=== PATIENT | female | born 1950 | race Caucasian/White ===

== ENCOUNTER → 2016-07-17 | Outpatient (CLI) | payer OTHER ==
[~2016-07-17] MED LIST: ACET-1256 PO; CALC0.5C17 PO; CHOL100010 PO; CHOL20007 PO; CHOLCAP5 PO; HYD50 PO; MULT-663 PO; POTA1CAP2 PO; WARF-246 PO; WARF5TAB7 PO; [UNRECOGNIZED DRUG - OTHER] PO
--- NOTE | 2016-07-17 15:00 | MAMMOGRAPHY REPORT ---
BILATERAL DIGITAL SCREENING MAMMOGRAM WITH CAD: 07/17/2016 CLINICAL HISTORY: Routine screening. Patient has no complaints. TECHNIQUE: Bilateral CC and MLO views were obtained with repeat MLO views for more anterior compress ion. Current study was also evaluated with a Computer Aided Detection (CAD) system. COMPARISON: Comparison is made to exams dated: 07/13/2015 mammogram, 08/06/2012 mammogram, 07/01/2014 m ammogram, 08/11/2013 mammogram, 07/06/2011 mammogram, and 04/27/2010 mammogram - [facility]. BREAST COMPOSITION: There are scattered areas of fibroglandular density in both breasts. FINDINGS: There are scattered bilateral benign coarse and rim calcifications. No suspicious mass, a rchitectural distortion or cluster of microcalcifications is seen. IMPRESSION: ACR BI-RADS CATEGORY 2: BENIGN There is no mammographic evidence of malignancy. A 1 year screening mammogram is recommended. The p atient will receive written notification of the results. Approximately 10% of breast cancers are not detected with mammography. A negative mammographic repor t should not delay biopsy if a clinically suggestive mass is present. Ivone Pantoja M.D. ay/:07/17/2016 13:50:37 Speech Instructor: Karoline CALVIN(R)(M), [facility] letter sent: Normal 1/2 BI-RADS Code: ACR BI-RADS Category 2: Benign
== END | disposition home or self-care (01) ==
LOC: C.MAMM 10:48
PROVIDERS: ATTEND Nurse Practitioner
DX: Z12.31 Encounter for screening mammogram for malignant neoplasm of breast (principal)

== ENCOUNTER 2016-07-25 19:03 | Emergency (ER) | payer OTHER ==
[~2016-07-25] VITALS: Ht 165.1 cm; Wt 109.3 kg
[~2016-07-25 19:03] MED LIST changes: -CHOL20007 PO; -HYD50 PO; -POTA1CAP2 PO; -[UNRECOGNIZED DRUG - OTHER] PO
[2016-07-25 19:09] VITALS: TEMP 36.5; Ht 165.1 cm; Wt 109.3 kg
[2016-07-25] MEDS ORDERED: ALUMINUM/MAGNESIUM SUSP 30 ML UDC PO STA (19:18)
[2016-07-25 19:26] VITALS: O2SAT 94
[2016-07-25] MEDS ORDERED: CHOL20007 PO (19:35)
[2016-07-25 19:39] LABS: BASO % 0.7 %; BASO ABS # 0.06 K/uL (0-0.2); COMPLETE YES; HEMATOCRIT 41.3 % (37-47); IG% 0.3 %; LYMPH % 33.7 %; LYMPH ABS # 2.96 K/uL (1.2-3.4); MEAN CELL VOLUME 85.9 fL (80-100); MEAN CORPUSCULAR HEMOGLOBIN 29.5 pg (25-34); MEAN CORPUSCULAR HGB CONC 34.4 g/dl (32-36); MEAN PLATELET VOLUME 9.7 fL (7.4-10.4); MONO % 5.6 %; NEUT % 58.7 %; PLATELET COUNT 275 K/uL (130-400); RED BLOOD COUNT 4.81 M/uL (4.2-5.4); WHITE BLOOD COUNT 8.79 K/uL (4.8-10.8)
[2016-07-25 20:12] LABS: ALB/GLOB RATIO 0.9 (0.9-2); ALKALINE PHOSPHATASE 80 U/L (45-117); ALT/SGPT 24 U/L (12-78); AST/SGOT 22 U/L (15-37); BLOOD UREA NITROGEN 33 mg/dl (7-18); BUN/CREATININE RATIO 21.9 (10-20); CALCIUM 10.2 mg/dl (8.5-10.1); CARBON DIOXIDE 27 mmol/L (21-32); CHLORIDE 105 mmol/L (98-107); CKMB/CK RATIO 1.4 (0-3.0); GLUCOSE 91 mg/dl (70-99); POTASSIUM 3.8 mmol/L (3.5-5.1); SODIUM 142 mmol/L (136-145)
--- NOTE | 2016-07-25 20:17 | DIAGNOSTIC IMAGING REPORT ---
SINGLE VIEW CHEST CLINICAL HISTORY: Dyspnea. FINDINGS: An AP, portable, upright chest radiograph is compared to study dated 09/27/2015. Correlation is made with chest CT dated 09/05/2014. The examination is degraded by portable technique and patient rotation. The heart is mildly enlarged. The pulmonary vasculature is noncongested. Chronic elevation of left hemidiaphragm and interstitial thickening is similar to previous. There is mild bibasilar atelectasis. No airspace consolidation, large pleural effusion, or pneumothorax is seen. The skeletal structures are osteopenic. The bony thorax is grossly intact. IMPRESSION: Mild cardiac enlargement with no active disease in the chest. Electronically signed by: Jay Lewis M.D. 07/25/2016 8:16 PM Dictated Date/Time: 07/25/2016 8:15 PM
[2016-07-25] MEDS ORDERED: SODIUM CHLORIDE 0.9% 500ML 500 ML IV STA (20:24)
--- NOTE | 2016-07-25 20:26 | DIAGNOSTIC IMAGING REPORT ---
KUB CLINICAL HISTORY: Upper abdominal pain. Constipation. FINDINGS: 3 AP supine abdominal radiographs are compared to study dated 03/20/2016 and correlated with abdominal CT dated 08/28/2014. There is a nonobstructed abdominal bowel gas pattern noting moderate to severe colonic fecal retention. No evidence of intraperitoneal free air is seen on these supine views. There are no abnormal abdominal calcifications. Numerous pelvic phleboliths are similar to previous. The skeletal structures are osteopenic. There is lumbosacral spondylosis and scoliosis. The bony pelvis is grossly intact. IMPRESSION: Nonobstructed abdominal bowel gas pattern noting moderate to severe constipation. Electronically signed by: Jay Lewis M.D. 07/25/2016 8:24 PM Dictated Date/Time: 07/25/2016 8:23 PM
[2016-07-25] MEDS ORDERED: POTA1CAP2 PO (20:49)
[2016-07-25] MEDS ORDERED: HYD50 PO (20:49)
[2016-07-25 20:54] LABS: URINE APPEARANCE CLEAR (CLEAR); URINE BILIRUBIN NEG (NEG); URINE COLOR YELLOW; URINE NITRITE NEG (NEG); URINE SPECIFIC GRAVITY 1.018 (1.000-1.030); UROBILINOGEN NEG (NEG)
[2016-07-25 20:56] LABS: MANUAL MICROSCOPIC REQUIRED? NO; REVIEW REQ? NO
[2016-07-25 21:27] LABS: INR 2.6 (0.9-1.1); PARTIAL THROMBOPLASTIN RATIO 1.7; PROTHROMBIN TIME (PATIENT) 29.1 SECONDS (9.0-12.0)
[2016-07-25 22:16] VITALS: BP 128/82; PULSE 66; O2SAT 98
--- NOTE | 2016-07-26 00:53 | EMERGENCY ROOM VISIT NOTE ---
History Report prepared by Shilpa: Ingrid Escobar Under the Supervision of: Lennie PathakO. First contact with patient: 19:12 Chief Complaint: SHORTNESS OF BREATH Stated Complaint: SOB AT TIMES History of Present Illness The patient is a 66 year old female who presents to the Emergency Room with complaints of worsening shortness of breath with onset 4 days ago. Today, the patient noticed that her shortness of breath worsened this morning along with some upper abdominal pain. The patient has had persistent indigestion all day. The patient took a suppository this morning, which seemed to help some of the abdominal cramping. She notes that she had been burping more frequently. She has some back discomfort and occasionally has chest and jaw pain and some left arm pain. The patient has an occasional nonproductive cough. The patient is on Coumadin for a history of pulmonary embolus in 2014. She denies fevers. Source of History: patient Onset: 4 days ago Position: chest Quality: other (shortness of breath) Timing: worsening Associated Symptoms: + abdominal pain, + chest pain, + cough Note: She had persistent indigestion all day. She had some left arm pain and jaw pain. Review of Systems See HPI for pertinent positives & negatives. A total of 10 systems reviewed and were otherwise negative. Past Medical & Surgical Medical Problems: (1) Atrial flutter (2) Bilateral pulmonary embolism (3) Coumadin therapy (4) DVT Family History Gallbladder disease Heart disease Seizures Social History Smoking Status: Never Smoker Drug Use: none Marital Status: Housing Status: lives with significant other Occupation Status: employed Current/Historical Medications Scheduled Calcitriol (Calcitriol), 1 MCG PO HS Cholecalciferol (Vitamin D3), 5,000 INTER.UNIT PO DAILY Cholecalciferol (Vitamin D3), 1 TAB PO DAILY Hydrochlorothiazide (Hydrochlorothiazide), 50 MG PO DAILY Multiple Minerals W/ Vitamins (Citracal Plus), 1 TAB PO 2XWK Potassium Chloride (Potassium Chloride Er), 10 MEQ PO BID Warfarin Sod (Jantoven), 5 MG PO WK Warfarin Sodium (Warfarin Sodium), 7.5 MG PO 6XWK Scheduled PRN Acetaminophen (Tylenol), 500 MG PO BID PRN for Pain Allergies Coded Allergies: No Known Allergies (Unverified , 09/27/15) Physical Exam Vital Signs Date Time Temp Pulse Resp B/P Pulse Ox O2 Delivery O2 Flow Rate FiO2 07/25/16 22:16 66 18 128/82 98 07/25/16 21:16 80 18 119/72 93 Room Air 07/25/16 20:24 60 18 116/77 96 Room Air 07/25/16 19:34 82 07/25/16 19:26 94 Room Air 07/25/16 19:26 94 Room Air 07/25/16 19:26 94 Room Air 07/25/16 19:09 36.5 86 22 132/94 91 Room Air Physical Exam GENERAL: Patient is awake, alert, and in no acute distress. Patient is resting comfortably and showing no signs of anxiety EYES: The conjunctivae are clear. The pupils are round and reactive. EARS, NOSE, MOUTH AND THROAT: The nose is without any evidence of any deformity. Mucous membranes are moist tongue is midline NECK: The neck is nontender and supple. RESPIRATORY: Normal respiratory effort is noted there is no evidence of wheezing rhonchi or rales CARDIOVASCULAR: Regular rate and rhythm noted there no murmurs rubs or gallops normal S1 normal S2 GASTROINTESTINAL: The abdomen is soft. Bowel sounds are present in all quadrants. Abdomen is nontender MUSCULOSKELETAL/EXTREMITIES: There is no evidence of gross deformity full range of motion is noted in the hips and shoulders SKIN: There is no obvious evidence of any rash. There are no petechiae, pallor or cyanosis noted. NEUROLOGIC: Patient is awake alert and oriented x3 strength is symmetric patellar reflexes are 2+ bilaterally Medical Decision & Procedures ER Provider Diagnostic Interpretation: X-ray results as stated below per interpretation by me and the radiologist. SINGLE VIEW CHEST CLINICAL HISTORY: Dyspnea. FINDINGS: An AP, portable, upright chest radiograph is compared to study dated 09/27/2015. Correlation is made with chest CT dated 09/05/2014. The examination is degraded by portable technique and patient rotation. The heart is mildly enlarged. The pulmonary vasculature is noncongested. Chronic elevation of left hemidiaphragm and interstitial thickening is similar to previous. There is mild bibasilar atelectasis. No airspace consolidation, large pleural effusion, or pneumothorax is seen. The skeletal structures are osteopenic. The bony thorax is grossly intact. IMPRESSION: Mild cardiac enlargement with no active disease in the chest. Electronically signed by: Jay Lewis M.D. 07/25/2016 8:16 PM Dictated Date/Time: 07/25/2016 8:15 PM KUB CLINICAL HISTORY: Upper abdominal pain. Constipation. FINDINGS: 3 AP supine abdominal radiographs are compared to study dated 03/20/2016 and correlated with abdominal CT dated 08/28/2014. There is a nonobstructed abdominal bowel gas pattern noting moderate to severe colonic fecal retention. No evidence of intraperitoneal free air is seen on these supine views. There are no abnormal abdominal calcifications. Numerous pelvic phleboliths are similar to previous. The skeletal structures are osteopenic. There is lumbosacral spondylosis and scoliosis. The bony pelvis is grossly intact. IMPRESSION: Nonobstructed abdominal bowel gas pattern noting moderate to severe constipation. Electronically signed by: Jay Lewis M.D. 07/25/2016 8:24 PM Dictated Date/Time: 07/25/2016 8:23 PM Laboratory Results 07/25/16 19:25 Red Blood Count 4.81, Mean Corpuscular Volume 85.9, Mean Corpuscular Hemoglobin 29.5, Mean Corpuscular Hemoglobin Concent 34.4, Mean Platelet Volume 9.7, Neutrophils (%) (Auto) 58.7, Lymphocytes (%) (Auto) 33.7, Monocytes (%) (Auto) 5.6, Eosinophils (%) (Auto) 1.0, Basophils (%) (Auto) 0.7, Neutrophils # (Auto) 5.16, Lymphocytes # (Auto) 2.96, Monocytes # (Auto) 0.49, Eosinophils # (Auto) 0.09, Basophils # (Auto) 0.06 07/25/16 19:25 Test 07/25/16 00:00 07/25/16 19:25 Urine Color YELLOW Urine Appearance CLEAR (CLEAR) Urine pH 6.0 (4.5-7.5) Urine Specific [place] 1.018 (1.000-1.030) Urine Protein NEG (NEG) Urine Glucose (UA) NEG (NEG) Urine Ketones NEG (NEG) Urine Occult Blood 1+ (NEG) Urine Nitrite NEG (NEG) Urine Bilirubin NEG (NEG) Urine Urobilinogen NEG (NEG) Urine Leukocyte Esterase SMALL (NEG) Urine WBC (Auto) 5-10 /hpf (0-5) Urine RBC (Auto) 0-4 /hpf (0-4) Urine Hyaline Casts (Auto) 1-5 /lpf (0-5) Urine Epithelial Cells (Auto) 10-20 /lpf (0-5) Urine Bacteria (Auto) NEG (NEG) White Blood Count 8.79 K/uL (4.8-10.8) Red Blood Count 4.81 M/uL (4.2-5.4) Hemoglobin 14.2 g/dL (12.0-16.0) Hematocrit 41.3 % (37-47) Mean Corpuscular Volume 85.9 fL (80-100) Mean Corpuscular Hemoglobin 29.5 pg (25-34) Mean Corpuscular Hemoglobin Concent 34.4 g/dl (32-36) Platelet Count 275 K/uL (130-400) Mean Platelet Volume 9.7 fL (7.4-10.4) Neutrophils (%) (Auto) 58.7 % Lymphocytes (%) (Auto) 33.7 % Monocytes (%) (Auto) 5.6 % Eosinophils (%) (Auto) 1.0 % Basophils (%) (Auto) 0.7 % Neutrophils # (Auto) 5.16 K/uL (1.4-6.5) Lymphocytes # (Auto) 2.96 K/uL (1.2-3.4) Monocytes # (Auto) 0.49 K/uL (0.11-0.59) Eosinophils # (Auto) 0.09 K/uL (0-0.5) Basophils # (Auto) 0.06 K/uL (0-0.2) RDW Standard Deviation 47.8 fL (36.4-46.3) RDW Coefficient of Variation 15.1 % (11.5-14.5) Immature Granulocyte % (Auto) 0.3 % Immature Granulocyte # (Auto) 0.03 K/uL (0.00-0.02) Prothrombin Time 29.1 SECONDS (9.0-12.0) Prothromb Time International Ratio 2.6 (0.9-1.1) Activated Partial Thromboplast Time 44.6 SECONDS (21.0-31.0) Partial Thromboplastin Ratio 1.7 D-Dimer < 190 ug/L FEU (0-500) Anion Gap 10.0 mmol/L (3-11) Est Creatinine Clear Calc Drug Dose 45.4 ml/min Estimated GFR () 41.6 Estimated GFR (Non- 35.9 BUN/Creatinine Ratio 21.9 (10-20) Calcium Level 10.2 mg/dl (8.5-10.1) Total Bilirubin 0.8 mg/dl (0.2-1) Aspartate Amino Transf (AST/SGOT) 22 U/L (15-37) Alanine Aminotransferase (ALT/SGPT) 24 U/L (12-78) Alkaline Phosphatase 80 U/L (45-117) Total Creatine Kinase 145 U/L (26-192) Creatine Kinase MB 2.0 ng/ml (0.5-3.6) Creatine Kinase MB Ratio 1.4 (0-3.0) Troponin I < 0.015 ng/ml (0-0.045) Pro-B-Type Natriuretic Peptide 87 pg/ml (0-900) Total Protein 7.5 gm/dl (6.4-8.2) Albumin 3.6 gm/dl (3.4-5.0) Globulin 3.9 gm/dl (2.5-4.0) Albumin/Globulin Ratio 0.9 (0.9-2) Chemistry Specimen Hemolysis Laboratory results per my review. Medications Administered Medications (Trade) Dose Ordered Sig/Edmund Route Start Time Stop Time Status Last Admin Dose Admin Al Hydroxide/Mg Hydroxide 30 ml 30 ml NOW STAT PO 07/25/16 19:18 07/25/16 19:20 DC 07/25/16 19:36 30 ML Sodium Chloride (Nss 500ml) 500 ml @ 999 mls/hr Q31M STAT IV 07/25/16 20:24 07/25/16 20:54 DC 07/25/16 20:30 999 MLS/HR ECG Indication: SOB/dyspnea Rate (beats per minute): 81 Rhythm: normal sinus Findings: no ectopy, other (no acute ST segment abnormality) Comparison ECG Date: September 05, 2014 Change: no significant change ED Course 1913: The patient was evaluated in room C8. A complete history and physical examination were performed. 1917: Maalox Susp 30 ml PO 2023: NSS 500 ml @ 999 mls/hr IV 2209: Upon reevaluation, the patient is doing well. I discussed the results and treatment plan with the patient. She verbalized agreement of the treatment plan. The patient was discharged home. Medical Decision Differential diagnosis: Etiologies such as infections, reactive airway disease, pneumonia, pneumothorax , COPD, CHF, cardiac ischemia, pulmonary embolism, musculoskeletal, gastrointestinal, as well as others were entertained. Nursing notes reviewed. The patient is a 66-year-old female who presented to the emergency department for an evaluation of epigastric discomfort and shortness of breath. Patient is a history of pulmonary embolism. She is currently taking anticoagulation. The patient was concerned because she thought she might be having a cardiac issue. I discussed the patient's laboratory and radiographic studies with her. Her EKG did not show any acute changes from previous and her cardiac biomarkers were not elevated. The patient was treated with Maalox in the emergency department. She was encouraged to rest and avoid any strenuous activity. She is also encouraged to call her family doctor in the morning to schedule follow-up appointment. She's also encouraged return to the emergency apartment immediately if symptoms change worsen or the need arises. I discussed the limitations of the emergency department workup for chest pain with her. The patient was also treated with a small fluid bolus because her creatinine was mildly elevated compared to previous. She was encouraged to discuss the possibility that she may require further testing such as stress testing as well as repeat laboratory studies to ensure her creatinine was improved. Impression Primary Impression: Epigastric abdominal pain Additional Impression: Shortness of breath Scribe Attestation The scribe's documentation has been prepared under my direction and personally reviewed by me in its entirety. I confirm that the note above accurately reflects all work, treatment, procedures, and medical decision making performed by me. Departure Information Dispostion Home / Self-Care Referrals Agapito Nava M.D. (PCP) Forms HOME CARE DOCUMENTATION FORM, IMPORTANT VISIT INFORMATION Patient Instructions ED Chest Pain Atypical Unkn Cause, My [facility] Additional Instructions Call your primary care physician in the morning to schedule a follow-up appointment. Rest and avoid any strenuous activity. Continue all medications as prescribed. I would recommend further testing at the discretion of your primary care physician such as echocardiogram or stress testing. I would also recommend he have laboratory studies rechecked including your kidney function as well as her calcium because of her abnormal today in the emergency department. Return to the emergency Department immediately if symptoms change worsen in the need arises. Problem Qualifiers
[2016-09-19] MEDS ORDERED: [UNRECOGNIZED DRUG - OTHER] PO (13:55)
== END 2016-07-25 22:17 | disposition home or self-care (01) ==
LOC: C.EDB 19:05 → C.EDC 22:17
DX: R10.13 Epigastric pain (principal); K59.00 Constipation, unspecified; M41.9 Scoliosis, unspecified; M47.817 Spondylosis without myelopathy or radiculopathy, lumbosacral region; Z79.01 Long term (current) use of anticoagulants; Z82.0 Family history of epilepsy and other diseases of the nervous system; R06.02 Shortness of breath; Z86.711 Personal history of pulmonary embolism

== ENCOUNTER 2016-08-10 04:08 | Emergency (ER) | payer OTHER ==
[~2016-08-10] VITALS: Ht 165.1 cm; Wt 110.4 kg
[~2016-08-10 04:08] MED LIST changes: -CHOL100010 PO; +CHOL20007 PO; +HYD50 PO; +POTA1CAP2 PO
[2016-08-10 04:10] VITALS: TEMP 36.7; Ht 165.1 cm; Wt 110.4 kg
[2016-08-10] MEDS ORDERED: SODIUM CHLORIDE 0.9% 1000ML 1,000 ML IV STA (04:24)
[2016-08-10 04:46] LABS: BASO % 0.6 %; BASO ABS # 0.04 K/uL (0-0.2); COMPLETE YES; EOS % 2.1 %; HEMATOCRIT 41.2 % (37-47); IG% 0.2 %; LYMPH ABS # 2.79 K/uL (1.2-3.4); MEAN CORPUSCULAR HEMOGLOBIN 29.6 pg (25-34); MEAN CORPUSCULAR HGB CONC 34.5 g/dl (32-36); MEAN PLATELET VOLUME 9.7 fL (7.4-10.4); MONO % 5.7 %; NEUT % 49.4 %; PLATELET COUNT 275 K/uL (130-400); RED BLOOD COUNT 4.79 M/uL (4.2-5.4); WHITE BLOOD COUNT 6.64 K/uL (4.8-10.8)
[2016-08-10 04:53] LABS: URINE APPEARANCE CLEAR (CLEAR); URINE BILIRUBIN NEG (NEG); URINE COLOR YELLOW; URINE EPITHELIAL CELL AUTO 0-5 /lpf (0-5); URINE NITRITE NEG (NEG); URINE SPECIFIC GRAVITY 1.001 (1.000-1.030); UROBILINOGEN NEG (NEG); ZZUR CULT IF INDIC CLEAN CATCH NO
[2016-08-10 04:54] LABS: MANUAL MICROSCOPIC REQUIRED? NO; REVIEW REQ? NO
[2016-08-10 05:04] LABS: BUN/CREATININE RATIO 16.9 (10-20); CALCIUM 9.7 mg/dl (8.5-10.1); CREATININE 1.1 mg/dl (0.60-1.20); POTASSIUM 3.7 mmol/L (3.5-5.1)
--- NOTE | 2016-08-10 05:12 | EMERGENCY ROOM VISIT NOTE ---
History Report prepared by Shilpa: Salena Oliveros Under the Supervision of: Dr. Mina Riddle D.O. First contact with patient: 04:16 Chief Complaint: LEG PAIN,LEG INJURY Stated Complaint: PAIN IN LEGS,FREQ URINEATION History of Present Illness The patient is a 66 year old female who presents to the Emergency Room with complaints of persistent frequent urination over the past 4 days. She has not been sleeping well because she has been having to get up so often to urinate. She also complains of bilateral leg pain that began last night. She describes the pain as tight and achy. The patient has a history of abnormal calcium levels due to an underlying metabolic disorder. She notes that her calcium was elevated at 10.3 about a week and a half ago. Currently, she feels that her symptoms may be related to an abnormal calcium level. She does not think that she has a urinary tract infection. Source of History: patient Onset: 4 days ago Position: other () Quality: other (frequent urination) Timing: other (persistent) Note: Other symptoms: tight/achy legs Review of Systems See HPI for pertinent positives & negatives. A total of 10 systems reviewed and were otherwise negative. Past Medical & Surgical Medical Problems: (1) Atrial flutter (2) Bilateral pulmonary embolism (3) Coumadin therapy (4) DVT Family History Gallbladder disease Heart disease Seizures Social History Smoking Status: Former Smoker Drug Use: none Marital Status: Housing Status: lives with significant other Occupation Status: employed Current/Historical Medications Scheduled Calcitriol (Calcitriol), 1 MCG PO HS Cholecalciferol (Vitamin D3), 5,000 INTER.UNIT PO DAILY Cholecalciferol (Vitamin D3), 1 TAB PO DAILY Hydrochlorothiazide (Hydrochlorothiazide), 50 MG PO DAILY Multiple Minerals W/ Vitamins (Citracal Plus), 1 TAB PO 2XWK Potassium Chloride (Potassium Chloride Er), 10 MEQ PO BID Warfarin Sod (Jantoven), 5 MG PO WK Warfarin Sodium (Warfarin Sodium), 7.5 MG PO 6XWK Scheduled PRN Acetaminophen (Tylenol), 500 MG PO BID PRN for Pain Allergies Coded Allergies: No Known Allergies (Unverified , 08/10/16) Physical Exam Vital Signs Date Time Temp Pulse Resp B/P Pulse Ox O2 Delivery O2 Flow Rate FiO2 08/10/16 04:10 36.7 69 20 166/91 94 Room Air Physical Exam CONSTITUTIONAL/VITAL SIGNS: Reviewed / noted above. GENERAL: Non-toxic in appearance. INTEGUMENTARY: Warm, dry, and [place]. HEAD: Normocephalic. EYES: without scleral icterus or trauma. ENT/OROPHARYNX: clear and moist. LYMPHADENOPATHY/NECK: Is supple without lymphadenopathy or meningismus. RESPIRATORY: Lungs clear and equal. CARDIOVASCULAR: Regular rate and rhythm. GI/ABDOMEN: Soft and nontender. No organomegaly or pulsatile mass. No rebound or guarding. Normal bowel sounds. EXTREMITIES: Warm and well perfused. BACK: No CVA tenderness. NEUROLOGICAL: Intact without focal deficits. PSYCHIATRIC: normal affect. MUSCULOSKELETAL: Normally developed with good muscle tone. Medical Decision & Procedures Laboratory Results 08/10/16 04:30 Red Blood Count 4.79, Mean Corpuscular Volume 86.0, Mean Corpuscular Hemoglobin 29.6, Mean Corpuscular Hemoglobin Concent 34.5, Mean Platelet Volume 9.7, Neutrophils (%) (Auto) 49.4, Lymphocytes (%) (Auto) 42.0, Monocytes (%) (Auto) 5.7, Eosinophils (%) (Auto) 2.1, Basophils (%) (Auto) 0.6, Neutrophils # (Auto) 3.28, Lymphocytes # (Auto) 2.79, Monocytes # (Auto) 0.38, Eosinophils # (Auto) 0.14, Basophils # (Auto) 0.04 08/10/16 04:30 Test 08/10/16 04:25 08/10/16 04:30 Urine Color YELLOW Urine Appearance CLEAR (CLEAR) Urine pH 8.0 (4.5-7.5) Urine Specific [place] 1.001 (1.000-1.030) Urine Protein NEG (NEG) Urine Glucose (UA) NEG (NEG) Urine Ketones NEG (NEG) Urine Occult Blood NEG (NEG) Urine Nitrite NEG (NEG) Urine Bilirubin NEG (NEG) Urine Urobilinogen NEG (NEG) Urine Leukocyte Esterase NEG (NEG) Urine WBC (Auto) 1-5 /hpf (0-5) Urine RBC (Auto) 0-4 /hpf (0-4) Urine Hyaline Casts (Auto) 0 /lpf (0-5) Urine Epithelial Cells (Auto) 0-5 /lpf (0-5) Urine Bacteria (Auto) NEG (NEG) White Blood Count 6.64 K/uL (4.8-10.8) Red Blood Count 4.79 M/uL (4.2-5.4) Hemoglobin 14.2 g/dL (12.0-16.0) Hematocrit 41.2 % (37-47) Mean Corpuscular Volume 86.0 fL (80-100) Mean Corpuscular Hemoglobin 29.6 pg (25-34) Mean Corpuscular Hemoglobin Concent 34.5 g/dl (32-36) Platelet Count 275 K/uL (130-400) Mean Platelet Volume 9.7 fL (7.4-10.4) Neutrophils (%) (Auto) 49.4 % Lymphocytes (%) (Auto) 42.0 % Monocytes (%) (Auto) 5.7 % Eosinophils (%) (Auto) 2.1 % Basophils (%) (Auto) 0.6 % Neutrophils # (Auto) 3.28 K/uL (1.4-6.5) Lymphocytes # (Auto) 2.79 K/uL (1.2-3.4) Monocytes # (Auto) 0.38 K/uL (0.11-0.59) Eosinophils # (Auto) 0.14 K/uL (0-0.5) Basophils # (Auto) 0.04 K/uL (0-0.2) RDW Standard Deviation 48.1 fL (36.4-46.3) RDW Coefficient of Variation 15.2 % (11.5-14.5) Immature Granulocyte % (Auto) 0.2 % Immature Granulocyte # (Auto) 0.01 K/uL (0.00-0.02) Anion Gap 8.0 mmol/L (3-11) Est Creatinine Clear Calc Drug Dose 62.2 ml/min Estimated GFR () 60.6 Estimated GFR (Non- 52.3 BUN/Creatinine Ratio 16.9 (10-20) Calcium Level 9.7 mg/dl (8.5-10.1) Total Bilirubin 0.8 mg/dl (0.2-1) Direct Bilirubin 0.2 mg/dl (0-0.2) Aspartate Amino Transf (AST/SGOT) 15 U/L (15-37) Alanine Aminotransferase (ALT/SGPT) 25 U/L (12-78) Alkaline Phosphatase 84 U/L (45-117) Total Creatine Kinase 124 U/L (26-192) Creatine Kinase MB 2.3 ng/ml (0.5-3.6) Creatine Kinase MB Ratio 1.9 (0-3.0) Total Protein 7.4 gm/dl (6.4-8.2) Albumin 3.8 gm/dl (3.4-5.0) Thyroid Stimulating Hormone (TSH) 3.100 uIu/ml (0.300-4.500) Laboratory results as stated above per my review. Medications Administered Medications (Trade) Dose Ordered Sig/Edmund Route Start Time Stop Time Status Last Admin Dose Admin Sodium Chloride (Nss 1000ml) 1,000 ml @ 999 mls/hr Q1H1M STAT IV 08/10/16 04:24 08/10/16 05:24 08/10/16 04:39 999 MLS/HR ED Course 0421: Previous medical records were reviewed. The patient was evaluated in room A10. A complete history and physical examination was performed. 0424: Ordered NSS 1000 ml @ 999 mls/hr IV. 0510: On reevaluation, the patient is resting comfortably. I discussed the results and findings with the patient. She verbalized agreement of the treatment plan. The patient was discharged home. Medical Decision Differential includes acute coronary syndrome, myocardial infarction, CVA, TIA, anemia, infection, pneumonia, UTI, pyelonephritis, poor nutrition, dehydration, electrolyte disturbance,hypoglycemia. This a 66-year-old female who presents to the ED with a chief complaint of frequency in urination as well as concerns about calcium level and dehydration. She complains of some mild discomfort in her legs. The patient states that she has a history of hypercalcemia and was worried about her calcium level being high. She denies any other specific complaints. No chest pains or shortness of breath. No abdominal pains. Physical exam was normal. Vital signs are stable. CBC is normal. Chemistry panel was normal. Calcium level is normal. Urine did not show infection. The patient was told results. She was hydrated with IV fluids. She is felt to be stable for discharge. Impression Primary Impression: Urinary frequency Additional Impression: Leg pain, bilateral Scribe Attestation The scribe's documentation has been prepared under my direction and personally reviewed by me in its entirety. I confirm that the note above accurately reflects all work, treatment, procedures, and medical decision making performed by me. Departure Information Dispostion Home / Self-Care Referrals Agapito Nava M.D. (PCP) Patient Instructions My [facility] Additional Instructions Your calcium level today is normal. Urine did not show infection. Follow-up with your doctors. Problem Qualifiers
[2016-08-10 05:15] LABS: CKMB/CK RATIO 1.9 (0-3.0); THYROID STIMULATING HORMONE 3.1 uIu/ml (0.300-4.500)
[2016-08-10 05:36] VITALS: BP 140/98; PULSE 62; O2SAT 98
[2016-09-19] MEDS ORDERED: [UNRECOGNIZED DRUG - OTHER] PO (13:55)
== END 2016-08-10 05:36 | disposition home or self-care (01) ==
LOC: C.EDB 04:09 → C.EDA 05:36
DX: R35.0 Frequency of micturition (principal); M79.605 Pain in left leg; M79.604 Pain in right leg; Z86.711 Personal history of pulmonary embolism; Z86.718 Personal history of other venous thrombosis and embolism; I48.92 Unspecified atrial flutter; Z87.891 Personal history of nicotine dependence; Z79.01 Long term (current) use of anticoagulants; Z79.899 Other long term (current) drug therapy; R51 Headache; I10 Essential (primary) hypertension

== ENCOUNTER 2016-08-10 18:14 | Emergency (ER) | payer OTHER ==
[~2016-08-10] VITALS: Ht 165.1 cm; Wt 110.9 kg
[2016-08-10 18:24] VITALS: Ht 165.1 cm; Wt 110.9 kg
[2016-08-10] MEDS ORDERED: ACETAMINOPHEN 500 MG TAB PO STA (19:05)
[2016-08-10] MEDS ORDERED: OXYCODONE HCL IR 5 MG TAB (IMMEDIATE RELEASE) PO STA (19:05)
[2016-08-10] MEDS ORDERED: ONDANSETRON 4MG OD TAB PO ONE (19:15)
--- NOTE | 2016-08-10 19:17 | EMERGENCY ROOM VISIT NOTE ---
History Report prepared by Shilpa: Shaheed Saucedo Under the Supervision of: Lennie PathakO. First contact with patient: 18:57 Chief Complaint: HYPERTENSION Stated Complaint: HEADACHE AND VERY HIGH BLOOD PRESSURE History of Present Illness The patient is a 66 year old female who presents to the Emergency Room with complaints of a persistent headache about 1.5 hours ago. She notes she was here overnight last night and was given fluids which lowered her calcium and BUN. She was constipated after returning home, and administered a fleet enema. This morning she reports her blood pressure was elevated, and she began to have a headache about 1.5 hour ago. She rates the headache an 8/10 in severity. The patient states she is on Coumadin and last had her level check 1.5 weeks ago which was 2.6 at the time. She denies any nausea or vomiting though notes having some dizziness. She reports sometimes getting caffeine headaches. The patient notes taking 25 mg of hydrochlorothiazide. Source of History: patient Onset: about 1.5 hours ago Position: head Symptom Intensity: 8/10 in severity Quality: other (headache) Timing: other (persistent) Associated Symptoms: No nausea, No vomiting Note: The patient notes having some dizziness. Review of Systems See HPI for pertinent positives & negatives. A total of 10 systems reviewed and were otherwise negative. Past Medical & Surgical Medical Problems: (1) Atrial flutter (2) Bilateral pulmonary embolism (3) Coumadin therapy (4) DVT Family History Gallbladder disease Heart disease Seizures Social History Smoking Status: Former Smoker Drug Use: none Marital Status: Housing Status: lives with significant other Occupation Status: employed Current/Historical Medications Scheduled Calcitriol (Calcitriol), 1 MCG PO HS Cholecalciferol (Vitamin D3), 5,000 INTER.UNIT PO DAILY Hydrochlorothiazide (Hydrochlorothiazide), 25 MG PO DAILY Potassium Chloride (Potassium Chloride Er), 10 MEQ PO BID Warfarin Sod (Jantoven), 5 MG PO WK Warfarin Sodium (Warfarin Sodium), 7.5 MG PO [id number] Scheduled PRN Acetaminophen (Tylenol), 500 MG PO BID PRN for Pain Allergies Coded Allergies: No Known Allergies (Unverified , 08/10/16) Physical Exam Vital Signs Date Time Temp Pulse Resp B/P Pulse Ox O2 Delivery O2 Flow Rate FiO2 08/10/16 20:13 36.3 62 18 124/71 100 08/10/16 19:25 74 18 152/99 97 Room Air 08/10/16 18:24 36.3 62 20 161/92 97 Room Air Physical Exam GENERAL: Patient is awake alert, somewhat anxious and uncomfortable. EYES: The conjunctivae are clear. The pupils are round and reactive. EARS, NOSE, MOUTH AND THROAT: The nose is without any evidence of any deformity. Mucous membranes are moist tongue is midline NECK: The neck is nontender and supple. RESPIRATORY: Normal respiratory effort is noted there is no evidence of wheezing rhonchi or rales CARDIOVASCULAR: Regular rate and rhythm noted there no murmurs rubs or gallops normal S1 normal S2 GASTROINTESTINAL: The abdomen is soft. Bowel sounds are present in all quadrants. Abdomen is nontender MUSCULOSKELETAL/EXTREMITIES: There is no evidence of gross deformity full range of motion is noted in the hips and shoulders SKIN: There is no obvious evidence of any rash. There are no petechiae, pallor or cyanosis noted. NEUROLOGIC: Patient is awake alert and oriented x3 strength is symmetric patellar reflexes are 2+ bilaterally Medical Decision & Procedures ER Provider Diagnostic Interpretation: Radiology results as stated below per my review and radiologist interpretation: HEAD CT NONCONTRAST Findings: The paranasal sinuses and mastoid air cells are clear. The calvarium and skull base are intact. The ventricles and sulci are within normal limits. There is no mass, hematoma, midline shift, or acute infarct. Impression: No acute intracranial abnormality. Electronically signed by: Cesar Boo M.D. 08/10/2016 7:35 PM Dictated Date/Time: 08/10/2016 7:34 PM Medications Administered Medications (Trade) Dose Ordered Sig/Edmund Route Start Time Stop Time Status Last Admin Dose Admin Ondansetron HCl (Zofran Odt) 4 mg ONE ONCE PO 08/10/16 19:15 08/10/16 19:16 DC 08/10/16 19:21 4 MG Acetaminophen (Tylenol Tab) 1,000 mg NOW STAT PO 08/10/16 19:05 08/10/16 19:06 DC 08/10/16 19:21 1,000 MG Ondansetron HCl (ZOFRAN ODT 4MG Home Pack) 1 homepack UD ONCE PO 08/10/16 20:00 08/10/16 20:01 DC 08/10/16 20:11 1 HOMEPACK Oxycodone HCl (Roxicodone Immediate Rel 5MG Home Pack) 1 homepack UD ONCE PO 08/10/16 20:00 08/10/16 20:01 DC 08/10/16 20:11 1 HOMEPACK ED Course 1901: The patient was evaluated in room C3. A complete history and physical examination were performed. 1904: Ordered Acetaminophen 1,000 mg PO, and Oxycodone HCl 5 mg PO. 1914: Ordered Ondansetron HCl 4 mg PO. 1999: Ordered Oxycodone HCl 1 homepack PO, and Oxycodone HCl 1 homepack PO. 2000: I reassessed the patient and she is doing well. 2004: Upon reevaluation, the patient is doing well. I discussed the results and treatment plan with the patient. She verbalized agreement of the treatment plan. The patient was discharged home. Medical Decision Differential diagnosis: Etiologies such as migraine headache, meningitis, sinusitis, CO exposure, ICH, SAH, infection, tumor, headache, sinus thrombosis, arterial dissection, as well as others were entertained. Nursing notes reviewed. The patient is a 66-year-old female who presented to the emergency department for an evaluation of headache. The patient states that she had an acute onset of headache lessened 5 hours prior to arrival. She had no meningismus or fever. She has no focal neurologic deficits. The patient was treated with pain medication in the emergency department. On subsequent reevaluation her headache was resolved. I discussed the patient's radiographic studies with her. She was also very concerned because her blood pressure was high. The blood pressure was reevaluated and was felt to be improved. The patient was encouraged to rest and avoid any strenuous activity. She was also encouraged to follow-up with her primary care physician for reevaluation and for blood pressure check. She was also encouraged to return to the emergency department immediately if symptoms change worsen or if the need arises. Impression Primary Impression: Acute headache Additional Impression: Hypertension Scribe Attestation The scribe's documentation has been prepared under my direction and personally reviewed by me in its entirety. I confirm that the note above accurately reflects all work, treatment, procedures, and medical decision making performed by me. Departure Information Dispostion Home / Self-Care Referrals Agapito Nava M.D. (PCP) Patient Instructions Headache Pain, My [facility] Additional Instructions Continue all Medications as prescribed. Call your family doctor in the morning to schedule a follow-up appointment. Rest and avoid any strenuous activity. I would recommend a blood pressure check her family doctor's office tomorrow. Problem Qualifiers
--- NOTE | 2016-08-10 19:36 | DIAGNOSTIC IMAGING REPORT ---
HEAD CT NONCONTRAST CT DOSE: 623.48 mGy.cm HISTORY: Headache mental status change TECHNIQUE: Multiaxial CT images of the head were performed without the use of intravenous contrast. Comparison: None. Findings: The paranasal sinuses and mastoid air cells are clear. The calvarium and skull base are intact. The ventricles and sulci are within normal limits. There is no mass, hematoma, midline shift, or acute infarct. Impression: No acute intracranial abnormality. Electronically signed by: Cesar Boo M.D. 08/10/2016 7:35 PM Dictated Date/Time: 08/10/2016 7:34 PM
[2016-08-10] MEDS ORDERED: OXYCODONE IR HOME PACK PO ONE (20:00)
[2016-08-10] MEDS ORDERED: ONDANSETRON HOME PACK 4MG OD TAB PO ONE (20:00)
[2016-08-10 20:13] VITALS: BP 124/71; PULSE 62; TEMP 36.3; O2SAT 100
[2016-09-19] MEDS ORDERED: [UNRECOGNIZED DRUG - OTHER] PO (13:55)
== END 2016-08-10 20:14 | disposition home or self-care (01) ==
LOC: C.EDB 18:15 → C.EDC 20:14
DX: R51 Headache (principal); I10 Essential (primary) hypertension; I48.92 Unspecified atrial flutter; Z86.711 Personal history of pulmonary embolism; Z87.891 Personal history of nicotine dependence; Z79.01 Long term (current) use of anticoagulants; Z79.899 Other long term (current) drug therapy

== ENCOUNTER → 2016-11-24 | Outpatient (CLI) | payer OTHER ==
[~2016-11-24] MED LIST changes: +ANT25 PO; +CALC-20 PO; +CALC0.5C PO; -CALC0.5C17 PO; +CHOL2000 PO; -CHOL20007 PO; +MISCCAP80 PO; -MULT-663 PO; +TRAM-10 PO; +[UNRECOGNIZED DRUG - OTHER] PO
[2016-11-24 13:17] LABS: BLOOD UREA NITROGEN 21 mg/dl (7-18); CARBON DIOXIDE 28 mmol/L (21-32); CHLORIDE 107 mmol/L (98-107); GLUCOSE 93 mg/dl (70-99); POTASSIUM 3.7 mmol/L (3.5-5.1); SODIUM 144 mmol/L (136-145)
[2016-11-24 13:32] LABS: CALCIUM 9.7 mg/dl (8.5-10.1)
== END | disposition home or self-care (01) ==
LOC: C.LABPVFM 07:57
PROVIDERS: ATTEND Family Medicine
DX: E83.50 Unspecified disorder of calcium metabolism (principal); Z11.59 Encounter for screening for other viral diseases

== ENCOUNTER → 2017-01-04 | Outpatient (CLI) | payer OTHER ==
[~2017-01-04] MED LIST changes: -ANT25 PO; -CALC-20 PO; -CALC0.5C PO; +CALC0.5C17 PO; -CHOL2000 PO; -MISCCAP80 PO; -TRAM-10 PO
[2017-01-04 12:36] LABS: ESTIMATED AVERAGE GLUCOSE 126 mg/dl; HA1C FLAG Normal (Normal)
[2017-01-04 12:50] LABS: ALT/SGPT 27 U/L (12-78); BLOOD UREA NITROGEN 20 mg/dl (7-18); BUN/CREATININE RATIO 17.7 (10-20); CALCIUM 10.4 mg/dl (8.5-10.1); CARBON DIOXIDE 29 mmol/L (21-32); CHLORIDE 105 mmol/L (98-107); CHOLESTEROL 215 mg/dl (0-200); GLUCOSE 98 mg/dl (70-99); POTASSIUM 4.1 mmol/L (3.5-5.1); SODIUM 141 mmol/L (136-145); TRIGLYCERIDES 151 mg/dl (0-150); VERY LOW DENSITY LIPOPROT CALC 30 mg/dl
[2017-01-04 13:00] LABS: ALB/GLOB RATIO 0.9 (0.9-2); ALKALINE PHOSPHATASE 72 U/L (45-117); AST/SGOT 19 U/L (15-37); HDL CHOLESTEROL 71 mg/dl; LDL CHOLESTEROL CALCULATED 114 mg/dl
== END | disposition home or self-care (01) ==
LOC: C.LAB 10:17
PROVIDERS: ATTEND Internal Medicine Endocrinology, Diabetes & Metabolism
DX: E55.9 Vitamin D deficiency, unspecified (principal); E66.01 Morbid (severe) obesity due to excess calories; Z86.39 Personal history of other endocrine, nutritional and metabolic disease; R73.01 Impaired fasting glucose; M85.80 Other specified disorders of bone density and structure, unspecified site

== ENCOUNTER → 2017-01-04 | Outpatient (CLI) | payer OTHER | END | disposition home or self-care (01) | LOC: C.MAMM 09:35 | PROVIDERS: ATTEND Internal Medicine Endocrinology, Diabetes & Metabolism | DX: M81.0 Age-related osteoporosis without current pathological fracture (principal); M85.852 Other specified disorders of bone density and structure, left thigh ==

== ENCOUNTER → 2017-04-23 | Outpatient (CLI) | payer OTHER ==
[~2017-04-23] MED LIST changes: +ANT25 PO; +CALC-20 PO; +CALC0.5C PO; -CALC0.5C17 PO; +CHOL2000 PO; +MISCCAP80 PO; +TRAM-10 PO; -[UNRECOGNIZED DRUG - OTHER] PO
[2017-04-23 17:54] LABS: BLOOD UREA NITROGEN 46 mg/dl (7-18); BUN/CREATININE RATIO 17.3 (10-20); CALCIUM 16.4 mg/dl (8.5-10.1); CARBON DIOXIDE 33 mmol/L (21-32); CHLORIDE 97 mmol/L (98-107); CREATININE 2.65 mg/dl (0.60-1.20); GLUCOSE 117 mg/dl (70-99); POTASSIUM 3.6 mmol/L (3.5-5.1); SODIUM 137 mmol/L (136-145)
[2017-04-23 18:10] LABS: ESTIMATED AVERAGE GLUCOSE 123 mg/dl; HA1C FLAG Normal (Normal)
== END | disposition home or self-care (01) ==
LOC: C.LABPVFM 12:08
PROVIDERS: ATTEND Family Medicine
DX: E21.3 Hyperparathyroidism, unspecified (principal); E83.52 Hypercalcemia

== ENCOUNTER → 2017-05-18 | Outpatient (CLI) | payer OTHER ==
[~2017-05-18] MED LIST changes: -CALC-20 PO; -CALC0.5C PO; -CHOL2000 PO; -CHOLCAP5 PO; -HYD50 PO
[2017-05-18 15:58] LABS: BLOOD UREA NITROGEN 20 mg/dl (7-18); CALCIUM 9.3 mg/dl (8.5-10.1); CARBON DIOXIDE 30 mmol/L (21-32); CHLORIDE 106 mmol/L (98-107); CREATININE 1.15 mg/dl (0.60-1.20); GLUCOSE 95 mg/dl (70-99); POTASSIUM 3.5 mmol/L (3.5-5.1); SODIUM 140 mmol/L (136-145)
[2017-05-18 15:59] LABS: PHOSPHORUS 3.1 mg/dl (2.5-4.9)
== END | disposition home or self-care (01) ==
LOC: C.LAB 15:05
PROVIDERS: ATTEND Internal Medicine Nephrology
DX: E83.50 Unspecified disorder of calcium metabolism (principal)

== ENCOUNTER → 2017-06-05 | Outpatient (CLI) | payer OTHER ==
[~2017-06-05] MED LIST changes: -ANT25 PO; -POTA1CAP2 PO
[2017-06-05 18:38] LABS: BLOOD UREA NITROGEN 20 mg/dl (7-18); CARBON DIOXIDE 26 mmol/L (21-32); CHLORIDE 108 mmol/L (98-107); CREATININE 1.05 mg/dl (0.60-1.20); GLUCOSE 88 mg/dl (70-99); POTASSIUM 3.9 mmol/L (3.5-5.1); SODIUM 141 mmol/L (136-145)
[2017-06-05 18:40] LABS: PHOSPHORUS 2.9 mg/dl (2.5-4.9)
== END | disposition home or self-care (01) ==
LOC: C.LABPVFM 09:40
PROVIDERS: ATTEND Internal Medicine Nephrology
DX: E83.50 Unspecified disorder of calcium metabolism (principal); N28.9 Disorder of kidney and ureter, unspecified

== ENCOUNTER → 2017-06-27 | Outpatient (CLI) | payer OTHER | END | disposition home or self-care (01) | LOC: C.PATHSPEC 10:41 | PROVIDERS: ATTEND Urology | DX: R31.29 Other microscopic hematuria (principal); R82.99 Other abnormal findings in urine; Z79.01 Long term (current) use of anticoagulants ==

== ENCOUNTER → 2017-07-03 | Outpatient (CLI) | payer OTHER | END | disposition home or self-care (01) | LOC: C.LABPVFM 09:50 | PROVIDERS: ATTEND Internal Medicine Endocrinology, Diabetes & Metabolism | DX: E83.50 Unspecified disorder of calcium metabolism (principal); M81.0 Age-related osteoporosis without current pathological fracture ==

== ENCOUNTER → 2017-07-23 | Outpatient (CLI) | payer OTHER ==
[~2017-07-23] MED LIST changes: +CALC0.2510 PO; +CRS/10 PO
--- NOTE | 2017-07-23 15:52 | MAMMOGRAPHY REPORT ---
BILATERAL DIGITAL SCREENING MAMMOGRAM TOMOSYNTHESIS WITH CAD: 07/23/2017 CLINICAL HISTORY: Routine screening. Patient has no complaints. TECHNIQUE: Breast tomosynthesis in addition to standard 2D mammography was performed. Current study was also evaluated with a Computer Aided Detection (CAD) system. COMPARISON: Comparison is made to exams dated: 07/13/2015 mammogram, 07/17/2016 mammogram, 07/01/2014 ma mmogram, 08/11/2013 mammogram, 08/06/2012 mammogram, and 07/06/2011 mammogram - [facility] nter. BREAST COMPOSITION: There are scattered areas of fibroglandular density in both breasts. FINDINGS: No suspicious masses, calcifications, or areas of architectural distortion are noted in ei ther breast. There has been no significant interval change compared to prior exams. Scattered bilate ral benign-appearing calcifications are again noted. IMPRESSION: ACR BI-RADS CATEGORY 2: BENIGN There is no mammographic evidence of malignancy. A 1 year screening mammogram is recommended. The pa tient will receive written notification of the results. Approximately 10% of breast cancers are not detected with mammography. A negative mammographic report should not delay biopsy if a clinically suggestive mass is present. Rhona Hogan M.D. /:07/23/2017 14:28:31 Writing Tutor: Joyce HUGHES)(Letha), [facility] letter sent: Normal 1/2 BI-RADS Code: ACR BI-RADS Category 2: Benign
== END | disposition home or self-care (01) ==
LOC: C.MAMM 10:39
PROVIDERS: ATTEND Family Medicine
DX: Z12.31 Encounter for screening mammogram for malignant neoplasm of breast (principal)

== ENCOUNTER → 2017-07-23 | Outpatient (CLI) | payer OTHER ==
[2017-07-23 12:57] LABS: BLOOD UREA NITROGEN 25 mg/dl (7-18); CALCIUM 8.8 mg/dl (8.5-10.1); CARBON DIOXIDE 27 mmol/L (21-32); GLUCOSE 90 mg/dl (70-99); POTASSIUM 3.5 mmol/L (3.5-5.1); SODIUM 141 mmol/L (136-145)
== END | disposition home or self-care (01) ==
LOC: C.LABPVFM 09:51
PROVIDERS: ATTEND Internal Medicine Endocrinology, Diabetes & Metabolism
DX: Z86.39 Personal history of other endocrine, nutritional and metabolic disease (principal)

== ENCOUNTER → 2017-10-02 | Outpatient (CLI) | payer OTHER ==
[~2017-10-02] MED LIST changes: +CALC500C3 PO; +FIBER CAPSULE PO; +HYDR-5688 PO; +MISC1TAB85 PO
== END | disposition home or self-care (01) ==
LOC: C.LABPVFM 09:44
PROVIDERS: ATTEND Internal Medicine Endocrinology, Diabetes & Metabolism
DX: E83.50 Unspecified disorder of calcium metabolism (principal)

== ENCOUNTER 2018-07-26 08:24 | Inpatient (IN) ==
--- NOTE | 2018-07-10 11:15 | Anesthesiology Consultation ---
Date of Service July 10, 2018 Assessment & Plan (1) Encounter for pre-operative examination: Plan: CHECK PT/INR/PTT STAT AM DOS Chart Review Chart Review: Acceptable Risk for Surgery and Patient seen in Pre Admission Testing Teaching & Discussion Instructed NPO after midnight before surgery, except medications with 15 cc of water. Medication instructions provided according to the PAT guidelines. History Surgery Operation Date: 07/26/18 12:30 Proposed Procedures p Right Anterior Total Hip Arthroplasty - Shaheed Ghosh DO Height/Weight Height: 5 ft 4 in Weight: 110.5 kg Allergies Allergy/AdvReac Type Severity Reaction Status Date / Time No Known Allergies Allergy Verified 07/05/18 13:16 Medications Home Medications Medication Instructions Recorded Confirmed Last Taken calcitriol 0.25 mcg capsule 0.25 mcg PO QAM cap 02/22/18 07/05/18 Unknown calcium carbonate-vitamin D3 1 tab PO QAM 02/25/18 07/05/18 Unknown [Calcium 500 With D] lactobacillus combination no.4 1 cap PO QAM 02/25/18 07/05/18 Unknown [Probiotic] calcium polycarbophil 625 mg tablet See Label Instructions PO DAILY 03/01/1805/13 Unknown warfarin 5 mg tablet See Label Instructions .ROUTE UD 03/01/18 07/05/18 Unknown tab naproxen sodium 220 mg tablet 220 mg PO BID PRN tab 05/01/18 07/05/18 Unknown Arthrozene 1 tab PO QAM 07/05/18 07/05/18 Unknown Forkolin 1 tab PO QAM 07/05/18 07/05/18 Unknown Past Medical History Medical History Right lumbar radiculitis L2-3 with mild central and mild right neuroforaminal stenosis 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 Per pt, was evaluated at [facility] last summer with negative workup Pulmonary embolism 07/2014 Hypercalciuria (Resolved) Skin cancer (Resolved) S/P MOHS PROCEDURE Bilateral pulmonary embolism (Inactive) 2014. DVT (deep venous thrombosis) (Inactive) 2014. POSSIBLY S/T TO MULTIPLE FALLS. Deep vein thrombosis (Inactive) Pulmonary embolism (Inactive) Pre-diabetes FOLLOWS WITH DR. TRAMMELL. NO MEDICATIONS CURRENTLY Past Surgical History Surgical History Status post Mohs surgery (Resolved) H/O nasal septoplasty (Resolved) S/P removal of parathyroid gland (Resolved) Past Anesthesia History No Hx of Anesthesia Complications and No Family Hx of Anesthesia Complications History of PONV No Motion Sickness Screening History of Motion Sickness: No Social History Smoking Status: Former smoker tobacco type: cigarettes Smoking cigarettes per day: HX OF RARE SOCIAL USE 30 YEARS AGO Do You Dip or Chew Tobacco: No Hx Alcohol Use: Yes Alcohol type: wine alcohol intake frequency: holidays/special occasions only Hx Substance Use: No substance use type: does not use Exercise / Class Metabolic Activity III < 4 Walking/Shop/Light housework (no CP or SOB with ambulation/grocery shopping/housework) Review of Systems Pt denies any recent chest pain, shortness of breath, palpitations, cough, fever or URI. Physical Exam Vital Signs BP: 131/84 P: 59bpm SPO2: 96% RA T: 97.6 F R: 12 ENMT Mouth: + dental restorations (two crowns); no chipped teeth and no loose teeth Thyromental Distance: > or= 3.5 Finger Breadths (3.5) Mallampati Class: II Neck normal visual inspection and + thick neck; neck extension not limited Respiratory normal respiratory effort Auscultation: lungs clear to auscultation bilaterally Cardiovascular Rate/Rhythm: regular rate and regular rhythm Heart Sounds: no murmur Vessels: no carotid bruit Extremities: no edema Testing Electrocardiogram Date: 07/10/18 Findings: + SB @ (50) Chest X-Ray Date: 07/10/18 Findings: + NAD Laboratory Results 07/10/18 11:31 Blood Type O Positive 07/10/18 11:31 Antibody Screen NEGATIVE 07/10/18 11:31 PT 25.0 Seconds (9.0-12.0) H 07/10/18 11:31 INR 2.6 (0.9-1.1) H 07/10/18 11:31 APTT 42.3 Seconds (21.0-31.0) H 07/10/18 11:31 Laboratory Tests 06/27/18 11:30 Sodium 141 Potassium 4.0 Chloride 106 Carbon Dioxide 28 BUN 15 Creatinine 0.92 Glucose 93
--- NOTE | 2018-07-10 11:24 | PAT Medication Instructions ---
Medication Instructions Date of Service July 10, 2018 Home Medications calcitriol 0.25 mcg capsule 0.25 mcg PO QAM calcium carbonate-vitamin D3 1 tab PO QAM [Probiotic] 1 cap PO QAM calcium polycarbophil 625 mg tablet warfarin 5 mg tablet PO UD naproxen sodium 220 mg tablet BID prn Arthrozene 1 tab PO QAM Forskolin 1 tab PO QAM ASK your surgeon for instructions naproxen sodium 220 mg tablet BID prn ASK your prescriber and surgeon warfarin 5 mg tablet PO UD (bridging to be arranged by [facility]) STOP taking 2 weeks before surgery Arthrozene 1 tab PO QAM Forskolin 1 tab PO QAM DO NOT take the morning of surgery calcium carbonate-vitamin D3 1 tab PO QAM [Probiotic] 1 cap PO QAM calcium polycarbophil 625 mg tablet Take evening before surgery calcitriol 0.25 mcg capsule 0.25 mcg PO QPM Other Notes If you have any questions please call us at [phone] or [phone] or [phone] or [phone]
--- NOTE | 2018-07-10 11:53 | XRay Report ---
XR chest Pre-admission PA/Lat CLINICAL HISTORY: pat preoperative evaluation COMPARISON STUDY: 04/23/2017 FINDINGS: The bones soft tissues and hemidiaphragms are normal. The cardiomediastinal silhouette is n ormal. The lungs are clear. The pulmonary vasculature is normal. Chronic elevation left hemidiaphragm . Mild chronic hilar fullness bilaterally. IMPRESSION: No acute process. The above report was generated using voice recognition software. It may contain grammatical, syntax or spelling errors. Electronically signed by: Cesar Boo M.D. 07/10/2018 11:51 AM
[2018-07-10 12:28] LABS: Basophils # (auto) 0.05 K/uL (0-0.2); Basophils % (auto) 0.9 %; Eosinophils # (auto) 0.12 K/uL (0-0.5); Hematocrit (blood only) 40.7 % (37-47); Hemoglobin 13.3 g/dL (12.0-16.0); Immature Granulocytes # (auto) 0.01 K/uL (0.00-0.02); Immature Granulocytes % (auto) 0.2 %; Lymphocytes # (auto) 1.29 K/uL (1.2-3.4); Mean Corpuscular Hgb Conc 32.7 g/dL (32-36); Mean Corpuscular Volume 86.4 fL (80-100); Mean Platelet Volume 10.5 fL (7.4-10.4); Monocytes # (auto) 0.47 K/uL (0.11-0.59); Neutrophils # (auto) 3.92 K/uL (1.4-6.5); Neutrophils % (auto) 66.9 %; Platelet Count 249 K/uL (130-400); RDW Coefficient of Variation 15.5 % (11.5-14.5); RDW Standard Deviation 49.5 fL (36.4-46.3); Red Blood Count 4.71 M/uL (4.2-5.4); White Blood Count 5.86 K/uL (4.8-10.8)
[2018-07-10 12:43] LABS: INR 2.6 (0.9-1.1); Partial Thromboplastin Ratio 1.6; Partial Thromboplastin Time 42.3 Seconds (21.0-31.0)
--- NOTE | 2018-07-25 06:39 | History & Physical Report ---
Date of Service July 25, 2018 Assessment & Plan (1) Osteoarthritis of right hip: We will proceed with a right anterior total hip arthroplasty. Postoperatively she will be bridged with Lovenox and started back up on her Coumadin. She has a history of multiple blood clots. She will be kept overnight in the hospital for postop medical management. She plans to use energy physical therapy upon discharge. Present on Admission?: Yes History of Present Illness Chief Complaint: Primary osteoarthritis of the right hip Primary Care Provider: Tiara Barton MD Sherrie is a pleasant 68-year-old female who is been dealing with chronic increasing right hip and groin pain. X-rays and clinical examination have been diagnostic for primary osteoarthritis of both hips with the right being worse than the left. After failing extensive conservative treatment, she is elected proceed with a right anterior total hip arthroplasty. Allergies Allergy/AdvReac Type Severity Reaction Status Date / Time No Known Allergies Allergy Verified 07/05/18 13:16 Home Medications Home Medications Medication Instructions Recorded Confirmed Type calcitriol 0.25 mcg capsule 0.25 mcg PO QAM cap 02/22/18 07/05/18 History calcium carbonate-vitamin D3 1 tab PO QAM 02/25/18 07/05/18 History [Calcium 500 With D] lactobacillus combination no.4 1 cap PO QAM 02/25/18 07/05/18 History [Probiotic] calcium polycarbophil 625 mg tablet See Label Instructions PO DAILY 03/01/1805/13 History warfarin 5 mg tablet See Label Instructions .ROUTE UD 03/01/18 07/05/18 History tab naproxen sodium 220 mg tablet 220 mg PO BID PRN tab 05/01/18 07/05/18 History Arthrozene 1 tab PO QAM 07/18/18 07/18/18 History Forkolin 1 tab PO QAM 07/18/18 07/18/18 History amoxicillin 875 mg-potassium 1 tab PO BID 07/18/18 07/18/18 History clavulanate 125 mg tablet hydrochlorothiazide 25 mg tablet 25 mg PO QAM 07/18/18 07/18/18 History potassium chloride ER 10 mEq 20 meq PO QAM tab 07/18/18 07/18/18 History tablet,extended release triamcinolone acetonide 0.1 % 1 appln DT BID PRN 07/18/18 07/18/18 History dental paste Past Med/Surg History Medical History Right lumbar radiculitis L2-3 with mild central and mild right neuroforaminal stenosis 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 Per pt, was evaluated at [facility] last summer with negative workup Pulmonary embolism 07/2014 Hypercalciuria (Resolved) Skin cancer (Resolved) S/P MOHS PROCEDURE Bilateral pulmonary embolism (Inactive) 2014. DVT (deep venous thrombosis) (Inactive) 2014. POSSIBLY S/T TO MULTIPLE FALLS. Deep vein thrombosis (Inactive) Pulmonary embolism (Inactive) Pre-diabetes FOLLOWS WITH DR. TRAMMELL. NO MEDICATIONS CURRENTLY Surgical History Status post Mohs surgery (Resolved) H/O nasal septoplasty (Resolved) S/P removal of parathyroid gland (Resolved) Social History Current Living Situation: Spouse Feels Safe at Home: Yes Smoking Status: Former smoker Tobacco Type: cigarettes Cigarettes per Day: HX OF RARE SOCIAL USE 30 YEARS AGO Hx Alcohol Use: Yes Alcohol type: wine Alcohol Intake Frequency: holidays/ special occasions only Hx Substance Use: No Beliefs That Will Affect Care: None Preferred Language: Nauruan Communication Ability: Effective Review of Systems All systems reviewed & are unremarkable except as noted in HPI & below Physical Exam 2 Constitutional: WD/WN, vitals as above Eyes: PERRL, conjunctivae normal, anicteric sclerae ENMT: external ear and nose normal, oropharynx normal Neck: trachea midline, no thyromegaly Respiratory: normal respiratory effort Cardiovascular: RRR, no murmur, no edema Gastrointestinal (Abdomen): normal bowel sounds, soft, nontender, no hepatosplenomegaly Musculoskeletal: Physical examination of the right hip reveals decreased range of motion with flexion, internal and external rotation. There is significant groin pain with forced internal rotation of the hip his leg lengths are essentially equal. Psychiatric: A+Ox3, euthymic affect Results & Data Diagnostic Findings Radiographs of the right hip and pelvis demonstrate advanced osteoarthritis with joint space narrowing osteophyte formation and [id number] articulation.
[~2018-07-26 08:24] MED LIST changes: -ACET-1256 PO; +ACETAMINOPHEN 500 MG TAB PO SCH; +BUPIVACAINE 0.5 % 5 MG/1 ML PF 10ML VIAL ONE; -CALC0.2510 PO; -CALC500C3 PO; +CEFAZOLIN 2000MG 2,000 MG/15 ML SYR IV SCH; -CRS/10 PO; +FAMOTIDINE 20 MG TAB PO SCH; -FIBER CAPSULE PO; +GABAPENTIN 300 MG PO SCH; -HYDR-5688 PO; +LR 500ML BOLUS, THEN 15ML/HR IV SCH; +LR 60ML/HR IV SCH; -MISC1TAB85 PO; -MISCCAP80 PO; +ROPIVACAINE 0.5% HCL/PF 150 MG, BUPIVACAINE 0.5% MPF 30 ML, EPINEPHrine 30MG/30ML (OR U... INFIL SCH; -TRAM-10 PO; +TRANEXAMIC ACID 1,000 MG **IV Intra-op IV SCH; +TRANEXAMIC ACID 1,000 MG **IV Pre-op IV SCH; -WARF-246 PO; -WARF5TAB7 PO
--- NOTE | 2018-07-26 09:09 | History & Physical Bridge Note ---
Date of Service July 26, 2018 History & Physical Bridge Note I have examined the patient, reviewed the History & Physical and in the interval since the performance of the History & Physical I have noted the following changes of clinical significance: no changes noted
[2018-07-26 09:12] LABS: INR 0.9 (0.9-1.1); Partial Thromboplastin Time 27.1 Seconds (21.0-31.0); Prothrombin Time 9.6 Seconds (9.0-12.0)
[2018-07-26] MEDS ORDERED: SODIUM CHLORIDE 0.9% 1000ML 1,000 ML IV SCH ×2 (09:27→18:00)
[2018-07-26] MEDS: LR 500ML BOLUS, THEN 15ML/HR IV SCH ×4 (09:46→17:35)
[2018-07-26] MEDS ORDERED: fentaNYL citrate 100 MCG/2 ML VIAL ONE (12:18)
[2018-07-26] MEDS ORDERED: MIDAZOLAM HCL 1 MG/ML 2ML VIAL ONE (12:18)
[2018-07-26] MEDS ORDERED: ePHEDrine sulfate 50 MG/ML AMP IV PRN (12:40)
[2018-07-26] MEDS ORDERED: ATROPINE SULFATE 0.1 MG/ML 10ML SYR IV PRN (12:40)
[2018-07-26] MEDS ORDERED: POVIDONE-IODINE OP SOLN 30 ML BTL ONE (13:07)
[2018-07-26] MEDS ORDERED: ORTHO JOINT ANESTHETIC ONE (13:07)
[2018-07-26] MEDS ORDERED: PHENYLEPHRINE 100MCG/ML 5ML SYR ONE (15:13)
--- NOTE | 2018-07-26 15:33 | Operative Report ---
Post Operative Report Pre & Post Diagnosis Operation Date: 07/26/18 10:40 Pre-Op Diagnosis: Right Hip Degenerative Joint Disease Post-Op Diagnosis: Right Hip Degenerative Joint Disease Procedure Operation Date: 07/26/18 10:40 Actual Procedures p Right Anterior Total Hip Arthroplasty(Right) - Shaheed Ghosh DO Surgeon Shaheed Ghosh DO Government Relations Manager Shaheed Marie PAC Estimated Blood Loss 300 Findings Consistent with Post-Op Diagnosis Specimens None Complications none Disposition Disposition: Recovery Room Nestor Balderas is a pleasant 68-year-old female who is been dealing with chronic increasing right hip and groin pain. X-rays and clinical examination were diagnostic for primary osteoarthritis of the right hip. Had failed extensive conservative treatment, she elected to proceed with a right total hip arthroplasty. Description of Procedure Implants used Biomet Taperloc total hip arthroplasty system with a size 11 Taperloc stem, a 50 mm G7 cup with a 25mm screw, an E1 polyethylene liner, a 36 mm ceramic head with a 0 neck. Patient arrived at the hospital for the above procedure. They were seen in the preoperative holding area and the operative extremity was identified and signed. They were given a spinal anesthetic. They were given a preoperative antibiotic and TXA. They were taken back To the operating room and laid on the table in the supine position. The leg was brought out through a Puristst leg positioner. The hip was then prepped and draped in sterile fashion. A timeout was done and the patient in upper extremities properly identified. An anterior approach was used. Dissection was taken down through the fascia and the tensor muscle belly was retracted laterally and the rectus was retracted medially. The circumflex vessels were identified and ligated. The capsule was then incised and tagged for later repair. The femoral neck was then cut and the femoral head was removed. The acetabulum was exposed. Time was spent doing a complete circumferential labral release. Sequential reaming of the acetabulum up to a size 49 reamer was done. Final reamings were done under fluoroscopy to ensure appropriate version. A Biomet 50 mm G7 cup was then impacted into place. A single 25 mm screw was placed. The E1 polyethylene liner was then snapped into place. Surrounding soft tissues were then injected with 100 cc of an orthopedic pain control cocktail. The proximal femur was then exposed. Sequential broaching up to a size 11 broach was done. Off that broach a size 36 head with a 0 neck was trialed. The hip was reduced and fluoroscopic images showed anatomic alignment of the implants in acceptable length. The broach was removed. The final size 11 standard offset Taperloc stem was then impacted into place. A ceramic 36 mm head with a 0 neck was then impacted into place in the hip was reduced. Final fluoroscopic images showed anatomic reduction of the hip. The capsule was then closed with #1 Vicryl suture. A dilute betadyne lavage was then done for 3 minutes. The joint was then irrigated with normal saline solution. The fascia was closed with #1 PDS suture. Skin was closed with 2-0 Vicryl, bong, and a [place] VAC dressing. The patient was then transferred to a hospital bed and taken to the post anesthesia care unit in stable condition. They tolerated the procedure well. I attest to the content of the Intraoperative Record and any orders documented therein. Any exceptions are noted below.
--- NOTE | 2018-07-26 15:36 | Fluoroscopy Report ---
FL hip RT 1V CLINICAL HISTORY: RT ANTERIOR HIP COMPARISON STUDY: Conventional radiographic study dated 04/18/2018 FLUOROSCOPY TIME: 33 seconds. NUMBER OF FLUOROSCOPIC IMAGES: 5 FINDINGS: 5 fluoroscopic images were obtained during a total right hip arthroplasty. The final fluoro scopic spot images demonstrates a total right hip arthroplasty. There is a single acetabular screw. T here is no dislocation. IMPRESSION: Intraprocedural fluoroscopic spot images obtained during a total right hip arthroplasty Electronically signed by: Gilbert Elmore M.D. 07/26/2018 3:34 PM
--- NOTE | 2018-07-26 16:36 | Anesthesiology Progress Note ---
Date of Service July 26, 2018 Anesthesia Post Procedure Vital Signs Vital Signs: Temp Pulse Resp BP Pulse Ox 07/26/18 16:30 36.3 C L 55 L 14 98/69 L 98 07/26/18 16:20 56 L 15 107/65 99 07/26/18 16:10 50 L 14 108/67 100 07/26/18 16:00 56 L 15 100/67 100 07/26/18 15:50 36.7 C 63 16 109/57 L 100 07/26/18 09:13 36.5 C 20 142/96 H 97 Pain Intensity Right Hip: Pain Intensity: 0 Notes Mental Status: alert / awake / arousable Patient Amnestic to Procedure: Yes Nausea / Vomiting: adequately controlled Pain: adequately controlled Airway Patency, RR, SpO2: stable & adequate BP & HR: stable & adequate Hydration State: stable & adequate Neuraxial Anesthesia: was administered and sensory block is resolving Anesthetic Complications: no major complications apparent
--- NOTE | 2018-07-26 16:37 | XRay Report ---
XR hip 1V RT w pelvis CLINICAL HISTORY: IN PACU - A/P PELVIS and LATERAL HIP COMPARISON: None. DISCUSSION: Anatomic alignment post total right hip arthroplasty. Good contact between prosthetic and underlying bone. There is no evidence for soft tissue swelling. IMPRESSION: Anatomic alignment post total right hip arthroplasty. The above report was generated using voice recognition software. It may contain grammatical, syntax or spelling errors. Electronically signed by: Cesar Boo M.D. 07/26/2018 4:36 PM
[2018-07-26] MEDS ORDERED: MAGNESIUM HYDROXIDE SUSP 30 ML UDC PO PRN (17:03)
[2018-07-26] MEDS ORDERED: ONDANSETRON INJ 2 MG/ML 2 ML VIAL IV PRN (17:03)
[2018-07-26] MEDS ORDERED: NALOXONE HCL 0.4 MG/1 ML VIAL/CARP IV PRN (17:03)
[2018-07-26] MEDS ORDERED: HYDROmorphone INJ 0.5 MG/0.5 ML SYR IV PRN (17:03)
[2018-07-26] MEDS ORDERED: METOCLOPRAMIDE HCL INJ 5 MG/ML 2 ML VIAL IV PRN (17:03)
[2018-07-26] MEDS ORDERED: BISACODYL 10 MG SUPP PR PRN (17:03)
[2018-07-26] MEDS: KETOROLAC TROMETHAMINE 15 MG/ML VIAL IV SCH (18:02)
[2018-07-26] MEDS: WARFARIN SOD 7.5 MG TAB PO SCH (20:00)
[2018-07-26] MEDS: SENNA 8.6 MG TAB PO SCH (20:40)
[2018-07-26] MEDS: DOCUSATE SODIUM 100 MG CAP PO SCH (20:44)
[2018-07-26] MEDS: ACETAMINOPHEN 500 MG TAB PO SCH (21:41)
[2018-07-26] MEDS: CEFAZOLIN 2000MG 2,000 MG/15 ML SYR IV SCH (21:41)
[2018-07-26] MEDS: OXYCODONE HCL IR 5 MG TAB (IMMEDIATE RELEASE) PO PRN (21:43)
[2018-07-27] MEDS: KETOROLAC TROMETHAMINE 15 MG/ML VIAL IV SCH ×5 (00:42→23:58)
[2018-07-27] MEDS: OXYCODONE HCL IR 5 MG TAB (IMMEDIATE RELEASE) PO PRN ×4 (03:25→17:45)
[2018-07-27 05:55] LABS: Basophils # (auto) 0.02 K/uL (0-0.2); Basophils % (auto) 0.2 %; Hematocrit (blood only) 35.7 % (37-47); Hemoglobin 11.9 g/dL (12.0-16.0); Immature Granulocytes # (auto) 0.02 K/uL (0.00-0.02); Immature Granulocytes % (auto) 0.2 %; Lymphocytes # (auto) 0.67 K/uL (1.2-3.4); Mean Corpuscular Hgb Conc 33.3 g/dL (32-36); Mean Corpuscular Volume 87.7 fL (80-100); Mean Platelet Volume 9.7 fL (7.4-10.4); Monocytes % (auto) 7.2 %; Neutrophils # (auto) 7.07 K/uL (1.4-6.5); Neutrophils % (auto) 84.4 %; Platelet Count 180 K/uL (130-400); RDW Coefficient of Variation 15.6 % (11.5-14.5); RDW Standard Deviation 49.9 fL (36.4-46.3); Red Blood Count 4.07 M/uL (4.2-5.4); White Blood Count 8.38 K/uL (4.8-10.8)
[2018-07-27 06:11] LABS: Prothrombin Time 10.1 Seconds (9.0-12.0)
[2018-07-27] MEDS: CEFAZOLIN 2000MG 2,000 MG/15 ML SYR IV SCH (06:15)
[2018-07-27] MEDS: ACETAMINOPHEN 500 MG TAB PO SCH ×3 (06:15→21:31)
[2018-07-27 06:22] LABS: BUN Creatinine Ratio 17.3 (10-20); Calcium 8.4 mg/dl (8.5-10.1); Creatinine Clr Calc Pharmacy 64.3 ml/min; Est GFR (African American) 66.2; Est GFR (Non-African American) 57.2
--- NOTE | 2018-07-27 07:14 | Orthopedic Progress Note ---
Date of Service July 27, 2018 Ashia Balderas was seen and examined at bedside this morning. Overall she is doing fairly well. The Nielsen has been discontinued and she is already been up and ambulating to the bathroom. She got her first dose of Coumadin last night and she will get a dose of Lovenox today. She will be seen by physical therapy today for ambulation. We plan to discharge her to home tomorrow with home physical therapy. She will get another dose of 15 mg of Coumadin tonight and she can start back on her 7.5 mg of Coumadin tomorrow night. She has 3 doses of Lovenox waiting for her at home. She is been very compliant with the Coumadin nomogram. She is on oxycodone for pain control. Physical Exam 2 Vital Signs (Past 24 Hours): Last Vital Signs Temp 36.5 C 07/27/18 03:04 Pulse 56 L 07/27/18 03:04 Resp 16 07/27/18 03:04 BP 105/66 07/27/18 03:04 Pulse Ox 94 07/27/18 03:04
[2018-07-27] MEDS ORDERED: AMOXICILLIN/CLAVULANATE 875 MG TAB PO SCH (08:00)
--- NOTE | 2018-07-27 08:22 | Anesthesiology Progress Note ---
Date of Service July 27, 2018 Anesthesia Post Procedure Vital Signs Vital Signs: Temp Pulse Pulse Resp BP Pulse Ox 07/27/18 07:48 36.6 C 69 18 113/68 96 07/27/18 03:04 36.5 C 56 L 16 105/66 94 07/26/18 22:58 36.2 C L 64 16 119/70 94 07/26/18 19:45 36.7 C 63 16 120/83 97 07/26/18 18:58 36.8 C 56 L 18 111/69 100 07/26/18 17:55 36.5 C 57 L 18 108/67 98 07/26/18 17:19 36.3 C L 53 L 18 109/72 96 07/26/18 16:30 36.3 C L 55 L 14 98/69 L 98 07/26/18 16:20 56 L 15 107/65 99 07/26/18 16:10 50 L 14 108/67 100 07/26/18 16:00 56 L 15 100/67 100 07/26/18 15:50 36.7 C 63 16 109/57 L 100 07/26/18 09:13 36.5 C 20 142/96 H 97 Pain Intensity Right Hip: Pain Intensity: 0 Notes Mental Status: alert / awake / arousable and participated in evaluation Patient Amnestic to Procedure: Yes Nausea / Vomiting: adequately controlled Pain: adequately controlled Airway Patency, RR, SpO2: stable & adequate BP & HR: stable & adequate Hydration State: stable & adequate Neuraxial Anesthesia: was administered and sensory block resolved Anesthetic Complications: no major complications apparent and Pt Satisfied with anesthetic care
[2018-07-27] MEDS ORDERED: LACTOBACILLUS COMBINATION NO 4 PO SCH (09:00)
[2018-07-27] MEDS ORDERED: CALCITRIOL 0.25 MCG CAPSULE PO SCH ×2 (09:00→20:00)
[2018-07-27] MEDS ORDERED: Nursing to Pharmacy Communication ONE (09:52)
[2018-07-27] MEDS: DOCUSATE SODIUM 100 MG CAP PO SCH ×2 (09:54→21:30)
[2018-07-27] MEDS: MULTIVITAMIN TAB PO SCH (09:55)
[2018-07-27] MEDS: CALCIUM POLYCARBOPHIL 1 TAB PO SCH (09:55)
[2018-07-27] MEDS ORDERED: ENOXAPARIN INJ 40 MG/0.4 ML SYR SQ SCH (15:45)
[2018-07-27] MEDS: WARFARIN SOD 7.5 MG TAB PO SCH (15:48)
[2018-07-27] MEDS: AMOXICILLIN/CLAVULANATE 875 MG TAB PO SCH (17:22)
[2018-07-27] MEDS: SENNA 8.6 MG TAB PO SCH (21:31)
[2018-07-28] MEDS: OXYCODONE HCL IR 5 MG TAB (IMMEDIATE RELEASE) PO PRN ×3 (00:03→11:31)
[2018-07-28] MEDS: ACETAMINOPHEN 500 MG TAB PO SCH (05:46)
[2018-07-28] MEDS: KETOROLAC TROMETHAMINE 15 MG/ML VIAL IV SCH ×2 (05:48→11:31)
[2018-07-28 06:21] LABS: INR 1.3 (0.9-1.1); Prothrombin Time 12.6 Seconds (9.0-12.0)
[2018-07-28] MEDS: AMOXICILLIN/CLAVULANATE 875 MG TAB PO SCH (08:00)
[2018-07-28] MEDS: CALCIUM POLYCARBOPHIL 1 TAB PO SCH (08:01)
[2018-07-28] MEDS: DOCUSATE SODIUM 100 MG CAP PO SCH (08:02)
[2018-07-28] MEDS: MULTIVITAMIN TAB PO SCH (08:02)
--- NOTE | 2018-07-28 09:20 | Orthopedic Progress Note ---
Date of Service July 28, 2018 Assessment & Plan (1) Osteoarthritis of right hip: Overall she is doing fairly well. Hopefully suppository will help with her constipation. Her hips feel well and she is ambulate well with physical therapy. She is on Lovenox and Coumadin for DVT prophylaxis. She is on oxycodone for pain control. We plan to discharge her to home later today with [facility]. She will follow-up with orthopedics in 2 weeks. Present on Admission?: Yes Ashia Lawler was seen at bedside this morning. She was in the bathroom given herself a suppository. She is been doing very well with her hip. According to the nurses she is been up and ambulating well with physical therapy. She has been having some constipation issues. She has been passing gas and has no signs of an ileus. Physical Exam 2 Vital Signs (Past 24 Hours): Last Vital Signs Temp 36.9 C 07/28/18 06:29 Pulse 59 L 07/28/18 06:29 Resp 16 07/28/18 06:29 BP 111/75 07/28/18 06:29 Pulse Ox 93 07/28/18 06:29 Musculoskeletal: On examination of the hip the [place] VAC dressing is to suction. Her leg lengths are equal. She is active dorsi flexion plantarflexion of her ankle. Results & Data Laboratory Results H & H 07/10/18 07/27/18 Range/Units 11:31 05:35 Hgb 13.3 11.9 L (12.0-16.0) g/dL Hct 40.7 35.7 L (37-47) % Coagulation 07/10/18 07/26/18 07/27/18 Range/Units 11:31 08:51 05:35 INR 2.6 H 0.9 1.0 (0.9-1.1) 07/28/18 Range/Units 05:33 INR 1.3 H (0.9-1.1)
--- NOTE | 2018-07-28 09:22 | Discharge Summary ---
Date of Service July 28, 2018 Admission HPI Per Admitting Provider Sherrie is a pleasant 68-year-old female who is been dealing with chronic increasing right hip and groin pain. X-rays and clinical examination have been diagnostic for primary osteoarthritis of both hips with the right being worse than the left. After failing extensive conservative treatment, she is elected proceed with a right anterior total hip arthroplasty. Specialty Data Orthopedic H & H 07/10/18 07/27/18 Range/Units 11:31 05:35 Hgb 13.3 11.9 L (12.0-16.0) g/dL Hct 40.7 35.7 L (37-47) % Coagulation 07/10/18 07/26/18 07/27/18 Range/Units 11:31 08:51 05:35 INR 2.6 H 0.9 1.0 (0.9-1.1) 07/28/18 Range/Units 05:33 INR 1.3 H (0.9-1.1) Discharge Data Consultations 07/27/18 08:00 Consult Case Management - Discharge Planning Routine Procedures Performed Operation Date: 07/26/18 10:40 Actual Procedures p Right Anterior Total Hip Arthroplasty(Right) - Shaheed Ghosh, Hospital Course (1) Osteoarthritis of right hip: On July 26, 2018 Sherrie arrived at [facility] and underwent a right total hip arthroplasty without complication. She had a spinal anesthetic. Postoperatively she was started back on Coumadin for DVT prophylaxis and bridged with Lovenox. Her hospital course was uneventful. On postop day #1 her H&H was stable and her pain was well controlled. She was able to ambulate well with physical therapy. Postop day #2 she had a little bit of issues with constipation had to give herself a suppository. That seemed to help. She was subsequently discharged to home with [facility]. She will follow-up with orthopedics in 2 weeks. Discharge Instructions Home Medications Medication Instructions Recorded Confirmed calcitriol 0.25 mcg capsule 0.25 mcg PO QAM cap 02/22/18 07/26/18 calcium carbonate-vitamin D3 1 tab PO QAM 02/25/18 07/26/18 [Calcium 500 With D] lactobacillus combination no.4 1 cap PO QAM 02/25/18 07/26/18 [Probiotic] calcium polycarbophil 625 mg tablet See Label Instructions PO DAILY 03/01/1807/13 warfarin 5 mg tablet See Label Instructions .ROUTE UD 03/01/18 07/26/18 tab naproxen sodium 220 mg tablet 220 mg PO BID PRN tab 05/01/18 07/26/18 Arthrozene 1 tab PO QAM 07/18/18 07/18/18 Forkolin 1 tab PO QAM 07/18/18 07/18/18 amoxicillin 875 mg-potassium 1 tab PO BID 07/18/18 07/18/18 clavulanate 125 mg tablet hydrochlorothiazide 25 mg tablet 25 mg PO QAM 07/18/18 07/18/18 potassium chloride ER 10 mEq 20 meq PO QAM tab 07/18/18 07/18/18 tablet,extended release triamcinolone acetonide 0.1 % 1 appln DT BID PRN 07/18/18 07/18/18 dental paste magnesium 250 mg tablet 250 mg PO DAILY 07/25/18 07/25/18 enoxaparin [Lovenox] 40 mg SUBCUT DAILY 07/26/18 07/26/18 Previous Rx's Medication Instructions Recorded oxycodone 5 - 10 mg PO Q4H PRN #40 tab 07/27/18
== END 2018-07-28 12:01 | disposition home or self-care (01) | DRG 470 ==
LOC: ASU 08:24 → 3E 15:40

== ENCOUNTER 2018-11-26 10:09 | Inpatient (IN) ==
--- NOTE | 2018-11-20 11:56 | Anesthesiology Consultation ---
Date of Service November 20, 2018 Assessment & Plan (1) Encounter for pre-operative examination: PCP Clearance 11/08/18 = "RIGHT TKR November [address] Clements. Will obtain CMP, CBC next week (coags done by coag clinic). Pt's vitals and exam unremarkable. Pt is on coumadin but already given instructions about when to stop and bridge with lovenox. Pt is aware of the risks involved in the surgery. Based on her history, she is a moderate risk but benefits out weigh the risks in this case. As of today, pt is medically optimized ("cleared") for R TKR. (If BW results are abnormal, will append this note)." CBC and BMP were unremarkable. CHECK PT/INR/PTT AM DOS Chart Review Chart Review: Acceptable Risk for Surgery and Patient NOT seen in Pre Admission Testing History Surgery Operation Date: 11/26/18 10:40 Proposed Procedures p Right Total Knee Replacement - Ramos Clements MD Height/Weight Height: 5 ft 4 in Weight: 111.584 kg Allergies Allergy/AdvReac Type Severity Reaction Status Date / Time No Known Allergies Allergy Verified 11/05/18 08:37 Medications Home Medications Medication Instructions Recorded Confirmed Last Taken calcitriol 0.25 mcg capsule 0.25 mcg PO HS cap 02/22/18 11/05/18 07/25/18 21:00 Probiotic 1 cap PO QPM 02/25/18 11/05/18 07/25/18 15:00 calcium carbonate-vitamin D3 1 tab PO QAM 02/25/18 11/05/18 07/25/18 15:00 [Calcium 500 With D] hydrochlorothiazide 25 mg tablet 25 mg PO QAM 07/18/18 11/05/18 07/25/18 07:00 potassium chloride ER 10 mEq 20 meq PO QAM tab 07/18/18 11/05/18 07/25/18 08:00 tablet,extended release magnesium 250 mg tablet 250 mg PO DAILY 07/25/18 11/05/18 07/25/18 15:00 warfarin [Coumadin] 7.5 mg PO UD 11/05/18 11/05/18 Unknown warfarin [Coumadin] 10 mg PO WK 11/05/18 11/05/18 Unknown Past Medical History Medical History Pulmonary embolism 07/2014, NOW ON COUMADIN DVT (deep venous thrombosis) 2014. POSSIBLY S/T TO MULTIPLE FALLS. Right lumbar radiculitis L2-3 with mild central and mild right neuroforaminal stenosis Neural foraminal stenosis of lumbar spine (Chronic) Hyperparathyroidism (Chronic) Osteoarthritis (Chronic) Thoracic back pain (Chronic) Skin cancer (Resolved) S/P MOHS PROCEDURE Heart palpitations occasional, 2x in past 9 months. Per pt, was evaluated at [place] [facility] last summer with negative workup Morbid obesity Pre-diabetes FOLLOWS WITH DR. TRAMMELL. NO MEDICATIONS CURRENTLY Past Family History Family History Brother Family history of diabetes mellitus Past Surgical History Surgical History Status post Mohs surgery (Resolved) H/O nasal septoplasty (Resolved) S/P removal of parathyroid gland (Resolved) History of colonoscopy History of esophagogastroduodenoscopy (EGD) History of total hip arthroplasty RT Past Anesthesia History R anterior MANDO @ [facility] 07/26/18 = SAB x 1 attempt Social History Smoking Status: Former smoker tobacco type: cigarettes Smoking cigarettes per day: HX OF RARE SOCIAL USE 30 YEARS AGO Do You Dip or Chew Tobacco: No Hx Alcohol Use: Yes Alcohol type: wine alcohol intake frequency: holidays/special occasions only Hx Substance Use: No substance use type: does not use Testing Laboratory Results 11/15/18 WBC: 5.17 H/H: 13.4/41.3 PLATELETS: 262 SODIUM: 142 POTASSIUM: 4.1 CHLORIDE: 109 CO2: 29 BUN: 22 CREATININE: 0.94 GLUCOSE: 105 Electrocardiogram Date: 07/10/18 Findings: + SB @ (50) Otherwise normal EKG. Chest X-Ray Date: 07/10/18 Findings: + NAD
--- NOTE | 2018-11-21 22:45 | History and Physical Report ---
DATE OF ADMISSION: 11/26/2018 CHIEF COMPLAINT: Bilateral knee pain and discomfort, right side greater than left. 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 She has got a long history of bilateral knee pain and discomfort. She has been through extensive conservative treatment over the past She did recently have her right hip replaced by Dr. Ghosh back in July and has done pretty well from this. She continued to be bothered by knee pain. The right side is a bit worse than the left. She uses a cane to get around. She has a history of deep venous thrombosis and pulmonary embolism back in 2014 without any clotting disorder, but on Coumadin. She has been through extensive conservative treatment with her knee. She really cannot take nonsteroidal antiinflammatory drugs due to Coumadin issue. Tylenol does not help much. A cane takes the edge off. There is global pain. The more she walks, the more it hurts. She would like to proceed with surgical treatment. PAST MEDICAL HISTORY: 1. Occasional heart palpitations. 2. History of deep venous thrombosis and pulmonary embolism in 2014 without any known clotting disorder, but on Coumadin. 3. Borderline diabetes. 4. Hyperparathyroidism. 5. Osteoarthritis. 6. Sciatica. 7. Gastroesophageal reflux disease. 8. Obesity with BMI 42. 9. Basal cell skin cancer. PAST SURGICAL HISTORY: 1. Right hip replacement done by Dr. Ghosh on 07/29/2018. 2. Septoplasty. 3. Parathyroid excision x2. 4. Tubal ligation. 5. Basal cell skin removal from her head. ALLERGIES: None. CURRENT MEDICINES: Include, 1. Hydrochlorothiazide 25 mg. 2. Potassium chloride 20 mEq a day. 3. Calcium with Vitamin D once a day. 4. Magnesium supplement [id number]. 5. Probiotic once a day. 6. Calcitriol 0.25 mcg a day. 7. Coumadin 7.5 mg a day. 8. Tylenol 1000 mg 3 times a day. 9. Tramadol 1-2 tablets p.r.n. for pain. SOCIAL HISTORY: This patient is a 68-year-old female. 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 She does not smoke. FAMILY HISTORY: Noncontributory. REVIEW OF SYSTEMS: As above. Denies any chest pain or shortness of breath. Does have history of one deep venous thrombosis in the past and pulmonary embolism. No subsequent clots. No known clotting disorder. PHYSICAL EXAMINATION: GENERAL: Reveals a pleasant elderly female, looks to be in pretty good health. HEENT: Benign. NECK: Supple. No lymphadenopathy. LUNGS: Clear to auscultation. HEART: Regular rate and rhythm. ABDOMEN: Soft, nontender and nondistended. EXTREMITIES: Grossly neurovascularly intact except as follows. Examination of both knees reveals the patient walks with the use of a cane. She cannot walk independently. She walks with a little bit of a waddling gait. Examination of the right knee reveals moderate soft tissue envelope. She is tender over the medial joint line. Range of motion 5-120. No pain with hip motion. Small knee effusion. Examination of left knee reveals fairly neutral alignment. Moderate soft tissue envelope. Range of motion 5-120. No instability. X-RAYS: X-ray of the right knee reveal advanced right knee tricompartment DJD. She has got to complete loss of the medial and lateral joint spaces with a little bit of tibial femoral subluxation and diffuse osteopenia. She has got advanced left knee DJD as well. 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 She would like to proceed with right knee replacement. PLAN: We will take her to the operating room and do a right total knee replacement. The risks and benefits of this procedure were explained to the patient including but not limited to deep venous thrombosis, pulmonary embolism, , infection, neurological injury, vascular injury, bleeding problem, pain, limited range of motion, stiffness, failure to relieve symptoms, incomplete relief of symptoms, need for further surgery in the future, fracture, leg length inequality, nerve palsy, blood clot, etc. The patient understands and desires to proceed. Informed consent was obtained. She knows to stop Coumadin 5 days preoperatively. She will be bridged with Lovenox. I did tell her that she is at increased risk of forming a blood clot and she is aware of that. As far as discharge plans, she is hoping to go to [facility] for rehab stay. I believe similar to her hip surgery. We will need a stat PT/INR on the morning of surgery.
[~2018-11-26 10:09] MED LIST changes: +BUPIVACAINE LIPOSOME/PF 266 MG, BUPIVACAINE/EPINEPHRINE 50 ML, SODIUM CHLORIDE 0.9% 30 ... INFIL SCH; +METOCLOPRAMIDE HCL 10 MG TABLET PO SCH; +ROPIVACAINE 0.5% 5 MG/ML 30 ML VIAL ONE; -ROPIVACAINE 0.5% HCL/PF 150 MG, BUPIVACAINE 0.5% MPF 30 ML, EPINEPHrine 30MG/30ML (OR U... INFIL SCH; +SCOPOLAMINE 1.5 MG TDSY TD SCH; -TRANEXAMIC ACID 1,000 MG **IV Pre-op IV SCH
--- NOTE | 2018-11-26 10:22 | History & Physical Bridge Note ---
Date of Service November 26, 2018 History & Physical Bridge Note I have examined the patient, reviewed the History & Physical and in the interval since the performance of the History & Physical I have noted the following changes of clinical significance: no changes noted
[2018-11-26] MEDS ORDERED: MIDAZOLAM HCL 1 MG/ML 2ML VIAL ONE ×2 (10:36→13:23)
[2018-11-26] MEDS ORDERED: fentaNYL citrate 100 MCG/2 ML VIAL ONE (10:36)
[2018-11-26 10:55] LABS: Partial Thromboplastin Time 27.8 Seconds (21.0-31.0); Prothrombin Time 10.4 Seconds (9.0-12.0)
[2018-11-26] MEDS ORDERED: fentaNYL citrate 100 MCG/2 ML VIAL IV PRN (12:02)
[2018-11-26] MEDS ORDERED: ATROPINE SULFATE 0.1 MG/ML 10ML SYR IV PRN (12:02)
[2018-11-26] MEDS ORDERED: ePHEDrine sulfate 50 MG/ML AMP IV PRN (12:02)
[2018-11-26] MEDS ORDERED: ONDANSETRON INJ 2 MG/ML 2 ML VIAL IV PRN ×2 (12:02→16:13)
[2018-11-26] MEDS ORDERED: SODIUM CHLORIDE 0.9% PF 50 ML VIAL ONE (12:28)
[2018-11-26] MEDS ORDERED: BACITRACIN INJ 50,000 UNIT VIAL ONE (12:28)
[2018-11-26] MEDS ORDERED: BUPIVACAINE LIPOSOME 1.3% 266 MG/20 ML VIAL ONE (12:28)
[2018-11-26] MEDS ORDERED: BUPIVACAINE 0.25% 30 ML VIAL ONE (12:29)
[2018-11-26] MEDS ORDERED: EPINEPHrine INJ 1 MG/ML AMP ONE (12:29)
--- NOTE | 2018-11-26 14:32 | Post Operative Brief Note ---
Immediate Post Op Note v1 Date of Surgery November 26, 2018 Pre & Post Diagnosis Operation Date: 11/26/18 12:30 Pre-Op Diagnosis: Right knee degenerative joint disease Post-Op Diagnosis: Right knee degenerative joint disease Procedure Operation Date: 11/26/18 12:30 Actual Procedures p Right Total Knee Arthroplasty(Right) - Ramos Clements MD Surgeon Ramos Clements MD Dictating Machine Mechanic Ameila, PAC Estimated Blood Loss 50 Findings Consistent with Post-Op Diagnosis Fluids 1000 cc Specimens Right Knee Drains Nielsen Catheter Anesthesia Type Spinal MAC Complications none Disposition Accompanied Patient To Recovery: No Disposition: Recovery Room
--- NOTE | 2018-11-26 14:59 | Anesthesiology Progress Note ---
Date of Service November 26, 2018 Anesthesia Post Procedure Vital Signs Vital Signs: Temp Pulse Pulse Resp BP BP Pulse Ox 11/26/18 14:37 98.4 F 59 L 11 L 97/67 L 95 11/26/18 10:52 97.7 F 66 20 134/86 95 Pain Intensity Right Knee: Pain Intensity: 0 Transfer of Care Handoff Completed per policy Notes Mental Status: alert / awake / arousable and participated in evaluation Patient Amnestic to Procedure: Yes Nausea / Vomiting: adequately controlled Pain: adequately controlled Airway Patency, RR, SpO2: stable & adequate BP & HR: stable & adequate Hydration State: stable & adequate Neuraxial Anesthesia: was administered and sensory block is resolving Anesthetic Complications: no major complications apparent and Pt Satisfied with anesthetic care
--- NOTE | 2018-11-26 15:25 | XRay Report ---
RIGHT KNEE 2 VIEWS History: Right total knee arthroplasty. Degenerative arthritis. Postop. FINDINGS: The patient is status post a right total knee arthroplasty. The hardware is intact. No frac ture or dislocation. Skin bong are in place. IMPRESSION: Right total knee arthroplasty. No evidence for hardware complication. Electronically signed by: Main Reid M.D. 11/26/2018 3:23 PM
[2018-11-26] MEDS ORDERED: NALOXONE HCL 0.4 MG/1 ML VIAL/CARP IV PRN (16:13)
[2018-11-26] MEDS ORDERED: MAGNESIUM HYDROXIDE SUSP 30 ML UDC PO PRN (16:13)
[2018-11-26] MEDS ORDERED: METOCLOPRAMIDE HCL INJ 5 MG/ML 2 ML VIAL IV PRN (16:13)
[2018-11-26] MEDS ORDERED: ALUMINUM/MAGNESIUM SUSP 30 ML UDC PO PRN (16:13)
[2018-11-26] MEDS ORDERED: BISACODYL 10 MG SUPP PR PRN (16:13)
[2018-11-26] MEDS ORDERED: HYDROmorphone INJ 0.5 MG/0.5 ML SYR IV PRN (16:13)
[2018-11-26] MEDS ORDERED: SODIUM CHLORIDE 0.9% 1000ML 1,000 ML IV SCH (16:13)
[2018-11-26] MEDS: CHECK SCOPOLAMINE PATCH PLACEMENT SCH (16:16)
[2018-11-26] MEDS: LACTOBACILLUS ACIDOPHILUS (FLORANEX) TAB PO SCH (17:23)
[2018-11-26] MEDS: ASCORBIC ACID 500 MG TAB PO SCH (17:23)
[2018-11-26] MEDS: KETOROLAC TROMETHAMINE 15 MG/ML VIAL IV SCH (17:23)
[2018-11-26] MEDS: FERROUS GLUCONATE 324 MG TAB PO SCH (17:23)
[2018-11-26] MEDS: TRAMADOL HCL 50 MG TABLET PO PRN (17:57)
[2018-11-26] MEDS: WARFARIN SOD 10 MG TAB PO SCH (18:19)
[2018-11-26] MEDS: CEFAZOLIN 2000MG 2,000 MG/15 ML SYR IV SCH (19:44)
[2018-11-26] MEDS: DOCUSATE SODIUM 100 MG CAP PO SCH (20:03)
[2018-11-26] MEDS: SENNA 8.6 MG TAB PO SCH (20:03)
[2018-11-26] MEDS: CALCITRIOL 0.25 MCG CAPSULE PO SCH (20:03)
[2018-11-26] MEDS: ACETAMINOPHEN 500 MG TAB PO SCH (21:18)
[2018-11-27] MEDS: KETOROLAC TROMETHAMINE 15 MG/ML VIAL IV SCH ×3 (01:13→11:50)
[2018-11-27] MEDS: CHECK SCOPOLAMINE PATCH PLACEMENT SCH (01:14)
--- NOTE | 2018-11-27 02:12 | Operative Report ---
DATE OF OPERATION: 11/26/2018 SURGEON: Ramos Clements MD [employer]ANT MAINTENANCE TECHNICIAN: BRIANNA Ramirez PREOPERATIVE DIAGNOSIS: Right knee degenerative joint disease. POSTOPERATIVE DIAGNOSIS: Right knee degenerative joint disease. PROCEDURE PERFORMED: Right cemented posterior stabilized total knee arthroplasty. COMPLICATIONS: None. ESTIMATED BLOOD LOSS: 50 mL. FLUID REPLACEMENT: 1000 mL crystalloid fluid replacement. TOURNIQUET TIME: 58 minutes at 300 mmHg. ANESTHESIA: Spinal with adductor canal block. DRAINS: None. SPECIMENS: None. OPERATIVE INDICATIONS: The patient is a 68-year-old female who has had a long history of bilateral knee pain and discomfort, right side just a bit worse than the left. He has been through extensive conservative treatment over the years. It has become less successful. She became markedly limited by her knee pain. She did recently have a hip replacement and recovered from that and would like to proceed with right knee replacement. OPERATIVE FINDINGS: Operative findings are advanced right knee DJD. She had extensive grade 4 changes in the medial and patellofemoral compartments with some focal grade 4 changes laterally. Moderate size joint effusion. She has diffuse osteopenia. OPERATIVE IMPLANTS: Operative implants consisted of, 1. Biomet Vanguard size 65 right posterior stabilized femoral component. 2. Biomet size 71 tibial tray. 3. A 10 mm posterior stabilized polyethylene insert. 4. A 28 x 8 all poly patella. OPERATIVE PROCEDURE: The patient was taken to the operating room, identified and placed on the Operating Room table in supine position. All contact areas were appropriately padded. I.V. antibiotics were provided by the anesthesia team. A spinal anesthetic and adductor canal block had been provided in the holding area. Nielsen catheter was placed in sterile fashion. A right thigh tourniquet was then placed and the right lower extremity was then prepped and draped in usual sterile fashion. The right leg was elevated and exsanguinated with Esmarch and tourniquet was placed at 300 mmHg. An anterior approach to the right knee was then performed through a longitudinal incision centered over the patella. Sharp dissection was carried through the subcutaneous tissues down to level of the extensor mechanism. A medial parapatellar arthrotomy incision was made. Some subperiosteal dissection was carried out medially. The fat pad was resected from beneath the patellar tendon. The lateral patellofemoral ligament was released. The patella was everted and the knee was flexed. The osteophytes were taken off the distal femur. The ACL and PCL were then released from the distal femur and tibia subluxated anteriorly. External tibial alignment jig was then placed in the anterior face of the tibia and adjusted 16 mm medially. Proximal tibial cut was made to remove about a millimeter of bone from most deficient aspect of the medial tibial plateau. Some osteophytes were taken off medial and posteromedially. Tibia was sized to size 71. Attention was then drawn to the femur. The distal femur was entered with a sharp drill bit. Intramedullary canal was suctioned. A right 5-degree valgus cutting guide was placed. Distal femoral cutting block was pinned in place. Distal femoral cut was made to take an additional 3 mm of bone off the distal femur. The femur was then sized to a size 65. We did downsize this about half size. The AP cutting block was pinned parallel to the epicondylar axis, which was 3 degrees of external rotation. The anterior cut, anterior chamfer, posterior cut and posterior chamfer cuts were made. Box cutting guide was placed and adjusted slightly laterally and the box cut was made. The knee was flexed. The remnants of the medial and lateral menisci were excised. The osteophytes were taken off the posterior aspect of the femur. A trial femoral component was placed. The tibial tray was pinned in maximum external rotation and drill and stem punch were used to create defect in proximal tibia for the tibial tray. The knee was then trialed and 10 mm insert fit most appropriately. Attention was then drawn to patella. The patella was cleaned of all soft tissues. Patella thickness measured 22 mm and cut down to 13. It was sized to a size 28 patella. Lug holes were drilled for 28 patella. Lateral osteophyte was removed. Patella button was placed. Knee was taken through range of motion. Patella tracked nicely with no thumbs test. Attention was then drawn toward placement of permanent components. All trial components were removed. Bone plug was placed in the distal femur to limit blood loss. A double batch of Palacos G cement was mixed. A Biomet Vanguard size 65 right posterior stabilized femoral component, size 71 tibial tray, 10 mm posterior stabilized polyethylene insert, and 28 x 8 all poly patella then cemented in place. The knee was brought out into full extension until cement hardened. A final cement check was then performed. Pericapsular tissues were injected with a total of 100 mL of combination of 20 mL Exparel, 30 mL of normal saline and 50 mL of 0.25% Marcaine with epinephrine. The tourniquet was then let down for final tourniquet time of 58 minutes. Hemostasis was assured with use of electrocautery. The wound was once again irrigated. The extensor mechanism was then closed with combination of #1 PDS suture and #1 Vicryl suture in [id number] fashion. Extensor mechanism was checked and found to be intact. Subcutaneous tissues were then closed with #2 Dexon suture in a buried interrupted fashion. Skin was closed with skin bong. Leg was then cleaned, dried and a sterile dressing of Xeroform, 4, x 4, sterile cast padding and Mumtaz bandage were applied. The patient was then transferred to the recovery room in a stable condition. The patient tolerated the procedure well with no complications. All needle and sponge counts were correct at the end of the operation. I attest to the content of the Intraoperative Record and any orders documented therein. Any exception s are noted below.
[2018-11-27] MEDS: CEFAZOLIN 2000MG 2,000 MG/15 ML SYR IV SCH (03:59)
[2018-11-27] MEDS: TRAMADOL HCL 50 MG TABLET PO PRN ×3 (04:05→20:09)
[2018-11-27] MEDS: ACETAMINOPHEN 500 MG TAB PO SCH ×3 (06:15→21:37)
[2018-11-27 06:30] LABS: Hematocrit (blood only) 35.4 % (37-47); Hemoglobin 11.5 g/dL (12.0-16.0); Mean Corpuscular Hgb Conc 32.5 g/dL (32-36); Mean Corpuscular Volume 83.1 fL (80-100); Mean Platelet Volume 9.3 fL (7.4-10.4); Platelet Count 197 K/uL (130-400); RDW Standard Deviation 51.2 fL (36.4-46.3); Red Blood Count 4.26 M/uL (4.2-5.4)
[2018-11-27 06:42] LABS: Prothrombin Time 10.7 Seconds (9.0-12.0)
[2018-11-27 07:03] LABS: BUN Creatinine Ratio 15.7 (10-20); Calcium 8.7 mg/dl (8.5-10.1); Creatinine Clr Calc Pharmacy 57.6 ml/min; Est GFR (African American) 57.8; Est GFR (Non-African American) 49.9
[2018-11-27] MEDS: POTASSIUM CHLORIDE 20 MEQ TABCR PO SCH (07:45)
[2018-11-27] MEDS: hydroCHLOROthiazide 25 MG TAB PO SCH (07:45)
[2018-11-27] MEDS: MAGNESIUM OXIDE 400 MG TAB PO SCH (07:45)
[2018-11-27] MEDS: MULTIVITAMIN TAB PO SCH (07:46)
[2018-11-27] MEDS: ASCORBIC ACID 500 MG TAB PO SCH ×2 (07:46→17:55)
[2018-11-27] MEDS: DOCUSATE SODIUM 100 MG CAP PO SCH ×2 (07:46→20:10)
[2018-11-27] MEDS: FERROUS GLUCONATE 324 MG TAB PO SCH ×2 (07:46→17:55)
[2018-11-27] MEDS: LACTOBACILLUS ACIDOPHILUS (FLORANEX) TAB PO SCH ×3 (07:46→17:55)
[2018-11-27] MEDS: CALCIUM 600MG + VIT D 400 IU TAB PO SCH (07:46)
--- NOTE | 2018-11-27 10:06 | Progress Note ---
DATE: 11/27/2018 SUBJECTIVE: A 68-year-old female postop day 1 from right knee replacement. She is doing pretty well. Having some pain but better than what she expected. No chest pain or shortness of breath. Not feeling dizzy or lightheaded. OBJECTIVE: VITAL SIGNS: Temperature 36.6. Vital signs stable. PHYSICAL EXAMINATION: GENERAL: She is a pleasant elderly female. She is lying in bed, looks pretty comfortable. She just got back from her walk. EXTREMITIES: Examination of the right leg reveals the leg to be well aligned. Dressing is clean, dry, and intact. No significant drainage. Her calf is soft and supple. She can dorsiflex and plantarflex her foot appropriately. LABORATORY DATA: Hemoglobin is 11.5. Hematocrit 35.4. Electrolytes are stable. ASSESSMENT: A 68-year-old female postop day 1 from a right knee replacement, doing pretty well. Pain is controlled. 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 PLAN: 1. DVT prophylaxis including thigh-high TEDs, SCDs, and back on her Coumadin. We will start her Lovenox 24 hours postoperative prophylactic dose until she is more therapeutic. 2. PT/OT. She can weightbear as tolerated. Right total knee protocol. 3. Pain control, doing okay with current pain regimen. 4. Disposition: She is hoping to be discharged to home now. She is thinking about going home with some home health as opposed to rehab. We will see how therapy goes today.
[2018-11-27] MEDS ORDERED: ENOXAPARIN INJ 40 MG/0.4 ML SYR SQ SCH (15:00)
[2018-11-27] MEDS: WARFARIN SOD 10 MG TAB PO SCH (15:56)
[2018-11-27] MEDS: CALCITRIOL 0.25 MCG CAPSULE PO SCH (20:10)
[2018-11-27] MEDS: SENNA 8.6 MG TAB PO SCH (20:10)
[2018-11-28] MEDS: TRAMADOL HCL 50 MG TABLET PO PRN ×2 (01:00→07:31)
[2018-11-28] MEDS: ACETAMINOPHEN 500 MG TAB PO SCH (05:57)
[2018-11-28 07:09] LABS: INR 1.2 (0.9-1.1); Prothrombin Time 12.1 Seconds (9.0-12.0)
[2018-11-28] MEDS: MAGNESIUM OXIDE 400 MG TAB PO SCH (07:31)
[2018-11-28] MEDS: POTASSIUM CHLORIDE 20 MEQ TABCR PO SCH (07:31)
[2018-11-28] MEDS: ASCORBIC ACID 500 MG TAB PO SCH (07:32)
[2018-11-28] MEDS: CALCIUM 600MG + VIT D 400 IU TAB PO SCH (07:32)
[2018-11-28] MEDS: LACTOBACILLUS ACIDOPHILUS (FLORANEX) TAB PO SCH (07:32)
[2018-11-28] MEDS: hydroCHLOROthiazide 25 MG TAB PO SCH (07:32)
[2018-11-28] MEDS: DOCUSATE SODIUM 100 MG CAP PO SCH (07:32)
[2018-11-28] MEDS: MULTIVITAMIN TAB PO SCH (07:32)
[2018-11-28] MEDS: FERROUS GLUCONATE 324 MG TAB PO SCH (07:32)
--- NOTE | 2018-11-28 07:59 | Progress Note ---
DATE: 11/28/2018 SUBJECTIVE: A 68-year-old white female postop day 2 from right knee replacement. She is doing pretty well. Pain has been reasonably well controlled on the medicines. No chest pain or shortness of breath. Not feeling dizzy or lightheaded. OBJECTIVE: VITAL SIGNS: Temperature 36.5. Vital signs stable. GENERAL: Physical examination shows a pleasant, middle-aged female. She is sitting up in her bedside chair eating breakfast. Looks pretty comfortable. EXTREMITIES: Examination of the right leg reveals the dressing to be clean, dry and intact. Leg is well aligned. She can dorsiflex and plantarflex her foot appropriately. She is neurologically intact. LABORATORY DATA: INR is 1.2. ASSESSMENT: A 68-year-old white female with a history of a DVT, PE in the past without any known clotting disorder, postop day 2 from right knee replacement, doing reasonably well. Pain is reasonably well controlled. INR is not quite therapeutic. PLAN: 1. DVT prophylaxis including thigh-high TEDs, SCDs, and Coumadin. We will put her back on her 7.5 mg dose and continue Lovenox until at 2.0 or above. 2. PT/OT. Weight bear as tolerated. Right total knee protocol. 3. Pain control, doing okay with current pain regimen. 4. Disposition: Plan to discharge to home with some home health later today.
[2018-11-28] MEDS ORDERED: WARFARIN SOD 7.5 MG TAB PO SCH (16:00)
--- NOTE | 2018-12-04 07:14 | Discharge Summary ---
ADMITTING PHYSICIAN AND SURGEON: Ramos Clements MD ADMITTING DIAGNOSIS: Right knee degenerative joint disease. SURGERY PERFORMED: Right total knee arthroplasty. SECONDARY DIAGNOSES: Heart palpitations, history of DVT and PE, borderline diabetes, hyperparathyroidism, osteoarthritis, sciatica, gastroesophageal reflux disease, obesity, basal cell skin cancer. CONSULTS: None obtained. HISTORY AND PHYSICAL EXAMINATION: Well documented in the patient's chart. HOSPITAL COURSE: The patient was admitted on 11/26/2018 and underwent total knee arthroplasty, tolerated the procedure well and there were no complications. She was transferred to the PACU postoperatively and later to the orthopedic floor for further care. She was given Ancef for antibiotic prophylaxis, VANE stockings, SCDs, Coumadin and Lovenox for DVT prophylaxis. Her INR was monitored daily and Coumadin dosed accordingly. Hemoglobin, hematocrit and vital signs were monitored during her hospital stay and remained stable. She did not require any blood transfusions. There were no complications. By postoperative day 2, she was tolerating a regular diet, pain was controlled with oral pain medicine. She was participating in physical therapy. On postop day 2, she was discharged home, set up with home health services. She was given printed discharge instructions and also new prescriptions for extra-strength Tylenol, Zofran and tramadol. Continue her home medicines including Coumadin. Continue physical therapy, weightbearing as tolerated, VANE stockings. Follow up approximately 2 weeks postop or sooner if there are any problems or concerns.
== END 2018-11-28 10:26 | disposition home health service (06) | DRG 470 ==
LOC: ASU 10:09 → 3E 14:39

== ENCOUNTER 2021-02-24 16:07 | Inpatient (IN) ==
[2021-02-24] MEDS ORDERED: XYLOCAINE 1%/SOD BICARB 20 ML VIAL INFIL ONE ×2 (16:20→16:22)
[2021-02-24] MEDS ORDERED: ONDANSETRON INJ 2 MG/ML 2 ML VIAL IV STA (16:53)
[2021-02-24] MEDS ORDERED: ceFAZolin 2000MG 2,000 MG/15 ML SYR IV STA (17:00)
--- NOTE | 2021-02-24 17:00 | Emergency Department Note ---
Impression & Plan Laceration of scalp, Hematoma of frontal scalp, Head injury, Closed C7 fracture, Closed T3 fracture ED Provider Note NAME: GUSTAVO JORDAN AGE: 70 SEX: F : 1950 ARRIVES VIA: Ambulance INFORMANT: Patient, ED PROVIDER(S): Aldo Castellanos DO CHIEF COMPLAINT: Head injury HPI: The patient is a 70-year-old female who presented to the emergency department for an evaluation after head injury. The patient had surgery on her left knee recently. Because of this she has been walking with a cane. The patient states that she was walking her bathroom when she caught her leg on a brick and then fell forward striking the right side of her head. The patient does take Coumadin for pulmonary embolism. She states that she did not have loss of consciousness. She denies having any neck pain. She does complain of lower back pain. She was able stand with help. She denies having any vomiting but has had nausea at this time. She denies having any recent fevers. She states that her tetanus shot is up-to-date. She recently was noted to have a subtherapeutic INR and did take an extra dose last evening. She denies having any double vision. She denies having any difficulty opening or closing her mouth. She has had pressure on the area since the medics arrived and the patient arrived via BLS. ROS: See above HPI for pertinent positives & negatives. A total of 10 systems reviewed and were otherwise negative. PAST MEDICAL HISTORY: See Below PAST SURGICAL HISTORY: See Below FAMILY HISTORY: See Below SOCIAL HISTORY: See Below HOME MEDICATIONS: See Below ALLERGIES: See Below VITALS: See Below PHYSICAL EXAMINATION: GENERAL: The patient is awake and alert. She is very anxious appearing and appears to be uncomfortable. EYES: The conjunctivae are clear. The pupils are round and reactive. EARS, NOSE, MOUTH AND THROAT: The nose is without any evidence of any deformity. There is a large laceration over the right frontal scalp that extends from the forehead into the scalp. Pressure was applied no pulsatile bleeding was noted but oozing was noted. There was a large scalp hematoma noted which extended from the forehead all the way back to the mid parietal region. NECK: The neck is nontender and supple. RESPIRATORY: Normal respiratory effort is noted there is no evidence of wheezing rhonchi or rales CARDIOVASCULAR: Regular rate and rhythm noted there no murmurs rubs or gallops normal S1 normal S2. GASTROINTESTINAL: The abdomen is soft. Abdomen is nontender. BACK: Midline tenderness was noted in the upper lumbar and lower thoracic spine. There was no step-off. Range of motion appears intact but painful. MUSCULOSKELETAL/EXTREMITIES: There is no evidence of gross deformity full range of motion is noted in the hips and shoulders. The patient does have a VANE hose to the left lower extremity where the recent surgery was. She does have some decreased range of motion in flexion of the right knee. She states this is normal for her postoperative state. SKIN: Pedal edema was noted bilaterally left greater than right. NEUROLOGIC: Patient is awake alert and oriented x3. Strength was symmetric. MEDICAL DECISION MAKING: The patient is a 70-year-old female who presented to the emergency department after a fall. The patient caught her foot while walking and fell forward striking her right forehead and her scalp. She had a very large hematoma. The patient is on Coumadin. The laceration was repaired in usual fashion. I c ontinue to try to get out as much hematoma was possible however on CAT scan the patient was found of a very large scalp hematoma. She does take Coumadin. I discussed the patient's laboratory and radiographic studies with her. Her INR is therapeutic. Given the amount of hematoma in the patient's trauma I did feel the patient may require further inpatient management to evaluate her symptoms and continue to monitor her neurologic status. She was treated with IV pain medication in the emergency department. She was also given IV antiemetics. I discussed her case with the on-call [facility]ist. They have agreed to evaluate the patient in the emergency department for further management and disposition. The patient was agreeable with this plan. Triage Nursing notes reviewed. Prior medical records reviewed Vital Signs: reviewed and remarkable for elevated blood pressure Differential diagnosis: Fracture, dislocation, contusion, intra-abdominal, pneumothorax, intrathoracic, intracranial, neurologic, compartment syndrome, rhabdomyolysis, as well as other pathologies. ER treatment provided: See below Diagnostics interpreted by me: ECG: none Cardiac Monitoring: An order was placed for continuous cardiac monitoring. The monitor shows a rate of 86 bpm with sinus rhythm. Laboratory studies: As stated above and show below. Imaging studies: See below Consultation(s): I discussed this case with Dr. Lincoln who is on-call for the [facility] group. ED COURSE: Procedures: Location: Right scalp and frontal forehead Total length: 5 cm Complexity: Medium Verbal consent was obtained after the risks and benefits were explained, including but not limited to bleeding, scarring, infection, pain, and bone/joint/nerve damage. At this time, the risks of the procedure are less than the risks of NOT performing the procedure. A time out was taken and the correct patient and site identified. The skin was prepped with betadine. The target area was anesthetized with 15 ml of 1% lidocaine without epinephrine. Copious irrigation was performed using normal saline solution. The skin was re-prepped with betadine and a sterile field set. The wound was explored for foreign bodies and none found. Examination revealed no injury to deep structures such as tendons, bone, or significant blood vessels. Debridement was not performed. The wound edges were approximated using 17, 5 -0 simple interrupted nylon sutures. Hemostasis and excellent approximation was achieved. Antibacterial ointment and a sterile dressing applied. Detailed wound care instructions and signs and symptoms of infection reviewed with the patient. No complications and the patient tolerated the procedure well. Past Med/Surg History Medical History Acute sinusitis Cellulitis DVT (deep venous thrombosis) 2014. POSSIBLY S/T TO MULTIPLE FALLS. Gout Heart palpitations occasional, 2x in past 9 months. Per pt, was evaluated at [facility] last summer with negative workup Hemarthrosis, right knee Hematuria, microscopic Hyperparathyroidism Left knee DJD Low bone mass Morbid obesity Neural foraminal stenosis of lumbar spine Osteoarthritis Pre-diabetes Pulmonary embolism 07/2014, NOW ON COUMADIN Right lumbar radiculitis L2-3 with mild central and mild right neuroforaminal stenosis Routine health maintenance Skin cancer S/P MOHS PROCEDURE Thoracic back pain Surgical History H/O nasal septoplasty History of colonoscopy History of esophagogastroduodenoscopy (EGD) History of total hip arthroplasty RT History of tubal ligation S/P removal of parathyroid gland Status post Mohs surgery Status post right knee replacement Family History Brother Family history of diabetes mellitus Heart disease Mother Cancer Thrombophlebitis Father Heart disease Other No family history of bleeding disorder Denies family history of Ovarian cancer Prostate cancer Myocardial infarction Breast cancer Colorectal cancer Social History Smoking Status: Former smoker Cigarettes Per Day: HX OF RARE SOCIAL USE 30 YEARS AGO; Second Hand Exposure: No; Hx Alcohol Use: Yes Alcohol type: wine Hx Substance Use: No Preferred Language: Bulgarian Communication Ability: Effective Visual Impairment: No Limitations Disk Recordist Required: No Beliefs That Will Affect Care: None Current Living Situation: Spouse Feels Safe at Home: Yes Dental Care, Regularly: Yes Seatbelt Use: sometimes Assistive Devices: Walker Allergies Allergies Allergy/AdvReac Type Severity Reaction Status Date / Time No Known Allergies Allergy Verified 02/24/21 18:18 Home Meds Home Medications Medication Instructions Recorded Confirmed magnesium 250 mg tablet 250 mg PO QAM 07/25/18 02/24/21 hydrochlorothiazide 25 mg tablet 25 mg PO Q OTHER DAY tab 08/20/20 02/24/21 probenecid 500 mg tablet 500 mg PO BID 08/20/20 02/24/21 warfarin 5 mg tablet See Rx Instructions PO UD tab 01/18/21 02/24/21 acetaminophen 500 mg tablet 1,000 mg PO Q6H PRN 02/24/21 02/24/21 (Tylenol Extra Strength) amoxicillin 500 mg tablet 2,000 mg PO ONCE PRN 02/24/21 02/24/21 calcium carbonate-vitamin D3 600 1 tab PO DAILY 02/24/21 02/24/21 mg-125 unit tablet cholecalciferol (vitamin D3) 125 125 mcg PO DAILY 02/24/21 02/24/21 mcg (5,000 unit) tablet (Vitamin D3) simethicone 80 mg chewable tablet 80 mg PO HS 02/24/21 02/24/21 tramadol 50 mg tablet 50 mg PO UD PRN 02/24/21 02/24/21 Previous Rx's Medication Instructions Recorded potassium chloride 10 mEq 20 meq PO DAILY #180 cap 05/11/20 capsule,extended release calcitriol 0.25 mcg capsule 0.25 mcg PO DAILY #90 cap 01/05/21 Results & Data (ED) Vital Signs Vital Signs - 24 hr 02/24/21 15:59 02/24/21 16:54 02/24/21 17:00 Temperature 36.5 C Temperature Source Oral Pulse Rate 84 86 Pulse Rate from SpO2 Sensor 85 Pulse Strength Normal Respiratory Rate 18 16 Respiratory Effort / Characteristics Non-Labored Spontaneous Respiratory Depth Normal Blood Pressure 154/90 H 161/92 H Blood Pressure Mean 111 115 Blood Pressure Position Lying Pulse Oximetry 97 97 94 Oxygen Delivery Method Room Air Room Air Sepsis Recent Fever Within 48 Hours No Sepsis New/Unexplained Change in Mental Status No Sepsis Action Taken by Nursing No Action Required 02/24/21 18:00 02/24/21 18:31 Temperature Temperature Source Pulse Rate 85 86 Pulse Rate from SpO2 Sensor 86 86 Pulse Strength Respiratory Rate 16 20 Respiratory Effort / Characteristics Respiratory Depth Blood Pressure 185/114 H 172/105 H Blood Pressure Mean 137 127 Blood Pressure Position Pulse Oximetry 94 97 Oxygen Delivery Method Sepsis Recent Fever Within 48 Hours Sepsis New/Unexplained Change in Mental Status Sepsis Action Taken by [facility] Medications Current Medication List: was personally reviewed by me Laboratory Data Attestation: I reviewed the patient's lab results. Result diagrams: 02/24/21 16:58 02/24/21 16:58 Lab Results 02/24/21 02/24/21 02/24/21 Range/Units 16:58 16:58 16:58 WBC 7.43 (4.8-10.8) K/uL RBC 4.19 L (4.2-5.4) M/uL Hgb 12.0 (12.0-16.0) g/dL Hct 36.6 L (37-47) % MCV 87.4 (80-100) fL MCH 28.6 (25-34) pg MCHC 32.8 (32-36) g/dL RDW Std Deviation 52.4 H (36.4-46.3) fL RDW Coeff of Mary 16.4 H (11.5-14.5) % Plt Count 294 (130-400) K/uL MPV 9.0 (7.4-10.4) fL Immature Gran % (Auto) 0.4 % Neut % (Auto) 74.5 % Lymph % (Auto) 16.4 % Erie % (Auto) 7.0 % Eos % (Auto) 1.3 % Baso % (Auto) 0.4 % Neut # (Auto) 5.53 (1.4-6.5) K/uL Lymph # (Auto) 1.22 (1.2-3.4) K/uL Erie # (Auto) 0.52 (0.11-0.59) K/uL Eos # (Auto) 0.10 (0-0.5) K/uL Baso # (Auto) 0.03 (0-0.2) K/uL Immature Gran # (Auto) 0.03 H (0.00-0.02) K/uL PT 29.8 H (9.0-12.0) Seconds INR 3.2 H (0.9-1.1) APTT 56.2 H* (21.0-31.0) Seconds PTT Ratio 2.1 Sodium 141 (136-145) mmol/L Potassium 3.5 (3.5-5.1) mmol/L Chloride 109 H (98-107) mmol/L Carbon Dioxide 26 (21-32) mmol/L Anion Gap 6.0 (3-11) BUN 20 H (7-18) mg/dl Creatinine 0.99 (0.6-1.2) mg/dl Est Cr Clr Drug Dosing Not Reportable Est GFR ( Amer) 66.9 ml/min Est GFR (Non-Af Amer) 57.7 ml/min BUN/Creatinine Ratio 19.8 (10-20) Glucose 100 H (70-99) mg/dl Calcium 9.5 (8.5-10.1) mg/dl Magnesium 1.9 (1.8-2.4) mg/dl Total Bilirubin 0.7 (0.2-1) mg/dl AST 24 (15-37) U/L ALT 30 (12-78) U/L Alkaline Phosphatase 103 (45-117) U/L Total Protein 6.9 (6.4-8.2) gm/dl Albumin 3.2 L (3.4-5.0) gm/dl Globulin 3.6 (2.5-4.0) gm/dl Albumin/Globulin Ratio 0.9 (0.9-2) COVID-19 Eval Order 02/24/21 Range/Units 18:25 WBC (4.8-10.8) K/uL RBC (4.2-5.4) M/uL Hgb (12.0-16.0) g/dL Hct (37-47) % MCV (80-100) fL MCH (25-34) pg MCHC (32-36) g/dL RDW Std Deviation (36.4-46.3) fL RDW Coeff of Mary (11.5-14.5) % Plt Count (130-400) K/uL MPV (7.4-10.4) fL Immature Gran % (Auto) % Neut % (Auto) % Lymph % (Auto) % Erie % (Auto) % Eos % (Auto) % Baso % (Auto) % Neut # (Auto) (1.4-6.5) K/uL Lymph # (Auto) (1.2-3.4) K/uL Erie # (Auto) (0.11-0.59) K/uL Eos # (Auto) (0-0.5) K/uL Baso # (Auto) (0-0.2) K/uL Immature Gran # (Auto) (0.00-0.02) K/uL PT (9.0-12.0) Seconds INR (0.9-1.1) APTT (21.0-31.0) Seconds PTT Ratio Sodium (136-145) mmol/L Potassium (3.5-5.1) mmol/L Chloride (98-107) mmol/L Carbon Dioxide (21-32) mmol/L Anion Gap (3-11) BUN (7-18) mg/dl Creatinine (0.6-1.2) mg/dl Est Cr Clr Drug Dosing Est GFR ( Amer) ml/min Est GFR (Non-Af Amer) ml/min BUN/Creatinine Ratio (10-20) Glucose (70-99) mg/dl Calcium (8.5-10.1) mg/dl Magnesium (1.8-2.4) mg/dl Total Bilirubin (0.2-1) mg/dl AST (15-37) U/L ALT (12-78) U/L Alkaline Phosphatase (45-117) U/L Total Protein (6.4-8.2) gm/dl Albumin (3.4-5.0) gm/dl Globulin (2.5-4.0) gm/dl Albumin/Globulin Ratio (0.9-2) COVID-19 Eval Order Covid19 at [facility] Administered Medications Discontinued Medications Cefazolin Sodium (Ancef 2000mg) 2,000 mg in 15 mls @ 3.75 mls/min IV NOW STA Stop: 02/24/21 17:03 Last Admin: 02/24/21 17:34 Dose: 3.75 mls/min Documented by: [id number] Lidocaine HCl (Xylocaine 1%/Sod Bicarb 20 Ml Vial) 20 ml INFIL NOW ONE Stop: 02/24/21 16:21 Last Admin: 02/24/21 16:26 Dose: Not Given Documented by: [id number] Lidocaine HCl (Xylocaine 1%/Sod Bicarb 20 Ml Vial) Confirm Administered Dose 20 ml INFIL .STK-MED ONE Stop: 02/24/21 16:23 Last Admin: 02/24/21 16:26 Dose: 20 ml Documented by: [id number] Morphine Sulfate (Morphine Sulfate 4 Mg/Ml 1 Ml Carp\Vial) 4 mg IV NOW STA Stop: 02/24/21 17:43 Last Admin: 02/24/21 18:09 Dose: 4 mg Documented by: [id number] Ondansetron HCl (Ondansetron Inj 2 Mg/Ml 2 Ml Vial) 4 mg IV NOW STA Stop: 02/24/21 16:54 Last Admin: 02/24/21 17:34 Dose: 4 mg Documented by: [id number] Imaging Data Radiologist's Impression: Cervical Spine CT 02/24/21 16:20 CT OF THE CERVICAL SPINE CLINICAL HISTORY: fall COMPARISON STUDY: No previous studies for comparison. CT DOSE: 3575.17 mGy.cm TECHNIQUE: CT scan of the cervical spine was performed from the skull base to the thoracic inlet. Images are reviewed in the axial, sagittal, and coronal planes. IV contrast was not administered for this examination. A dose lowering technique was utilized adhering to the principles of ALARA. FINDINGS: The visualized portions of the lung apices reveal no evidence of pneumothorax. 1.0 cm hypoattenuating nodule within the right thyroid lobe is seen. The prevertebral soft tissues are normal. Nondisplaced fracture of the distal aspect of C7. No other fracture or dislocation is seen.. Mucous polyp is seen within inferior aspect of the left maxillary sinus. Cervical lordosis is preserved. Diffuse severe osteopenia limits evaluation. Multilevel intervertebral disc space narrowing with osteophytes are seen. Minimal neural foraminal narrowing are seen bilaterally within lower cervical spine. No significant stenosis of the central central canal is visualized. IMPRESSION: Small nondisplaced fracture at the distal aspect of the C7 spinous process. No other fracture or traumatic malalignment is seen. Report will be sent to emergency Department. Multilevel degenerative changes and diffuse severe osteopenia. The rest of findings as above. ACT 112: Negative or not required by law. The above report was generated using voice recognition software. It may contain grammatical, syntax or spelling errors. Electronically signed by: hSaronda Masterson DO 02/24/2021 5:[address] 02/24/21 16:20 CT head/brain wo con CLINICAL HISTORY: fall COMPARISON STUDY: August 10, 2016 TECHNIQUE: Axial CT of the brain is performed from the vertex to the skull bas e. IV contrast was not administered for this examination. A dose lowering technique was utilized adhering to the principles of ALARA. CT DOSE: FINDINGS: No intra or extra-axial mass lesions are visualized. There is no CT evidence of acute cortical infarction. There is no evidence of midline shift. There is no acute hemorrhage. No acute depressed calvarial fractures are visualized. There is extensive edema of the frontoparietal scalp with few areas of fluid fluid level which could represent hematoma. Also there is subcutaneous collection of the gas at parietal region without visualized laceration. There are patchy white matter hypodensities likely on a small vessel basis. There is no evidence of pathologic ventricular dilatation. There is no evidence of acute sinusitis IMPRESSION: Extensive hematoma of the frontoparietal skull with few areas of fluid fluid level and gas collection and no definite depressed skull fractures. No acute intracranial hemorrhage, no midline shift or space occupying lesions. The rest of findings as above. ACT 112: Negative or not required by law. The above report was generated using voice recognition software. It may contain grammatical, syntax or spelling errors. Electronically signed by: Sharonda Masterson DO 02/24/2021 5:[address] 02/24/21 16:20 CT lumbar spine wo con CT DOSE: CLINICAL HISTORY: fall TECHNIQUE: Helical images were acquired in transverse plane. Reformatted sagittal and coronal images were reviewed. A dose lowering technique was utilized adhering to the principles of ALARA. CONTRAST: No contrast was administered COMPARISON STUDY: None. FINDINGS: Small linear lucency is seen through left pedicle of the L3, most likely representing nutrition channel, acute fracture is less likely (902/71) No other acute fracture dislocation are seen. Osseous structures are diffusely demineralized which limits evaluation. Normal lumbar lordosis is preserved. Multilevel intervertebral disc space narrowing with vacuum phenomenon and significant hypertrophic changes of facet joints are seen representing degenerative process. Sacralization of the left transverse process of L5 is seen which appear irregular. No significant central canal stenosis is seen. Multiple areas of neural foraminal narrowing at the lower lumbar spine is seen bilaterally. IMPRESSION: No acute dislocated fractures are seen however there is linear lucency through the left pedicle of L3 might represent reactive channel or nondisplaced fracture which is less likely. Multilevel degenerative changes and osteopenia which limits evaluation. The rest of findings as above. ACT 112: Negative or not required by law. The above report was generated using voice recognition software. It may contain grammatical, syntax or spelling errors. Electronically signed by: Sharonda Masterson DO 02/24/2021 6:[address] 02/24/21 16:20 CT thoracic spine wo con CT DOSE: CLINICAL HISTORY: fall TECHNIQUE: A dose lowering technique was utilized adhering to the principles of ALARA. COMPARISON STUDY: None. FINDINGS: Slightly displaced fracture of the right spinous process of T6 is seen (178). Small lucency through the spinous process of T3 is seen and might represent fracture off unknown acuity. No definite surrounding soft tissue edema is seen. No other fractures or dislocation seen. Evaluation is limited due to diffuse osteopenia. Normal thoracic kyphosis is preserved. Multilevel anterior osteophytes and syndesmophytes are seen. No significant central canal or neural foraminal stenosis is seen. IMPRESSION: Slightly displaced fracture of the right spinous process of T6 and nondisplaced and possible chronic fracture of the spinous process of T3. Report will be sent to emergency Department. Osteopenia and degenerative changes. The rest of findings as above. ACT 112: Negative or not required by law. The above report was generated using voice recognition software. It may contain grammatical, syntax or spelling errors. Electronically signed by: Sharonda Masterson DO 02/24/2021 6:05 PM Discharge Plan Visit Data Chief Complaint: Fall Stated Complaint: fall, head lac ED Provider: Aldo Castellanos Discharge Problem: Laceration of scalp, Hematoma of frontal scalp, Head injury, Closed C7 fracture, Closed T3 fracture Patient Disposition: Being Evaluated by Hospitalist Condition: Good Forms Stand Alone Forms: [facility] Prescriptions Prescriptions: No Action magnesium 250 mg tablet 250 mg PO QAM RF: 0 warfarin 5 mg tablet See Rx Instructions PO UD RF: 0 potassium chloride 10 mEq capsule, extended release 20 meq PO DAILY Qty: 180 RF: 3 calcitriol 0.25 mcg capsule 0.25 mcg PO DAILY Qty: 90 RF: 1 hydrochlorothiazide 25 mg tablet 25 mg PO Q OTHER DAY RF: 0 probenecid 500 mg tablet 500 mg PO BID RF: 0 tramadol 50 mg tablet 50 mg PO UD PRN (Reason: Pain) RF: 0 amoxicillin 500 mg tablet 2,000 mg PO ONCE PRN (Reason: Prophylaxis) RF: 0 acetaminophen [Tylenol Extra Strength] 500 mg Tablet 1,000 mg PO Q6H PRN (Reason: Pain) RF: 0 Calcium 600 + D(3) 600-125 mg-unit Tablet 1 tab PO DAILY RF: 0 cholecalciferol (vitamin D3) [Vitamin D3] 125 mcg (5,000 unit) Tablet 125 mcg PO DAILY RF: 0 simethicone [Anti-Gas] 80 mg Tablet,Chewable 80 mg PO HS RF: 0 Referrals Referrals: Tiara Barton MD [Primary Care Provider] -
[2021-02-24 17:04] LABS: Basophils # (auto) 0.03 K/uL (0-0.2); Basophils % (auto) 0.4 %; Eosinophils % (auto) 1.3 %; Hematocrit (blood only) 36.6 % (37-47); Immature Granulocytes # (auto) 0.03 K/uL (0.00-0.02); Immature Granulocytes % (auto) 0.4 %; Lymphocytes # (auto) 1.22 K/uL (1.2-3.4); Lymphocytes % (auto) 16.4 %; Mean Corpuscular Hemoglobin 28.6 pg (25-34); Mean Corpuscular Hgb Conc 32.8 g/dL (32-36); Mean Corpuscular Volume 87.4 fL (80-100); Monocytes # (auto) 0.52 K/uL (0.11-0.59); Neutrophils # (auto) 5.53 K/uL (1.4-6.5); Neutrophils % (auto) 74.5 %; Platelet Count 294 K/uL (130-400); RDW Coefficient of Variation 16.4 % (11.5-14.5); RDW Standard Deviation 52.4 fL (36.4-46.3); Red Blood Count 4.19 M/uL (4.2-5.4); White Blood Count 7.43 K/uL (4.8-10.8)
[2021-02-24 17:23] LABS: Albumin Level 3.2 gm/dl (3.4-5.0); BUN Creatinine Ratio 19.8 (10-20); Blood Urea Nitrogen 20 mg/dl (7-18); Calcium 9.5 mg/dl (8.5-10.1); Carbon Dioxide 26 mmol/L (21-32); Chloride 109 mmol/L (98-107); Est GFR (African American) 66.9 ml/min; Est GFR (Non-African American) 57.7 ml/min; Glucose 100 mg/dl (70-99); Magnesium 1.9 mg/dl (1.8-2.4); Potassium 3.5 mmol/L (3.5-5.1); Sodium 141 mmol/L (136-145)
[2021-02-24 17:24] LABS: INR 3.2 (0.9-1.1); Partial Thromboplastin Ratio 2.1; Prothrombin Time 29.8 Seconds (9.0-12.0)
[2021-02-24 17:25] LABS: Alanine Aminotransferase 30 U/L (12-78); Albumin Globulin Ratio 0.9 (0.9-2); Alkaline Phosphatase 103 U/L (45-117); Aspartate Aminotransferase 24 U/L (15-37); Bilirubin,Total 0.7 mg/dl (0.2-1); Globulin 3.6 gm/dl (2.5-4.0); Total Protein 6.9 gm/dl (6.4-8.2)
[2021-02-24 17:33] LABS: Partial Thromboplastin Time 56.2 Seconds (21.0-31.0)
--- NOTE | 2021-02-24 17:38 | CT Scan Report ---
CT head/brain wo con CLINICAL HISTORY: fall COMPARISON STUDY: August 10, 2016 TECHNIQUE: Axial CT of the brain is performed from the vertex to the skull base. IV contrast was not administered for this examination. A dose lowering technique was utilized adhering to the principles of ALARA. CT DOSE: FINDINGS: No intra or extra-axial mass lesions are visualized. There is no CT evidence of acute cortical infarc tion. There is no evidence of midline shift. There is no acute hemorrhage. No acute depressed calvar ial fractures are visualized. There is extensive edema of the frontoparietal scalp with few areas of fluid fluid level which could represent hematoma. Also there is subcutaneous collection of the gas at parietal region without visu alized laceration. There are patchy white matter hypodensities likely on a small vessel basis. There is no evidence of pathologic ventricular dilatation. There is no evidence of acute sinusitis IMPRESSION: Extensive hematoma of the frontoparietal skull with few areas of fluid fluid level and gas collection and no definite depressed skull fractures. No acute intracranial hemorrhage, no midline shift or space occupying lesions. The rest of findings as above. ACT 112: Negative or not required by law. The above report was generated using voice recognition software. It may contain grammatical, syntax o r spelling errors. Electronically signed by: Sharonda Masterson DO 02/24/2021 5:37 PM
[2021-02-24] MEDS ORDERED: MoRPHine SULFATE 4 MG/ML 1 ML CARP\\VIAL IV STA (17:42)
--- NOTE | 2021-02-24 17:54 | CT Scan Report ---
CT OF THE CERVICAL SPINE CLINICAL HISTORY: fall COMPARISON STUDY: No previous studies for comparison. CT DOSE: 3575.17 mGy.cm TECHNIQUE: CT scan of the cervical spine was performed from the skull base to the thoracic inlet. Danette ges are reviewed in the axial, sagittal, and coronal planes. IV contrast was not administered for thi s examination. A dose lowering technique was utilized adhering to the principles of ALARA. FINDINGS: The visualized portions of the lung apices reveal no evidence of pneumothorax. 1.0 cm hypoattenuating nodule within the right thyroid lobe is seen. The prevertebral soft tissues are normal. Nondisplaced fracture of the distal aspect of C7. No other fracture or dislocation is seen.. Mucous polyp is seen within inferior aspect of the left maxillary sinus. Cervical lordosis is preserved. Diffuse severe osteopenia limits evaluation. Multilevel intervertebral disc space narrowing with osteophytes are seen. Minimal neural foraminal narrowing are seen bilaterally within lower cervical spine. No significant stenosis of the central central canal is visualized. IMPRESSION: Small nondisplaced fracture at the distal aspect of the C7 spinous process. No other fracture or trau matic malalignment is seen. Report will be sent to emergency Department. Multilevel degenerative changes and diffuse severe osteopenia. The rest of findings as above. ACT 112: Negative or not required by law. The above report was generated using voice recognition software. It may contain grammatical, syntax o r spelling errors. Electronically signed by: Sharonda Masterson DO 02/24/2021 5:52 PM
--- NOTE | 2021-02-24 18:06 | CT Scan Report ---
CT thoracic spine wo con CT DOSE: CLINICAL HISTORY: fall TECHNIQUE: A dose lowering technique was utilized adhering to the principles of ALARA. COMPARISON STUDY: None. FINDINGS: Slightly displaced fracture of the right spinous process of T6 is seen (). Small lucency through the spinous process of T3 is seen and might represent fracture off unknown acui ty. No definite surrounding soft tissue edema is seen. No other fractures or dislocation seen. Evaluation is limited due to diffuse osteopenia. Normal thoracic kyphosis is preserved. Multilevel anterior osteophytes and syndesmophytes are seen. No significant central canal or neural foraminal stenosis is seen. IMPRESSION: Slightly displaced fracture of the right spinous process of T6 and nondisplaced and possible chronic fracture of the spinous process of T3. Report will be sent to emergency Department. Osteopenia and degenerative changes. The rest of findings as above. ACT 112: Negative or not required by law. The above report was generated using voice recognition software. It may contain grammatical, syntax o r spelling errors. Electronically signed by: Sharonda Masterson DO 02/24/2021 6:05 PM
--- NOTE | 2021-02-24 18:16 | CT Scan Report ---
CT lumbar spine wo con CT DOSE: CLINICAL HISTORY: fall TECHNIQUE: Helical images were acquired in transverse plane. Reformatted sagittal and coronal images were reviewed. A dose lowering technique was utilized adhering to the principles of ALARA. CONTRAST: No contrast was administered COMPARISON STUDY: None. FINDINGS: Small linear lucency is seen through left pedicle of the L3, most likely representing nutrition chann el, acute fracture is less likely (902/71) No other acute fracture dislocation are seen. Osseous structures are diffusely demineralized which li mits evaluation. Normal lumbar lordosis is preserved. Multilevel intervertebral disc space narrowing with vacuum phenomenon and significant hypertrophic ch anges of facet joints are seen representing degenerative process. Sacralization of the left transvers e process of L5 is seen which appear irregular. No significant central canal stenosis is seen. Multiple areas of neural foraminal narrowing at the lo wer lumbar spine is seen bilaterally. IMPRESSION: No acute dislocated fractures are seen however there is linear lucency through the left pedicle of L3 might represent reactive channel or nondisplaced fracture which is less likely. Multilevel degenerative changes and osteopenia which limits evaluation. The rest of findings as above. ACT 112: Negative or not required by law. The above report was generated using voice recognition software. It may contain grammatical, syntax o r spelling errors. Electronically signed by: Sharonda Masterson DO 02/24/2021 6:14 PM
--- NOTE | 2021-02-24 18:42 | History & Physical Report ---
Date of Service February 24, 2021 Assessment & Plan (1) Fall: Plan: Mechanical fall No hip fracture suspected on exam but if having pain on ambulation tomorrow low threshold for imaging PT/OT, possible needed for rehab (2) Laceration of scalp: Plan: Sutures to be removed in 7-10 days (3) Hematoma of frontal scalp: Plan: CBC with AM labs Will hold off reversal of warfarin at this stage. (4) Closed C7 fracture: Plan: Small, non-displaced. No pain over this spinous process therefore will defer cervical collar. (5) Closed T6 spinal fracture: Plan: Slightly displaced fracture of the right spinous process of T6. Having pain over this area. Calcium, vitamin D levels managed by endocrinology/nephrology and will continue her routine medication. 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 Hold warfarin currently as supratherapeutic and current scalp hematoma. Plan: VTE prophylaxis - supratherapeutic INR, holding warfarin, SCDs Diet - regular Disposition - observation status on med/surg Admission and Anticipated Discharge Date Admission Date: February 24, 2021 History of Present Illness Chief Complaint: Fall Primary Care Provider: Tiara Barton MD Sherrie Tsai is a 70 year old female who presents to the ER by ambulance due to a fall. She recently had surgery on her left knee approximately 6-7 weeks ago and has been walking with a cane since then. She tripped over a brick today. No lightheadedness, chest pain or shortness of breath prior to falling. She fell on the right side of her head causing large laceration and hematoma here. She is on warfarin due to a history of pulmonary emboli (last diagnosed in 2015. She is also complaining of mid thoracic pain since the fall in the center of her back. In the ER her head laceration was sutured. Hemoglobin stable at 12g/dL. CT head was negative for intracranial pathology. Cervical and thoracic CT imaging revealed acute spinous process fractures at C7 and T6. She was referred to medicine due to the size of the hematoma on warfarin and possible need for rehabilitation. Allergies Allergy/AdvReac Type Severity Reaction Status Date / Time No Known Allergies Allergy Verified 02/24/21 18:18 Home Medications Medication Instructions Recorded Confirmed Type magnesium 250 mg tablet 250 mg PO QAM 07/25/18 02/24/21 History potassium chloride 10 mEq 20 meq PO DAILY #180 cap 05/11/20 02/24/21 Rx capsule,extended release hydrochlorothiazide 25 mg tablet 25 mg PO Q OTHER DAY tab 08/20/20 02/24/21 History probenecid 500 mg tablet 500 mg PO BID 08/20/20 02/24/21 History calcitriol 0.25 mcg capsule 0.25 mcg PO DAILY #90 cap 01/05/21 02/24/21 Rx warfarin 5 mg tablet See Rx Instructions PO UD tab 01/18/21 02/24/21 History acetaminophen 500 mg tablet 1,000 mg PO Q6H PRN 02/24/21 02/24/21 History (Tylenol Extra Strength) amoxicillin 500 mg tablet 2,000 mg PO ONCE PRN 02/24/21 02/24/21 History calcium carbonate-vitamin D3 600 1 tab PO DAILY 02/24/21 02/24/21 History mg-125 unit tablet cholecalciferol (vitamin D3) 125 125 mcg PO DAILY 02/24/21 02/24/21 History mcg (5,000 unit) tablet (Vitamin D3) simethicone 80 mg chewable tablet 80 mg PO HS 02/24/21 02/24/21 History tramadol 50 mg tablet 50 mg PO UD PRN 02/24/21 02/24/21 History Past Med/Surg History Medical History Acute sinusitis Cellulitis DVT (deep venous thrombosis) 2014. POSSIBLY S/T TO MULTIPLE FALLS. Gout Heart palpitations occasional, 2x in past 9 months. Per pt, was evaluated at [place] [facility] last summer with negative workup Hemarthrosis, right knee Hematuria, microscopic Hyperparathyroidism Left knee DJD Low bone mass Morbid obesity Neural foraminal stenosis of lumbar spine Osteoarthritis Pre-diabetes Pulmonary embolism 07/2014, NOW ON COUMADIN Right lumbar radiculitis L2-3 with mild central and mild right neuroforaminal stenosis Routine health maintenance Skin cancer S/P MOHS PROCEDURE Thoracic back pain Surgical History H/O nasal septoplasty History of colonoscopy History of esophagogastroduodenoscopy (EGD) History of total hip arthroplasty RT History of tubal ligation S/P removal of parathyroid gland Status post Mohs surgery Status post right knee replacement Family History Brother Family history of diabetes mellitus Heart disease Mother Cancer Thrombophlebitis Father Heart disease Other No family history of bleeding disorder Denies family history of Ovarian cancer Prostate cancer Myocardial infarction Breast cancer Colorectal cancer Social History Smoking Status: Former smoker Cigarettes Per Day: HX OF RARE SOCIAL USE 30 YEARS AGO; Second Hand Exposure: No; Do You Dip or Chew Tobacco: No; Tobacco Cessation Education Requested by Patient: No Hx Alcohol Use: Yes Alcohol type: wine Hx Substance Use: No Preferred Language: Hebrew Communication Ability: Impaired Visual Impairment: No 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 Other Information That Helps Us Care for You: No Feels Safe at Home: Yes Safety Concerns: Feels Safe At This Time Dental Care, Regularly: Yes Seatbelt Use: sometimes Assistive Devices: Cane Review of Systems Review of Systems: All systems reviewed & are unremarkable except as noted in HPI & below Physical Exam Constitutional: WD/WN, vitals as above Eyes: PERRL and EOM intact bilaterally (given current bandaging unable to completely assess right side) ENMT: external ear and nose normal, oropharynx normal Neck: trachea midline, no thyromegaly Respiratory: normal respiratory effort, lungs clear to auscultation Cardiovascular: RRR, no murmur, no edema Gastrointestinal (Abdomen): normal bowel sounds, soft, nontender, no hepatosplenomegaly Musculoskeletal: Spine: + limited thoraco-lumbar ROM (due to pain) and + thoracic spinal tenderness (mid thoracic); no pain with cervical ROM No groin pain with hip rotation. No new knee pain on palpation since fall (she has some residual pain after her recent operation). Skin: Head bandages not removed to avoid making bleeding worse and reduce risk of infection as only recently placed by ER physician after sutures placed. Neurologic: moves all extremities and awake; not confused Psychiatric: A+Ox3, euthymic affect Results & Data Results & Data ([facility]) Diagnostic Findings CT head/brain wo con No intra or extra-axial mass lesions are visualized. There is no CT evidence of acute cortical infarction. There is no evidence of midline shift. There is no acute hemorrhage. No acute depressed calvarial fractures are visualized. There is extensive edema of the frontoparietal scalp with few areas of fluid fluid level which could represent hematoma. Also there is subcutaneous collection of the gas at parietal region without visualized laceration. There are patchy white matter hypodensities likely on a small vessel basis. There is no evidence of pathologic ventricular dilatation. There is no evidence of acute sinusitis IMPRESSION: Extensive hematoma of the frontoparietal skull with few areas of fluid fluid level and gas collection and no definite depressed skull fractures. No acute intracranial hemorrhage, no midline shift or space occupying lesions. The rest of findings as above. CT OF THE CERVICAL SPINE The visualized portions of the lung apices reveal no evidence of pneumothorax. 1.0 cm hypoattenuating nodule within the right thyroid lobe is seen. The prevertebral soft tissues are normal. Nondisplaced fracture of the distal aspect of C7. No other fracture or dislocation is seen.. Mucous polyp is seen within inferior aspect of the left maxillary sinus. Cervical lordosis is preserved. Diffuse severe osteopenia limits evaluation. Multilevel intervertebral disc space narrowing with osteophytes are seen. Minimal neural foraminal narrowing are seen bilaterally within lower cervical spine. No significant stenosis of the central central canal is visualized. IMPRESSION: Small nondisplaced fracture at the distal aspect of the C7 spinous process. No other fracture or traumatic malalignment is seen. Report will be sent to emergency Department. Multilevel degenerative changes and diffuse severe osteopenia. The rest of findings as above. CT thoracic spine wo con Slightly displaced fracture of the right spinous process of T6 is seen (178). Small lucency through the spinous process of T3 is seen and might represent fracture off unknown acuity. No definite surrounding soft tissue edema is seen. No other fractures or dislocation seen. Evaluation is limited due to diffuse osteopenia. Normal thoracic kyphosis is preserved. Multilevel anterior osteophytes and syndesmophytes are seen. No significant central canal or neural foraminal stenosis is seen. IMPRESSION: Slightly displaced fracture of the right spinous process of T6 and nondisplaced and possible chronic fracture of the spinous process of T3. Report will be sent to emergency Department. Osteopenia and degenerative changes. The rest of findings as above. CT lumbar spine wo con Small linear lucency is seen through left pedicle of the L3, most likely representing nutrition channel, acute fracture is less likely (902/71) No other acute fracture dislocation are seen. Osseous structures are diffusely demineralized which limits evaluation. Normal lumbar lordosis is preserved. Multilevel intervertebral disc space narrowing with vacuum phenomenon and significant hypertrophic changes of facet joints are seen representing degenerative process. Sacralization of the left transverse process of L5 is seen which appear irregular. No significant central canal stenosis is seen. Multiple areas of neural foraminal narrowing at the lower lumbar spine is seen bilaterally. IMPRESSION: No acute dislocated fractures are seen however there is linear lucency through the left pedicle of L3 might represent reactive channel or nondisplaced fracture which is less likely. Multilevel degenerative changes and osteopenia which limits evaluation. The rest of findings as above. Medications Administered ER Medications Given: Morphine 4mg IV Ondansetron 4mg IV Cefazolin 2g IV Code Status & VTE Plan Code Status Full - discussed with the patient VTE Prophylaxis Plan VTE Prophylaxis will be ordered: Yes Reason for no VTE drug order: Contraindicated PG Care Time/CCT Total # of Minutes Spent Total Time Spent with Patient: Total time spent is greater than 50% in coordination of care (as documented) at patient's floor/unit and/or counseling patient: Coding Level of Care Code INT OBSERVATION CARE 70M LVL 3 Diagnoses Fall W19.XXXA Hematoma of frontal scalp S00.03XA Encounter type: initial encounter Closed C7 fracture S12.600A Encounter type: initial encounter Fracture alignment: displaced Fracture morphology: unspecified fracture morphology Laceration of scalp S01.01XA Encounter type: initial encounter Hypertension 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
[2021-02-24] MEDS ORDERED: HYDROmorphone INJ 0.5 MG/0.5 ML SYR IV STA ×2 (18:54→20:42)
[2021-02-24] MEDS ORDERED: SODIUM CHLORIDE 0.65% NA SOLN 45 ML (OCEAN) ONE (22:34)
[2021-02-24] MEDS ORDERED: ONDANSETRON INJ 2 MG/ML 2 ML VIAL IV PRN (22:37)
[2021-02-24] MEDS ORDERED: ACETAMINOPHEN 500 MG TAB PO PRN (22:48)
[2021-02-24] MEDS: HYDROmorphone INJ 0.5 MG/0.5 ML SYR IV PRN (23:14)
[2021-02-24] MEDS: SIMETHICONE 80 MG CHEW PO SCH (23:15)
[2021-02-24] MEDS: CALCITRIOL 0.25 MCG CAPSULE PO SCH (23:15)
[2021-02-24] MEDS: PROBENECID 500 MG TAB PO SCH (23:15)
[2021-02-25] MEDS: traMADol HCL 50 MG TABLET PO PRN ×3 (02:47→15:19)
[2021-02-25] MEDS: HYDROmorphone INJ 0.5 MG/0.5 ML SYR IV PRN ×2 (05:01→21:55)
[2021-02-25 07:29] LABS: Basophils # (auto) 0.02 K/uL (0-0.2); Basophils % (auto) 0.3 %; Eosinophils # (auto) 0.09 K/uL (0-0.5); Eosinophils % (auto) 1.5 %; Hematocrit (blood only) 33.8 % (37-47); Hemoglobin 10.7 g/dL (12.0-16.0); Immature Granulocytes # (auto) 0.01 K/uL (0.00-0.02); Immature Granulocytes % (auto) 0.2 %; Lymphocytes # (auto) 1.31 K/uL (1.2-3.4); Lymphocytes % (auto) 21.8 %; Mean Corpuscular Hemoglobin 27.8 pg (25-34); Mean Corpuscular Hgb Conc 31.7 g/dL (32-36); Mean Corpuscular Volume 87.8 fL (80-100); Mean Platelet Volume 8.9 fL (7.4-10.4); Monocytes # (auto) 0.51 K/uL (0.11-0.59); Monocytes % (auto) 8.5 %; Neutrophils # (auto) 4.06 K/uL (1.4-6.5); Neutrophils % (auto) 67.7 %; Platelet Count 276 K/uL (130-400); RDW Coefficient of Variation 16.5 % (11.5-14.5); Red Blood Count 3.85 M/uL (4.2-5.4)
[2021-02-25 07:36] LABS: Prothrombin Time 27.6 Seconds (9.0-12.0)
[2021-02-25 07:57] LABS: BUN Creatinine Ratio 18.3 (10-20); Calcium 8.8 mg/dl (8.5-10.1); Creatinine Clr Calc Pharmacy 70.7 ml/min; Est GFR (African American) 73.1 ml/min; Est GFR (Non-African American) 63.1 ml/min; Potassium 3.8 mmol/L (3.5-5.1)
[2021-02-25] MEDS: POTASSIUM CHLORIDE CRTAB 20 MEQ TABCR PO SCH (08:22)
[2021-02-25] MEDS: CHOLECALCIFEROL 1,000 UNITS 25 MCG TAB PO SCH (08:23)
[2021-02-25] MEDS: PROBENECID 500 MG TAB PO SCH ×2 (08:23→20:51)
[2021-02-25] MEDS: CALCIUM 600MG + VIT D 400 IU TAB PO SCH (08:25)
[2021-02-25] MEDS: hydroCHLOROthiazide 25 MG TAB PO SCH (08:25)
[2021-02-25] MEDS ORDERED: NON-FORMULARY MEDICATION (Magnesium 250 mg tablet) PO SCH (09:00)
--- NOTE | 2021-02-25 10:08 | Orthopedic Consultation ---
Date of Consultation February 25, 2021 Assessment & Plan (1) Closed T6 spinal fracture: This time the patient does have small spinous process fracture of T7. It is not limiting her at this time. I would not recommend any specific treatment or bracing at this point. History of Present Illness Reason for Consultation: Status post fall Attending Physician: Seven Pruett MD History of Present Illness This is a very pleasant 70-year-old female presents status post fall. She struggled with significant facial injuries after the fall. Upon her work-up it was determined that she had a fracture at C7 and upper thoracic regions. At this time she denies any cervical pain. Denies any numbness or tingling upper or lower extremities. Has some thoracic discomfort with range of motion of her upper extremities. It is not limiting in nature. Allergies Allergy/AdvReac Type Severity Reaction Status Date / Time No Known Allergies Allergy Verified 02/24/21 18:18 Home Medications Medication Instructions Recorded Confirmed Type magnesium 250 mg tablet 250 mg PO QAM 07/25/18 02/24/21 History potassium chloride 10 mEq 20 meq PO DAILY #180 cap 05/11/20 02/24/21 Rx capsule,extended release hydrochlorothiazide 25 mg tablet 25 mg PO Q OTHER DAY tab 08/20/20 02/24/21 History probenecid 500 mg tablet 500 mg PO BID 08/20/20 02/24/21 History calcitriol 0.25 mcg capsule 0.25 mcg PO DAILY #90 cap 01/05/21 02/24/21 Rx warfarin 5 mg tablet See Rx Instructions PO UD tab 01/18/21 02/24/21 History acetaminophen 500 mg tablet 1,000 mg PO Q6H PRN 02/24/21 02/24/21 History (Tylenol Extra Strength) amoxicillin 500 mg tablet 2,000 mg PO ONCE PRN 02/24/21 02/24/21 History calcium carbonate-vitamin D3 600 1 tab PO DAILY 02/24/21 02/24/21 History mg-125 unit tablet cholecalciferol (vitamin D3) 125 125 mcg PO DAILY 02/24/21 02/24/21 History mcg (5,000 unit) tablet (Vitamin D3) simethicone 80 mg chewable tablet 80 mg PO HS 02/24/21 02/24/21 History tramadol 50 mg tablet 50 mg PO UD PRN 02/24/21 02/24/21 History Patient History Medical History Acute sinusitis Cellulitis DVT (deep venous thrombosis) 2014. POSSIBLY S/T TO MULTIPLE FALLS. Gout Heart palpitations occasional, 2x in past 9 months. Per pt, was evaluated at [place] [facility] last summer with negative workup Hemarthrosis, right knee Hematuria, microscopic Hyperparathyroidism Left knee DJD Low bone mass Morbid obesity Neural foraminal stenosis of lumbar spine Osteoarthritis Pre-diabetes Pulmonary embolism 07/2014, NOW ON COUMADIN Right lumbar radiculitis L2-3 with mild central and mild right neuroforaminal stenosis Routine health maintenance Skin cancer S/P MOHS PROCEDURE Thoracic back pain Surgical History H/O nasal septoplasty History of colonoscopy History of esophagogastroduodenoscopy (EGD) History of total hip arthroplasty RT History of tubal ligation S/P removal of parathyroid gland Status post Mohs surgery Status post right knee replacement Family History Brother Family history of diabetes mellitus Heart disease Mother Cancer Thrombophlebitis Father Heart disease Other No family history of bleeding disorder Denies family history of Ovarian cancer Prostate cancer Myocardial infarction Breast cancer Colorectal cancer Social History Smoking Status: Former smoker Cigarettes Per Day: HX OF RARE SOCIAL USE 30 YEARS AGO; Second Hand Exposure: No; Do You Dip or Chew Tobacco: No; Tobacco Cessation Education Requested by Patient: No Hx Alcohol Use: Yes Alcohol type: wine Hx Substance Use: No Preferred Language: Arabic Communication Ability: Impaired Visual Impairment: No Limitations Straightedge Man Required: No Beliefs That Will Affect Care: None Current Living Situation: Spouse Current Living Situation Comment: Lives with . Other Information That Helps Us Care for You: No Feels Safe at Home: Yes Safety Concerns: Feels Safe At This Time Dental Care, Regularly: Yes Seatbelt Use: sometimes Assistive Devices: Cane Physical Exam Physical Exam: On exam she is ambulating without difficulty. She has no significant pain to palpation percussion of the thoracolumbar region. She is good strength testing the upper extremities. Results & Data ([facility]) Vital Signs (Past 12 Hours) Vital Signs Temp Pulse Pulse Resp BP Pulse Ox 02/25/21 08:00 36.9 C 68 74 20 118/78 94 02/24/21 23:49 37 C 68 16 137/87 96
[2021-02-25] MEDS ORDERED: ALUMINUM/MAGNESIUM SUSP 30 ML UDC ONE (13:16)
[2021-02-25 14:40] LABS: Creatine Kinase MB 18.6 ng/ml (0.5-3.6)
[2021-02-25] MEDS ORDERED: NITROGLYCERIN SL 0.4 MG/TAB TAB SL PRN (15:11)
[2021-02-25] MEDS ORDERED: MoRPHine SULFATE 2 MG/ML CARP IV PRN (15:11)
--- NOTE | 2021-02-25 15:27 | Hospitalist Progress Note ---
Date of Service February 25, 2021 Assessment & Plan (1) NSTEMI (non-ST elevated myocardial infarction): Plan: - Shockingly, patients troponin has since come back elevated - Her pain wasn't overly impressive for cardiac as it occurred after lunch and resolved with maalox. - [id number], her troponin is elevated - perhap the ongoing nausea (that she didn't mention when seen earlier) is related to this - no heparin gtt as patient on chronic coumadin therapy and INR is 3.0 (will still hold dose tonight with likely resumption tomorrow as opposed to initial plan of Sunday) - add antiplatelet therapy (will watch hematoma closely-- seems to be resolving). - add BB (coreg 3.125mg po bid) watching HR and BP closely - Add lipitor with lipid panel in the am for risk stratification - tropical nitropaste for vasodilation with PRN SL NTG) - prn Morphine - O2 prn - Echo to assess LVF and for RWMA - consult cardiology-- appreciate recommendations - transfer to PCU and change to full admission - continue to cycle troponin until it peaks - Serial EKGs (2) Fall: Plan: -Mechanical fall resulting in nondisplaced fracture of C7, T3, and possibly L3 along with slightly displaced fracture of T6 -Seen by Dr. Linares who provides no changes in treatment plan at this time. Appreciate recommendations. -No complaints of hip or knee pain today -From a fall/fracture standpoint, patient actually doing well. Her pain is controlled. She is meeting her goals with PT/OT. As stated above, initial plan was to discharge to home. (3) Laceration of scalp: Plan: -Sutures to be removed in 7-10 days -ABX prophylaxis provided (4) Hematoma of frontal scalp: Plan: -Coumadin held last evening. INR 3.0. Hold tonight with likely resumption tomorrow. -PT/INR in a.m. to trend (5) Closed C7 fracture: Plan: -Nondisplaced -see above (6) Closed T6 spinal fracture: Plan: -Slightly displaced fracture of the right spinous process of T6. 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 INR 3.0 at present Plan: -Changed to full admission -Transfer to PCU as outlined above -Plan of care discussed briefly with Dr. Pruett and Dr. Jimenez Admission and Anticipated Discharge Date Admission Date: February 24, 2021 Subjective Patient seen on daily rounds today. 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 She was hospitalized last evening with minor trauma following a ground-level fall. She had tripped over uneven pavement sustaining a ground-level fall mostly to her head/right side. Had a large laceration to the right frontal region requiring repair and mild hematoma to this area. In addition, was found to have a nondisplaced fracture of C7, T3, and possibly L3 with a mildly displaced fracture of T6. Her INR was slightly supratherapeutic at 3.2 but the rest of her lab data unremarkable She was subsequently hospitalized for further evaluation and care When initially seen on rounds this morning, she vocalizes no significant complaints or concerns. She claimed that her pain was controlled with Ultram (which she had previously been taking for left TKA). She had been seen by PT/OT and deemed completely independent Orthopedic allergy and immunology specialist was consulted and evaluated patient earlier this morning noting no added recommendations other than pain control (no need for surgical intervention or bracing) Was actually planning to discharge patient home when I was notified that she had developed some mild chest pain that occurred after lunch. Maalox was given An EKG was obtained and nonacute. Cardiac enzymes obtained and her troponin has since come back elevated at 5.28. CK elevated at 251. CK-MB elevated 18.6. Patient was evaluated by myself and she described the chest discomfort as a "tightness" that came on all of a sudden after eating lunch. Very mild and rated as a 2-3/10 with radiation into her back. Ongoing for less than 1 hour and alleviated completely with Maalox. Does report that she has been nauseated all morning but was not overly impressed. Thought it was related to her pain medication. She denies shortness of breath, diaphoresis, jaw pain Does not have a rolled seat trimmer and has not had cardiac evaluation in the past. Upon further questioning, does not recall landing on her chest wall when she fell. Was mostly her head/neck but reports she may have injured her chest wall as well. Review of Systems Review of Systems: All systems reviewed and are unremarkable except as noted in HPI and below Denies fevers, chills, headache, nasal congestion, sore throat, cough, shortness of breath, abdominal pain, vomiting, dysuria, hematuria, frequency, skin lesions or rashes. Physical Exam Physical Exam: General: Resting comfortably in her hospital bed. NAD. HEENT: Repaired laceration of the frontal right scalp without obvious/significant hematoma noted. Periocular ecchymosis significant with some layering edema. Throughout the course of the day, did develop more dependent ecchymosis in the zygomatic region and chin (likely from gravity) Neck: No JVD. Negative hepatojugular reflex Cardiac: No bruising on anterior chest wall. Chest wall is not tender to palpa tion and there is no reproducible chest pain. RRR with 1/6 to 2/6 ALEXIA Lungs: CTA without W/R/R Abdomen: Normoactive X4. Soft and nontender in all quadrants. Extremities: + Adiposity without true edema. Well-healed scar to the left knee. No bruising or deformity. No tenderness to the bilateral hips. Neuro: A&O X4 cranial nerves II through XII are grossly intact no focal neuro deficits Skin: See above Results & Data Results & Data ([facility]) Vital Signs (Past 12 Hours) Vital Signs Temp Pulse Pulse Resp BP Pulse Ox 02/25/21 14:07 36.9 C 60 18 136/75 95 02/25/21 13:17 61 16 146/79 H 98 02/25/21 13:00 36.9 C 68 74 20 118/78 94 02/25/21 08:00 36.9 C 68 74 20 118/78 94 PG Care Time/CCT Total # of Minutes Spent Total Time Spent with Patient: Total time spent is greater than 50% in coordination of care (as documented) at patient's floor/unit and/or counseling patient: Coding [place] [address] Subseq Hosp Care Lvl 3 Patient Type Established History Detailed Exam Detailed Medical Decision Making High Complexity Diagnoses Fall W19.XXXA Laceration of scalp S01.01XA Encounter type: initial encounter Hematoma of frontal scalp S00.03XA Encounter type: initial encounter Closed C7 fracture S12.600A Encounter type: initial encounter Fracture alignment: displaced Fracture morphology: unspecified fracture morphology Closed T6 spinal fracture S22.059A Hypertension 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 Z79.01 NSTEMI (non-ST elevated myocardial infarction) I21.4 (1) Laceration of scalp Encounter type: initial encounter Qualified Code(s): S01.01XA - Laceration without foreign body of scalp, initial encounter (2) Hematoma of frontal scalp Encounter type: initial encounter Qualified Code(s): S00.03XA - Contusion of scalp, initial encounter (3) Closed C7 fracture Encounter type: initial encounter Fracture alignment: displaced Fracture morphology: unspecified fracture morphology Qualified Code(s): S12.600A - Unspecified displaced fracture of seventh cervical vertebra, initial encounter for closed fracture
[2021-02-25] MEDS: ASPIRIN 81 MG ECTAB PO SCH (16:26)
[2021-02-25] MEDS ORDERED: DIPHTHERIA/TETANUS/PERTUSSIS 0.5 ML SYR/VIAL IM ONE (17:12)
[2021-02-25] MEDS: NITROGLYCERIN 2% OINTMENT 30GM TUBE EXT SCH ×2 (17:30→20:02)
--- NOTE | 2021-02-25 17:49 | XCELERA ---
[id number]
--- NOTE | 2021-02-25 18:47 | XRay Report ---
XR knee LT 3V CLINICAL HISTORY: fall with left leg pain. ? periprosthetic fracture COMPARISON: Left knee radiographs March 23, 2014. Knee radiographs December 08, 2019. FINDINGS: Soft tissue swelling is noted. There is a probable joint effusion. There is mild lateral p atellar tilt. On lateral projection, there is lucency with cortical irregularity of the inferior arzate lla. On sunrise projection, there is a possible lucency within the distal left femur. A few small oss ific/calcific densities adjacent to the patella are present. IMPRESSION: 1. Status post total left knee arthroplasty. 2. Lucency with cortical irregularity of the inferior patella on lateral projection. A fracture canno t be excluded. This can be assessed with CT. 3. Lucency of the distal left femur shown on sunrise projection. This can also be assessed on CT to e xclude fracture. 4. Left knee soft tissue swelling with suspected joint effusion. ACT 112: Negative or not required by law. Electronically signed by: Keo Reyes M.D. 02/25/2021 6:46 PM
[2021-02-25] MEDS: carvediloL 3.125 MG TAB PO SCH (20:01)
[2021-02-25] MEDS: SIMETHICONE 80 MG CHEW PO SCH (20:51)
[2021-02-25] MEDS ORDERED: ATORVASTATIN 40 MG TAB PO SCH (21:00)
--- NOTE | 2021-02-25 21:56 | Cardiology Consultation ---
Date of Consultation February 25, 2021 Assessment & Plan (1) NSTEMI (non-ST elevated myocardial infarction): (2) Chest pain: ASSESSMENT/PLAN: 1. NSTEMI /elevated troponin: The mechanism of her elevated troponin is not well defined at this time. Her initial troponin was elevated but would not expect the elevation to be quite so high immediately following her chest discomfort which was atypical. This is more concerning for an event that occurred several hours before or even yesterday. Possible cardiac contusion from her fall which appeared to be high impact. Very focal wall motion abnormality noted on echo. We discussed findings and potential treatment strategies. Because she was chest pain-free and symptoms are not convincing for angina, cardiac catheterization was not urgently recommended. There was no emergent / urgent indication. We discussed trending troponin levels and if troponin becomes more significantly elevated, could then consider ischemic evaluation. Otherwise, considering cardiac contusion as well. Agree with aspirin 81 mg daily. Recommended high-intensity statin therapy however she states that she would decline to start statin. Beta-joi has been initiated by primary hospitalist service. Notify nursing staff immediately for recurrent symptoms. 2. Chest pain: Atypical, relieved by Maalox and passing gas. Troponin was elevated immediately following chest pain syndrome, which would be unexpected to occur so soon following chest discomfort, if it was related to ischemic heart disease. Monitor for further symptoms. 3. Disposition: I will be away from the hospital for the next several days. Dr. Grove will be covering. Patient care and overall plan discussed with Dr. Grove (cardiology) and also Saumya Shipley, of the primary hospitalist service. Thank you for allowing me to participate in the care of your patient. Please call for any other questions or concerns. Sincerely, Derian Jimenez M.D. History of Present Illness Reason for Consultation: NSTEMI Requesting Physician: Saumya Shipley Attending Physician: Seven Pruett MD History of Present Illness Mrs. Tsai is a very pleasant 70-year-old female with a history significant for prediabetes and DVT/PE in 2014. She was admitted on 02/24/2021 after experiencing a mechanical fall, where she suffered a large laceration and hematoma on the right side of her head, fractures of C7, T3, T6, and possibly L3, and other ecchymoses. She has been on warfarin chronically due to prior DVT/PE. After eating lunch this afternoon, she developed chest discomfort which was described as a tightness that radiated to the back. There was no associated shortness of breath. She was experiencing nausea. Symptoms resolved within 20 minutes of taking Maalox and passing gas. Because of her chest discomfort, a troponin was ordered by the primary hospitalist service and resulted at 1:35 p.m.. Initial troponin was 5.28, only a short period of time after her chest discomfort. She states that she has not had chest discomfort like this before. She had no chest pain at the time of her fall and denies any shortness of breath. She was concerned about left popliteal pain which reminded her of prior DVT pain, and wished to undergo ultrasound, although her INR was supratherapeutic. The popliteal pain has since resolved and she had no shortness of breath leading up to her presentation. With the fall, she is certain that she did not have a syncopal or near syncopal event but rather a mechanical fall, tripping on the sidewalk and striking the right side of her head and the right side of her body. She has chronic hematuria and chronic left lower extremity swelling ever since her DVT. She denies melena or hematochezia. Review of systems: As above. Review of systems otherwise negative/unremarkable. Family history: No known premature CAD. 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 Rare alcohol. No drugs. Lives at home with her . Two children, a son and daughter. Multiple grandchildren. 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 She was unaccompanied. Allergies Allergy/AdvReac Type Severity Reaction Status Date / Time No Known Allergies Allergy Verified 02/24/21 18:18 Home Medications Medication Instructions Recorded Confirmed Type magnesium 250 mg tablet 250 mg PO QAM 07/25/18 02/24/21 History potassium chloride 10 mEq 20 meq PO DAILY #180 cap 05/11/20 02/24/21 Rx capsule,extended release hydrochlorothiazide 25 mg tablet 25 mg PO Q OTHER DAY tab 08/20/20 02/24/21 History probenecid 500 mg tablet 500 mg PO BID 08/20/20 02/24/21 History calcitriol 0.25 mcg capsule 0.25 mcg PO DAILY #90 cap 01/05/21 02/24/21 Rx warfarin 5 mg tablet See Rx Instructions PO UD tab 01/18/21 02/24/21 History acetaminophen 500 mg tablet 1,000 mg PO Q6H PRN 02/24/21 02/24/21 History (Tylenol Extra Strength) amoxicillin 500 mg tablet 2,000 mg PO ONCE PRN 02/24/21 02/24/21 History calcium carbonate-vitamin D3 600 1 tab PO DAILY 02/24/21 02/24/21 History mg-125 unit tablet cholecalciferol (vitamin D3) 125 125 mcg PO DAILY 02/24/21 02/24/21 History mcg (5,000 unit) tablet (Vitamin D3) simethicone 80 mg chewable tablet 80 mg PO HS 02/24/21 02/24/21 History tramadol 50 mg tablet 50 mg PO UD PRN 02/24/21 02/24/21 History tramadol 50 mg tablet 50 mg PO Q6H PRN #30 tab 02/25/21 Rx Patient History Medical History Acute sinusitis Cellulitis DVT (deep venous thrombosis) 2014. POSSIBLY S/T TO MULTIPLE FALLS. Gout Heart palpitations Hemarthrosis, right knee Hematuria, microscopic Hyperparathyroidism Left knee DJD Low bone mass Morbid obesity Neural foraminal stenosis of lumbar spine Osteoarthritis Pre-diabetes Pulmonary embolism 07/2014, NOW ON COUMADIN Right lumbar radiculitis L2-3 with mild central and mild right neuroforaminal stenosis Routine health maintenance Skin cancer S/P MOHS PROCEDURE Thoracic back pain Surgical History H/O nasal septoplasty History of colonoscopy History of esophagogastroduodenoscopy (EGD) History of total hip arthroplasty RT History of tubal ligation S/P removal of parathyroid gland Status post Mohs surgery Status post right knee replacement Family History Brother Family history of diabetes mellitus Heart disease Mother Cancer Thrombophlebitis Father Heart disease Other No family history of bleeding disorder Denies family history of Ovarian cancer Prostate cancer Myocardial infarction Breast cancer Colorectal cancer Social History Smoking Status: Former smoker Cigarettes Per Day: HX OF RARE SOCIAL USE 30 YEARS AGO; Second Hand Exposure: No; Hx Alcohol Use: Yes Alcohol type: wine Hx Substance Use: No Preferred Language: Malay Communication Ability: Effective Visual Impairment: No Limitations 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 Feels Safe at Home: Yes Dental Care, Regularly: Yes Seatbelt Use: sometimes Assistive Devices: Cane Physical Exam Physical Exam: Gen.: No acute distress. Alert and oriented. HEENT: Anicteric sclera. Bilateral orbital ecchymoses. Neck: No JVD. No bruits. Normal carotid upstrokes bilaterally. Cardiac: PMI was Nonpalpable. No ventricular heave. Regular. Normal S1-S2. No murmurs, rubs, or gallops. Pulmonary: Clear to auscultation bilaterally without wheezes, rales, or rhonchi. Abdomen: Soft, nontender, nondistended, with normoactive bowel sounds. No bruits noted. Extremities: 2+ radial pulses bilaterally. 2+ posterior tibialis pulses bilaterally. Trace left lower extremity edema. No palpable cords. No cyanosis. Psychiatric: Affect appears appropriate. Results & Data ([facility]) Vital Signs (Past 12 Hours) Vital Signs Temp Pulse Pulse Pulse Resp BP Pulse Ox 02/25/21 19:39 37.2 C 77 20 124/75 93 02/25/21 17:46 75 02/25/21 17:05 37.7 C H 71 20 135/86 93 02/25/21 14:07 36.9 C 60 18 136/75 95 02/25/21 13:17 61 16 146/79 H 98 02/25/21 13:00 36.9 C 68 74 20 118/78 94 Laboratory Results Laboratory Results - last 24 hr 02/25/21 02/25/21 02/25/21 07:17 07:17 07:17 WBC 6.00 RBC 3.85 L Hgb 10.7 L Hct 33.8 L MCV 87.8 MCH 27.8 MCHC 31.7 L RDW Std Deviation 53.0 H RDW Coeff of Mary 16.5 H Plt Count 276 MPV 8.9 Immature Gran % (Auto) 0.2 Neut % (Auto) 67.7 Lymph % (Auto) 21.8 Cannon % (Auto) 8.5 Eos % (Auto) 1.5 Baso % (Auto) 0.3 Neut # (Auto) 4.06 Lymph # (Auto) 1.31 Cannon # (Auto) 0.51 Eos # (Auto) 0.09 Baso # (Auto) 0.02 Immature Gran # (Auto) 0.01 PT 27.6 H INR 3.0 H Sodium 141 Potassium 3.8 Chloride 106 Carbon Dioxide 29 Anion Gap 5.0 BUN 17 Creatinine 0.92 Est Cr Clr Drug Dosing 70.7 Est GFR ( Amer) 73.1 Est GFR (Non-Af Amer) 63.1 BUN/Creatinine Ratio 18.3 Glucose 94 Calcium 8.8 CK-MB (CK-2) Troponin I 02/25/21 02/25/21 13:35 20:00 WBC RBC Hgb Hct MCV MCH MCHC RDW Std Deviation RDW Coeff of Mary Plt Count MPV Immature Gran % (Auto) Neut % (Auto) Lymph % (Auto) Cannon % (Auto) Eos % (Auto) Baso % (Auto) Neut # (Auto) Lymph # (Auto) Cannon # (Auto) Eos # (Auto) Baso # (Auto) Immature Gran # (Auto) PT INR Sodium Potassium Chloride Carbon Dioxide Anion Gap BUN Creatinine Est Cr Clr Drug Dosing Est GFR ( Amer) Est GFR (Non-Af Amer) BUN/Creatinine Ratio Glucose Calcium CK-MB (CK-2) 18.6 H Troponin I 5.280 H* 7.340 H* Diagnostic Findings Thoracic/lumbar/cervical spine CT: Slightly displaced fracture of right spinous process of T6, nondisplaced and possible chronic fracture of T3. Possible L3 fracture or reactive channel. C7 nondisplaced fracture. ECG personally reviewed: ECG 02/25/2021 at 1:11 p.m.: Ectopic atrial rhythm 60 bpm. ECG 02/25/2021 at 2:23 p.m.: Sinus bradycardia 58 bpm. Echo 02/25/2021: Normal LV size. EF 60-65%. Very small focal area of hypokinesis involving the mid inferoseptum. Mild LVH. Wall motion abnormality new compared to 01/02/2020 study. Medications Administered Current Inpatient Medications Acetaminophen (Acetaminophen 325 Mg Tab) 650 mg PO Q4H PRN PRN Reason: pain/fever Stop: 03/26/21 22:36 Aspirin (Aspirin 81 Mg Ectab) 81 mg PO QAM IMMANUEL Stop: 03/27/21 15:14 Last Admin: 02/25/21 16:26 Dose: 81 mg Documented by: Atorvastatin Calcium (Atorvastatin 40 Mg Tab) 40 mg PO HS IMMANUEL Stop: 03/27/21 20:59 Last Admin: 02/25/21 20:05 Dose: Not Given Documented by: Calcitriol (Calcitriol 0.25 Mcg Capsule) 0.25 mcg PO DAILY IMMANUEL Stop: 03/27/21 08:59 Last Admin: 02/24/21 23:15 Dose: 0.25 mcg Documented by: Carvedilol (Carvedilol 3.125 Mg Tab) 3.125 mg PO BID IMMANUEL Stop: 03/27/21 20:59 Last Admin: 02/25/21 20:01 Dose: 3.125 mg Documented by: Hydrochlorothiazide (Hydrochlorothiazide 25 Mg Tab) 25 mg PO Q2D@0900 IMMANUEL Stop: 03/27/21 08:59 Last Admin: 02/25/21 08:25 Dose: 25 mg Documented by: Hydromorphone HCl (Hydromorphone Inj 0.5 Mg/0.5 Ml Syr) 0.5 mg IV Q6H PRN PRN Reason: Pain Stop: 03/10/21 22:36 Last Admin: 02/25/21 21:55 Dose: 0.5 mg Documented by: Morphine Sulfate (Morphine Sulfate 2 Mg/Ml Carp) 2 mg IV Q2H PRN PRN Reason: chest pain Stop: 03/11/21 15:10 Multivitamins/Minerals (Calcium 600mg + Vit D 400 Iu Tab) 1 tab PO DAILY IMMANUEL Stop: 03/27/21 08:59 Last Admin: 02/25/21 08:25 Dose: 1 tab Documented by: Nitroglycerin (Nitroglycerin 2% Ointment 30gm Tube) 0.5 inch EXT Q6H IMMANUEL Stop: 03/27/21 15:14 Last Admin: 02/25/21 20:02 Dose: 0.5 inch Documented by: Nitroglycerin (Nitroglycerin Sl 0.4 Mg/Tab Tab) 0.4 mg SL PRN PRN PRN Reason: Chest Pain Stop: 03/27/21 15:10 Ondansetron HCl (Ondansetron Inj 2 Mg/Ml 2 Ml Vial) 4 mg IV Q6H PRN PRN Reason: Nausea Stop: 03/26/21 22:36 Potassium Chloride (Potassium Chloride Crtab 20 Meq Tabcr) 20 meq PO DAILY IMMANUEL Stop: 03/27/21 08:59 Last Admin: 02/25/21 08:22 Dose: 20 meq Documented by: Probenecid (Probenecid 500 Mg Tab) 500 mg PO BID IMMANUEL Stop: 03/26/21 22:59 Last Admin: 02/25/21 20:51 Dose: 500 mg Documented by: Simethicone (Simethicone 80 Mg Chew) 80 mg PO HS IMMANUEL Stop: 03/26/21 22:59 Last Admin: 02/25/21 20:51 Dose: 80 mg Documented by: Tramadol HCl (Tramadol Hcl 50 Mg Tablet) 50 mg PO Q6H PRN PRN Reason: Moderate pain Stop: 03/26/21 22:36 Last Admin: 02/25/21 15:19 Dose: 50 mg Documented by: Vitamin D (Cholecalciferol 1,000 Units 25 Mcg Tab) 5,000 units PO DAILY IMMANUEL Stop: 03/27/21 08:59 Last Admin: 02/25/21 08:23 Dose: 5,000 units Documented by: PG Care Time/CCT Total # of Minutes Spent Total Time Spent with Patient: Total time spent is greater than 50% in coordination of care (as documented) at patient's floor/unit and/or counseling patient: Coding Level of Care Code 21349 Initial Inpt Care Lvl 3 Diagnoses NSTEMI (non-ST elevated myocardial infarction) I21.4 Chest pain R07.9
[2021-02-26] MEDS: traMADol HCL 50 MG TABLET PO PRN ×3 (04:31→17:34)
[2021-02-26] MEDS: NITROGLYCERIN 2% OINTMENT 30GM TUBE EXT SCH ×4 (04:32→20:03)
--- NOTE | 2021-02-26 06:59 | Ultrasound Report ---
US venous doppler LE LT CLINICAL HISTORY: pain. RO DVT COMPARISON STUDY: August 18, 2019 FINDINGS: Real-time and color flow Doppler imaging were performed. Flow was seen within the femoral, popliteal and calf veins with no intraluminal thrombus demonstrated. The saphenous vein is patent. Redemonstration of the complex hypoattenuating collection within popliteal fossa measuring 5.9 x 3.1 x 1.3 cm slightly decreased since prior and contain both cystic and semisolid components and might re present sequela from prior hemorrhage into a popliteal cyst versus other etiology. Please correlate t his findings with clinical presentation. Attention on follow-up imaging. IMPRESSION: No evidence of deep venous thrombosis. Interval decrease in size of hypoattenuating collection within the popliteal fossa since prior study. See discussion above. ACT 112: Negative or not required by law. The above report was generated using voice recognition software. It may contain grammatical, syntax o r spelling errors. Electronically signed by: Sharonda Masterson DO 02/26/2021 6:58 AM
--- NOTE | 2021-02-26 07:10 | Electrocardiogram Report ---
Test Reason : Blood Pressure : / mmHG Vent. Rate : 060 BPM Atrial Rate : 060 BPM P-R Int : 190 ms QRS Dur : 078 ms QT Int : 444 ms P-R-T Axes : 233 011 025 degrees QTc Int : 444 ms Unusual P axis, possible ectopic atrial rhythm Low voltage QRS Abnormal ECG When compared with ECG of 10-JUL-2018 11:28, Ectopic atrial rhythm has replaced Sinus rhythm Confirmed by Eric Jimenez ([id number]) on 02/26/2021 7:10:26 AM Referred By: REFERRED SELF Confirmed By:Eric Jimenez
[2021-02-26 07:15] LABS: Basophils # (auto) 0.03 K/uL (0-0.2); Basophils % (auto) 0.5 %; Eosinophils # (auto) 0.11 K/uL (0-0.5); Eosinophils % (auto) 1.9 %; Hematocrit (blood only) 35.4 % (37-47); Hemoglobin 11.5 g/dL (12.0-16.0); Immature Granulocytes # (auto) 0.01 K/uL (0.00-0.02); Immature Granulocytes % (auto) 0.2 %; Lymphocytes # (auto) 1.31 K/uL (1.2-3.4); Lymphocytes % (auto) 22.7 %; Mean Corpuscular Hemoglobin 28.9 pg (25-34); Mean Corpuscular Hgb Conc 32.5 g/dL (32-36); Mean Corpuscular Volume 88.9 fL (80-100); Mean Platelet Volume 9.4 fL (7.4-10.4); Monocytes # (auto) 0.51 K/uL (0.11-0.59); Monocytes % (auto) 8.8 %; Neutrophils % (auto) 65.9 %; Platelet Count 320 K/uL (130-400); RDW Coefficient of Variation 16.2 % (11.5-14.5); RDW Standard Deviation 53.2 fL (36.4-46.3); Red Blood Count 3.98 M/uL (4.2-5.4); White Blood Count 5.77 K/uL (4.8-10.8)
[2021-02-26 07:29] LABS: INR 1.8 (0.9-1.1); Prothrombin Time 17.5 Seconds (9.0-12.0)
--- NOTE | 2021-02-26 07:30 | Electrocardiogram Report ---
Test Reason : Blood Pressure : / mmHG Vent. Rate : 058 BPM Atrial Rate : 058 BPM P-R Int : 194 ms QRS Dur : 082 ms QT Int : 446 ms P-R-T Axes : 045 005 026 degrees QTc Int : 437 ms Sinus bradycardia Otherwise normal ECG When compared with ECG of 25-FEB-2021 13:11, Sinus rhythm has replaced Ectopic atrial rhythm Confirmed by Eric Jimenez ([id number]) on 02/26/2021 7:30:33 AM Referred By: REFERRED SELF Confirmed By:Eric Jimenez
[2021-02-26 07:33] LABS: BUN Creatinine Ratio 15.7 (10-20); Calcium 8.9 mg/dl (8.5-10.1); Creatinine Clr Calc Pharmacy 63.7 ml/min; Est GFR (African American) 64.5 ml/min; Est GFR (Non-African American) 55.7 ml/min; Magnesium 1.8 mg/dl (1.8-2.4); Potassium 3.8 mmol/L (3.5-5.1)
[2021-02-26] MEDS: ASPIRIN 81 MG ECTAB PO SCH (08:29)
[2021-02-26] MEDS: PROBENECID 500 MG TAB PO SCH ×2 (08:30→20:00)
[2021-02-26] MEDS: carvediloL 3.125 MG TAB PO SCH ×2 (08:30→19:59)
[2021-02-26] MEDS: ACETAMINOPHEN 325 MG TAB PO PRN ×2 (08:38→19:58)
[2021-02-26] MEDS: CHOLECALCIFEROL 1,000 UNITS 25 MCG TAB PO SCH (08:54)
[2021-02-26] MEDS: POTASSIUM CHLORIDE CRTAB 20 MEQ TABCR PO SCH (08:54)
[2021-02-26] MEDS: CALCIUM 600MG + VIT D 400 IU TAB PO SCH (08:54)
[2021-02-26] MEDS: CALCITRIOL 0.25 MCG CAPSULE PO SCH (08:54)
--- NOTE | 2021-02-26 11:57 | Hospitalist Progress Note ---
Date of Service February 26, 2021 Assessment & Plan (1) NSTEMI (non-ST elevated myocardial infarction): Plan: - Patient initially hospitalized following a GLS resulting in minor trauma (scalp laceration requiring repair, mild hematoma, and nonsurgical spinal fractures) - As initially stated, plan was to proceed with discharge yesterday as she was completely independent and doing well with therapy services; however, she then developed some chest discomfort which prompted a cardiac work-up - In the interim, she was also given Maalox for her discomfort as it was atypical and occurred after eating lunch - Surprisingly, her troponin came back elevated at 5.2 (5.2 --> 7.3 --> 4.6 --> 3.13) - Patient's chest pain completely resolved with Maalox and burping - She then reported that she has been having ongoing nausea (which she under plate as she thought it was related to the Ultram being provided for pain control) - At any rate, she was changed to a full admission due to the elevated troponin consistent with NSTEMI - She was placed on aspirin, beta-blockade, topical paste, Lipitor (which she is refusing despite its known benefits), and her Coumadin continued - An echocardiogram was done showing a focal regional wall motion abnormality - Cardiology on board and lengthy discussion with: ? Cardiac contusion resulting in elevated troponin versus NSTEMI from unstable plaque - I would favor cardiac contusion based on her history. - Although when initially seen, she was not complaining of significant chest discomfort and did not report landing on her chest, she did land on her head and with substantial force--> enough to cause a laceration with multiple spinal Fx's - trop cycled and peaked - Trending EKGs obtained with no acute changes - Cardiology on board (appreciate recommendations). As per discussion yesterday with cardiology, patient was not keen on the idea of an urgent cardiac catheterization and at this point, uncertain if it is medically necessary at this point. - plan is to continue to monitor symptomatology. Per discussed with cardiology yesterday, plan was to monitor trop to see what it would do and either cath patient prior to D/C vs nonurgent W/U (stress test vs cath). This is at the discretion of cardiology-- appreciate recommendations (2) Fall: Plan: -Mechanical fall resulting in nondisplaced fracture of C7, T3, and possibly L3 along with slightly displaced fracture of T6 -Seen by Dr. Linares who provides no changes in treatment plan at this time. Appreciate recommendations. -Initially had no complaints of knee pain; however, did develop some left knee pain yesterday after initially seen (see below) -From a fall/fracture standpoint, patient actually doing well. Her pain is controlled. She was meeting her goals with PT/OT prior to the transition of this being a cardiac admission. -plan is for d/c to home when ready. (3) Knee pain: Plan: -Patient was adamant that she wanted an ultrasound to rule out DVT as the pain "felt very similar" -I did explain to her that she is on Coumadin and was actually supratherapeutic. Despite that, venous Doppler done to appease patient and negative for DVT as outlined above -I was more concerned that she could have had a periprosthetic fracture for which an x-ray was done. There are suggestions of fracture noted as outlined above. We will proceed with CT and potentially consult Ortho. Order a brace in the meantime (4) Laceration of scalp: Plan: -Sutures to be removed in 7-10 days (03/03 - 03/05) -ABX prophylaxis provided -TdaP given (5) Hematoma of frontal scalp: Plan: -Coumadin initially held for supratherapeutic INR in the setting of a hematoma -Hematoma resolved -In setting of NSTEMI, resume Coumadin at prior dose -PT/INR in a.m. to trend (6) Closed C7 fracture: Plan: -Nondisplaced -see above (7) Closed T6 spinal fracture: Plan: -Slightly displaced fracture of the right spinous process of T6. 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 Plan: Plan of care discussed with Dr. Pruett Admission and Anticipated Discharge Date Admission Date: February 24, 2021 Subjective Patient seen on daily rounds today. Has not had any subsequent reports of chest pain since initial episode yesterday that was resolved with Maalox. Refusing Lipitor due to history of myalgias with that and Crestor Troponin has since peaked last night at 7.3 and has now down trended down to 3.1 X-ray of the left knee does show concern for patellar and distal femur fracture. She is not complaining of significant pain and is able to bear weight She currently denies fevers, chills, chest pain, shortness of breath, orthopnea, PND, abdominal pain, nausea, vomiting, GI/ symptomatology. Review of Systems Review of Systems: All systems reviewed and are unremarkable except as noted in HPI and below Denies fevers, chills, headache, nasal congestion, sore throat, cough, chest pain, shortness of breath, abdominal pain, nausea, vomiting, dysuria, hematuria, frequency, skin lesions or rashes. Physical Exam Physical Exam: General: Resting comfortably in her hospital bed. NAD. HEENT: Improving periocular ecchymosis with dependent ecchymosis now down into the chin. Hematoma resolved on the right frontal region. Laceration repair without drainage Neck: No JVD. Negative hepatojugular reflex Cardiac: RRR but distant Lungs: CTA without W/R/R Abdomen: Normoactive X4. Soft and nontender in all quadrants. Extremities: + Adiposity without true pitting edema. Very subtle bruise noted on the medial aspect of the left patella but range of motion to the left knee full and intact. No obvious deformity. No effusion. Neuro: A&O X4 cranial nerves II through XII are grossly intact no focal neuro deficits Skin: No obvious skin lesions or rashes Results & Data Results & Data ([facility]) Vital Signs (Past 12 Hours) Vital Signs Temp Pulse Pulse Resp BP Pulse Ox 02/26/21 08:14 75 02/26/21 07:45 36.8 C 62 20 117/79 94 02/26/21 04:19 37.0 C 74 20 135/80 91 02/26/21 00:00 74 Diagnostic Findings Venous Doppler of left lower extremity: FINDINGS: Real-time and color flow Doppler imaging were performed. Flow was seen within the femoral, popliteal and calf veins with no intraluminal thrombus demonstrated. The saphenous vein is patent. Redemonstration of the complex hypoattenuating collection within popliteal fossa measuring 5.9 x 3.1 x 1.3 cm slightly decreased since prior and contain both cystic and semisolid components and might represent sequela from prior hemorrhage into a popliteal cyst versus other etiology. Please correlate this findings with clinical presentation. Attention on follow-up imaging. X-ray of left knee: IMPRESSION: 1. Status post total left knee arthroplasty. 2. Lucency with cortical irregularity of the inferior patella on lateral project ion. A fracture cannot be excluded. This can be assessed with CT. 3. Lucency of the distal left femur shown on sunrise projection. This can also be assessed on CT to exclude fracture. 4. Left knee soft tissue swelling with suspected joint effusion. PG Care Time/CCT Total # of Minutes Spent Total Time Spent with Patient: Total time spent is greater than 50% in coordination of care (as documented) at patient's floor/unit and/or counseling patient: [place] [address] Subseq Hosp Care Lvl 3 Patient Type Established History Detailed Exam Detailed Medical Decision Making Moderate Complexity Diagnoses NSTEMI (non-ST elevated myocardial infarction) I21.4 Fall W19.XXXA Laceration of scalp S01.01XA Encounter type: initial encounter Hematoma of frontal scalp S00.03XA Encounter type: initial encounter Closed C7 fracture S12.600A Encounter type: initial encounter Fracture alignment: displaced Fracture morphology: unspecified fracture morphology Closed T6 spinal fracture S22.059A Hypertension 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 current 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
--- NOTE | 2021-02-26 12:18 | Electrocardiogram Report ---
Test Reason : Blood Pressure : / mmHG Vent. Rate : 064 BPM Atrial Rate : 064 BPM P-R Int : 176 ms QRS Dur : 078 ms QT Int : 430 ms P-R-T Axes : 032 -11 024 degrees QTc Int : 443 ms Normal sinus rhythm Normal ECG When compared with ECG of 25-FEB-2021 14:23, (unconfirmed) No significant change was found Confirmed by Mike Grove ([id number]) on 02/26/2021 12:18:12 PM Referred By: REFERRED SELF Confirmed By:Socrates Grove
--- NOTE | 2021-02-26 12:57 | CT Scan Report ---
CT knee LT wo con CT DOSE: 586.39 mGy.cm CLINICAL HISTORY: fall, f/o periprosthetic fx, patella fx TECHNIQUE: A dose lowering technique was utilized adhering to the principles of ALARA. COMPARISON STUDY: None. Correlation is made with radiograph of the left knee performed on February 25, 2021. FINDINGS: Metallic prosthetic joint is seen within left knee. Mild irregularity a of inferior aspect of patella is seen and could represent nondisplaced fracture. Overall evaluation is limited due to diffuse osteopenia and significant beam hardening artifact from metallic orthopedic hardware. Suprapatellar effusion is seen. Knee joint space is not definitely seen due to beam hardening artifact. IMPRESSION: Possible irregularity a at the inferior aspect of patella which might represent nondisplaced fracture however evaluation is limited due to osteopenia and hardening artifact from orthopedic hardware. ACT 112: Negative or not required by law. The above report was generated using voice recognition software. It may contain grammatical, syntax o r spelling errors. Electronically signed by: Sharonda Masterson DO 02/26/2021 12:55 PM
--- NOTE | 2021-02-26 15:27 | Cardiology Progress Note ---
Date of Service February 26, 2021 Assessment & Plan (1) NSTEMI (non-ST elevated myocardial infarction): (2) Chest pain: Plan: ASSESSMENT/PLAN: 1. NSTEMI /elevated troponin: Her markers appear to have peaked yesterday evening. She has not had any recurrent symptoms. Her EKG has been unremarkable throughout her hospitalization. She denied symptoms of chest discomfort leading up to her admission. It is very possible that this represents some form of mechanical injury such as a cardiac contusion. However, she certainly in a demographic of patients who could have coronary disease. Her biomarkers peaked yesterday evening which would be relatively late if her fall cause the elevation. I think the only way to adjudicate the difference between an acute coronary syndrome verses cardiac contusion would be coronary angiography. An alternative would be perfusion imaging. I discussed both these options with the patient today. I think we should hold her warfarin until we have made a decision regarding additional diagnostic studies. Continue aspirin. She could be placed on Lovenox as a bridge to her procedure. Admission and Anticipated Discharge Date Admission Date: February 24, 2021 Subjective This 70 the patient continues to have some back discomfort. She has been minimally ambulatory but has not reported any additional episodes of chest pressure chest discomfort. Physical Exam Physical Exam: Gen.: No acute distress. Alert and oriented. HEENT: Anicteric sclera. Bilateral orbital ecchymoses. Neck: No JVD. No bruits. Normal carotid upstrokes bilaterally. Pulmonary: Normal respiratory effort Chest: No sternal ecchymosis Extremities: 2+ radial pulses bilaterally. 2+ posterior tibialis pulses bilaterally. No cyanosis. Psychiatric: Affect appears appropriate. Results & Data ([facility]) Vital Signs (Past 12 Hours) Vital Signs Temp Pulse Pulse Pulse Resp BP BP 02/26/21 15:18 36.9 C 70 16 105/71 02/26/21 11:54 36.5 C 62 16 130/78 02/26/21 08:14 75 02/26/21 07:45 36.8 C 62 20 117/79 02/26/21 04:19 37.0 C 74 20 135/80 Pulse Ox 02/26/21 15:18 94 02/26/21 11:54 97 02/26/21 08:14 02/26/21 07:45 94 02/26/21 04:19 91 Laboratory Results Abnormal Lab Results 02/25/21 02/26/21 02/26/21 20:00 06:58 06:58 WBC 5.77 RBC 3.98 L Hgb 11.5 L Hct 35.4 L MCV 88.9 MCH 28.9 MCHC 32.5 RDW Std Deviation 53.2 H RDW Coeff of Mary 16.2 H Plt Count 320 MPV 9.4 Immature Gran % (Auto) 0.2 Neut % (Auto) 65.9 Lymph % (Auto) 22.7 [facility] % (Auto) 8.8 Eos % (Auto) 1.9 Baso % (Auto) 0.5 Neut # (Auto) 3.80 Lymph # (Auto) 1.31 [facility] # (Auto) 0.51 Eos # (Auto) 0.11 Baso # (Auto) 0.03 Immature Gran # (Auto) 0.01 PT 17.5 H INR 1.8 H Sodium Potassium Chloride Carbon Dioxide Anion Gap BUN Creatinine Est Cr Clr Drug Dosing Est GFR ( Amer) Est GFR (Non-Af Amer) BUN/Creatinine Ratio Glucose Calcium Magnesium Troponin I 7.340 H* Triglycerides Cholesterol LDL Cholesterol, Calc VLDL Cholesterol, Calc HDL Cholesterol Cholesterol/HDL Ratio 02/26/21 02/26/21 02/26/21 06:58 06:58 12:39 WBC RBC Hgb Hct MCV MCH MCHC RDW Std Deviation RDW Coeff of Mary Plt Count MPV Immature Gran % (Auto) Neut % (Auto) Lymph % (Auto) [facility] % (Auto) Eos % (Auto) Baso % (Auto) Neut # (Auto) Lymph # (Auto) [facility] # (Auto) Eos # (Auto) Baso # (Auto) Immature Gran # (Auto) PT INR Sodium 137 Potassium 3.8 Chloride 103 Carbon Dioxide 31 Anion Gap 3.0 BUN 16 Creatinine 1.02 Est Cr Clr Drug Dosing 63.7 Est GFR ( Amer) 64.5 Est GFR (Non-Af Amer) 55.7 BUN/Creatinine Ratio 15.7 Glucose 105 H Calcium 8.9 Magnesium 1.8 Troponin I 4.640 H* 3.130 H* Triglycerides 180 H Cholesterol 161 LDL Cholesterol, Calc 63 VLDL Cholesterol, Calc 36 HDL Cholesterol 62 Cholesterol/HDL Ratio 3 PG Care Time/CCT Total # of Minutes Spent Total Time Spent with Patient: Total time spent is greater than 50% in coordination of care (as documented) at patient's floor/unit and/or counseling patient: Coding Level of Care Code 78853 Subseq Hosp Care Lvl 2 Diagnoses NSTEMI (non-ST elevated myocardial infarction) I21.4 Chest pain R07.9
[2021-02-26] MEDS ORDERED: WARFARIN SOD 7.5 MG TAB PO SCH (16:00)
[2021-02-26] MEDS: ENOXAPARIN INJ 120 MG/0.8 ML SYR SQ SCH (16:40)
[2021-02-26] MEDS: DOCUSATE SODIUM 100 MG CAP PO SCH (19:55)
[2021-02-26] MEDS: SIMETHICONE 80 MG CHEW PO SCH (20:00)
[2021-02-26] MEDS: HYDROmorphone INJ 0.5 MG/0.5 ML SYR IV PRN (21:46)
[2021-02-27] MEDS: NITROGLYCERIN 2% OINTMENT 30GM TUBE EXT SCH ×4 (03:26→20:05)
[2021-02-27] MEDS: ENOXAPARIN INJ 120 MG/0.8 ML SYR SQ SCH ×2 (03:26→16:33)
[2021-02-27 05:55] LABS: Basophils # (auto) 0.02 K/uL (0-0.2); Basophils % (auto) 0.3 %; Eosinophils # (auto) 0.18 K/uL (0-0.5); Eosinophils % (auto) 2.8 %; Hematocrit (blood only) 32.1 % (37-47); Hemoglobin 10.1 g/dL (12.0-16.0); Immature Granulocytes # (auto) 0.02 K/uL (0.00-0.02); Immature Granulocytes % (auto) 0.3 %; Lymphocytes # (auto) 1.16 K/uL (1.2-3.4); Lymphocytes % (auto) 17.7 %; Mean Corpuscular Hemoglobin 27.8 pg (25-34); Mean Corpuscular Hgb Conc 31.5 g/dL (32-36); Mean Corpuscular Volume 88.4 fL (80-100); Mean Platelet Volume 9.6 fL (7.4-10.4); Monocytes # (auto) 0.49 K/uL (0.11-0.59); Monocytes % (auto) 7.5 %; Neutrophils # (auto) 4.67 K/uL (1.4-6.5); Neutrophils % (auto) 71.4 %; Platelet Count 297 K/uL (130-400); RDW Coefficient of Variation 16.2 % (11.5-14.5); RDW Standard Deviation 52.9 fL (36.4-46.3); Red Blood Count 3.63 M/uL (4.2-5.4); White Blood Count 6.54 K/uL (4.8-10.8)
[2021-02-27 06:02] LABS: INR 1.3 (0.9-1.1); Prothrombin Time 13.2 Seconds (9.0-12.0)
[2021-02-27 06:30] LABS: Creatinine Clr Calc Pharmacy 73.9 ml/min; Est GFR (African American) 77.2 ml/min; Est GFR (Non-African American) 66.6 ml/min; Potassium 3.7 mmol/L (3.5-5.1)
[2021-02-27] MEDS: traMADol HCL 50 MG TABLET PO PRN ×2 (08:20→14:55)
[2021-02-27] MEDS: CALCITRIOL 0.25 MCG CAPSULE PO SCH (08:35)
[2021-02-27] MEDS: CHOLECALCIFEROL 1,000 UNITS 25 MCG TAB PO SCH (08:35)
[2021-02-27] MEDS: ASPIRIN 81 MG ECTAB PO SCH (08:35)
[2021-02-27] MEDS: PROBENECID 500 MG TAB PO SCH ×2 (08:36→20:04)
[2021-02-27] MEDS: hydroCHLOROthiazide 25 MG TAB PO SCH (08:36)
[2021-02-27] MEDS: CALCIUM 600MG + VIT D 400 IU TAB PO SCH (08:36)
[2021-02-27] MEDS: carvediloL 3.125 MG TAB PO SCH ×2 (08:37→20:05)
[2021-02-27] MEDS: DOCUSATE SODIUM 100 MG CAP PO SCH ×2 (08:37→20:04)
[2021-02-27] MEDS: POTASSIUM CHLORIDE CRTAB 20 MEQ TABCR PO SCH (08:42)
--- NOTE | 2021-02-27 10:31 | Cardiology Progress Note ---
Date of Service February 27, 2021 Assessment & Plan (1) NSTEMI (non-ST elevated myocardial infarction): (2) Chest pain: Plan: ASSESSMENT/PLAN: 1. NSTEMI /elevated troponin: No recurrent symptoms. Still debating the etiology of this elevation. While an acute coronary syndrome seems unlikely, the timing of the event is curious. She does have a wall motion abnormality on her echocardiogram but this is also unusual for contusion. We discussed options and have elected to proceed with coronary angiography at the 1st available opportunity. Currently being bridged with Lovenox. Her last dose should be the evening prior to her procedure which is currently planned for Sunday. Continue aspirin. I think we will defer Plavix currently. Admission and Anticipated Discharge Date Admission Date: February 24, 2021 Subjective This morning the patient reported some improvement in her lipid left knee discomfort. She is ambulatory around the room yesterday. Still some residual back discomfort. Improved with analgesics. No breathing difficulty. No recurrent chest discomfort. Review of Systems Review of Systems: Per HPI Physical Exam Physical Exam: Gen.: No acute distress. Alert and oriented. HEENT: Anicteric sclera. Bilateral orbital ecchymoses. Neck: No JVD. No bruits. Normal carotid upstrokes bilaterally. Pulmonary: Normal respiratory effort Chest: No sternal ecchymosis. Soft holosystolic murmur. No particular rub. Normal rate and rhythm. Extremities: 2+ radial pulses bilaterally. 2+ posterior tibialis pulses bilatera lly. No cyanosis. Psychiatric: Affect appears appropriate. Results & Data ([facility]) Vital Signs (Past 12 Hours) Vital Signs Temp Pulse Pulse Pulse Resp BP Pulse Ox 02/27/21 07:48 36.7 C 66 16 125/76 95 02/27/21 07:20 61 02/27/21 03:38 36.9 C 64 20 103/69 92 02/26/21 22:55 36.9 C 54 L 18 91/56 L 92 Diagnostic Findings Echocardiogram demonstrated normal LV systolic function with ejection fraction of 60-65%. Focal hypokinesis involving the mid inferoseptum. Mild LVH. No valvular abnormalities. PG Care Time/CCT Total # of Minutes Spent Total Time Spent with Patient: Total time spent is greater than 50% in coordination of care (as documented) at patient's floor/unit and/or counseling patient: Coding Level of Care Code 37104 Subseq Hosp Care Lvl 2 Diagnoses NSTEMI (non-ST elevated myocardial infarction) I21.4 Chest pain R07.9
[2021-02-27] MEDS: ACETAMINOPHEN 325 MG TAB PO PRN ×2 (11:42→19:40)
--- NOTE | 2021-02-27 13:26 | Consultation Report ---
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 She has had rig ht lower extremity total joints done by [facility]. She had a blood clot at one point and then went to [facility] to seek a minimally invasive solution to her left knee arthritis. S even weeks ago, she had a robotically assisted left knee replacement. She is on chronic Coumadin. O n 02/24, she tripped and fell hitting her head. She had a scalp laceration along with fair amount of bleeding. She also has 2 cervical spine fractures, which have been addressed by the spine service. Additionally, she bruised her left knee. Actually, the knee has been feeling well and other than th e bruise, she is denying problems in terms of impaired ambulation, stiffness, swelling and pain. Her x-rays are reviewed. The radiographs demonstrate a metal-backed patella with a total knee arthro plasty in place. There is no obvious complication evident. I do not see any fracture. There is apple e irregularity of the bone towards the inferior pole of the patella, which might have been related to the recent surgery. There is no alteration of patellar height. The CT scan is reviewed as well and it is very difficult to interpret because of metal artifact, but I do not see any evidence of a frac ture. PHYSICAL EXAMINATION: She is able to do a straight leg raise without difficulty. She can bend her k nee 0-90 degrees, which she reports is as good or better than it had been. She has intact PCL and th e knee is stable to varus and valgus stress. There is no intra-articular effusion. She has 5/5 ankl e and toe plantarflexion and dorsiflexion strength. There is chronic numbness of the middle 3 toes. Posterior tibial is 1+. Sensation otherwise intact. She has normal knee flexion and extension stre ngth. There is a bruise over the anteromedial knee, which is tender to palpation, but this is just m edial to the patella. Palpation of the patella itself reveals no crepitation or significant discomfo rt. Other than the bruise, there are no other areas of tenderness about the knee. IMPRESSION: Left knee contusion, status post fall, status post knee replacement. PLAN: My findings are discussed with Sherrie. Given the findings, I think it is unlikely she has a pa tella fracture. I would recommend that she continue with her previous level of activity in terms of weightbearing, knee bending exercises, etc. If she were to develop any increased knee symptoms, she would need to wear a knee immobilizer and limit her activity and seek medical attention. She has an appointment with her doctor later this week. She can weight bear as tolerated and bend the knee as t olerated. Treat the bruise symptomatically with elevation, ice and Tylenol. On her x-ray, there is a chronic-appearing ossicle distally. The anterior cortex of the patella appe ars intact without violation. Job ID: [id number]
--- NOTE | 2021-02-27 13:33 | Hospitalist Progress Note ---
Date of Service February 27, 2021 Assessment & Plan (1) NSTEMI (non-ST elevated myocardial infarction): Plan: * Patient initially hospitalized following a GLS resulting in minor trauma (scalp laceration requiring repair, mild hematoma, and nonsurgical spinal fractures) * As initially stated, plan was to proceed with discharge on 02/25 as she was completely independent and doing well with therapy services; however, she then developed some chest discomfort which prompted a cardiac work-up * That episode of CP was treated with Maalox as it was atypical and occurred af ter eating lunch * Surprisingly, her troponin came back elevated at 5.2 (5.2 --> 7.3 --> 4.6 --> 3.13) * Patient's chest pain completely resolved with Maalox and burping * She then reported that she had been having ongoing nausea (which she under- played as she thought it was related to the Ultram being provided for pain control) * At any rate, she was changed to a full admission due to the elevated troponin consistent with ?NSTEMI. Transferred to PCU * She was placed on aspirin, beta-blockade, topical paste, Lipitor (which she is refusing despite its known benefits), and her Coumadin initially continued (on off and bring bridged with lovenox d/t plan for cardiac cath) * echocardiogram was done showing a focal regional wall motion abnormality * Cardiology has been on board and I spoke (in great detail) with Derian Jimenez: ? Cardiac contusion resulting in elevated troponin versus NSTEMI from unstable plaque (as patient certainly has the risk factors for CAD) * I would favor cardiac contusion based on her history; howevever, needs cardiac evaluation for clarification * Although when initially seen, she was not complaining of significant chest discomfort and did not report landing on her chest, she did land on her head and with substantial force--> enough to cause a laceration with multiple spinal Fx's (which is why I am suspicious of a cardiac contusion). At any rate, plan is for cardiac cath on Sunday. * trop cycled and peaked * EKG's trended without acute changes noted (2) Fall: Plan: * Mechanical fall resulting in nondisplaced fracture of C7, T3, and possibly L3 along with slightly displaced fracture of T6 * Seen by Dr. Linares who recommends no changes in treatment plan at this time. Appreciate those recommendations. * From a fall/fracture standpoint, patient actually doing well. Her pain is controlled. She was meeting her goals with PT/OT prior to the transition of this being a cardiac admission. * plan is for d/c to home when ready. (3) Knee pain: Plan: * Patient was adamant that she wanted an ultrasound to rule out DVT as the pain "felt very similar" * I did explain to her that she is on Coumadin and was actually supratherapeutic . Despite that, venous Doppler done to appease patient and negative for DVT * I was more concerned that she could have had a periprosthetic fracture for which an x-ray was done. There was suggestions ? distal femur and patella Fx for which a CT was obtained * CT calling a potentially nondisplaced Patella Fx; however, clinically, her pain is improved. She has some reqidual brusing but is not equisitely tender. Her ROM is intact and her is weight bearing/ambulating without problems. * I have consulted and spoken to Dr. Bauman who saw this patient is consult and does not believe that this is a fx (as clinically doesn't fit). Full consult to follow. Appreciate recommendations (4) Laceration of scalp: Plan: * Sutures to be removed in 7-10 days (03/03 - 03/05) * ABX prophylaxis provided * TdaP given (5) Hematoma of frontal scalp: Plan: * Coumadin initially held for supratherapeutic INR in the setting of a hematoma * Hematoma resolved * In setting of NSTEMI, resumed Coumadin at prior dose * now that plan is for cardiac catherization, coumadin on hold with lovenox on board for bridge therapy * INR 1.3 today (6) Closed C7 fracture: Plan: -Nondisplaced -see above (7) Closed T6 spinal fracture: Plan: -Slightly displaced fracture of the right spinous process of T6. -See above (8) Hypertension: Plan: -Continue HCTZ 25mg every other day, mainly for calcium regulation (9) penitentiary current use of anticoagulant therapy: Plan: -See above. Plan: Plan of care discussed with Dr. Pruett Admission and Anticipated Discharge Date Admission Date: February 25, 2021 Subjective Patient seen on daily rounds today. Has not had any further episodes of chest pain. denies SOB. Notices that she is feeling "generally sore" from her fall but overall, better. Pain in the neck/back controlled. Left knee pain improved and able to bear weight/ambulate without diffuculty. CT did show concern for patella fx. Ortho consulted and does not believe that there is an acute fx there and recommends no additional tx. Being bridged with lovenox for planned cardiac cath (for Sunday) given elevated troponin noted post fall-- which could reflect cardiac contusion; however, unclear and needs further evaluation given risk factors. Cardiology on board. Patient denies F/C, CP, SOB, abd pain, N/V, GI/ symptoms. Nursing voices no c/c. Review of Systems Review of Systems: All systems reviewed and are unremarkable except as noted in HPI and below Denies fevers, chills, headache, nasal congestion, sore throat, cough, chest pain, shortness of breath, abdominal pain, nausea, vomiting, dysuria, hematuria, frequency, skin lesions or rashes. Physical Exam Physical Exam: General: Resting comfortably in her hospital bed. NAD. HEENT: Improving periocular ecchymosis with dependent ecchymosis now down into the chin but resolving. Hematoma resolved on the right frontal region. Laceration repair without drainage Neck: No JVD. Negative hepatojugular reflex Cardiac: RRR but distant Lungs: CTA without W/R/R Abdomen: Normoactive X4. Soft and nontender in all quadrants. Extremities: + Adiposity without true pitting edema. Very subtle bruise noted on the medial aspect of the left patella but range of motion to the left knee full and intact. No obvious deformity. No effusion. Neuro: A&O X4 cranial nerves II through XII are grossly intact no focal neuro deficits Skin: No obvious skin lesions or rashes Results & Data Results & Data ([facility]) Vital Signs (Past 12 Hours) Vital Signs Temp Pulse Pulse Pulse Resp BP BP 02/27/21 12:12 36.7 C 76 16 146/89 H 02/27/21 07:48 36.7 C 66 16 125/76 02/27/21 07:20 61 02/27/21 03:38 36.9 C 64 20 103/69 Pulse Ox 02/27/21 12:12 94 02/27/21 07:48 95 02/27/21 07:20 02/27/21 03:38 92 Laboratory Results 02/27/21 05:08 02/27/21 05:[address] of left knee: IMPRESSION: Possible irregularity a at the inferior aspect of patella which might represent nondisplaced fracture however evaluation is limited due to osteopenia and hardening artifact from orthopedic hardware. PG Care Time/CCT Total # of Minutes Spent Total Time Spent with Patient: Total time spent is greater than 50% in coordination of care (as documented) at patient's floor/unit and/or counseling patient: C[place] [address] Subseq Hosp Care Lvl 2 Patient Type Established History Expanded Problem Focused Exam Expanded Problem Focused Medical Decision Making Moderate Complexity Diagnoses NSTEMI (non-ST elevated myocardial infarction) I21.4 Fall W19.XXXA Knee pain M25.569 Laceration of scalp S01.01XA Encounter type: initial encounter Hematoma of frontal scalp S00.03XA Encounter type: initial encounter Closed C7 fracture S12.600A Encounter type: initial encounter Fracture alignment: displaced Fracture morphology: unspecified fracture morphology Closed T6 spinal fracture S22.059A Hypertension I10 penitentiary current use of anticoagulant therapy Z79.01 (1) Laceration of scalp Encounter type: initial encounter Qualified Code(s): S01.01XA - Laceration without foreign body of scalp, initial encounter (2) Hematoma of frontal scalp Encounter type: initial encounter Qualified Code(s): S00.03XA - Contusion of scalp, initial encounter (3) Closed C7 fracture Encounter type: initial encounter Fracture alignment: displaced Fracture morphology: unspecified fracture morphology Qualified Code(s): S12.600A - Unspecified displaced fracture of seventh cervical vertebra, initial encounter for closed fracture
[2021-02-27] MEDS: POLYETHYLENE (MIRALAX) 17 GM PACK PO PRN (16:39)
[2021-02-27] MEDS ORDERED: Nursing to Pharmacy Communication SCH (18:45)
[2021-02-27] MEDS: SIMETHICONE 80 MG CHEW PO SCH (20:05)
[2021-02-27] MEDS ORDERED: NAPHAZOLIN/PHENIRAMIN OPH SOLN 75 DROPS/5 ML BTL OPB SCH (21:00)
[2021-02-27] MEDS: HYDROmorphone INJ 0.5 MG/0.5 ML SYR IV PRN (22:12)
[2021-02-28] MEDS: traMADol HCL 50 MG TABLET PO PRN ×4 (01:34→21:02)
[2021-02-28] MEDS: NAPHAZOLIN/PHENIRAMIN OPH SOLN 75 DROPS/5 ML BTL OPB PRN ×4 (01:34→22:24)
[2021-02-28] MEDS: ENOXAPARIN INJ 120 MG/0.8 ML SYR SQ SCH (04:32)
[2021-02-28] MEDS: ACETAMINOPHEN 325 MG TAB PO PRN ×4 (04:32→22:57)
[2021-02-28] MEDS: NITROGLYCERIN 2% OINTMENT 30GM TUBE EXT SCH ×4 (04:34→21:04)
[2021-02-28 07:34] LABS: Hematocrit (blood only) 34.6 % (37-47); Hemoglobin 11.1 g/dL (12.0-16.0)
[2021-02-28 07:45] LABS: INR 1.1 (0.9-1.1); Prothrombin Time 10.7 Seconds (9.0-12.0)
[2021-02-28] MEDS: DOCUSATE SODIUM 100 MG CAP PO SCH ×2 (08:10→21:02)
[2021-02-28] MEDS: PROBENECID 500 MG TAB PO SCH ×2 (08:10→21:01)
[2021-02-28] MEDS: POTASSIUM CHLORIDE CRTAB 20 MEQ TABCR PO SCH (08:10)
[2021-02-28] MEDS: CALCITRIOL 0.25 MCG CAPSULE PO SCH (08:10)
[2021-02-28] MEDS: carvediloL 3.125 MG TAB PO SCH ×2 (08:10→21:02)
[2021-02-28] MEDS: CALCIUM 600MG + VIT D 400 IU TAB PO SCH (08:11)
[2021-02-28] MEDS: ASPIRIN 81 MG ECTAB PO SCH (08:11)
[2021-02-28] MEDS: CHOLECALCIFEROL 1,000 UNITS 25 MCG TAB PO SCH (08:11)
--- NOTE | 2021-02-28 08:55 | Hospitalist Progress Note ---
Date of Service February 28, 2021 Assessment & Plan (1) NSTEMI (non-ST elevated myocardial infarction): Plan: * Patient initially hospitalized following a Ground level fall resulting in minor trauma (scalp laceration requiring repair, mild hematoma, and nonsurgical spinal fractures) * As initially stated, plan was to proceed with discharge on 02/25 as she was completely independent and doing well with therapy services; however, she then developed some chest discomfort which prompted a cardiac work-up * That episode of CP was treated with Maalox as it was atypical and occurred after eating lunch * Surprisingly, her troponin came back elevated at 5.2 (5.2 --> 7.3 --> 4.6 --> 3.13) * Patient's chest pain completely resolved with Maalox and burping * She then reported that she had been having ongoing nausea (which she under- played as she thought it was related to the Ultram being provided for pain control) * At any rate, she was changed to a full admission due to the elevated troponin consistent with ?NSTEMI. Transferred to PCU * She was placed on aspirin, beta-blockade, topical paste, Lipitor (which she is refusing despite its known benefits), and her Coumadin initially continued (on off and bring bridged with lovenox d/t plan for cardiac cath) * echocardiogram was done showing a focal regional wall motion abnormality * Cardiology has been on board and ? Cardiac contusion resulting in elevated troponin versus NSTEMI from unstable plaque (as patient certainly has the risk factors for CAD) * Although when initially seen, after her fall, she was not complaining of significant chest discomfort and did not report landing on her chest, she did land on her head and with substantial force--> enough to cause a laceration with multiple spinal Fx's (which is why suspicious of a cardiac contusion). At any rate, plan is for cardiac cath on Wednesday 02/28. * trop cycled and peaked * EKG's trended without acute changes noted (2) Fall: Plan: * Mechanical fall resulting in nondisplaced fracture of C7, T3, and possibly L3 along with slightly displaced fracture of T6 * Seen by Dr. Linares who recommends no changes in treatment plan at this time. Appreciate those recommendations. * From a fall/fracture standpoint, patient actually doing well. Her pain is controlled. She was meeting her goals with PT/OT prior to the transition of this being a cardiac admission. * plan is for d/c to home after cardiac work-up (3) Knee pain: Plan: * Patient was adamant that she wanted an ultrasound to rule out DVT as the pain "felt very similar" * she is on Coumadin and was actually supratherapeutic. Venous Doppler negative for DVT * CT potentially nondisplaced Patella Fx; however, clinically, her pain is improved. Her ROM is intact and her is weight bearing/ambulating without problems. * Dr. Bauman who saw this patient is consult and does not believe that this is a fx (4) Laceration of scalp: Plan: * Sutures to be removed in 7-10 days (03/03 - 03/05) * ABX prophylaxis provided * TdaP given (5) Hematoma of frontal scalp: Plan: * Coumadin initially held for supratherapeutic INR in the setting of a hematoma * Hematoma resolved * In setting of NSTEMI/ t plan is for cardiac catherization, coumadin on hold with lovenox on board for bridge therapy * (6) Closed C7 fracture: Plan: -Nondisplaced -see above (7) Closed T6 spinal fracture: Plan: -Slightly displaced fracture of the right spinous process of T6. -See above (8) Hypertension: Plan: -Continue HCTZ 25mg every other day, mainly for calcium regulation with hyperparathyroidsim (9) correction current use of anticoagulant therapy: Plan: -See above. Plan: Plan of care discussed with Dr. Pruett Admission and Anticipated Discharge Date Admission Date: February 25, 2021 Subjective Patient is marked bruising about her face. She is no further chest pain. Awaiting cardiac catheterization on 03/01/2021 Review of Systems 2 Review of Systems: Mild distress and fatigue no headache, no visual changes no speech or swallowing issues no further chest pain, pressure or palpitations no shortness of breath, cough or wheezes no abdominal pain, nausea or vomiting, diarrhea or constipation no dysuria, hematuria or frequency no focal joint pain or swelling no back pain, CVA tenderness or radicular pain no bruising, bleeding or rashes no focal signs of weakness or numbness or altered sensation no complaints of anxiety or depression.. Physical Exam Physical Exam: The patient appeared well nourished and normally developed. Vital signs as documented. Head exam is normocephalic marked bilateral ecchymosis around her eyes with a large hematoma on her forehead Neck is without JVD, thyromegaly, or carotid bruits. Lungs are clear to auscultation, no focal loss of breath sounds Cardiac exam, Rhythm is regular.. No murmurs, rubs or gallops. Abdominal exam reveals normal bowel sounds, soft non tender, no masses Extremities are mildly edematous bilaterally and both pedal pulses are present Neurologic exam is alert and oriented, no focal loss of strength or sensation Skin is with is better head and chest Psychologically is without concerns for anxiety or depression Results & Data Results & Data ([facility]) Vital Signs (Past 12 Hours) Vital Signs Temp Pulse Pulse Resp BP BP Pulse Ox 02/28/21 07:38 98.1 F 62 18 124/77 95 02/28/21 07:16 116 H 02/28/21 04:05 98.2 F 60 18 127/73 97 02/28/21 00:14 98.4 F 71 18 118/68 95 PG Care Time/CCT Total # of Minutes Spent Total Time Spent with Patient: Total time spent is greater than 50% in coordination of care (as documented) at patient's floor/unit and/or counseling patient: Coding Level of Care Code 45392 Subseq Hosp Care Lvl 2 Diagnoses NSTEMI (non-ST elevated myocardial infarction) I21.4 Fall W19.XXXA Knee pain M25.569 Laceration of scalp S01.01XA Encounter type: initial encounter Hematoma of frontal scalp S00.03XA Encounter type: initial encounter Closed C7 fracture S12.600A Encounter type: initial encounter Fracture alignment: displaced Fracture morphology: unspecified fracture morphology Closed T6 spinal fracture S22.059A Hypertension I10 correction current use of anticoagulant therapy Z79.01 (1) Hematoma of frontal scalp Encounter type: initial encounter Qualified Code(s): S00.03XA - Contusion of scalp, initial encounter (2) Closed C7 fracture Encounter type: initial encounter Fracture alignment: displaced Fracture morphology: unspecified fracture morphology Qualified Code(s): S12.600A - Unspecified displaced fracture of seventh cervical vertebra, initial encounter for closed fracture (3) Laceration of scalp Encounter type: initial encounter Qualified Code(s): S01.01XA - Laceration without foreign body of scalp, initial encounter
[2021-02-28] MEDS: POLYETHYLENE (MIRALAX) 17 GM PACK PO PRN ×2 (11:25→21:01)
[2021-02-28] MEDS ORDERED: MAGNESIUM HYDROXIDE SUSP 30 ML UDC PO PRN (11:42)
[2021-02-28] MEDS: SIMETHICONE 80 MG CHEW PO SCH (21:02)
[2021-02-28] MEDS: SODIUM CHLORIDE 0.9% 1000ML 1,000 ML IV SCH (22:23)
[2021-03-01] MEDS: traMADol HCL 50 MG TABLET PO PRN ×2 (03:24→10:52)
[2021-03-01] MEDS: NITROGLYCERIN 2% OINTMENT 30GM TUBE EXT SCH ×2 (03:25→10:45)
[2021-03-01] MEDS: ACETAMINOPHEN 325 MG TAB PO PRN ×2 (05:38→14:17)
[2021-03-01 07:05] LABS: Prothrombin Time 9.8 Seconds (9.0-12.0)
--- NOTE | 2021-03-01 08:02 | Pre Anesthesia Assessment ---
Date of Service March 01, 2021 Pre Sedation Assessment Vital Signs Temp Pulse Pulse Pulse Resp BP BP 03/01/21 07:41 36.5 C 77 20 164/92 H 03/01/21 05:05 37.0 C 63 16 102/62 02/28/21 23:43 36.9 C 65 18 102/58 L 02/28/21 19:07 36.9 C 64 16 113/69 02/28/21 15:47 36.7 C 69 18 118/80 02/28/21 15:02 71 02/28/21 11:44 36.8 C 87 18 118/75 Pulse Ox 03/01/21 07:41 95 03/01/21 05:05 94 02/28/21 23:43 93 02/28/21 19:07 96 02/28/21 15:47 95 02/28/21 15:02 02/28/21 11:44 94 Cardiovascular + regular rate Respiratory + respiratory effort normal Pre-Sedation Airway Assessment Smoking Status: Former smoker Hx Sleep Apnea: No Hx Difficult Intubation: No Short, Thick Neck: Yes Thyromental Distance: > or= 3.5 Finger Breadths Oral Cavity: + WNL Mallampati Class: III ASA: ASA3 NPO Status Date of Last Intake of Fluids: 02/28/21 Time of Last Intake of Fluids: 20:00 Date of Last Intake of Solid Food: 02/28/21 Time of Last Intake of Solid Foods: 20:00 Procedure Planning Contraindications for Sedation: none Current Medications Reviewed: Yes Notes The planned sedation has been discussed with the patient. Informed Consent was obtained. I have identified the patient, determined the appropriateness of sedation and have assessed the patient immediately prior to the procedure. All medicine(s) and interventions are by my order.
[2021-03-01] MEDS ORDERED: HEPARIN (PORCINE) 1000 UNIT/ML 10 ML (CATH LAB USE ONLY) ONE (08:04)
[2021-03-01] MEDS ORDERED: MIDAZOLAM HCL 1 MG/ML 2ML VIAL ONE ×2 (08:04→09:42)
[2021-03-01] MEDS ORDERED: fentaNYL citrate 100 MCG/2 ML VIAL ONE (08:05)
[2021-03-01] MEDS ORDERED: niCARdipine HCL INJ 2.5 MG/ML 10 ML AMP ONE (08:05)
[2021-03-01] MEDS ORDERED: NITROGLYCERIN/D5W 100MCG/ML 20ML SYR ONE (08:05)
[2021-03-01] MEDS ORDERED: SENNA 8.6 MG TAB PO SCH (09:00)
--- NOTE | 2021-03-01 10:02 | Post Anesthesia Assessment ---
Date of Service March 01, 2021 Post Sedation Assessment Vital Signs Temp Pulse Pulse Pulse Resp BP BP 03/01/21 08:00 56 L 03/01/21 07:41 36.5 C 77 20 164/92 H 03/01/21 05:05 37.0 C 63 16 102/62 02/28/21 23:43 36.9 C 65 18 102/58 L 02/28/21 19:07 36.9 C 64 16 113/69 02/28/21 15:47 36.7 C 69 18 118/80 02/28/21 15:02 71 02/28/21 11:44 36.8 C 87 18 118/75 Pulse Ox 03/01/21 08:00 03/01/21 07:41 95 03/01/21 05:05 94 02/28/21 23:43 93 02/28/21 19:07 96 02/28/21 15:47 95 02/28/21 15:02 02/28/21 11:44 94 Recovery Score Activity: Moves 4 extremities Respiration: Deep Breath/Cough Circulation: +/-20% PreAnes Value Consciousness: Fully Awake Oxygen Saturation: > 92% On Room Air Discharge Sedation Level of Care: Fast Track Phase II Post Sedation Plan On clinical assessment, the patient appears to have tolerated the sedation without complications. Patient is recovering as anticipated. Patient will continue to be monitored by nursing and may be discharged when sedation discharge criteria are met per below protocol. Upon Completions of procedure up to 15 minutes continue every 5 minute vital signs and the P.A.R. score; then discharge to a Phase I or Fast Track to Phase II per the following guidelines: * Discharge Patient to appropriate Phase II area if PAR is 8 or greater or return to pre- procedure baseline. The post - procedure orders will be as directed. * If PAR score is less than 8 or not return to pre-procedure baseline then patient will follow Phase I monitoring till PAR is reached for Phase II. The Phase I may be done in procedure room or may call to secure a Phase I area. * If naloxone or flumazenil are used for reversal, hold in Phase I for continued monitoring from when last reversal dose was given for a minimum of 60 minutes or longer pending the nurse and/or physician discretion of patient condition before discharge to Phase II. Please call the Sedation Physician to re-evaluate and complete post-note for discharge to Phase II area. Do NOT discharge from procedure sedation or Phase 1 until post- sedation evaluation note is complete by procedure /sedation MD Sedation Discharge Instructions to be given to the patient at discharge to home.
--- NOTE | 2021-03-01 10:02 | Cardiac Catheterization ---
[facility] Data: Market Maker Cardiac Status Clinical evaluation leading to the procedure CAD Presenation: Non STEMI Diagnostic Physicians Name: Mike Grove MD Closure Device Recommendations: Medical Therapy and/or Counseling Cardiac Cath Procedure Full Procedure Date March 01, 2021 Pre-Procedure Diagnosis Pre-Procedure Diagnosis: Non STEMI AUC Score AUC Score: 8 Post-Procedure Diagnosis Post-Procedure Diagnosis: Normal Coronary Arteries Procedure(s) Performed Procedure(s) Performed: Coronary Angiography and Left Heart Cath Costume Maker Mike Grove MD Model Maker Firearms(s) none Estimated Blood Loss Estimated Blood Loss: 15cc Medication(s) Medication(s): Fentanyl, Heparin, Lidocaine 1%, Nicardipine, Nitroglycerin and Versed Summary of Findings Procedure performed: Left heart catheterization, selective coronary angiography Staff economics teacher: Mike Grove MD Indication: The patient is a 70-year-old woman admitted to the hospital after sustaining a ground level fall. She did have an episode of chest discomfort during her admission which prompted evaluation of her cardiac biomarkers. These were elevated. In order to elucidate the possibility of a coronary event she was advised to consider coronary angiography. Procedure detail: The patient was informed of the risks benefits and alternatives to the intended procedure. She understood which proceed. She was taken to the cardiac catheterization suite in a fasting state. Conscious sedation was administered per protocol the patient was monitored electrocardiographically throughout today's procedure. The right radial area was prepped and draped in usual sterile fashion. This area was anesthetized using subcutaneous menstruation of a lidocaine solution. Right radial artery was subsequently accessed using Seldinger technique and a sheath was placed over guidewire at this site. The sheath was used facilitate passage of the catheters for selective coronary angiography and left heart catheterization. At the conclusion of the procedure the catheters and sheath removed. Hemostasis was achieved at the access site using manual pressure. The patient tolerated procedure well. There were no immediate complications Findings: Left main: Left main coronary was normal in size and caliber and bifurcated normally into left anterior descending and left circumflex arteries. No disease in this vessel Left anterior descending: Left anterior descending was a medium size vessel produced a small 1st diagonal branch in a small 2nd diagonal branch with another small diagonal prior to reaching the apex. There is no obstructive lesions in this vessel Left circumflex: Left circumflex vessel is a large vessel. It produced a large 1st OM and large 2nd OM system. There were no obstructive lesions in this distribution. Right coronary artery: The right coronary artery could not be selectively engaged due to tortuosity of the aorta and an anomalous takeoff from the posterior left coronary cusp. However non selective imaging revealed a normal caliber vessel without obstructive lesions. 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 Any exceptions are noted below. [facility] Card Cath Procedure Codes Cardiac Catheterization Procedure 1: Cardiovascular Cath Procedures: 04381 Coronaries and LHC (+/-LV) Moderate Sedation Procedure 1: Sedation/Anesthesia: 10274 Mod Sedation by the same physician;Init15 Min Child Age 5 & Up Procedure 2: Sedation/Anesthesia: 62317 Mod Sedation by a different physician ;Init15 Min Child Age 5&Up PG Care Time/CCT Total # of Minutes Spent Total Time Spent with Patient: Total time spent is greater than 50% in coordination of care (as documented) at patient's floor/unit and/or counseling patient:
[2021-03-01] MEDS: CALCIUM 600MG + VIT D 400 IU TAB PO SCH (10:44)
[2021-03-01] MEDS: ASPIRIN 81 MG ECTAB PO SCH (10:44)
[2021-03-01] MEDS: CALCITRIOL 0.25 MCG CAPSULE PO SCH (10:44)
[2021-03-01] MEDS: CHOLECALCIFEROL 1,000 UNITS 25 MCG TAB PO SCH (10:45)
[2021-03-01] MEDS: carvediloL 3.125 MG TAB PO SCH (10:45)
[2021-03-01] MEDS: DOCUSATE SODIUM 100 MG CAP PO SCH (10:46)
[2021-03-01] MEDS: PROBENECID 500 MG TAB PO SCH (10:52)
[2021-03-01] MEDS: POTASSIUM CHLORIDE CRTAB 20 MEQ TABCR PO SCH (10:53)
[2021-03-01] MEDS: hydroCHLOROthiazide 25 MG TAB PO SCH (10:53)
[2021-03-01] MEDS: SODIUM CHLORIDE 0.9% 1000ML 1,000 ML IV SCH (10:59)
[2021-03-01] MEDS ORDERED: WARFARIN SOD 10 MG TAB PO SCH (16:00)
--- NOTE | 2021-03-01 18:03 | Discharge Summary ---
Date of Service March 01, 2021 Admission HPI Per Admitting Provider Sherrie Tsai is a 70 year old female who presents to the ER by ambulance due to a fall. She recently had surgery on her left knee approximately 6-7 weeks ago and has been walking with a cane since then. She tripped over a brick today. No lightheadedness, chest pain or shortness of breath prior to falling. She fell on the right side of her head causing large laceration and hematoma here. She is on warfarin due to a history of pulmonary emboli (last diagnosed in 2014. She is also complaining of mid thoracic pain since the fall in the center of her back. In the ER her head laceration was sutured. Hemoglobin stable at 12g/dL. CT head was negative for intracranial pathology. Cervical and thoracic CT imaging revealed acute spinous process fractures at C7 and T6. She was referred to medicine due to the size of the hematoma on warfarin and possible need for rehabilitation. Principal Diagnosis 1. Ground Level Fall Resulting in - nondisplaced fracture of C7 - nondisplaced fracture of T3 - ? nondisplaced fracture of L3 - mildly displaced fracture of T6 2. Hematoma of scalp 3. Laceration of scalp s/p repair 4. Chronic Coumadin therapy 5. normal left heart cath 6.elevated troponin secondary to cardiac contusion Discharge Exam The patient appeared with facial ecchymosis and swelling sutures above her right eye Vital signs as documented. Lungs are clear to auscultation and appear unlabored Cardiac exam, Rhythm is regular.. No murmurs, rubs or gallops. Abdominal exam reveals normal bowel sounds, soft non tender, no masses Extremities are chemotic with some swelling around her left knee ecchymosis there also Neurologic exam is alert and oriented, no focal loss of strength or sensation Psychologically is without concerns for anxiety or depression. Discharge Data Allergies Allergy/AdvReac Type Severity Reaction Status Date / Time No Known Allergies Allergy Verified 02/24/21 18:18 Consultations 02/24/21 18:34 ED Decision to Admit Stat 02/25/21 07:48 Consult Orthopedic Surgery Routine 02/25/21 16:50 Consult Cardiology Routine 02/27/21 10:52 Consult Orthopedic Surgery Routine Procedures Performed Operation Date: 03/01/21 08:00 Actual Procedures p Cath, Left with Cors and Vent - Fabio Grove MD s Cineradiography w/Routine Exam - Fabio Grove MD s Injection / Imaging Aorta - Fabio Grove MD Ordered Studies 02/24/21 16:20 CT cervical spine wo con Stat CT head/brain wo con Stat CT lumbar spine wo con Stat CT thoracic spine wo con Stat 02/25/21 16:49 US venous doppler LE LT Routine 02/26/21 11:49 CT knee LT wo con Routine 03/01/21 08:02 CL Cath Imgs for PACS use only Routine Hospital Course (1) NSTEMI (non-ST elevated myocardial infarction): * Patient initially hospitalized following a Ground level fall resulting in minor trauma (scalp laceration requiring repair, mild hematoma, and nonsurgical spinal fractures) * As initially stated, plan was to proceed with discharge on 02/25 as she was completely independent and doing well with therapy services; however, she then developed some chest discomfort which prompted a cardiac work-up * That episode of CP was treated with Maalox as it was atypical and occurred after eating lunch * Surprisingly, her troponin came back elevated at 5.2 (5.2 --> 7.3 --> 4.6 --> 3.13) * Patient's chest pain completely resolved with Maalox and burping * She then reported that she had been having ongoing nausea (which she under- played as she thought it was related to the Ultram being provided for pain control) * At any rate, she was changed to a full admission due to the elevated troponin consistent with ?NSTEMI. Transferred to PCU * She was placed on aspirin, beta-blockade, topical paste, Lipitor (which she is refusing despite its known benefits), and her Coumadin initially continued (on off and bring bridged with lovenox d/t plan for cardiac cath) * echocardiogram was done showing a focal regional wall motion abnormality which prompted left heart cath although nonocclusive disease was seen no new medications recommended * Cardiology has been on board and left heart cath negative for occlusive disease therefore, cardiac contusion resulting in elevated troponin * Although when initially seen, after her fall, she was not complaining of significant chest discomfort and did not report landing on her chest, she did land on her head and with substantial force--> enough to cause a laceration with multiple spinal Fx's (which is why suspicious of a cardiac contusion). At any rate, plan is for cardiac cath on Wednesday 02/28. * EKG's trended without acute changes noted (2) Fall: * Mechanical fall resulting in nondisplaced fracture of C7, T3, and possibly L3 along with slightly displaced fracture of T6 * Seen by Dr. Linares who recommends no changes in treatment plan at this time. Appreciate those recommendations. * From a fall/fracture standpoint, patient actually doing well. Her pain is controlled. She was meeting her goals with PT/OT prior to the transition of this being a cardiac admission. * plan is for d/c to home (3) Knee pain: * Patient was adamant that she wanted an ultrasound to rule out DVT as the pain "felt very similar" * she is on Coumadin and was actually supratherapeutic. Venous Doppler negative for DVT * CT potentially nondisplaced Patella Fx; however, clinically, her pain is improved. Her ROM is intact and her is weight bearing/ambulating without problems. * Dr. Bauman who saw this patient is consult and does not believe that this is a fx seen follow-up as an outpatient for additional x-rays (4) Laceration of scalp: * Sutures to be removed in 7-10 days (03/03 - 03/05) * ABX prophylaxis provided * TdaP given (5) Hematoma of frontal scalp: * Coumadin initially held for supratherapeutic INR in the setting of a hematoma * Hematoma present on forehead * Coumadin clinic contacted detailed orders were written discharge summary including 15 mg on the seventh and eighth 10 mg of the night of warfarin. Ridging Lovenox starting on the with further instructions 1 seen in Coumadin clinic on the (6) Closed C7 fracture: -Nondisplaced -see above (7) Closed T6 spinal fracture: -Slightly displaced fracture of the right spinous process of T6. -See above (8) Hypertension: -Continue HCTZ 25mg every other day, mainly for calcium regulation with hyperparathyroidsim (9) custodial current use of anticoagulant therapy: -See above. Plan of care discussed with Dr. Pruett Total Time Total Time Spent Total Time Spent (In Minutes): It required greater than 30 minutes to prepare this patient for discharge, including personal discussion with Coumadin clinic Discharge Plan Discharge Items Patient Disposition: Home - Self-Care Reason For Visit: FALL, SCALP HEMATOMA, SPINOUS PROCESS FRACTURE Discharge Diagnosis: 1. Ground Level Fall Resulting in - nondisplaced fracture of C7 - nondisplaced fracture of T3 - ? nondisplaced fracture of L3 - mildly displaced fracture of T6 2. Hematoma of scalp 3. Laceration of scalp s/p repair 4. Chronic Coumadin therapy 5. normal left heart cath 6.elevated troponin secondary to cardiac contusion Condition on Discharge: Good Activity: Resume your previous activity Weightbearing: Full weightbearing Non-emergency contact: Primary Care Provider Call non-emergency contact if: you have any medication questions, your symptoms worsen and your pain is concerning for you Follow-up/Referrals: Tiara Barton MD [Primary Care Provider] - 03/03/21 11:30 am Diet: Heart Healthy Addtl Attending Provider Instructions: - You sustained a ground level fall resulting in fractures of C-spine, T-spine these will slowly have less pain as the days go by - Fortunately, these are all nonsurgical fracture. You have been seen by inclusion specialist who is recommending nothing more than pain control (no surgery/no bracing) - In addition, you had a fairly large laceration and hematoma of your scalp that has since been repaired. - Can utilize Ultram as needed for pain with regard to your knee, please ice if swelling and follow up with orhtopedics, do not do intentional physical therapy until cleared by ortho you did have a good heart cath, Per Dr Grove all arteries are open - You need to follow up with your Family Physician (suture removal in 7-10 days) - return to the ED as needed Per coagulation clinic: 03/01 take 15 mg warfarin 03/02 take 15 mg warfarin plus lovenox 40 mg sub cut 03/03 take 10 mg warfarin plus lovenox 40 mg sub cut 03/04 no warfarin until instructed by coumadin clinic, take lovenox 40 mg sub cut Pending Studies at Discharge: No Stand-Alone Forms: [employer], Smoking Cessation Medications and DC Order Prescriptions: New tramadol 50 mg Tablet 50 mg PO Q6H PRN (Reason: pain) Qty: 30 RF: 0 Continued magnesium 250 mg tablet 250 mg PO QAM RF: 0 warfarin 5 mg tablet See Rx Instructions PO UD RF: 0 potassium chloride 10 mEq capsule, extended release 20 meq PO DAILY Qty: 180 RF: 3 calcitriol 0.25 mcg capsule 0.25 mcg PO DAILY Qty: 90 RF: 1 hydrochlorothiazide 25 mg tablet 25 mg PO Q OTHER DAY RF: 0 probenecid 500 mg tablet 500 mg PO BID RF: 0 tramadol 50 mg tablet 50 mg PO UD PRN (Reason: Pain) RF: 0 amoxicillin 500 mg tablet 2,000 mg PO ONCE PRN (Reason: Prophylaxis) RF: 0 acetaminophen [Tylenol Extra Strength] 500 mg Tablet 1,000 mg PO Q6H PRN (Reason: Pain) RF: 0 calcium carbonate-vitamin D3 600-125 mg-unit Tablet 1 tab PO DAILY RF: 0 cholecalciferol (vitamin D3) [Vitamin D3] 125 mcg (5,000 unit) Tablet 125 mcg PO DAILY RF: 0 simethicone 80 mg Tablet,Chewable 80 mg PO HS RF: 0 Discharge Orders: Discharge Order (Routine); Ordered 03/01/21 Ordered By: Esvin Martinez Admission Data Admit Date/Time: 02/25/21 15:11 Attending Provider: Esvin Martinez Admit Provider: Jayce Lincoln Primary Care Provider: Tiara Barton Other Providers: Seven Pruett ; [facility] ; Jayce Lincoln ; Tres Linares ; Eric Jimenez ; Agapito Bauman Other Interventions: Discharge Summary Assessment (RN) Last Done: 03/01/21 15:29 Coding Level of Care Code D/C DAY MANAGEMENT >30 MINS Diagnoses NSTEMI (non-ST elevated myocardial infarction) I21.4 Fall W19.XXXA Knee pain M25.569 Laceration of scalp S01.01XA Encounter type: initial encounter Hematoma of frontal scalp S00.03XA Encounter type: initial encounter Closed C7 fracture S12.600A Encounter type: initial encounter Fracture alignment: displaced Fracture morphology: unspecified fracture morphology Closed T6 spinal fracture S22.059A 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
== END 2021-03-01 15:44 | disposition home or self-care (01) | DRG 287 ==
LOC: 3N 16:07 → ED 16:07 → SUATTDRO 18:54 → 3N 22:07 → SUATTDRO 02-25 15:11 → 2S 02-25 15:11
PROC: CLB.IPA (2021-03-01 08:00)

== ENCOUNTER 2024-06-01 13:30 | Inpatient (IN) ==
[2024-06-01] MEDS: HYDROmorphone INJ 0.5 MG/0.5 ML SYR IV STA ×2 (14:00→16:06)
[2024-06-01 14:01] LABS: Basophils # (auto) 0.04 K/uL (0.00-0.20); Basophils % (auto) 0.6 %; Eosinophils # (auto) 0.14 K/uL (0.00-0.50); Eosinophils % (auto) 2.1 %; Hematocrit (blood only) 39.1 % (37.0-47.0); Hemoglobin 12.7 g/dl (12.0-16.0); Immature Granulocytes # (auto) 0.05 K/uL (0.01-0.20); Immature Granulocytes % (auto) 0.8 %; Lymphocytes # (auto) 1.34 K/uL (1.20-3.40); Lymphocytes % (auto) 20.2 %; Mean Corpuscular Hemoglobin 28.9 pg (25.0-34.0); Mean Corpuscular Hgb Conc 32.5 g/dL (32.0-36.0); Mean Corpuscular Volume 88.9 fL (80.0-100.0); Mean Platelet Volume 9.9 fL (9.4-12.4); Monocytes # (auto) 0.46 K/uL (0.11-0.59); Monocytes % (auto) 6.9 %; Neutrophils % (auto) 69.4 %; Platelet Count 238 K/uL (130-400); RDW Coefficient of Variation 14.9 % (11.5-14.5); RDW Standard Deviation 49.1 fL (36.4-46.3); White Blood Count 6.63 K/ul (4.8-10.8)
[2024-06-01 14:22] LABS: BUN Creatinine Ratio 21.1 (10-20); Creatinine Clr Calc Pharmacy 52.7 ml/min; Potassium 3.8 mmol/L (3.5-5.1)
[2024-06-01 14:26] LABS: INR 2.8 (0.9-1.1); Prothrombin Time 28.1 Seconds (9.0-12.0)
--- NOTE | 2024-06-01 14:39 | XRay Report ---
EXAM:Radiographs of the Left Knee 2 Views INDICATION: Traumatic pain. TECHNIQUE: Frontal and lateral views of the left knee. COMPARISON:02/26/2021 FINDINGS: Bones/joints: There is an acute, nondisplaced oblique fracture through the distal femoral shaft which appears to extend to the anterior aspect of the prosthesis. Prosthetic components intact and well-seated. Soft tissues: No abnormality noted. No radiopaque foreign body noted. IMPRESSION: Acute fracture distal left femoral shaft. ACT 112: Negative or not required by law. Electronically signed by Lashanda Monaco 06-01-2024 2:39 PM
--- NOTE | 2024-06-01 14:41 | XRay Report ---
EXAM: Radiographs of the Left Hip 3 Views INDICATION: Posttraumatic pain. TECHNIQUE: Front view pelvis and AP and frog leg lateral views of the left hip. COMPARISON: No relevant prior studies available. FINDINGS: Limitations: None. Bones/joints: Visualized portion of the left femur is intact. Acetabular joint space maintained. No erosion, fracture or dislocation. Visualized portion of RIGHT hip arthroplasty intact and well-seated. Soft tissues: No abnormality noted. No radiopaque foreign body noted. Gastrointestinal tract: Small amounts of formed stool in the rectum. IMPRESSION: No abnormality of the left hip. ACT 112: Negative or not required by law. Electronically signed by Lashanda Monaco 06-01-2024 2:41 PM
--- NOTE | 2024-06-01 14:42 | XRay Report ---
EXAM: Radiographs of the Left Femur 2 Views INDICATION: Posttraumatic pain. TECHNIQUE: Frontal and lateral views of the left femur. COMPARISON: No relevant prior studies available. FINDINGS: Bones/joints: There is an oblique minimally distracted fracture of the distal shaft of the femur which obliquely extends to the superior anterior margin of the knee arthroplasty components which is well-seated. Soft tissues: No abnormality noted. No radiopaque foreign body noted. IMPRESSION: Acute mildly distracted oblique fracture through the distal shaft of the left femur. ACT 112: Negative or not required by law. Electronically signed by Lashanda Monaco 06-01-2024 2:42 PM
--- NOTE | 2024-06-01 15:55 | History & Physical Report ---
Date of Service June 01, 2024 Assessment & Plan (1) Loraine-prosthetic femoral shaft fracture: (2) Fall: (3) care home current use of anticoagulant therapy: (4) Class 3 obesity: (5) History of pulmonary embolism: Plan This is a 73-year-old female who has significant past medical history of HTN, CKD stage III, obesity, gout, hx of svt, hyperparathyroidism, pre diabetes, history of bilateral total knee replacement, chronic anticoagulation 2/2 dvt and PE on warfarin who presents to ED after sustaining a fall. Mechanical Fall Left periprosthetic femoral shaft fracture admit pre operatively to [facility] given pt hx of svt, ecg showing sinus bradycardia --Femur Xray: Acute mildly distracted oblique fracture through the distal shaft of the left femur. consult orthopedics Dr. Ghosh Give 2.5mg IV VIt K x 1 now, repeat INR @ 2200 and in a.m. NPO after midnight stool softeners started given pt propensity to be constipated on narcotics Oxy IR 5 for moderate pain, IV morphine for severe pain Hx of DVT/Saddle PE in past on warfarin, INR 2.8 pt will require bridging post operatively back to warfarin home regimen is 5mg sun/sun and 10mg all other days Vit K 2.5mg IV x 1 now, repeat INR @ 2200 and again in a.m. CKD -3- cr baseline 1-1.1, avoid nephrotoxic agents Gout: on probenecid, will hold in the perioperative phase HTN: hold HCTZ in perioperative phase, resume as able Hx of SVT: noted on recent outpt holter monitor, was placed on metoprolol, will follow on tele Pre Diabetes/Hyperparathyroidism: follows Jun Ulbrect: continue calcitriol, calcium, vit k supplements Obesity: BMI 43 encourage diet/lifestyle modifications when able DVT ppx: hold warfarin for now, will need bridged post operatively with lovenox PCP: Niranjan FULL CODE Dispo: admit to [facility] Pt was seen and examined in collaboration with Dr. Ashford, please see addendum I spent a total of 76 minutes reviewing notes, outpatient records, labs, medication, coordinating, documenting and providing care for this patient excluding time spent in the performance of separately billed services. 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 Primary Care Provider: Karoline Ureña, This is a 73-year-old female who has significant past medical history of HTN, CKD stage III, obesity, gout, hx of svt, hyperparathyroidism, pre diabetes, history of bilateral total knee replacement, chronic anticoagulation 2/2 dvt and PE on warfarin who presents to ED after sustaining a fall. She is complaining of a lot of pain to the L leg. She states she was going down the steps carrying grapes and went down the steps falling on her L knee. She felt immediate pain from L knee up to mid thigh. She is on warfarin since 2014 due to hx of DVT and saddle PE. She reports bridging on her prior surgeries. She did lovenox shots for bridging in the past. Other than pain she offers no other acute concerns. She denies fever, chills, sweats, chest pain, shortness breath, nausea, vomiting or abdominal pain. She reports having her left total knee done at [facility]. Her right total knee was done by Dr. Clements. She had prior hip surgery by Dr. Ghosh. In regards to pt hx of arrhythmia she reports wearing a heart monitor in march and was told she had 180 episodes of SVT and she was placed on metoprolol. In ED patient remained hemodynamically stable. Knee x-ray revealed a left periprosthetic femur fracture. ED provider spoke with orthopedics on-call Dr. Ghosh who was agreeable to keep patient. Allergies Allergy/AdvReac Type Severity Reaction Status Date / Time No Known Drug Allergies Allergy Verified 02/06/24 13:44 Home Medications Medication Instructions Recorded Confirmed Type magnesium 250 mg tablet 250 mg PO QAM 07/25/18 06/01/24 History probenecid 500 mg tablet 250 mg PO BID 08/20/20 06/01/24 History acetaminophen 500 mg tablet 1,000 mg PO Q6H PRN Pain 02/24/21 06/01/24 History (Tylenol Extra Strength) calcium carbonate-vitamin D3 600 1 tab PO DAILY 02/24/21 06/01/24 History mg-125 unit tablet cholecalciferol (vitamin D3) 125 125 mcg PO DAILY 02/24/21 06/01/24 History mcg (5,000 unit) tablet (Vitamin D3) simethicone 80 mg chewable tablet 80 mg PO HS PRN Other 03/31/21 06/01/24 History amoxicillin 500 mg tablet 2,000 mg (4 x 500 mg) PO ONCE PRN 07/11/22 06/01/24 Rx Prophylaxis #4 tabs hydrochlorothiazide 25 mg tablet 25 mg PO Q OTHER DAY #45 tabs 06/12/23 06/01/24 Rx potassium chloride 10 mEq 20 meq (2 x 10 mEq) PO DAILY #180 10/25/23 06/01/24 Rx capsule,extended release caps ascorbic acid (vitamin C) 500 mg 500 mg PO DAILY 02/06/24 06/01/24 History capsule coQ10 (ubiquinol) 100 mg capsule 200 mg PO DAILY 02/06/24 06/01/24 History (Qunol Sergio CoQ10) zinc citrate 16.7 mg chewable 15 mg PO DAILY 02/06/24 06/01/24 History tablet aspirin 81 mg tablet,delayed 81 mg PO DAILY 04/21/24 06/01/24 History release (Adult Low Dose Aspirin) warfarin 5 mg tablet See Rx Instructions PO UD 05/05/24 06/01/24 History calcitriol 0.25 mcg capsule 0.25 mcg PO DAILY #90 caps 05/30/24 06/01/24 Rx metoprolol succinate 25 mg 25 mg PO DAILY 06/01/24 06/01/24 History tablet,extended release 24 hr Past Med/Surg History Problem List (Updated 06/01/24 @ 16:41 by Annabella Herrera PA-C) Fall Loraine-prosthetic femoral shaft fracture Pre-diabetes History of myocardial infarction Class 3 obesity care home current use of anticoagulant therapy (Chronic) Hematuria, microscopic Low bone mass Hyperparathyroidism Left knee DJD Atrial flutter (Chronic) Hypertension (Chronic) Osteoarthritis of right hip Right lumbar radiculitis L2-3 with mild central and mild right neuroforaminal stenosis Neural foraminal stenosis of lumbar spine (Chronic) Medical History History of fracture Multiple cervical and thoracic traumatic vertebral fractures 2020 History of pulmonary embolism History of DVT (deep vein thrombosis) Gout Hemarthrosis, right knee Skin cancer S/P MOHS PROCEDURE Surgical History Status post right knee replacement History of tubal ligation History of esophagogastroduodenoscopy (EGD) History of colonoscopy History of total hip arthroplasty RT Status post Mohs surgery S/P removal of parathyroid gland H/O nasal septoplasty Family History Brother Family history of diabetes mellitus Heart disease Mother Cancer Thrombophlebitis Father Heart disease Other No family history of bleeding disorder Denies family history of Ovarian cancer Prostate cancer Myocardial infarction Breast cancer Colorectal cancer Social History Smoking Status: Former smoker Tobacco Type: Cigarettes Cigarettes Per Day: HX OF RARE SOCIAL USE 30 YEARS AGO; Second Hand Exposure: Yes; Do You Dip or Chew Tobacco: No; Hx Alcohol Use: Yes Alcohol type: beer and wine Alcohol Intake Frequency: Monthly or Less Hx Substance Use: No Preferred Language: Indian Communication Ability: Effective Visual Impairment: No Limitations Hearing Ability: Normal 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 current occupational status: retired How many Children do You have: 2 Feels Safe at Home: Yes Childhood Exposure to Second-Hand Smoke: No Diet: regular caffeine: Yes during the past year weight has: remained stable Dental Care, Regularly: Yes Physical Activity Frequency: Daily Physical Activity Frequency Comment: PT, walking, and daily housework Seatbelt Use: sometimes Sunscreen Use: Yes Do you think of yourself as: straight/heterosexual Gender Identity: Female Assistive Devices: Glasses Review of Systems Review of Systems: All systems reviewed & are unremarkable except as noted in HPI & below Physical Exam Physical Exam: please refer to DR. Ashford addendum for physical exam findings. Results & Data Results & Data Vital Signs (Past 12 Hours) Vital Signs Temp Pulse Resp BP Pulse Ox O2 Del Method 06/01/24 13:36 36.9 C 54 L 19 152/83 H 95 Room Air Laboratory Results I have independently reviewed and interpreted patient's admitting labs including CBC, bMP, PT/INR, Diagnostic Findings Femur X-Ray 06/01/24 13:39 EXAM: Radiographs of the Left Femur 2 Views INDICATION: Posttraumatic pain. TECHNIQUE: Frontal and lateral views of the left femur. COMPARISON: No relevant prior studies available. FINDINGS: Bones/joints: There is an oblique minimally distracted fracture of the distal shaft of the femur which obliquely extends to the superior anterior margin of the knee arthroplasty components which is well-seated. Soft tissues: No abnormality noted. No radiopaque foreign body noted. IMPRESSION: Acute mildly distracted oblique fracture through the distal shaft of the left femur. ACT 112: Negative or not required by law. Electronically signed by Lashanda Monaco 06-01-2024 2:42 PM Hip/Pelvis X-Ray 06/01/24 13:39 EXAM: Radiographs of the Left Hip 3 Views INDICATION: Posttraumatic pain. TECHNIQUE: Front view pelvis and AP and frog leg lateral views of the left hip. COMPARISON: No relevant prior studies available. FINDINGS: Limitations: None. Bones/joints: Visualized portion of the left femur is intact. Acetabular joint space maintained. No erosion, fracture or dislocation. Visualized portion of RIGHT hip arthroplasty intact and well-seated. Soft tissues: No abnormality noted. No radiopaque foreign body noted. Gastrointestinal tract: Small amounts of formed stool in the rectum. IMPRESSION: No abnormality of the left hip. ACT 112: Negative or not required by law. Electronically signed by Lashanda Monaco 06-01-2024 2:41 PM Knee X-Ray 06/01/24 13:39 EXAM:Radiographs of the Left Knee 2 Views INDICATION: Traumatic pain. TECHNIQUE: Frontal and lateral views of the left knee. COMPARISON:02/26/2021 FINDINGS: Bones/joints: There is an acute, nondisplaced oblique fracture through the distal femoral shaft which appears to extend to the anterior aspect of the prosthesis. Prosthetic components intact and well-seated. Soft tissues: No abnormality noted. No radiopaque foreign body noted. IMPRESSION: Acute fracture distal left femoral shaft. ACT 112: Negative or not required by law. Electronically signed by Lashanda Monaco 06-01-2024 2:39 PM Medications Administered Medication List Discontinued Medications Hydromorphone HCl (Hydromorphone Inj 0.5 Mg/0.5 Ml Syr) 0.5 mg IV NOW STA Stop: 06/01/24 13:55 Last Admin: 06/01/24 14:00 Dose: 0.5 mg Documented By: GAY ECG Additional Comments: I have independently reviewed and interpreted patient's admitting EKG which revealed: 52 SB with 1st degree avb, qtc 458ms COVID-19 Results Results COVID-19 Adm Lab Results: RBC 4.40 M/uL (4.20-5.40) 06/01/24 WBC 6.63 K/ul (4.8-10.8) 06/01/24 Hgb 12.7 g/dl (12.0-16.0) 06/01/24 Hct 39.1 % (37.0-47.0) 06/01/24 Plt Count 238 K/uL (130-400) 06/01/24 Neutrophils (%) (Auto) 69.4 % 06/01/24 Lymphocytes (%) (Auto) 20.2 % 06/01/24 Monocytes # (Auto) 0.46 K/uL (0.11-0.59) 06/01/24 Immature Granulocyte % (Auto) 0.8 % 06/01/24 Neutrophils # (Auto) 4.60 K/uL (1.40-6.50) 06/01/24 Lymphocytes # (Auto) 1.34 K/uL (1.20-3.40) 06/01/24 Monocytes # (Auto) 0.46 K/uL (0.11-0.59) 06/01/24 Basophils # (Auto) 0.04 K/uL (0.00-0.20) 06/01/24 Immature Granulocyte # (Auto) 0.05 K/uL (0.01-0.20) 4 Na 142 mmol/L (136-145) 06/01/24 K 3.8 mmol/L (3.5-5.1) 06/01/24 Cl 104 mmol/L (98-107) 06/01/24 CO2 31 mmol/L (21-32) 06/01/24 Anion Gap 7 (3-11) 06/01/24 BUN 24 mg/dl (6-23) H 06/01/24 Creatinine 1.14 mg/dl (0.6-1.2) 06/01/24 BUN/Creatinine Ratio 21.1 (10-20) H 06/01/24 Glucose Level 108 mg/dl (70-99(Fasting)) H 06/01/24 Ca 10.0 mg/dl (8.6-10.3) 06/01/24 INR 2.8 (0.9-1.1) H 06/01/24 Code Status & VTE Plan Code Status FULL Code Supervising Physician Co-Signing Physician Notes I have seen and discussed the case with the collaborating advanced practitioner. I agree with the above H&P. I have reviewed and confirmed the patients medical history, the findings on physical examination, and the patients diagnosis and treatment plan with Javier RENE and agree with the information documented. Ms. Tsai 73-year-old female who has significant past medical history of HTN, CKD stage III, obesity, gout, hx of svt, hyperparathyroidism, pre diabetes, history of bilateral total knee replacement, chronic anticoagulation 2/2 dvt and PE on warfarin who presents to ED after sustaining a fall with subsequent left periprosthetic femoral shaft fracture. EXAM GENERAL APPEARANCE: AxOx4, no distress s/p IV analgesia HEENT: NC, AT. MMM. EOMI, clear conjunctiva, oropharynx clear. NECK: Supple without lymphadenopathy. No stiffness or restricted ROM. HEART: Normal rate and regular rhythm, normal S1/S1, no m/r/g LUNGS: CTAB, moving air well. No crackles or wheezes are heard. ABDOMEN: Soft, nontender, nondistended with good bowel sounds heard. EXTREMITIES: small bruise noted on RLE, LLE externally rotated and abducted, pulse intact NEUROLOGICAL: Grossly nonfocal. Alert and oriented, moving all 4 extremities. CN not formally tested but appear grossly intact. Skin: Warm and dry without any rash. : #Mechanical Fall #Left periprosthetic femoral shaft fracture admit pre operatively to [facility] given pt hx of svt, ecg showing sinus bradycardia --Femur Xray: Acute mildly distracted oblique fracture through the distal shaft of the left femur. consult orthopedics Dr. Ghosh Give 2.5mg IV VIt K x 1 now, repeat INR @ 2200 and in a.m. NPO after midnight stool softeners started given pt propensity to be constipated on narcotics Oxy IR 5 for moderate pain, IV morphine for severe pain 2.5mg IV k po now in addition to IV I spent a total of 20 minutes coordinating, documenting, and providing care for this patient excluding time spent in the performance of separately billed services. All of the aforementioned completed outside of collaborating with the assigned advanced practitioner for a full treatment plan. I have reviewed the advanced practitioner's documentation, and I agree with, and take responsibility for the plan of care
[2024-06-01] MEDS: PHYTONADIONE 2.5 MG in DEXTROSE 5% 50 ML IV ONE (16:52)
[2024-06-01] MEDS ORDERED: PHYTONADIONE 5 MG TAB PO STA (17:05)
[2024-06-01] MEDS ORDERED: FAMOTIDINE 20 MG TAB PO PRN (18:33)
[2024-06-01] MEDS ORDERED: NALOXONE HCL 0.4 MG/1 ML VIAL/CARP IV PRN (18:33)
[2024-06-01] MEDS ORDERED: ONDANSETRON INJ 2 MG/ML 2 ML VIAL IV PRN (18:33)
--- NOTE | 2024-06-01 19:05 | Emergency Department Note ---
Impression & Plan Loraine-prosthetic femoral shaft fracture ED Provider Note NAME: GUSTAVO JORDAN AGE: 73 SEX: F : 1950 ARRIVES VIA: Ambulance INFORMANT: Patient, ED PROVIDER(S): Nemesio Winkler MD CHIEF COMPLAINT: Trip, fall HPI: This is a 73-year-old female presenting for a fall. Patient states that she was going upstairs when she tripped and fell. She notes no head trauma or LOC. She note significant pain in her left knee/femur. She notes she does take warfarin. Otherwise no pain to the rest of the body. No nausea or vomiting this time. ROS: See above HPI for pertinent positives & negatives. A total of 10 systems reviewed and were otherwise negative. PAST MEDICAL HISTORY: See Below PAST SURGICAL HISTORY: See Below FAMILY HISTORY: See Below SOCIAL HISTORY: See Below HOME MEDICATIONS: See Below ALLERGIES: See Below VITALS: See Below PHYSICAL EXAMINATION: General: resting comfortably in no acute distress Head: Normocephalic and atraumatic Eyes: Normal inspection, extraocular muscles intact Ear, nose, throat: Normal external exam Neck: Normal range of motion Respiratory: lungs clear to auscultation bilaterally Cardiovascular: Regular rate/rhythm, no murmur GI: soft, nontender, no guarding or rebound Extremities: Tender mid/distal femur, unable to move hip or knee due to pain Neuro: The patient awake and alert, appropriately conversive, no focal deficits, symmetric faces Skin: Warm, dry, and intact MEDICAL DECISION MAKING: this is a 73-year-old female presenting after a fall. Consider hip fracture, femur fracture or knee fracture/dislocation. -Bloodwork is reviewed showing no significant leukocytosis, anemia, electrolyte or creatinine abnormality. INR 2.8 -X-ray imaging as independently interpreted by me reveals a periprosthetic spiral left mid/distal fracture. No hip fracture or dislocation -Patient request I discussed with her orthopedic surgeon who did her left knee. [facility] I was told by transfer that they do not take periprosthetic fractures. -I discussed with our orthopedic surgeon here, Dr. Ghosh, who will operate on the patient. He recommends admission to medicine. -Discussed care with [facility] service for admission -Patient given 2 rounds of IV Dilaudid for pain control. Patient placed in knee immobilizer Differential diagnosis: Hip fracture, femur fracture, knee dislocation or fracture Diagnostics interpreted by me: ECG: None Cardiac Monitoring: An order was placed for continuous cardiac monitoring. The monitor shows a rate of 58 with sinus rhythm. Past Med/Surg History Problem List (Updated 06/01/24 @ 19:21 by Nemesio Winkler MD) Loraine-prosthetic femoral shaft fracture (Acute) Fall Loraine-prosthetic femoral shaft fracture Pre-diabetes History of myocardial infarction Class 3 obesity shelter current use of anticoagulant therapy (Chronic) Hematuria, microscopic Low bone mass Hyperparathyroidism Left knee DJD Atrial flutter (Chronic) Hypertension (Chronic) Osteoarthritis of right hip Right lumbar radiculitis L2-3 with mild central and mild right neuroforaminal stenosis Neural foraminal stenosis of lumbar spine (Chronic) Medical History History of fracture Multiple cervical and thoracic traumatic vertebral fractures 2020 History of pulmonary embolism History of DVT (deep vein thrombosis) Gout Hemarthrosis, right knee Skin cancer S/P MOHS PROCEDURE Surgical History Status post right knee replacement History of tubal ligation History of esophagogastroduodenoscopy (EGD) History of colonoscopy History of total hip arthroplasty RT Status post Mohs surgery S/P removal of parathyroid gland H/O nasal septoplasty Family History Brother Family history of diabetes mellitus Heart disease Mother Cancer Thrombophlebitis Father Heart disease Other No family history of bleeding disorder Denies family history of Ovarian cancer Prostate cancer Myocardial infarction Breast cancer Colorectal cancer Social History Smoking Status: Former smoker Tobacco Type: Cigarettes Cigarettes Per Day: HX OF RARE SOCIAL USE 30 YEARS AGO; Second Hand Exposure: No; Do You Dip or Chew Tobacco: No; Tobacco Cessation Education Requested by Patient: No Hx Alcohol Use: Yes Alcohol type: hard liquor Alcohol Intake Frequency: Monthly or Less Hx Substance Use: No Preferred Language: Slovenian Communication Ability: Effective Visual Impairment: No Limitations Hearing Ability: Normal Wind Commissioning Technician Required: No Beliefs That Will Affect Care: Advent marital status: Current Living Situation: Spouse Current Living Situation Comment: Lives with . current occupational status: retired How many Children do You have: 2 Other Information That Helps Us Care for You: No Feels Safe at Home: Yes Safety Concerns: Feels Safe At This Time Childhood Exposure to Second-Hand Smoke: No Diet: regular caffeine: Yes during the past year weight has: remained stable Dental Care, Regularly: Yes Physical Activity Frequency: Daily Physical Activity Frequency Comment: PT, walking, and daily housework Seatbelt Use: sometimes Sunscreen Use: Yes Do you think of yourself as: straight/heterosexual Gender Identity: Female Assistive Devices: Glasses Allergies Allergies Allergy/AdvReac Type Severity Reaction Status Date / Time No Known Drug Allergies Allergy Verified 02/06/24 13:44 Home Meds Home Medications Medication Instructions Recorded Confirmed magnesium 250 mg tablet 250 mg PO QAM 07/25/18 06/01/24 probenecid 500 mg tablet 250 mg PO BID 08/20/20 06/01/24 acetaminophen 500 mg tablet 1,000 mg PO Q6H PRN Pain 02/24/21 06/01/24 (Tylenol Extra Strength) calcium carbonate-vitamin D3 600 1 tab PO DAILY 02/24/21 06/01/24 mg-125 unit tablet cholecalciferol (vitamin D3) 125 125 mcg PO DAILY 02/24/21 06/01/24 mcg (5,000 unit) tablet (Vitamin D3) simethicone 80 mg chewable tablet 80 mg PO HS PRN Other 03/31/21 06/01/24 ascorbic acid (vitamin C) 500 mg 500 mg PO DAILY 02/06/24 06/01/24 capsule coQ10 (ubiquinol) 100 mg capsule 200 mg PO DAILY 02/06/24 06/01/24 (Qunol Sergio CoQ10) zinc citrate 16.7 mg chewable 15 mg PO DAILY 02/06/24 06/01/24 tablet aspirin 81 mg tablet,delayed 81 mg PO DAILY 04/21/24 06/01/24 release (Adult Low Dose Aspirin) warfarin 5 mg tablet See Rx Instructions PO UD 05/05/24 06/01/24 metoprolol succinate 25 mg 25 mg PO DAILY 06/01/24 06/01/24 tablet,extended release 24 hr Previous Rx's Medication Instructions Recorded amoxicillin 500 mg tablet 2,000 mg (4 x 500 mg) PO ONCE PRN 07/11/22 Prophylaxis #4 tabs hydrochlorothiazide 25 mg tablet 25 mg PO Q OTHER DAY #45 tabs 06/12/23 potassium chloride 10 mEq 20 meq (2 x 10 mEq) PO DAILY #180 10/25/23 capsule,extended release caps calcitriol 0.25 mcg capsule 0.25 mcg PO DAILY #90 caps 05/30/24 Results & Data (ED) Vital Signs Vital Signs - 24 hr 06/01/24 13:36 06/01/24 15:00 06/01/24 15:45 Temperature 36.9 C 36.9 C Temperature Source Oral Pulse Rate 54 L 65 56 L Pulse Rate [Apical] Pulse Rhythm Regular Pulse Strength Normal Respiratory Rate 19 16 16 Respiratory Effort / Characteristics Non-Labored Respiratory Depth Normal Blood Pressure 152/83 H 146/84 H 147/86 H Blood Pressure [Left Arm] Blood Pressure Mean 106 104 Blood Pressure Mean [Left Arm] Blood Pressure Position Lying Blood Pressure Position [Left Arm] Pulse Oximetry 95 95 Oxygen Delivery Method Room Air Sepsis Recent Fever Within 48 Hours No Sepsis New/Unexplained Change in Mental Status No Sepsis Action Taken by Nursing No Action Required 06/01/24 15:45 06/01/24 15:50 Temperature 36.9 C Temperature Source Oral Pulse Rate 79 Pulse Rate [Apical] 57 L Pulse Rhythm Pulse Strength Respiratory Rate 15 Respiratory Effort / Characteristics Non-Labored Respiratory Depth Normal Blood Pressure Blood Pressure [Left Arm] 147/86 H Blood Pressure Mean Blood Pressure Mean [Left Arm] 106 Blood Pressure Position Blood Pressure Position [Left Arm] Lying Pulse Oximetry 93 Oxygen Delivery Method Sepsis Recent Fever Within 48 Hours Sepsis New/Unexplained Change in Mental Status Sepsis Action Taken by Nursing Laboratory Data 06/01/24 13:47 06/01/24 13:47 Lab Results 06/01/24 Range/Units 13:47 WBC 6.63 (4.8-10.8) K/ul RBC 4.40 (4.20-5.40) M/uL Hgb 12.7 (12.0-16.0) g/dl Hct 39.1 (37.0-47.0) % MCV 88.9 (80.0-100.0) fL MCH 28.9 (25.0-34.0) pg MCHC 32.5 (32.0-36.0) g/dL RDW Std Deviation 49.1 H (36.4-46.3) fL RDW Coeff of Mary 14.9 H (11.5-14.5) % Plt Count 238 (130-400) K/uL MPV 9.9 (9.4-12.4) fL Immature Gran % (Auto) 0.8 % Neut % (Auto) 69.4 % Lymph % (Auto) 20.2 % Sargent % (Auto) 6.9 % Eos % (Auto) 2.1 % Baso % (Auto) 0.6 % Neut # (Auto) 4.60 (1.40-6.50) K/uL Lymph # (Auto) 1.34 (1.20-3.40) K/uL Sargent # (Auto) 0.46 (0.11-0.59) K/uL Eos # (Auto) 0.14 (0.00-0.50) K/uL Baso # (Auto) 0.04 (0.00-0.20) K/uL Immature Gran # (Auto) 0.05 (0.01-0.20) K/uL PT 28.1 H (9.0-12.0) Seconds INR 2.8 H (0.9-1.1) Sodium 142 (136-145) mmol/L Potassium 3.8 (3.5-5.1) mmol/L Chloride 104 (98-107) mmol/L Carbon Dioxide 31 (21-32) mmol/L Anion Gap 7 (3-11) BUN 24 H (6-23) mg/dl Creatinine 1.14 (0.6-1.2) mg/dl Est Cr Clr Drug Dosing 52.7 ml/min eGFR 50.83 BUN/Creatinine Ratio 21.1 H (10-20) Glucose 108 H (70-99(Fasting)) mg/dl Calcium 10.0 (8.6-10.3) mg/dl Administered Medications Discontinued Medications Hydromorphone HCl (Hydromorphone Inj 0.5 Mg/0.5 Ml Syr) 0.5 mg IV NOW STA Stop: 06/01/24 13:55 Last Admin: 06/01/24 14:00 Dose: 0.5 mg Documented By: GAY Hydromorphone HCl (Hydromorphone Inj 0.5 Mg/0.5 Ml Syr) 0.5 mg IV NOW STA Stop: 06/01/24 15:55 Last Admin: 06/01/24 16:06 Dose: 0.5 mg Documented By: GAY Phytonadione 2.5 mg/ Dextrose 50.25 mls @ 100.5 mls/hr IV ONE ONE Stop: 06/01/24 16:59 Last Infusion: 06/01/24 17:30 Dose: Infused Documented By: Admin: 06/01/24 16:52 Dose: 100.5 mls/hr Documented By: GAY Imaging Data Radiologist's Impression: Femur X-Ray 06/01/24 13:39 EXAM: Radiographs of the Left Femur 2 Views INDICATION: Posttraumatic pain. TECHNIQUE: Frontal and lateral views of the left femur. COMPARISON: No relevant prior studies available. FINDINGS: Bones/joints: There is an oblique minimally distracted fracture of the distal shaft of the femur which obliquely extends to the superior anterior margin of the knee arthroplasty components which is well-seated. Soft tissues: No abnormality noted. No radiopaque foreign body noted. IMPRESSION: Acute mildly distracted oblique fracture through the distal shaft of the left femur. ACT 112: Negative or not required by law. Electronically signed by Lashanda Monaco 06-01-2024 2:42 PM Hip/Pelvis X-Ray 06/01/24 13:39 EXAM: Radiographs of the Left Hip 3 Views INDICATION: Posttraumatic pain. TECHNIQUE: Front view pelvis and AP and frog leg lateral views of the left hip. COMPARISON: No relevant prior studies available. FINDINGS: Limitations: None. Bones/joints: Visualized portion of the left femur is intact. Acetabular joint space maintained. No erosion, fracture or dislocation. Visualized portion of RIGHT hip arthroplasty intact and well-seated. Soft tissues: No abnormality noted. No radiopaque foreign body noted. Gastrointestinal tract: Small amounts of formed stool in the rectum. IMPRESSION: No abnormality of the left hip. ACT 112: Negative or not required by law. Electronically signed by Lashanda Monaco 06-01-2024 2:41 PM Knee X-Ray 06/01/24 13:39 EXAM:Radiographs of the Left Knee 2 Views INDICATION: Traumatic pain. TECHNIQUE: Frontal and lateral views of the left knee. COMPARISON:02/26/2021 FINDINGS: Bones/joints: There is an acute, nondisplaced oblique fracture through the distal femoral shaft which appears to extend to the anterior aspect of the prosthesis. Prosthetic components intact and well-seated. Soft tissues: No abnormality noted. No radiopaque foreign body noted. IMPRESSION: Acute fracture distal left femoral shaft. ACT 112: Negative or not required by law. Electronically signed by Lashanda Monaco 06-01-2024 2:39 PM Discharge Plan Visit Data Chief Complaint: Trauma Stated Complaint: FALL, L KNEE DISLOCATION, L LEG PAIN ED Provider: Nemesio Winkler Discharge Problem: Loraine-prosthetic femoral shaft fracture Patient Disposition: Admitted As Inpatient Discharge Instructions Interventions: ED Discharge Assessment Last Done: 06/01/24 17:44
[2024-06-01] MEDS: MoRPHine SULFATE 4 MG/ML 1 ML CARP\\VIAL IV PRN (19:23)
[2024-06-01] MEDS: DOCUSATE SODIUM 100 MG CAP PO SCH (20:33)
[2024-06-01] MEDS: oxyCODONE HCL IR 5 MG TAB (IMMEDIATE RELEASE) PO PRN (21:17)
[2024-06-01 23:29] LABS: Prothrombin Time 20.7 Seconds (9.0-12.0)
[2024-06-02] MEDS ORDERED: HYDROmorphone INJ 0.5 MG/0.5 ML SYR IV PRN ×2 (00:24)
[2024-06-02] MEDS: SODIUM CHLORIDE 0.9% 1,000 ML IV SCH (00:48)
[2024-06-02] MEDS: SODIUM CHLORIDE 0.9% 500 ML IV ONE (02:18)
[2024-06-02] MEDS: PHYTONADIONE 2.5 MG in DEXTROSE 5% 50 ML IV ONE (02:19)
--- NOTE | 2024-06-02 06:22 | Orthopedic Consultation ---
Date of Service June 02, 2024 Assessment & Plan (1) Loraine-prosthetic femoral shaft fracture: We discussed diagnosis and treatment options at bedside. I am recommending open reduction internal fixation of the left distal femur. She understands the risk, benefits, alternatives procedure elected proceed. Questions were answered at bedside. Time was spent scribing the procedure and postop expectations. The hospitalist is working on reversing her INR. She is currently on the schedule for later this afternoon. She should remain NPO. History of Present Illness Reason for Consultation: Left periprosthetic distal femur fracture. Requesting Physician: . Attending Physician: Lindsay Ashford MD Sherrie is a 73-year-old female who underwent a left knee replacement at [facility] 4 years ago. She then fell yesterday. She had immediate left leg pain. She came to the emergency room where radiographs demonstrated a displaced left periprosthetic distal femur fracture. She was admitted to the medical service. Orthopedics was consulted to evaluate and treat. She is currently on Coumadin and her INR was 2.9. The medical service is working on reversing her anticoagulant.. Allergies Allergy/AdvReac Type Severity Reaction Status Date / Time No Known Drug Allergies Allergy Verified 02/06/24 13:44 Home Medications Medication Instructions Recorded Confirmed Type magnesium 250 mg tablet 250 mg PO QAM 07/25/18 06/01/24 History probenecid 500 mg tablet 250 mg PO BID 08/20/20 06/01/24 History acetaminophen 500 mg tablet 1,000 mg PO Q6H PRN Pain 02/24/21 06/01/24 History (Tylenol Extra Strength) calcium carbonate-vitamin D3 600 1 tab PO DAILY 02/24/21 06/01/24 History mg-125 unit tablet cholecalciferol (vitamin D3) 125 125 mcg PO DAILY 02/24/21 06/01/24 History mcg (5,000 unit) tablet (Vitamin D3) simethicone 80 mg chewable tablet 80 mg PO HS PRN Other 03/31/21 06/01/24 History amoxicillin 500 mg tablet 2,000 mg (4 x 500 mg) PO ONCE PRN 07/11/22 06/01/24 Rx Prophylaxis #4 tabs hydrochlorothiazide 25 mg tablet 25 mg PO Q OTHER DAY #45 tabs 06/12/23 06/01/24 Rx potassium chloride 10 mEq 20 meq (2 x 10 mEq) PO DAILY #180 10/25/23 06/01/24 Rx capsule,extended release caps ascorbic acid (vitamin C) 500 mg 500 mg PO DAILY 02/06/24 06/01/24 History capsule coQ10 (ubiquinol) 100 mg capsule 200 mg PO DAILY 02/06/24 06/01/24 History (Qunol Sergio CoQ10) zinc citrate 16.7 mg chewable 15 mg PO DAILY 02/06/24 06/01/24 History tablet aspirin 81 mg tablet,delayed 81 mg PO DAILY 04/21/24 06/01/24 History release (Adult Low Dose Aspirin) warfarin 5 mg tablet See Rx Instructions PO UD 05/05/24 06/01/24 History calcitriol 0.25 mcg capsule 0.25 mcg PO DAILY #90 caps 05/30/24 06/01/24 Rx metoprolol succinate 25 mg 25 mg PO DAILY 06/01/24 06/01/24 History tablet,extended release 24 hr Past Med/Surg History Problem List Loraine-prosthetic femoral shaft fracture (Acute) Fall Loraine-prosthetic femoral shaft fracture Pre-diabetes 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 myocardial 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) Hematuria, microscopic Low bone mass Hyperparathyroidism Left knee DJD Atrial flutter (Chronic) Hypertension (Chronic) Osteoarthritis of right hip Right lumbar radiculitis L2-3 with mild central and mild right neuroforaminal stenosis Neural foraminal stenosis of lumbar spine (Chronic) Medical History History of fracture Multiple cervical and thoracic traumatic vertebral fractures 2020 History of pulmonary embolism History of DVT (deep vein thrombosis) Gout Hemarthrosis, right knee Skin cancer S/P MOHS PROCEDURE Surgical History Status post right knee replacement History of tubal ligation History of esophagogastroduodenoscopy (EGD) History of colonoscopy History of total hip arthroplasty RT Status post Mohs surgery S/P removal of parathyroid gland H/O nasal septoplasty Family History Brother Family history of diabetes mellitus Heart disease Mother Cancer Thrombophlebitis Father Heart disease Other No family history of bleeding disorder Denies family history of Ovarian cancer Prostate cancer Myocardial infarction Breast cancer Colorectal cancer Social History Smoking Status: Former smoker Tobacco Type: Cigarettes Cigarettes Per Day: HX OF RARE SOCIAL USE 30 YEARS AGO; Second Hand Exposure: No; Do You Dip or Chew Tobacco: No; Tobacco Cessation Education Requested by Patient: No Hx Alcohol Use: Yes Alcohol type: hard liquor Alcohol Intake Frequency: Monthly or Less Hx Substance Use: No Preferred Language: Cameroonian Communication Ability: Effective Visual Impairment: No Limitations Hearing Ability: Normal Silk Screen Processor Required: No Beliefs That Will Affect Care: Oriental Orthodox marital status: Current Living Situation: Spouse Current Living Situation Comment: Lives with . current occupational status: retired How many Children do You have: 2 Other Information That Helps Us Care for You: No Feels Safe at Home: Yes Safety Concerns: Feels Safe At This Time Childhood Exposure to Second-Hand Smoke: No Diet: regular caffeine: Yes during the past year weight has: remained stable Dental Care, Regularly: Yes Physical Activity Frequency: Daily Physical Activity Frequency Comment: PT, walking, and daily housework Seatbelt Use: sometimes Sunscreen Use: Yes Do you think of yourself as: straight/heterosexual Gender Identity: Female Assistive Devices: Glasses Review of Systems All systems reviewed & are unremarkable except as noted in HPI & below. Physical Exam On physical exam of the left leg, the leg is shortened and externally rotated. She has pain with any motion. The skin quality looks okay.. Constitutional WD/WN, vitals as above Eyes PERRL, conjunctivae normal, anicteric sclerae ENMT external ear and nose normal, oropharynx normal Neck trachea midline, no thyromegaly Respiratory normal respiratory effort Cardiovascular RRR, no murmur, no edema Gastrointestinal (Abdomen) normal bowel sounds, soft, nontender, no hepatosplenomegaly Psychiatric A+Ox3, euthymic affect Results & Data Results & Data Laboratory Results . Diagnostic Findings X-rays of the left femur do show a long oblique fracture that extends all the way down to the prosthesis.. PG Care Time/CCT Total # of Minutes Spent Total Time Spent with Patient: Total time spent is greater than 50% in coordination of care (as documented) at patient's floor/unit and/or counseling patient: Coding Level of Care Code 42504 IN/OBS CONSULT LVL 4,60M (57 - DECISION FOR SURGERY) Diagnoses Loraine-prosthetic femoral shaft fracture M97.8XXA; Z96.649
[2024-06-02 06:31] LABS: Hematocrit (blood only) 31.9 % (37.0-47.0); Hemoglobin 10.5 g/dl (12.0-16.0); Mean Corpuscular Hgb Conc 32.9 g/dL (32.0-36.0); Mean Corpuscular Volume 88.1 fL (80.0-100.0); Mean Platelet Volume 10.5 fL (9.4-12.4); Platelet Count 203 K/uL (130-400); RDW Coefficient of Variation 14.9 % (11.5-14.5); Red Blood Count 3.62 M/uL (4.20-5.40); White Blood Count 8.63 K/ul (4.8-10.8)
[2024-06-02 06:52] LABS: BUN Creatinine Ratio 23.8 (10-20); Calcium 8.6 mg/dl (8.6-10.3); Creatinine Clr Calc Pharmacy 75.1 ml/min; Potassium 3.5 mmol/L (3.5-5.1)
[2024-06-02 06:58] LABS: INR 1.4 (0.9-1.1); Prothrombin Time 14.6 Seconds (9.0-12.0)
--- NOTE | 2024-06-02 07:30 | Anesthesiology Consultation ---
Date of Service June 02, 2024 Assessment & Plan (1) Encounter for pre-operative examination: Chart Review Chart Review: Acceptable Risk for Surgery (when INR appropriate per surgeon) History Surgery Operation Date: 06/02/24 09:05 Proposed Procedures p ORIF Left Periprosthetic Distal Femur Fracture - Shaheed Ghosh DO Height/Weight Height: 5 ft 3 in Weight: 111.2 kg Allergies Allergy/AdvReac Type Severity Reaction Status Date / Time No Known Drug Allergies Allergy Verified 02/06/24 13:44 Medications Home Medications Medication Instructions Recorded Confirmed Last Taken magnesium 250 mg tablet 250 mg PO QAM 07/25/18 06/01/24 02/24/21 probenecid 500 mg tablet 250 mg PO BID 08/20/20 06/01/24 02/24/21 acetaminophen 500 mg tablet 1,000 mg PO Q6H PRN Pain 02/24/21 06/01/24 Unknown (Tylenol Extra Strength) calcium carbonate-vitamin D3 600 1 tab PO DAILY 02/24/21 06/01/24 02/24/21 mg-125 unit tablet cholecalciferol (vitamin D3) 125 125 mcg PO DAILY 02/24/21 06/01/24 02/24/21 mcg (5,000 unit) tablet (Vitamin D3) simethicone 80 mg chewable tablet 80 mg PO HS PRN Other 03/31/21 06/01/24 Unknown amoxicillin 500 mg tablet 2,000 mg (4 x 500 mg) PO ONCE PRN 07/11/22 06/01/24 Unknown Prophylaxis #4 tabs hydrochlorothiazide 25 mg tablet 25 mg PO Q OTHER DAY #45 tabs 06/12/23 06/01/24 Unknown potassium chloride 10 mEq 20 meq (2 x 10 mEq) PO DAILY #180 10/25/23 06/01/24 Unknown capsule,extended release caps ascorbic acid (vitamin C) 500 mg 500 mg PO DAILY 02/06/24 06/01/24 Unknown capsule coQ10 (ubiquinol) 100 mg capsule 200 mg PO DAILY 02/06/24 06/01/24 Unknown (Qunol Sergio CoQ10) zinc citrate 16.7 mg chewable 15 mg PO DAILY 02/06/24 06/01/24 Unknown tablet aspirin 81 mg tablet,delayed 81 mg PO DAILY 04/21/24 06/01/24 Unknown release (Adult Low Dose Aspirin) warfarin 5 mg tablet See Rx Instructions PO UD 05/05/24 06/01/24 Unknown calcitriol 0.25 mcg capsule 0.25 mcg PO DAILY #90 caps 05/30/24 06/01/24 Unknown metoprolol succinate 25 mg 25 mg PO DAILY 06/01/24 06/01/24 Unknown tablet,extended release 24 hr Active Medications Generic Name Dose Route Start Last Admin Trade Name Freq PRN Reason Stop Dose Admin Docusate Sodium 100 mg 06/01/24 21:00 06/01/24 20:33 Docusate Sodium 100 Mg Cap PO 07/01/24 20:59 100 mg BID IMMANUEL Administration Sodium Chloride 1,000 mls @ 150 mls/hr 06/02/24 00:45 06/02/24 02:51 Nss IV 06/02/24 14:57 100 mls/hr .[id number] IMMANUEL Infusion Morphine Sulfate 4 mg 06/01/24 18:33 06/02/24 04:40 Morphine Sulfate 4 Mg/Ml 1 Ml Carp\Vial IV 06/15/24 18:32 4 mg Q3H PRN Administration Pain (7,8,9,10) Oxycodone HCl 5 mg 06/01/24 18:33 06/01/24 21:17 Oxycodone Hcl Ir 5 Mg Tab (Immediate Release) PO 06/15/24 18:32 5 mg Q4H PRN Administration MODERATE Pain (4,5,6) & Pre PT Past Medical History Medical History (Updated 06/02/24 @ 07:30 by Alex Bundy MD) Hypertension Anemia Class 3 obesity Hyperparathyroidism Pre-diabetes Atrial flutter History of fracture Multiple cervical and thoracic traumatic vertebral fractures 2020 History of pulmonary embolism History of DVT (deep vein thrombosis) Gout Hemarthrosis, right knee Skin cancer S/P MOHS PROCEDURE Past Family History Family History Brother Family history of diabetes mellitus Heart disease Mother Cancer Thrombophlebitis Father Heart disease Other No family history of bleeding disorder Denies family history of Ovarian cancer Prostate cancer Myocardial infarction Breast cancer Colorectal cancer Past Surgical History Surgical History Status post right knee replacement History of tubal ligation History of esophagogastroduodenoscopy (EGD) History of colonoscopy History of total hip arthroplasty RT Status post Mohs surgery S/P removal of parathyroid gland H/O nasal septoplasty Social History Smoking Status: Former smoker tobacco type: cigarettes Smoking cigarettes per day: HX OF RARE SOCIAL USE 30 YEARS AGO Do You Dip or Chew Tobacco: No Hx Alcohol Use: Yes Alcohol type: hard liquor alcohol intake frequency: a few times a week Hx Substance Use: No substance use type: does not use Physical Exam Vital Signs Last Vital Signs Temp 36.8 C 06/02/24 07:20 Pulse 75 06/02/24 07:20 Resp 18 06/02/24 07:20 BP 154/81 H 06/02/24 07:20 Pulse Ox 93 06/02/24 07:20 O2 Del Method Room Air 06/02/24 07:20 Testing Laboratory Results 06/02/24 05:33 06/02/24 05:33 PT 14.6 Seconds (9.0-12.0) H 06/02/24 05:33 INR 1.4 (0.9-1.1) H 06/02/24 05:33 Blood Type O Positive 06/01/24 22:24 Antibody Screen NEGATIVE 06/01/24 22:24 Electrocardiogram Date: 06/01/24 Findings: + SB @ (52 1st degree AV block) Echocardiogram Date: 02/25/21 EF: 55-60% LV Function: normal Valvular Disease: + no significant valvular disease Cardiac Catheterization Date: 03/01/21 no significant coronary disease
[2024-06-02] MEDS: METOPROLOL SUCC 25MG EXT REL TAB PO SCH (08:55)
[2024-06-02] MEDS: HYDROmorphone INJ 0.5 MG/0.5 ML SYR IV PRN (09:04)
[2024-06-02] MEDS: ASPIRIN 81 MG ECTAB PO SCH (09:33)
[2024-06-02] MEDS: CALCITRIOL 0.25 MCG CAPSULE PO SCH (09:33)
[2024-06-02] MEDS: CALCIUM 600MG + VIT D 400 IU TAB PO SCH (09:33)
[2024-06-02] MEDS: CHOLECALCIFEROL 125 MCG (5,000 UNITS) TAB PO SCH (09:33)
[2024-06-02] MEDS: POTASSIUM CHLORIDE CRTAB 20 MEQ TABCR PO SCH (09:34)
[2024-06-02] MEDS: POLYETHYLENE (MIRALAX) 17 GM PACK PO SCH (09:34)
--- NOTE | 2024-06-02 09:58 | Hospitalist Progress Note ---
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 Mechanical Fall Left periprosthetic femoral shaft fracture admit pre operatively to [facility] given pt hx of svt, ecg showing sinus bradycardia --Femur Xray: Acute mildly distracted oblique fracture through the distal shaft of the left femur. consult orthopedics Dr. 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, INR reversed pt will require bridging post operatively back to warfarin whenever orthopedics feels comfortable home regimen is 5mg sun/sun and 10mg all other days Anemia: hgb 10.5, admitting was 12, suspect this is dilutional, monitor CKD -3- chronic, stable, cr baseline 1-1.1, avoid nephrotoxic agents Gout: on probenecid, will hold in the perioperative phase HTN: hold HCTZ in perioperative phase, resume as able Hx of SVT: noted on recent outpt holter monitor, was placed on metoprolol, will follow on tele Pre Diabetes/Hyperparathyroidism: follows Miguel Angel Lewisct: continue calcitriol, calcium, vit k supplements Obesity: BMI 43 encourage diet/lifestyle modifications when able DVT ppx: hold warfarin for now, will need bridged post operatively with lovenox PCP: Niranjan FULL CODE Dispo: admit to [facility] I spent a total of 44 minutes reviewing notes, outpatient records, labs, medication, coordinating, documenting and providing care for this patient excluding time spent in the performance of separately billed services. Admission and Anticipated Discharge Date Admission Date: June 01, 2024 Supervising Physician Co-Signing Physician Notes I have seen and discussed the case with the collaborating advanced practitioner. I agree with the above PN. I have reviewed and confirmed the patients medical history, the findings on physical examination, and the patients diagnosis and treatment plan with Javier RENE and agree with the information documented. INR down to 1.4 this am NPO for anticipated procedure Will continue to monitor postoperatively I spent a total of 10 minutes coordinating, documenting, and providing care for this patient excluding time spent in the performance of separately billed services. All of the aforementioned completed outside of collaborating with the assigned advanced practitioner for a full treatment plan. I have reviewed the advanced practitioner's documentation, and I agree with, and take responsibility for the plan of care Subjective Pt reports feeling extremely dry overnight and requested to be started on IV fluids. She reports continuing to feel dry. She has minimal pain while at rest. Denies CP, SOB, n/v/d. Remains NPO for procedure today. Discussed with nursing at bedside. Review of Systems Review of Systems: All systems reviewed & are unremarkable except as noted in HPI & below Physical Exam Physical Exam: Gen: WD/WN, obese female, lying flat in bed, NAD, A&O x3 HEENT: Normocephalic, atraumatic, conjunctivae moist, sclerae anicteric, mucous membranes moist. Lung: Clear to Auscultation bilaterally, no wheezes/rales/rhonchi Heart: Regular rate, regular rhythm, no murmurs, rubs, or gallops Abdomen: obese abd, Soft, NT, ND +BS x 4 Extremities: trace edema lower extremities Skin: Warm, no rash, negative turgor. Results & Data Results & Data Vital Signs (Past 12 Hours) Vital Signs Temp Pulse Pulse Resp BP Pulse Ox O2 Del Method 06/02/24 07:28 67 06/02/24 07:20 36.8 C 75 18 154/81 H 93 Room Air 06/02/24 05:08 36.6 C 71 17 134/76 94 Room Air 06/02/24 02:42 59 L Laboratory Results Short CBC 06/01/24 06/02/24 Range/Units 13:47 05:33 WBC 6.63 8.63 (4.8-10.8) K/ul Hgb 12.7 10.5 L (12.0-16.0) g/dl Hct 39.1 31.9 L (37.0-47.0) % Plt Count 238 203 (130-400) K/uL BMP 06/01/24 06/02/24 13:47 05:33 Sodium 142 140 Potassium 3.8 3.5 Chloride 104 106 Carbon Dioxide 31 26 BUN 24 H 19 Creatinine 1.14 0.80 D Glucose 108 H 118 H Calcium 10.0 8.6 I have independently reviewed and interpreted patient's CBC, BMP , Vit D, MRSA nares Medications Administered Current Inpatient Medications Acetaminophen (Acetaminophen 325 Mg Tab) 650 mg PO Q4H PRN PRN Reason: Pain or Fever Stop: 07/01/24 18:32 Aspirin (Aspirin 81 Mg Ectab) 81 mg PO DAILY [facility] Stop: 07/02/24 08:59 Last Admin: 06/02/24 09:33 Dose: Not Given Bisacodyl (Bisacodyl 10 Mg Supp) 10 mg NV DAILY PRN PRN Reason: Constipation Stop: 07/01/24 18:32 Calcitriol (Calcitriol 0.25 Mcg Capsule) 0.25 mcg PO DAILY [facility] Stop: 07/02/24 08:59 Last Admin: 06/02/24 09:33 Dose: Not Given Calcium/Vitamin D (Calcium 600mg + Vit D 400 Iu Tab) 1 tab PO DAILY [facility] Stop: 07/02/24 08:59 Last Admin: 06/02/24 09:33 Dose: Not Given Docusate Sodium (Docusate Sodium 100 Mg Cap) 100 mg PO BID [facility] Stop: 07/01/24 20:59 Last Admin: 06/02/24 09:33 Dose: Not Given Famotidine (Famotidine 20 Mg Tab) 20 mg PO DAILY PRN PRN Reason: Heartburn Stop: 07/01/24 18:32 Hydromorphone HCl (Hydromorphone Inj 0.5 Mg/0.5 Ml Syr) 0.5 mg IV Q4H PRN PRN Reason: Severe Pain (Scale 7, 8, 9,10) Stop: 06/16/24 00:23 Last Admin: 06/02/24 09:04 Dose: 0.5 mg Hydromorphone HCl (Hydromorphone Inj 0.5 Mg/0.5 Ml Syr) 0.25 mg IV Q4 PRN PRN Reason: Moderate Pain (Scale 4, 5, 6) Stop: 06/16/24 00:23 Cefazolin Sodium (Ancef 2000mg) 2,000 mg in 15 mls @ 3.75 mls/min IV PREOP [facility]; Protocol Stop: 06/02/24 15:00 Sodium Chloride (Nss) 1,000 mls @ 75 mls/hr IV .[id number] [facility] Stop: 06/02/24 20:18 Last Admin: 06/02/24 08:56 Dose: 150 mls/hr Melatonin (Melatonin 3 Mg Tab) 6 mg PO HS PRN PRN Reason: Sleep Stop: 07/01/24 20:59 Metoprolol Succinate (Metoprolol Succ 25mg Ext Rel Tab) 25 mg PO DAILY [facility] Stop: 07/02/24 08:59 Last Admin: 06/02/24 08:55 Dose: 25 mg Naloxone HCl (Naloxone Hcl 0.4 Mg/1 Ml Vial/Carp) 0.1 mg IV UD PRN PRN Reason: Opiate Overdose Stop: 07/01/24 18:32 Ondansetron HCl (Ondansetron Inj 2 Mg/Ml 2 Ml Vial) 4 mg IV Q6H PRN PRN Reason: Nausea Stop: 07/01/24 18:32 Oxycodone HCl (Oxycodone Hcl Ir 5 Mg Tab (Immediate Release)) 5 mg PO Q4H PRN PRN Reason: MODERATE Pain (4,5,6) & Pre PT Stop: 06/15/24 18:32 Last Admin: 06/01/24 21:17 Dose: 5 mg Polyethylene Glycol (Polyethylene (Miralax) 17 Gm Pack) 17 gm PO DAILY [facility] Stop: 07/02/24 08:59 Last Admin: 06/02/24 09:34 Dose: Not Given Potassium Chloride (Potassium Chloride Crtab 20 Meq Tabcr) 20 meq PO DAILY [facility] Stop: 07/02/24 08:59 Last Admin: 06/02/24 09:34 Dose: Not Given Vitamin D (Cholecalciferol 125 Mcg (5,000 Units) Tab) 125 mcg PO DAILY [facility] Stop: 07/02/24 08:59 Last Admin: 06/02/24 09:33 Dose: Not Given
--- NOTE | 2024-06-02 10:19 | Electrocardiogram Report ---
Test Reason : Blood Pressure : */* mmHG Vent. Rate : 52 BPM Atrial Rate : 52 BPM P-R Int : 212 ms QRS Dur : 78 ms QT Int : 458 ms P-R-T Axes : 45 13 28 degrees QTcB Int : 425 ms Sinus bradycardia with 1st degree A-V block Otherwise normal ECG When compared with ECG of 25-Mar-2024 06:41, No significant change was found Confirmed by Richy Moon ([id number]) on 06/02/2024 10:18:40 AM Referred By: REFERRED SELF Confirmed By: Richy Moon
[2024-06-02] MEDS ORDERED: ONDANSETRON INJ 2 MG/ML 2 ML VIAL ONE (13:29)
[2024-06-02] MEDS ORDERED: fentaNYL citrate PF 100 MCG/2 ML VIAL ONE ×3 (13:29→17:51)
[2024-06-02] MEDS ORDERED: PROPOFOL IV EMULSION 10 MG/ML 20 ML VIAL IV ONE (13:29)
[2024-06-02] MEDS ORDERED: LIDOCAINE 2% 2 ML VIAL/AMP(20MG/ML) INFIL ONE (13:29)
--- NOTE | 2024-06-02 13:37 | History & Physical Bridge Note ---
Date of Service June 02, 2024 History & Physical Bridge Note I have examined the patient, reviewed the History & Physical and in the interval since the performance of the History & Physical I have noted the following changes of clinical significance: no changes noted
[2024-06-02] MEDS ORDERED: ATROPINE SULFATE 0.1 MG/ML 10ML SYR IV PRN (14:33)
[2024-06-02] MEDS ORDERED: ONDANSETRON INJ 2 MG/ML 2 ML VIAL IV PRN ×2 (14:33→17:33)
[2024-06-02] MEDS ORDERED: HYDROmorphone INJ 1 MG/ML SYRINGE IV PRN (14:33)
[2024-06-02] MEDS ORDERED: PROMETHAZINE HCL 6.25 MG in SODIUM CHLORIDE 0.9% 50 ML IV PRN (14:33)
[2024-06-02] MEDS ORDERED: ROCURONIUM BROMIDE 10 MG/ML 5 ML VIAL IV ONE (14:35)
[2024-06-02] MEDS: ceFAZolin 2000MG 2,000 MG/15 ML SYR IV SCH ×2 (15:03→22:02)
[2024-06-02] MEDS ORDERED: DEXAMETHASONE SOD INJ 4 MG/ML VIAL ONE (15:31)
[2024-06-02] MEDS ORDERED: PHENYLEPHRINE 100MCG/ML 5ML SYR ONE (17:06)
[2024-06-02] MEDS ORDERED: SUGAMMADEX SODIUM 200 MG/2 ML VIAL IV ONE (17:31)
[2024-06-02] MEDS ORDERED: MAGNESIUM HYDROXIDE SUSP 30 ML UDC PO PRN (17:33)
[2024-06-02] MEDS ORDERED: METOCLOPRAMIDE HCL INJ 5 MG/ML 2 ML VIAL IV PRN (17:33)
[2024-06-02] MEDS ORDERED: NALOXONE HCL 0.4 MG/1 ML VIAL/CARP IV PRN (17:33)
[2024-06-02] MEDS ORDERED: bisacodyL 10 MG SUPP PR PRN (17:33)
[2024-06-02] MEDS: BUPIVACAINE/EPINEPHRINE 0.5% MPF 1:200,000 30 ML VIAL ONE (17:44)
[2024-06-02] MEDS: KETOROLAC 30 MG/ML VIAL IV PRN (18:30)
--- NOTE | 2024-06-02 18:42 | XRay Report ---
EXAM: Radiographs of the Left Femur 2 Views INDICATION: Postoperative check. TECHNIQUE: Frontal and lateral views of the left femur. COMPARISON: 06/01/2024 FINDINGS: Bones/joints: Anatomic alignment of oblique fracture of the femoral shaft with interval placement of a long lateral plate with multiple screws and 2 cerclage wires. Pre-existing knee arthroplasty components well-seated. Soft tissues: Expected lateral soft tissue swelling and gas noted. IMPRESSION: Anatomic alignment femoral shaft fracture post internal fixation. ACT 112: Negative or not required by law. Electronically signed by Lashanda Monaco 06-02-2024 6:42 PM
--- NOTE | 2024-06-02 19:23 | Anesthesiology Progress Note ---
Date of Service June 02, 2024 Anesthesia Post Procedure Vital Signs Vital Signs: Temp Pulse Pulse Pulse Resp BP Pulse Ox 06/02/24 19:04 97.9 F 71 19 114/72 96 06/02/24 18:35 97.2 F L 62 14 129/79 94 06/02/24 18:25 64 15 133/73 97 06/02/24 18:15 63 15 129/69 94 06/02/24 18:09 97.0 F L 63 15 118/80 95 06/02/24 14:13 58 L 06/02/24 13:28 95 06/02/24 13:17 98.8 F 72 20 153/84 H 93 06/02/24 12:18 98.8 F 69 18 135/73 94 06/02/24 07:28 67 06/02/24 07:20 98.2 F 75 18 154/81 H 93 06/02/24 05:08 97.9 F 71 17 134/76 94 06/02/24 02:42 59 L 06/01/24 20:00 98.8 F 60 17 136/82 93 O2 Del Method O2 Flow Rate 06/02/24 19:04 Nasal Cannula 4 06/02/24 18:35 Nasal Cannula 4 06/02/24 18:25 Oxymask 8 06/02/24 18:15 Oxymask 8 06/02/24 18:09 Oxymask 8 06/02/24 14:13 06/02/24 13:28 Nasal Cannula 2 06/02/24 13:17 Room Air 06/02/24 12:18 Room Air 06/02/24 07:28 06/02/24 07:20 Room Air 06/02/24 05:08 Room Air 06/02/24 02:42 06/01/24 20:00 Room Air Pain Intensity Left Leg: Pain Intensity: 6 Transfer of Care Handoff Completed per policy Notes Mental Status: alert / awake / arousable and participated in evaluation Patient Amnestic to Procedure: Yes Nausea / Vomiting: adequately controlled Pain: adequately controlled Airway Patency, RR, SpO2: stable & adequate BP & HR: stable & adequate Hydration State: stable & adequate Anesthetic Complications: no major complications apparent and Pt Satisfied with anesthetic care
--- NOTE | 2024-06-02 20:26 | Operative Report ---
PG Post Operative Report Pre & Post Diagnosis Operation Date: 06/02/24 09:05 Pre-Op Diagnosis: Left periprosthetic distal femur fracture. Post-Op Diagnosis: Left periprosthetic distal femur fracture. I identified the patient and participated in the time-out.: Yes Procedure Operation Date: 06/02/24 09:05 Actual Procedures p Open reduction and internal fixation of left periprosthetic distal femur fracture.(Right) - Shaheed Ghosh DO Surgeon Shaheed Ghosh DO Infrastructure Administrator Latonia Orellana PA-C Estimated Blood Loss 400 Findings Consistent with Post-Op Diagnosis Specimens None Description of Procedure On June 02, 2024 Sherrie was brought down from her hospital room to the preoperative holding area. The operative extremity identified and signed. She was given a preoperative antibiotic. She was taken back the operative room and laid on table supine position. She was put under general anesthesia. The left leg was prepped and draped sterile fashion. A timeout was done. The patient and the operative extremity was properly identified. A longitudinal incision was made with the distal femur. Dissection was taken down through the fascia. Hemostasis was obtained. A large hematoma was then removed using pulse lavage. The fracture edges were identified and the fracture was reduced. A reduction clamp was used to hold the fracture in place. Fluoroscopic images showed anatomic reduction of the fracture. 2 Synthes cables were placed around the fracture to hold it in place. Once the cables were tightened the clamp was removed. A Synthes 12 hole condylar distal femoral locking plate was then slid up the femur and a percutaneous fashion. A single compression screw was placed to hold the plate to the bone. A locking screw was placed distally. Fluoroscopic images showed good alignment of the plate and good alignment of the fracture. The remaining distal locking screws were then placed. A small more proximal lateral incision was made and dissection was taken down through the fascia. Through this incision for proximal locking screws were placed. Final fluoroscopic images showed good alignment of the fracture and the implants. The wounds were then irrigated. The fascia was closed with #1 Vicryl. Skin was closed with 2-0 Vicryl and bong. She was then placed in a soft dressing. She was then extubated and transferred back to a hospital bed. She was taken to the postanesthesia care unit in stable condition. She tolerated the procedure well. Shaheed Marie PA-C, was present for the entire procedure. He was critical for patient positioning, prepping, draping, retraction exposure, wound closure and application of sterile dressing. I attest to the content of the Intraoperative Record and any orders documented therein. Any exceptions are noted below.
[2024-06-02] MEDS: SENNA 8.6 MG TAB PO SCH (20:37)
[2024-06-02] MEDS: DOCUSATE SODIUM 100 MG CAP PO SCH (20:37)
[2024-06-02] MEDS: WARFARIN SOD 10 MG TAB PO SCH (20:38)
--- NOTE | 2024-06-03 06:33 | Orthopedic Progress Note ---
Date of Service June 03, 2024 Assessment & Plan (1) Loraine-prosthetic femoral shaft fracture: Overall she is doing about as well as expected. She is to be nonweightbearing on the left leg for up to 6 weeks. She is currently on Coumadin for DVT prophylaxis. She will be seen by physical therapy today. She is orthopedically stable for discharge when medically ready. Full orthopedic discharge instructions were placed in the discharge summary. Ashia Lawler was seen and examined at bedside this morning. Overall she is doing fairly well. She is not having too much pain in the left leg. She has not been out of bed yet. She has no complaints.. Review of Systems All systems reviewed & are unremarkable except as noted in HPI & below. Physical Exam Physical exam the left leg, the dressing is clean and dry. Her leg is out full extension. She has active dorsiflexion plantarflexion of her left ankle.. Results & Data Results & Data Laboratory Results . Diagnostic Findings . PG Care Time/CCT Total # of Minutes Spent Total Time Spent with Patient: Total time spent is greater than 50% in coordination of care (as documented) at patient's floor/unit and/or counseling patient: Coding Level of Care Code 69854 Post Operative Follow-Up Diagnoses Loraine-prosthetic femoral shaft fracture M97.8XXA; Z96.649
[2024-06-03 06:37] LABS: Basophils # (auto) 0.02 K/uL (0.00-0.20); Basophils % (auto) 0.2 %; Hematocrit (blood only) 25.4 % (37.0-47.0); Hemoglobin 8.4 g/dl (12.0-16.0); Immature Granulocytes # (auto) 0.03 K/uL (0.01-0.20); Immature Granulocytes % (auto) 0.3 %; Lymphocytes # (auto) 0.93 K/uL (1.20-3.40); Lymphocytes % (auto) 9.8 %; Mean Corpuscular Hemoglobin 29.2 pg (25.0-34.0); Mean Corpuscular Hgb Conc 33.1 g/dL (32.0-36.0); Mean Corpuscular Volume 88.2 fL (80.0-100.0); Mean Platelet Volume 10.4 fL (9.4-12.4); Monocytes # (auto) 0.88 K/uL (0.11-0.59); Monocytes % (auto) 9.3 %; Neutrophils % (auto) 80.4 %; Platelet Count 192 K/uL (130-400); RDW Coefficient of Variation 14.9 % (11.5-14.5); RDW Standard Deviation 48.3 fL (36.4-46.3); Red Blood Count 2.88 M/uL (4.20-5.40); White Blood Count 9.46 K/ul (4.8-10.8)
[2024-06-03 07:00] LABS: BUN Creatinine Ratio 27.8 (10-20); Calcium 8.2 mg/dl (8.6-10.3); Creatinine Clr Calc Pharmacy 68.2 ml/min
[2024-06-03 07:09] LABS: INR 1.1 (0.9-1.1); Prothrombin Time 11.4 Seconds (9.0-12.0)
[2024-06-03] MEDS: ENOXAPARIN INJ 120 MG/0.8 ML SYR SQ SCH (07:46)
[2024-06-03] MEDS: MULTIVITAMIN TAB PO SCH (07:52)
--- NOTE | 2024-06-03 07:59 | Fluoroscopy Report ---
FL femur LT 2V CLINICAL HISTORY: ORIF LT FEMUR TECHNIQUE: 6 views were obtained with the C-arm in the OR with the above procedure. Total fluoroscopy time was 1 minute 15 seconds. Comparison: Comparison is made to femur radiograph 06/01/2024 FINDINGS/IMPRESSION: Intraoperative images were obtained of open reduction internal fixation of left femur. Please correlate with intraoperative fluoroscopy and operative report. ACT 112: Negative or not required by law. Electronically signed by: Carlos Mclaughlin M.D. 06/03/2024 7:54 AM
[2024-06-03] MEDS ORDERED: ENOXAPARIN 1 MG/KG SQ SCH (08:00)
--- NOTE | 2024-06-03 11:42 | Hospitalist Progress Note ---
Date of Service June 03, 2024 Assessment & Plan (1) Loraine-prosthetic femoral shaft fracture: (2) Fall: (3) [facility] current use of anticoagulant therapy: (4) Class 3 obesity: (5) History of pulmonary embolism: Plan This is a 73-year-old female who has significant past medical history of HTN, CKD stage III, obesity, gout, hx of svt, hyperparathyroidism, pre diabetes, history of bilateral total knee replacement, chronic anticoagulation 2/2 dvt and PE on warfarin who presents to ED after sustaining a fall. Mechanical Fall Left periprosthetic femoral shaft fracture to med tele given pt hx of svt, ecg showing sinus bradycardia, will discontinue telemetry monitoring today --Femur Xray: Acute mildly distracted oblique fracture through the distal shaft of the left femur. POD # [address] Ghosh, EBL 400ml stool softeners started given pt propensity to be constipated on narcotics Oxy IR 5 for moderate pain, IV dilaudid for severe pain Vit D adequate Hx of DVT/Saddle PE in past on warfarin, INR reversed on admission Warfarin resumed on the evening of POD #0, lovenox bridging ordered, monitor hgb home regimen is 5mg sun/sun and 10mg all other days Acute blood loss Anemia 2/2 expected post operative loses and dilutional component: hgb 12 on admission, down to 8.4 today, ebl 400ml, repeat h/h this afternoon and in a.m., transfuse hgb < 7 Hypoxia: pt was hypoxic overnight, currently in room she is on room air sitting up right and 97%, pt denies hx of MEDARDO, could consider nocturnal sleep study prior to d/c to see if qualifies for nocturnal O2 CKD -3- chronic, stable, cr baseline 1-1.1, avoid nephrotoxic agents Gout: on probenecid, will hold in the perioperative phase HTN: hold HCTZ in perioperative phase, Bp still on the softer side so will continue to hold, reassess daily and resume as able Hx of SVT: noted on recent outpt holter monitor, was placed on metoprolol, will follow on tele Pre Diabetes/Hyperparathyroidism: follows [facility] Angel Ulbrect: continue calcitriol, calcium, vit k supplements Obesity: BMI 43 encourage diet/lifestyle modifications when able DVT ppx: warfarin resumed/bridging with lovenox, d/c lovenox when INR at 2.0 or above PCP: Niranjan FULL CODE Dispo: admit to med tele I spent a total of 47 minutes reviewing notes, outpatient records, labs, medication, coordinating, documenting and providing care for this patient excluding time spent in the performance of separately billed services. Admission and Anticipated Discharge Date Admission Date: June 01, 2024 Supervising Physician Co-Signing Physician Notes I have seen and discussed the case with the collaborating advanced practitioner. I agree with the above PN. I have reviewed and confirmed the patients medical history, the findings on physical examination, and the patients diagnosis and treatment plan with Javier RENE and agree with the information documented. recovering well post operatively resumed bridging post op anemia as expected stable I spent a total of 10 minutes coordinating, documenting, and providing care for this patient excluding time spent in the performance of separately billed services. All of the aforementioned completed outside of collaborating with the assigned advanced practitioner for a full treatment plan. I have reviewed the advanced practitioner's documentation, and I agree with, and take responsibility for the plan of care Subjective She offers no acute concerns. She reports minimal hip discomfort. Denies f/c/s, chest pain, sob, n/v/d. Reports low oxygen while sleeping so they put her on oxygen. She is passing gas and tolerating diet. Review of Systems Review of Systems: All systems reviewed & are unremarkable except as noted in HPI & below Physical Exam Physical Exam: Gen: WD/WN, obese female, lying flat in bed, NAD, A&O x3 HEENT: Normocephalic, atraumatic, conjunctivae moist, sclerae anicteric, mucous membranes moist. Lung: Clear to Auscultation bilaterally, no wheezes/rales/rhonchi Heart: Regular rate, regular rhythm, no murmurs, rubs, or gallops Abdomen: obese abd, Soft, NT, ND +BS x 4 Extremities: LLE thigh dressing in place, CDI Skin: Warm, no rash, negative turgor. +de la o yellow urine Results & Data Results & Data Vital Signs (Past 12 Hours) Vital Signs Temp Pulse Pulse Resp BP Pulse Ox O2 Del Method 06/03/24 11:10 Nasal Cannula 06/03/24 07:44 37.6 C H 77 20 115/69 97 Nasal Cannula 12/10/24 07:14 73 06/03/24 03:55 37.7 C H 71 16 112/66 97 Nasal Cannula 06/03/24 00:14 36.9 C 74 18 105/70 94 Nasal Cannula O2 Flow Rate 06/03/24 11:10 3 06/03/24 07:44 2 06/03/24 07:14 06/03/24 03:55 3 06/03/24 00:14 3 Diagnostic Findings Hip/Pelvis X-Ray 06/01/24 13:39 EXAM: Radiographs of the Left Hip 3 Views INDICATION: Posttraumatic pain. TECHNIQUE: Front view pelvis and AP and frog leg lateral views of the left hip. COMPARISON: No relevant prior studies available. FINDINGS: Limitations: None. Bones/joints: Visualized portion of the left femur is intact. Acetabular joint space maintained. No erosion, fracture or dislocation. Visualized portion of RIGHT hip arthroplasty intact and well-seated. Soft tissues: No abnormality noted. No radiopaque foreign body noted. Gastrointestinal tract: Small amounts of formed stool in the rectum. IMPRESSION: No abnormality of the left hip. ACT 112: Negative or not required by law. Electronically signed by Lashanda Monaco 06-01-2024 2:41 PM Knee X-Ray 06/01/24 13:39 EXAM:Radiographs of the Left Knee 2 Views INDICATION: Traumatic pain. TECHNIQUE: Frontal and lateral views of the left knee. COMPARISON:02/26/2021 FINDINGS: Bones/joints: There is an acute, nondisplaced oblique fracture through the distal femoral shaft which appears to extend to the anterior aspect of the prosthesis. Prosthetic components intact and well-seated. Soft tissues: No abnormality noted. No radiopaque foreign body noted. IMPRESSION: Acute fracture distal left femoral shaft. ACT 112: Negative or not required by law. Electronically signed by Lashanda Monaco 06-01-2024 2:39 PM Femur X-Ray 06/02/24 17:33 EXAM: Radiographs of the Left Femur 2 Views INDICATION: Postoperative check. TECHNIQUE: Frontal and lateral views of the left femur. COMPARISON: 06/01/2024 FINDINGS: Bones/joints: Anatomic alignment of oblique fracture of the femoral shaft with interval placement of a long lateral plate with multiple screws and 2 cerclage wires. Pre-existing knee arthroplasty components well-seated. Soft tissues: Expected lateral soft tissue swelling and gas noted. IMPRESSION: Anatomic alignment femoral shaft fracture post internal fixation. ACT 112: Negative or not required by law. Electronically signed by Lashanda Monaco 06-02-2024 6:42 PM Medications Administered Current Inpatient Medications Acetaminophen (Acetaminophen 325 Mg Tab) 650 mg PO Q4H PRN PRN Reason: Pain or Fever Stop: 07/01/24 18:32 Aspirin (Aspirin 81 Mg Ectab) 81 mg PO DAILY [facility] Stop: 07/02/24 08:59 Last Admin: 06/03/24 07:47 Dose: 81 mg Bisacodyl (Bisacodyl 10 Mg Supp) 10 mg NC DAILY PRN PRN Reason: Constipation Stop: 07/01/24 18:32 Bisacodyl (Bisacodyl 10 Mg Supp) 10 mg NC DAILY PRN PRN Reason: Constipation Stop: 07/02/24 17:32 Calcitriol (Calcitriol 0.25 Mcg Capsule) 0.25 mcg PO DAILY [facility] Stop: 07/02/24 08:59 Last Admin: 06/03/24 07:46 Dose: 0.25 mcg Calcium/Vitamin D (Calcium 600mg + Vit D 400 Iu Tab) 1 tab PO DAILY [facility] Stop: 07/02/24 08:59 Last Admin: 06/03/24 07:47 Dose: 1 tab Docusate Sodium (Docusate Sodium 100 Mg Cap) 100 mg PO BID [facility] Stop: 07/01/24 20:59 Last Admin: 06/03/24 07:49 Dose: 100 mg Docusate Sodium (Docusate Sodium 100 Mg Cap) 100 mg PO BID [facility] Stop: 07/02/24 20:59 Last Admin: 06/03/24 07:50 Dose: Not Given Enoxaparin Sodium (Enoxaparin Inj 120 Mg/0.8 Ml Syr) 111 mg SQ BID [facility] Stop: 07/03/24 08:59 Last Admin: 06/03/24 07:46 Dose: 111 mg Famotidine (Famotidine 20 Mg Tab) 20 mg PO DAILY PRN PRN Reason: Heartburn Stop: 07/01/24 18:32 Hydromorphone HCl (Hydromorphone Inj 0.5 Mg/0.5 Ml Syr) 0.5 mg IV Q4H PRN PRN Reason: Severe Pain (Scale 7, 8, 9,10) Stop: 06/16/24 00:23 Last Admin: 06/02/24 12:01 Dose: 0.5 mg Hydromorphone HCl (Hydromorphone Inj 0.5 Mg/0.5 Ml Syr) 0.25 mg IV Q4 PRN PRN Reason: Moderate Pain (Scale 4, 5, 6) Stop: 06/16/24 00:23 Magnesium Hydroxide (Magnesium Hydroxide Susp 30 Ml Udc) 30 ml PO Q6H PRN PRN Reason: Constipation Stop: 07/02/24 17:32 Melatonin (Melatonin 3 Mg Tab) 6 mg PO HS PRN PRN Reason: Sleep Stop: 07/01/24 20:59 Metoclopramide HCl (Metoclopramide Hcl Inj 5 Mg/Ml 2 Ml Vial) 10 mg IV Q6H PRN PRN Reason: Nausea And Vomiting Stop: 07/02/24 17:32 Metoprolol Succinate (Metoprolol Succ 25mg Ext Rel Tab) 25 mg PO DAILY [facility] Stop: 07/02/24 08:59 Last Admin: 06/03/24 07:47 Dose: 25 mg Multivitamins (Multivitamin Tab) 1 tab PO QAM [facility] Stop: 07/03/24 08:59 Last Admin: 06/03/24 07:52 Dose: Not Given Naloxone HCl (Naloxone Hcl 0.4 Mg/1 Ml Vial/Carp) 0.1 mg IV UD PRN PRN Reason: Opiate Overdose Stop: 07/01/24 18:32 Naloxone HCl (Naloxone Hcl 0.4 Mg/1 Ml Vial/Carp) 0.1 mg IV Q5M PRN PRN Reason: Oversedation/Resp Depression Stop: 07/02/24 17:32 Ondansetron HCl (Ondansetron Inj 2 Mg/Ml 2 Ml Vial) 4 mg IV Q6H PRN PRN Reason: Nausea Stop: 07/01/24 18:32 Ondansetron HCl (Ondansetron Inj 2 Mg/Ml 2 Ml Vial) 4 mg IV Q6H PRN PRN Reason: Nausea And Vomiting Stop: 07/02/24 17:32 Oxycodone HCl (Oxycodone Hcl Ir 5 Mg Tab (Immediate Release)) 5 mg PO Q4H PRN PRN Reason: MODERATE Pain (4,5,6) & Pre PT Stop: 06/15/24 18:32 Last Admin: 06/01/24 21:17 Dose: 5 mg Polyethylene Glycol (Polyethylene (Miralax) 17 Gm Pack) 17 gm PO DAILY [facility] Stop: 07/02/24 08:59 Last Admin: 06/03/24 07:45 Dose: 17 gm Potassium Chloride (Potassium Chloride Crtab 20 Meq Tabcr) 20 meq PO DAILY [facility] Stop: 07/02/24 08:59 Last Admin: 06/03/24 07:49 Dose: 20 meq Sennosides (Senna 8.6 Mg Tab) 17.2 mg PO HS [facility] Stop: 07/02/24 20:59 Last Admin: 06/02/24 20:37 Dose: 17.2 mg Vitamin D (Cholecalciferol 125 Mcg (5,000 Units) Tab) 125 mcg PO DAILY [facility] Stop: 07/02/24 08:59 Last Admin: 06/03/24 07:46 Dose: 125 mcg Warfarin Sodium (Warfarin Sod 5 Mg Tab) 5 mg PO [id number]@1600 [facility] Stop: 07/04/24 15:59 Warfarin Sodium (Warfarin Sod 10 Mg Tab) 10 mg PO [id number]@1600 [facility] Stop: 07/02/24 18:14 Last Admin: 06/02/24 20:38 Dose: 10 mg
[2024-06-03 14:52] LABS: Basophils # (auto) 0.03 K/uL (0.00-0.20); Basophils % (auto) 0.3 %; Eosinophils # (auto) 0.06 K/uL (0.00-0.50); Eosinophils % (auto) 0.6 %; Hematocrit (blood only) 25.3 % (37.0-47.0); Hemoglobin 8.4 g/dl (12.0-16.0); Immature Granulocytes # (auto) 0.06 K/uL (0.01-0.20); Immature Granulocytes % (auto) 0.6 %; Lymphocytes # (auto) 1.77 K/uL (1.20-3.40); Lymphocytes % (auto) 18.6 %; Mean Corpuscular Hemoglobin 29.3 pg (25.0-34.0); Mean Corpuscular Hgb Conc 33.2 g/dL (32.0-36.0); Mean Corpuscular Volume 88.2 fL (80.0-100.0); Mean Platelet Volume 10.2 fL (9.4-12.4); Monocytes # (auto) 1.04 K/uL (0.11-0.59); Monocytes % (auto) 10.9 %; Neutrophils # (auto) 6.58 K/uL (1.40-6.50); Platelet Count 174 K/uL (130-400); RDW Coefficient of Variation 14.9 % (11.5-14.5); RDW Standard Deviation 48.1 fL (36.4-46.3); Red Blood Count 2.87 M/uL (4.20-5.40); White Blood Count 9.54 K/ul (4.8-10.8)
[2024-06-03] MEDS: ACETAMINOPHEN 325 MG TAB PO PRN (23:22)
--- NOTE | 2024-06-04 06:02 | Orthopedic Progress Note ---
Date of Service June 04, 2024 Assessment & Plan (1) Loraine-prosthetic femoral shaft fracture: Overall she is doing fairly well. She is not having much pain in the left leg. She will be seen by physical therapy today and will continue with the nonweightbearing restrictions for up to 6 weeks. The nursing staff can change the dressing today. She is orthopedically stable for discharge when medically ready. Full orthopedic discharge instructions were placed in the discharge summary. She will follow-up with orthopedics in 2 weeks. Subjective Sherrie was seen and examined at bedside this morning. Overall she is doing okay. She is not having too much pain in the left knee. She was seen by therapy and able to understand the nonweightbearing restrictions. She has no new complaints.. Review of Systems All systems reviewed & are unremarkable except as noted in HPI & below. Physical Exam On physical exam of the left leg, the dressing is clean and dry. Her leg is out full extension. There is a knee immobilizer in place.. Results & Data Results & Data Laboratory Results . Diagnostic Findings . PG Care Time/CCT Total # of Minutes Spent Total Time Spent with Patient: Total time spent is greater than 50% in coordination of care (as documented) at patient's floor/unit and/or counseling patient: Coding Level of Care Code 54440 Post Operative Follow-Up Diagnoses Loraine-prosthetic femoral shaft fracture M97.8XXA; Z96.649
[2024-06-04 06:35] LABS: Hematocrit (blood only) 21.4 % (37.0-47.0); Mean Corpuscular Hemoglobin 29.2 pg (25.0-34.0); Mean Corpuscular Hgb Conc 32.7 g/dL (32.0-36.0); Mean Corpuscular Volume 89.2 fL (80.0-100.0); Mean Platelet Volume 10.6 fL (9.4-12.4); Platelet Count 172 K/uL (130-400); RDW Coefficient of Variation 14.8 % (11.5-14.5); RDW Standard Deviation 47.9 fL (36.4-46.3); White Blood Count 7.18 K/ul (4.8-10.8)
[2024-06-04 06:56] LABS: INR 1.2 (0.9-1.1); Prothrombin Time 12.8 Seconds (9.0-12.0)
--- NOTE | 2024-06-04 07:24 | Hospitalist Progress Note ---
Date of Service June 04, 2024 Assessment & Plan (1) Loraine-prosthetic femoral shaft fracture: (2) Fall: (3) continuous [employer] current use of anticoagulant therapy: (4) Class 3 obesity: (5) History of pulmonary embolism: Plan This is a 73-year-old female who has significant past medical history of HTN, CKD stage III, obesity, gout, hx of svt, hyperparathyroidism, pre diabetes, history of bilateral total knee replacement, chronic anticoagulation 2/2 dvt and PE on warfarin who presents to ED after sustaining a fall. Mechanical Fall Left periprosthetic femoral shaft fracture was admitted on med tele given pt hx of svt --Femur Xray: Acute mildly distracted oblique fracture through the distal shaft of the left femur. POD # [address] Ghosh, EBL 400ml stool softeners started given pt propensity to be constipated on narcotics Oxy IR ordered (received ONE dose over past 24 hours), IV dilaudid 0.5 (Received ONE dose over the past 24 hours); goal to DC IV Diludid 12/12 No drain identified; left immobilizer on Vit D adequate Worked with PT/OT; improving and required assist x1 to get to chair. work to remove de la o on 12/12 Hx of DVT/Saddle PE: occurred post-op 2014 on warfarin, INR reversed on admission Warfarin resumed on the evening of POD #0, lovenox bridging ordered, monitor hgb home regimen is 5mg sun/sun and 10mg all other days Hold Coumadin today given anemia; continue Lovenox for coverage Acute blood loss Anemia 2/2 expected post operative loses and dilutional component EBL 400 mL: hgb 12 on admission, has been holding at 8.4 transfuse hgb < 7 06/04: Hgb this AM 7.0; T/S completed Ordered 1UPRBC + premedicate with Tylenol. Recheck Hgb @ 1500: 8.4; trend in AM Obtained blood consent SpO2 87% on RA; denies cough. No h/o CHF Hypoxia: Has had intermittent hypoxia this admission. SPO2 87% on RA; placed on 2LNC when I was in the room. Denies cough. Did feel feverish overnight T max 38.2. CXR negative for acute cardiopulmonary disease pt denies hx of MEDARDO, could consider nocturnal sleep study prior to d/c to see if qualifies for nocturnal O2 CKD -3- chronic, stable, cr baseline 1-1.1, avoid nephrotoxic agents Gout: on probenecid, will hold in the perioperative phase HTN: hold HCTZ in perioperative phase, Bp still on the softer side so will continue to hold, reassess daily and resume as able Hx of SVT: noted on recent outpt holter monitor, was placed on metoprolol, will follow on tele Pre Diabetes/Hyperparathyroidism: follows Jun Ulbrect: continue calcitriol, calcium, vit k supplements Obesity: BMI 43 encourage diet/lifestyle modifications when able DVT ppx: warfarin resumed/bridging with lovenox, d/c lovenox when INR at 2.0 or above. Coumadin on hold due to anemia PCP: Niranjan FULL CODE Dispo: admit to med tele I spent a total of 47 minutes reviewing notes, outpatient records, labs, medication, coordinating, documenting and providing care for this patient excluding time spent in the performance of separately billed services. Admission and Anticipated Discharge Date Admission Date: June 01, 2024 Supervising Physician Co-Signing Physician Notes Attending Addendum: Case reviewed with the advanced practitioner. I have personally performed a history and physical examination on the patient. I have reviewed the advanced practitioner's documentation on the date of service referenced in note, and I agree with, and take responsibility for the plan of ca re. please refer to her notes for full details Gabriel Cobian MD Subjective Pt sitting in her hospital bed in no apparent distress. She just finished breakfast without issue Hgb dropped this AM from 8.4--> 7.0; blood consent obtained/ordered 1 UPRBC + Pre medicating with Tylenol. Recheck H/H at 1500 --> it was 8.4 Tmax 38.2 overnight; CXR obtained and negative INR remains subtherapeutic at 1.2--> Hold Coumadin for now given anemia and continue Lovenox SQ. 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 Pt continues to have De La O catheter; will leave in situ until moving with PT and after blood transfusion to see how she progresses with PT Review of Systems Review of Systems: Neuro: (-) Falls, trauma, slurred speech HEENT: (-) WALTERS, dizziness, dysphagia, visual or auditory changes CV: (-) CP, palpitations, swelling Resp: (-) SOB GI: (-) appetite changes, N/V/D, bowel changes : (-) urinary changes Skin: (-) rashes Psych: (-) anxiety, depression Physical Exam Physical Exam: Neuro: AAOx4, PERRLA, no aphagia, memory changes, CNII-XII grossly intact HEENT: head normocephalic, moist mucus membranes CV: S1/S2, (-) M/G/R, (-) edema, cap refill < 3 seconds Resp: Lungs CTA in all rios. On RA GI: Abdomen S/NT/ND, Ax4 bowel sounds, (-) CVA tenderness Musculoskeletal: 5/5 B/L UE strength, 5/5 B/L LE strength. No gait disturbance Skin: (-) rashes , (-) erythema. Psych: euthymic mood Results & Data Results & Data Vital Signs (Past 12 Hours) Vital Signs Temp Pulse Resp BP Pulse Ox O2 Del Method 06/03/24 22:46 38.2 C H 79 18 128/77 95 Room Air 06/03/24 19:33 37.2 C 73 16 100/64 91 Room Air Laboratory Results Short CBC 06/03/24 06/04/24 Range/Units 14:19 05:23 WBC 9.54 7.18 (4.8-10.8) K/ul Hgb 8.4 L 7.0 L (12.0-16.0) g/dl Hct 25.3 L 21.4 L (37.0-47.0) % Plt Count 174 172 (130-400) K/uL
[2024-06-04 07:32] LABS: BUN Creatinine Ratio 29.4 (10-20); Calcium 8.4 mg/dl (8.6-10.3); Creatinine Clr Calc Pharmacy 72.2 ml/min; Potassium 4.2 mmol/L (3.5-5.1)
[2024-06-04] MEDS ORDERED: SODIUM CHLORIDE 0.9% 100 ML IV PRN (08:03)
[2024-06-04] MEDS ORDERED: SODIUM CHLORIDE 0.9% 50 ML IV PRN (08:03)
[2024-06-04] MEDS: ACETAMINOPHEN 325 MG TAB PO ONE (08:33)
--- NOTE | 2024-06-04 14:31 | XRay Report ---
XR chest 1V portable CLINICAL HISTORY: hypoxia TECHNIQUE: Single frontal radiograph of the chest was obtained. Comparison: Comparison is made to chest radiograph 03/25/2024 FINDINGS: No lines and tubes are seen. Cardiomegaly is noted. The lungs are clear. No evidence of pleural effus ion or pneumothorax. IMPRESSION: No acute chest disease. ACT 112: Negative or not required by law. Electronically signed by: Carlos Mclaughlin M.D. 06/04/2024 2:29 PM
[2024-06-04 15:36] LABS: Hematocrit (blood only) 25.4 % (37.0-47.0); Hemoglobin 8.4 g/dl (12.0-16.0)
[2024-06-04] MEDS ORDERED: WARFARIN SOD 5 MG TAB PO SCH (16:00)
[2024-06-05 01:38] LABS: Appearance Urine Clear (Clear); Bilirubin Urine Negative (Negative); Blood Urine Negative (Negative); Color Urine Yellow; Glucose Urine UA Negative (Negative); Ketones Urine Negative (Negative); Leukocyte Esterase Urine Negative (Negative); Nitrite Urine Negative (Negative); Protein Urine Negative (Negative); Specific Gravity Urine 1.014 (1.000-1.030); Urobilinogen Urine Negative (Negative)
[2024-06-05 04:37] LABS: Hematocrit (blood only) 22.7 % (37.0-47.0); Hemoglobin 7.5 g/dl (12.0-16.0); Mean Corpuscular Hemoglobin 29.4 pg (25.0-34.0); Mean Platelet Volume 10.2 fL (9.4-12.4); Platelet Count 189 K/uL (130-400); RDW Coefficient of Variation 14.8 % (11.5-14.5); RDW Standard Deviation 47.9 fL (36.4-46.3); Red Blood Count 2.55 M/uL (4.20-5.40); White Blood Count 7.14 K/ul (4.8-10.8)
[2024-06-05 04:59] LABS: Anion Gap 4 (3-11); BUN Creatinine Ratio 23.8 (10-20); Blood Urea Nitrogen 19 mg/dl (6-23); Calcium 8.5 mg/dl (8.6-10.3); Carbon Dioxide 28 mmol/L (21-32); Chloride 105 mmol/L (98-107); Creatinine Clr Calc Pharmacy 76.7 ml/min; Glucose 112 mg/dl (70-99(Fasting)); Potassium 4.5 mmol/L (3.5-5.1); Sodium 137 mmol/L (136-145)
[2024-06-05 05:07] LABS: INR 1.2 (0.9-1.1); Prothrombin Time 13.3 Seconds (9.0-12.0)
--- NOTE | 2024-06-05 09:00 | Hospitalist Progress Note ---
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 Mechanical Fall Left periprosthetic femoral shaft fracture was admitted on med tele given pt hx of svt --Femur Xray: Acute mildly distracted oblique fracture through the distal shaft of the left femur. POD # [address] Ghosh, EBL 400ml stool softeners started given pt propensity to be constipated on narcotics Oxy IR ordered (received TWO doses over past 24 hours), IV dilaudid 0.5 (ONE DOSE over past 24 hours) IV Dilaudid 0.25 (ONE dose over past 24 hours); DC Dilaudid 0.5 on 1212. Goal to DC Dialudid 0.25 on 12/13 No drain identified; left immobilizer on Vit D adequate Worked with PT/OT; improving and required assist x1 to get to chair. DC Gia today Hx of DVT/Saddle PE: occurred post-op 2014 on warfarin, INR reversed on admission Warfarin resumed on the evening of POD #0, lovenox bridging ordered, monitor hgb home regimen is 5mg sun/sun and 10mg all other days Hold Coumadin today. Continue Lovenox Hold ASA Acute blood loss Anemia 2/2 expected post operative loses and dilutional component EBL 400 mL: hgb 12 on admission, has been holding at 8.4 transfuse hgb < 7 06/04: Hgb this AM 7.0--> 1UPRBC-->8.4--> 12/ AM 7.5--> recheck at 1500 No hypoxia and remains on RA No h/o CHF Anemia work up: * Reticulocyte count 2.70 * Folate level 9.40 * Fe+ level < 10; Venofer 300 mg IV ordered B12 level 99; started on cyanocobalamin Hematology consult placed for further guidance Hypoxia: Has had intermittent hypoxia this admission. Today remained on RA SpO2 96%. 06/04: CXR negative for acute cardiopulmonary disease pt denies hx of MEDARDO, could consider nocturnal sleep study prior to d/c to see if qualifies for nocturnal O2 CKD -3- chronic, stable, cr baseline 1-1.1, avoid nephrotoxic agents Gout: on probenecid, will hold in the perioperative phase HTN: hold HCTZ in perioperative phase, Bp still on the softer side so will continue to hold, reassess daily and resume as able Hx of SVT: noted on recent outpt holter monitor, was placed on metoprolol, will follow on tele Pre Diabetes/Hyperparathyroidism: follows Jun Ulbrect: continue calcitriol, calcium, vit k supplements Obesity: BMI 43 encourage diet/lifestyle modifications when able DVT ppx: warfarin resumed/bridging with lovenox, d/c lovenox when INR at 2.0 or above. Coumadin on hold due to anemia PCP: Niranjan FULL CODE Dispo: move back to [facility] tele given complexity of her recovery I spent a total of 46 minutes reviewing notes, outpatient records, labs, medication, coordinating, documenting and providing care for this patient excluding time spent in the performance of separately billed services. Admission and Anticipated Discharge Date Admission Date: June 01, 2024 Supervising Physician Co-Signing Physician Notes Attending Addendum: Case reviewed with the advanced practitioner. I have personally performed a history and physical examination on the patient. I have reviewed the advanced practitioner's documentation on the date of service referenced in note, and I agree with, and take responsibility for the plan of care. please refer to her notes for full details Gabriel Cobian MD Subjective Pt sitting in her hospital bed in no apparent distress. Remained afebrile overnight Hgn 7.0--> 1UPRBC--> 8.4--> 7.5. Pt denies Walters, dizziness, SOB, chest pain, palpitations, active signs of bleeding, hemoptysis, hematochezia. Had a BM last night. INR remains subtherapeutic at 1.2--> Hold Coumadin and ASA for now. Continue with Lovenox for now to provide clot protection given history of clot; see below for POC/work up. 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 On RA GI: Abdomen S/NT/ND, Ax4 bowel sounds, (-) CVA tenderness Musculoskeletal: 5/5 B/L UE strength, 5/5 B/L LE strength. No gait disturbance Skin: (-) rashes , (-) erythema. Psych: euthymic mood Results & Data Results & Data Vital Signs (Past 12 Hours) Vital Signs Temp Pulse Resp BP Pulse Ox O2 Del Method O2 Flow Rate 06/05/24 07:54 37.2 C 78 18 114/72 98 Room Air 06/05/24 01:51 36.9 C 78 18 123/70 98 Nasal Cannula 3 06/04/24 23:59 38 C H 77 18 109/60 97 Room Air Laboratory Results Short CBC 06/04/24 06/05/24 06/05/24 Range/Units 15:18 04:14 09:39 WBC 7.14 (4.8-10.8) K/ul Hgb 8.4 L 7.5 L 7.5 L (12.0-16.0) g/dl Hct 25.4 L 22.7 L 23.3 L (37.0-47.0) % Plt Count 189 (130-400) K/uL BMP 06/05/24 04:14 Sodium 137 Potassium 4.5 Chloride 105 Carbon Dioxide 28 BUN 19 Creatinine 0.80 Glucose 112 H Calcium 8.5 L Urine 06/05/24 Range/Units 00:40 Urine Color Yellow Urine Appearance Clear (Clear) Urine pH 5.0 (4.5-7.5) Ur Specific [place] 1.014 (1.000-1.030) Urine Protein Negative (Negative) Urine Glucose (UA) Negative (Negative) Diagnostic Findings Abdomen/Pelvis CT 06/05/24 08:51 CT abd pelvis wo con CLINICAL HISTORY: anemia r/o gib TECHNIQUE: Helical axial images of the abdomen and pelvis were obtained. Automated dose lowering techniques and/or adjustment according to patient size were utilized for this exam. This exam was performed without intravenous contrast. CT DOSE: 1380.75 mGy.cm COMPARISON: Comparison is made to CT abdomen pelvis 04/24/2017 FINDINGS: Lower chest: Bibasilar atelectasis versus scarring is seen. Liver: Multiple hepatic cysts are seen. Gallbladder and biliary tree: No calcified gallstones. Normal caliber wall. No intra- or extrahepatic biliary ductal dilation. Pancreas: Unremarkable, no focal lesions. Spleen: Unremarkable. Adrenals: Unremarkable. Kidneys and ureters: Renal cysts are seen. Bladder: Nielsen catheter is seen. Reproductive organs: Unremarkable. Bowel: Diverticulosis is seen without diverticulitis. The appendix is normal. There is layering hyperdense material in the stomach. Lymph nodes Retroperitoneal: Unremarkable. Pelvic: Unremarkable. Mesenteric: Unremarkable. Peritoneum: Normal. Vessels: Unremarkable. Incidentally noted, the blood pool is hypodense compatible with history of anemia. Abdominal wall: Unremarkable. Bones: Degenerative changes in the visualized spine. IMPRESSION: 1. Findings of anemia without definite evidence of GI bleed or other intra- abdominal hemorrhage. 2. Layering hyperdense material in the stomach is favored to represent food bolus. Correlation to exclude hematemesis is recommended. ACT 112: Negative or not required by law. Electronically signed by: Carlos Mclaughlin M.D. 06/05/2024 10:29 AM
[2024-06-05 09:35] LABS: Reticulocyte % 2.7 % (0.50-2.00); Reticulocytes # 0.07 10^6/uL (0.020-0.100)
[2024-06-05 09:36] LABS: Iron < 10 mcg/dl (35-150); Lactate Dehydrogenase 196 U/L (86-244); Transferrin 150 mg/dl (200-360)
[2024-06-05 09:51] LABS: Ferritin 162.8 ng/ml (8-388)
[2024-06-05 10:03] LABS: Hematocrit (blood only) 23.3 % (37.0-47.0); Hemoglobin 7.5 g/dl (12.0-16.0)
[2024-06-05 10:09] LABS: Folate (Folic Acid),Ser orPlas 9.4 ng/ml (>5.38)
[2024-06-05] MEDS: PANTOprazole 40 MG/10 ML SYR IV SCH (10:19)
--- NOTE | 2024-06-05 10:31 | CT Scan Report ---
CT abd pelvis wo con CLINICAL HISTORY: anemia r/o gib TECHNIQUE: Helical axial images of the abdomen and pelvis were obtained. Automated dose lowering tech niques and/or adjustment according to patient size were utilized for this exam. This exam was perfor med without intravenous contrast. CT DOSE: 1380.75 mGy.cm COMPARISON: Comparison is made to CT abdomen pelvis 04/24/2017 FINDINGS: Lower chest: Bibasilar atelectasis versus scarring is seen. Liver: Multiple hepatic cysts are seen. Gallbladder and biliary tree: No calcified gallstones. Normal caliber wall. No intra- or extrahepatic biliary ductal dilation. Pancreas: Unremarkable, no focal lesions. Spleen: Unremarkable. Adrenals: Unremarkable. Kidneys and ureters: Renal cysts are seen. Bladder: Nielsen catheter is seen. Reproductive organs: Unremarkable. Bowel: Diverticulosis is seen without diverticulitis. The appendix is normal. There is layering hyper dense material in the stomach. Lymph nodes Retroperitoneal: Unremarkable. Pelvic: Unremarkable. Mesenteric: Unremarkable. Peritoneum: Normal. Vessels: Unremarkable. Incidentally noted, the blood pool is hypodense compatible with history of ane anastasia. Abdominal wall: Unremarkable. Bones: Degenerative changes in the visualized spine. IMPRESSION: 1. Findings of anemia without definite evidence of GI bleed or other intra-abdominal hemorrhage. 2. Layering hyperdense material in the stomach is favored to represent food bolus. Correlation to ex clude hematemesis is recommended. ACT 112: Negative or not required by law. Electronically signed by: Carlos Mclaughlin M.D. 06/05/2024 10:29 AM
[2024-06-05 10:37] LABS: Fibrinogen 666 mg/dl (184-400)
[2024-06-05] MEDS: CYANOCOBALAMIN (B-12) 500 MCG TABLET PO SCH (12:50)
[2024-06-05] MEDS: IRON SUCROSE 300 MG in SODIUM CHLORIDE 0.9% 250 ML IV ONE (12:50)
[2024-06-05 15:27] LABS: Hematocrit (blood only) 22.5 % (37.0-47.0); Hemoglobin 7.5 g/dl (12.0-16.0); Mean Corpuscular Hemoglobin 29.9 pg (25.0-34.0); Mean Corpuscular Hgb Conc 33.3 g/dL (32.0-36.0); Mean Corpuscular Volume 89.6 fL (80.0-100.0); Mean Platelet Volume 10.6 fL (9.4-12.4); Platelet Count 206 K/uL (130-400); RDW Coefficient of Variation 14.8 % (11.5-14.5); RDW Standard Deviation 48.1 fL (36.4-46.3); Red Blood Count 2.51 M/uL (4.20-5.40)
[2024-06-05] MEDS: HYDROmorphone INJ 0.5 MG/0.5 ML SYR IV PRN (16:11)
[2024-06-05] MEDS: ACETAMINOPHEN 325 MG TAB PO STA (20:50)
[2024-06-05] MEDS: SODIUM CHLORIDE 0.9% 1,000 ML IV ONE (20:55)
[2024-06-05] MEDS: MELATONIN 3 MG TAB PO PRN (22:39)
[2024-06-06] MEDS: hydrOXYzine HCl 25 MG TAB PO STA (01:13)
[2024-06-06] MEDS: hydrOXYzine HCl 10 MG TAB PO STA (03:14)
[2024-06-06] MEDS: KETOROLAC TROMETHAMINE 15 MG/ML VIAL IV ONE (03:14)
[2024-06-06 07:19] LABS: Adenovirus PCR Not Detected (NotDetected); Bordetella parapertussis PCR Not Detected (NotDetected); Bordetella pertussis PCR Not Detected (NotDetected); Chlamydia pneumoniae PCR Not Detected (NotDetected); Coronavirus 229E PCR Not Detected (NotDetected); Coronavirus CoV-2 (COVID19)PCR Not Detected (NotDetected); Coronavirus HKU1 PCR Not Detected (NotDetected); Coronavirus NL63 PCR Not Detected (NotDetected); Coronavirus OC43PCR Not Detected (NotDetected); Human Metapneumovirus PCR Not Detected (NotDetected); Influenza A PCR Not Detected (NotDetected); Influenza B PCR Not Detected (NotDetected); Mycoplasma pneumoniae PCR Not Detected (NotDetected); Parainfluenza Virus 1 PCR Not Detected (NotDetected); Parainfluenza Virus 2 PCR Not Detected (NotDetected); Parainfluenza Virus 3 PCR Not Detected (NotDetected); Parainfluenza Virus 4 PCR Not Detected (NotDetected); Respiratory Syncytial VirusPCR Not Detected (NotDetected); Rhinovirus/Enterovirus PCR Not Detected (NotDetected)
[2024-06-06] MEDS: bisacodyL 10 MG SUPP PR PRN (09:38)
[2024-06-06 09:55] LABS: Hematocrit (blood only) 21.3 % (37.0-47.0); Hemoglobin 6.9 g/dl (12.0-16.0); Mean Corpuscular Hemoglobin 29.2 pg (25.0-34.0); Mean Corpuscular Hgb Conc 32.4 g/dL (32.0-36.0); Mean Corpuscular Volume 90.3 fL (80.0-100.0); Mean Platelet Volume 10.7 fL (9.4-12.4); Platelet Count 259 K/uL (130-400); RDW Coefficient of Variation 15.1 % (11.5-14.5); RDW Standard Deviation 49.9 fL (36.4-46.3); Red Blood Count 2.36 M/uL (4.20-5.40); White Blood Count 7.71 K/ul (4.8-10.8)
[2024-06-06 09:58] LABS: BUN Creatinine Ratio 23.9 (10-20); Creatinine Clr Calc Pharmacy 86.5 ml/min; INR 1.1 (0.9-1.1); Potassium 4.4 mmol/L (3.5-5.1); Prothrombin Time 11.7 Seconds (9.0-12.0)
[2024-06-06] MEDS ORDERED: SODIUM CHLORIDE 0.9% 50 ML IV PRN (10:11)
[2024-06-06] MEDS ORDERED: SODIUM CHLORIDE 0.9% 100 ML IV PRN (10:11)
--- NOTE | 2024-06-06 11:20 | Gastrointestinal Consultation ---
Date of Consultation June 06, 2024 Assessment & Plan (1) Anemia: Patient admitted after a fall with femoral shaft fracture that has been surgically repaired. Since her surgery, she has had some worsening anemia though no overt GI bleeding. Her stools tested Hemoccult negative today. In light of this, given her recent surgery, would not pursue any scoping at this time. - follow hgb/hct. transfuse as needed. - recommend continue with miralax/senna for constipation. Supervising Physician Co-Signing Physician Notes I examined the patient and reviewed patient's chart , laboratory data and imaging studies. I agree with with assessment and plan of care as suggested by advanced practice provider. Acute onset of anemia, heme-negative stool. Anemia is likely multifactorial, possibly related to orthopedic surgery. If remains stable an outpatient colonoscopy in few weeks when she is allowed to have weightbearing. The patient was instructed to contact the office. History of Present Illness Reason for Consultation: Iron deficiency anemia, possible GIB Requesting Physician: Gabriel Cobian MD Attending Physician: Gabriel Cobian MD History of Present Illness Patient is a 73 year old female who has significant past medical history of HTN, CKD stage III, obesity, gout, history of SVT, hyperparathyroidism, pre diabetes, history of bilateral total knee replacement, chronic anticoagulation with warfarin 2/2 DVT and PE who presented to ED on 06/01 after sustaining a fall. She was admitted with a L periprosthetic femoral shaft fracture that she underwent surgical repair on 06/02. GI consulted for worsening anemia with concern for possible GI source. Patient denies any signs of GI blood loss. She is not seeing blood in the stools or melena. she has had some constipation since her surgery but is getting miralax and senna which helps. she denies any nausea, vomiting, heartburn or abdominal pain. Last colonoscopy was done in 2014 at [facility]. she tells me she was due to have a repeat next year. 06/06/24 hgb 6.9, hct 21.3, mcv 90.3, wbc 7.71, platelts 259, inr 1.1, Na 138, K 4.4, BUN 17, creatinine .71, stool occult blood negative. CT 06/05/24 no definitive GI bleeding. Allergies Allergy/AdvReac Type Severity Reaction Status Date / Time adhesive tape Allergy Mild Rash Verified 06/05/24 23:34 No Known Drug Allergies Allergy Verified 02/06/24 13:44 Home Medications Medication Instructions Recorded Confirmed Type magnesium 250 mg tablet 250 mg PO QAM 07/25/18 06/01/24 History probenecid 500 mg tablet 250 mg PO BID 08/20/20 06/01/24 History acetaminophen 500 mg tablet 1,000 mg PO Q6H PRN Pain 02/24/21 06/01/24 History (Tylenol Extra Strength) calcium carbonate-vitamin D3 600 1 tab PO DAILY 02/24/21 06/01/24 History mg-125 unit tablet cholecalciferol (vitamin D3) 125 125 mcg PO DAILY 02/24/21 06/01/24 History mcg (5,000 unit) tablet (Vitamin D3) simethicone 80 mg chewable tablet 80 mg PO HS PRN Other 03/31/21 06/01/24 History amoxicillin 500 mg tablet 2,000 mg (4 x 500 mg) PO ONCE PRN 07/11/22 06/01/24 Rx Prophylaxis #4 tabs potassium chloride 10 mEq 20 meq (2 x 10 mEq) PO DAILY #180 10/25/23 06/01/24 Rx capsule,extended release caps ascorbic acid (vitamin C) 500 mg 500 mg PO DAILY 02/06/24 06/01/24 History capsule coQ10 (ubiquinol) 100 mg capsule 200 mg PO DAILY 02/06/24 06/01/24 History (Qunol Sergio CoQ10) zinc citrate 16.7 mg chewable 15 mg PO DAILY 02/06/24 06/01/24 History tablet aspirin 81 mg tablet,delayed 81 mg PO DAILY 04/21/24 06/01/24 History release (Adult Low Dose Aspirin) warfarin 5 mg tablet See Rx Instructions PO UD 05/05/24 06/01/24 History calcitriol 0.25 mcg capsule 0.25 mcg PO DAILY #90 caps 05/30/24 06/01/24 Rx metoprolol succinate 25 mg 25 mg PO DAILY 06/01/24 06/01/24 History tablet,extended release 24 hr hydrochlorothiazide 25 mg tablet 25 mg PO Q OTHER DAY #45 tabs 06/02/24 Rx Patient History Medical History (Updated 06/02/24 @ 07:30 by Alex Bundy MD) Hypertension Anemia Class 3 obesity Hyperparathyroidism Pre-diabetes Atrial flutter History of fracture Multiple cervical and thoracic traumatic vertebral fractures 2020 History of pulmonary embolism History of DVT (deep vein thrombosis) Gout Hemarthrosis, right knee Skin cancer S/P MOHS PROCEDURE Surgical History Status post right knee replacement History of tubal ligation History of esophagogastroduodenoscopy (EGD) History of colonoscopy History of total hip arthroplasty RT Status post Mohs surgery S/P removal of parathyroid gland H/O nasal septoplasty Family History Brother Family history of diabetes mellitus Heart disease Mother Cancer Thrombophlebitis Father Heart disease Other No family history of bleeding disorder Denies family history of Ovarian cancer Prostate cancer Myocardial infarction Breast cancer Colorectal cancer Social History Smoking Status: Former smoker Tobacco Type: Cigarettes Cigarettes Per Day: HX OF RARE SOCIAL USE 30 YEARS AGO; Second Hand Exposure: No; Do You Dip or Chew Tobacco: No; Tobacco Cessation Education Requested by Patient: No Hx Alcohol Use: Yes Alcohol type: hard liquor Alcohol Intake Frequency: Monthly or Less Hx Substance Use: No Preferred Language: Irish Communication Ability: Effective Visual Impairment: No Limitations Hearing Ability: Normal Derrick Helper Required: No Beliefs That Will Affect Care: Anabaptist marital status: Current Living Situation: Spouse Current Living Situation Comment: Lives with . current occupational status: retired How many Children do You have: 2 Other Information That Helps Us Care for You: No Feels Safe at Home: Yes Safety Concerns: Feels Safe At This Time Childhood Exposure to Second-Hand Smoke: No Diet: regular caffeine: Yes during the past year weight has: remained stable Dental Care, Regularly: Yes Physical Activity Frequency: Daily Physical Activity Frequency Comment: PT, walking, and daily housework Seatbelt Use: sometimes Sunscreen Use: Yes Do you think of yourself as: straight/heterosexual Gender Identity: Female Assistive Devices: Cane and Walker Review of Systems Review of Systems: All systems reviewed & are unremarkable except as noted in HPI & below Physical Exam Constitutional: WD/WN, vitals as above Respiratory: normal respiratory effort, lungs clear to auscultation Cardiovascular: Rate/Rhythm: regular rate and regular rhythm Gastrointestinal (Abdomen): normal bowel sounds, soft, nontender, no hepatosplenomegaly Psychiatric: Orientation: alert and oriented x 3 Affect: euthymic affect Results & Data Vital Signs (Past 12 Hours) Vital Signs Temp Pulse Pulse Resp BP Pulse Ox O2 Del Method 06/06/24 07:42 78 06/06/24 07:39 98.8 F 79 16 127/72 91 Room Air 06/06/24 07:19 158 H 06/06/24 03:51 98.6 F 74 18 108/68 92 Room Air 06/05/24 23:50 82 06/05/24 23:25 77 06/05/24 23:18 99.5 F 77 18 99/61 L 92 Room Air Coding Level of Care Code 30659 INT INP/OBS CARE 2/55MIN Diagnoses Anemia D64.9
[2024-06-06] MEDS: ACETAMINOPHEN 325 MG TAB PO ONE (12:19)
[2024-06-06] MEDS: LACTULOSE SYRUP 20 GM/30 ML UDC PO ONE (14:49)
--- NOTE | 2024-06-06 15:11 | Hospitalist Progress Note ---
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 Mechanical Fall Left periprosthetic femoral shaft fracture was admitted on med tele given pt hx of svt --Femur Xray: Acute mildly distracted oblique fracture through the distal shaft of the left femur. POD # [address] Ghosh, EBL 400ml stool softeners started given pt propensity to be constipated on narcotics Oxy IR ordered (received TWO doses over past 24 hours), IV dilaudid 0.5 (ONE DOSE over past 24 hours) IV Dilaudid 0.25 (ONE dose over past 24 hours); DC Dilaudid 0.5 on 1212. Goal to DC Dialudid 0.25 on 12 No drain identified; left immobilizer on Vit D adequate Worked with PT/OT; improving and required assist x1 to get to chair. LENNY Nielsen today 06/06 Pain well-controlled Continue PT OT Hx of DVT/Saddle PE: occurred post-op 2014 on warfarin, INR reversed on admission Warfarin resumed on the evening of POD #0, lovenox bridging ordered, monitor hgb home regimen is 5mg sun/sun and 10mg all other days Hold Coumadin today. Continue Lovenox Hold ASA 06/06 Lovenox bridge plus Coumadin on hold in light of acute blood loss anemia, unclear etiology Aspirin also on hold Hematology service consulted for further recommendations Acute blood loss Anemia Iron deficiency anemia 2/2 expected post operative loses and dilutional component EBL 400 mL: hgb 12 on admission, has been holding at 8.4 transfuse hgb < 7 06/04: Hgb this AM 7.0--> 1UPRBC-->8.4--> / AM 7.5--> recheck at 1500 No hypoxia and remains on RA No h/o CHF Anemia work up: * Reticulocyte count 2.70 * Folate level 9.40 * Fe+ level < 10; Venofer 300 mg IV ordered B12 level 99; started on cyanocobalamin Hematology consult placed for further guidance 06/06 Hemoglobin again dropped to 6.9 this morning No clear evidence of active bleeding No melena or hematochezia, FOBT negative Left hip region, without hematoma, or signs of bleeding 1 unit packed RBCs ordered Repeat at 4 PM GI consulted-no plans for EGD colonoscopy at this point given absence of overt signs of GI bleed, negative FOBT No signs of hemolysis per workup including peripheral smear, fibrinogen, etc. Acute blood loss anemia secondary to blood loss from surgery? Hematology service consulted for further recommendations Hypoxia: Has had intermittent hypoxia this admission. Today remained on RA SpO2 96%. 06/04: CXR negative for acute cardiopulmonary disease pt denies hx of MEDARDO, could consider nocturnal sleep study prior to d/c to see if qualifies for nocturnal O2 06/06 Currently on room air CKD -3- chronic, stable, cr baseline 1-1.1, avoid nephrotoxic agents Gout: on probenecid, will hold in the perioperative phase HTN: hold HCTZ in perioperative phase, Bp still on the softer side so will continue to hold, reassess daily and resume as able Hx of SVT: noted on recent outpt holter monitor, was placed on metoprolol, will follow on tele Pre Diabetes/Hyperparathyroidism: follows Miguel Angel Debbiect: continue calcitriol, calcium, vit k supplements Obesity: BMI 43 encourage diet/lifestyle modifications when able DVT ppx: warfarin resumed/bridging with lovenox, d/c lovenox when INR at 2.0 or above. Coumadin on hold due to anemia PCP: Niranjan FULL CODE Dispo:Continue to monitor in med telemetry Admission and Anticipated Discharge Date Admission Date: June 01, 2024 Subjective Follow-up for status post left hip surgery, anemia, etc. Seen resting in bed, comfortable, not in distress Denies melena, hematochezia or any other active bleeding Feels tired, but denies headache, dizziness, chest pain, shortness of breath Feels incomplete bowel movement, having some rectal pain No other new symptoms Review of Systems Review of Systems: all noted and negative except for above Physical Exam Physical Exam: General- oriented x 3, not in distress, speaks in sentences with no effort or accessory muscle use Eyes- anicteric Neck- no JVD Lungs- clear breath sounds bilaterally, no rales/wheezes Heart- normal rate, regular rhythm; no murmurs Abdomen- normal bowel sounds, nondistended, soft, nontender Extremities- no pretibial edema, no calf tenderness Neuro- alert, oriented x 3; no gross focal neurologic deficits Skin- warm & dry Results & Data Results & Data Vital Signs (Past 12 Hours) Vital Signs Temp Pulse Pulse Resp BP BP Pulse Ox 06/06/24 14:25 36.9 C 65 18 120/70 93 06/06/24 14:07 73 06/06/24 13:25 37.1 C 81 20 124/67 92 06/06/24 13:23 37.3 C 70 20 114/62 90 06/06/24 12:55 36.8 C 83 18 120/70 90 06/06/24 12:40 37 C 84 18 134/79 95 06/06/24 12:38 37 C 84 18 134/79 95 06/06/24 12:23 37.3 C 70 20 114/62 92 06/06/24 07:42 78 06/06/24 07:39 37.1 C 79 16 127/72 91 06/06/24 07:19 158 H 06/06/24 03:51 37 C 74 18 108/68 92 O2 Del Method O2 Flow Rate 06/06/24 14:25 06/06/24 14:07 06/06/24 13:25 06/06/24 13:23 06/06/24 12:55 06/06/24 12:40 06/06/24 12:38 06/06/24 12:23 0 06/06/24 07:42 06/06/24 07:39 Room Air 06/06/24 07:19 06/06/24 03:51 Room Air all noted and reviewed including below
[2024-06-06 16:11] LABS: Hematocrit (blood only) 22.8 % (37.0-47.0); Hemoglobin 7.6 g/dl (12.0-16.0)
--- NOTE | 2024-06-06 19:29 | Oncology Consultation ---
Date of Consultation June 06, 2024 History of Present Illness Attending Physician: Gabriel Cobian MD Allergies Allergy/AdvReac Type Severity Reaction Status Date / Time adhesive tape Allergy Mild Rash Verified 06/05/24 23:34 No Known Drug Allergies Allergy Verified 02/06/24 13:44 Home Medications Medication Instructions Recorded Confirmed Type magnesium 250 mg tablet 250 mg PO QAM 07/25/18 06/01/24 History probenecid 500 mg tablet 250 mg PO BID 08/20/20 06/01/24 History acetaminophen 500 mg tablet 1,000 mg PO Q6H PRN Pain 02/24/21 06/01/24 History (Tylenol Extra Strength) calcium carbonate-vitamin D3 600 1 tab PO DAILY 02/24/21 06/01/24 History mg-125 unit tablet cholecalciferol (vitamin D3) 125 125 mcg PO DAILY 02/24/21 06/01/24 History mcg (5,000 unit) tablet (Vitamin D3) simethicone 80 mg chewable tablet 80 mg PO HS PRN Other 03/31/21 06/01/24 History amoxicillin 500 mg tablet 2,000 mg (4 x 500 mg) PO ONCE PRN 07/11/22 06/01/24 Rx Prophylaxis #4 tabs potassium chloride 10 mEq 20 meq (2 x 10 mEq) PO DAILY #180 10/25/23 06/01/24 Rx capsule,extended release caps ascorbic acid (vitamin C) 500 mg 500 mg PO DAILY 02/06/24 06/01/24 History capsule coQ10 (ubiquinol) 100 mg capsule 200 mg PO DAILY 02/06/24 06/01/24 History (Qunol Sergio CoQ10) zinc citrate 16.7 mg chewable 15 mg PO DAILY 02/06/24 06/01/24 History tablet aspirin 81 mg tablet,delayed 81 mg PO DAILY 04/21/24 06/01/24 History release (Adult Low Dose Aspirin) warfarin 5 mg tablet See Rx Instructions PO UD 05/05/24 06/01/24 History calcitriol 0.25 mcg capsule 0.25 mcg PO DAILY #90 caps 05/30/24 06/01/24 Rx metoprolol succinate 25 mg 25 mg PO DAILY 06/01/24 06/01/24 History tablet,extended release 24 hr hydrochlorothiazide 25 mg tablet 25 mg PO Q OTHER DAY #45 tabs 06/02/24 Rx Patient History Medical History (Updated 06/02/24 @ 07:30 by Alex Bundy MD) Hypertension Anemia Class 3 obesity Hyperparathyroidism Pre-diabetes Atrial flutter History of fracture Multiple cervical and thoracic traumatic vertebral fractures 2020 History of pulmonary embolism History of DVT (deep vein thrombosis) Gout Hemarthrosis, right knee Skin cancer S/P MOHS PROCEDURE Surgical History Status post right knee replacement History of tubal ligation History of esophagogastroduodenoscopy (EGD) History of colonoscopy History of total hip arthroplasty RT Status post Mohs surgery S/P removal of parathyroid gland H/O nasal septoplasty Family History Brother Family history of diabetes mellitus Heart disease Mother Cancer Thrombophlebitis Father Heart disease Other No family history of bleeding disorder Denies family history of Ovarian cancer Prostate cancer Myocardial infarction Breast cancer Colorectal cancer Social History Smoking Status: Former smoker Tobacco Type: Cigarettes Cigarettes Per Day: HX OF RARE SOCIAL USE 30 YEARS AGO; Second Hand Exposure: No; Do You Dip or Chew Tobacco: No; Tobacco Cessation Education Requested by Patient: No Hx Alcohol Use: Yes Alcohol type: hard liquor Alcohol Intake Frequency: Monthly or Less Hx Substance Use: No Preferred Language: [place] Communication Ability: Effective Visual Impairment: No Limitations Hearing Ability: Normal Case Resource Manager Required: No Beliefs That Will Affect Care: Sikhism marital status: Current Living Situation: Spouse Current Living Situation Comment: Lives with . current occupational status: retired How many Children do You have: 2 Other Information That Helps Us Care for You: No Feels Safe at Home: Yes Safety Concerns: Feels Safe At This Time Childhood Exposure to Second-Hand Smoke: No Diet: regular caffeine: Yes during the past year weight has: remained stable Dental Care, Regularly: Yes Physical Activity Frequency: Daily Physical Activity Frequency Comment: PT, walking, and daily housework Seatbelt Use: sometimes Sunscreen Use: Yes Do you think of yourself as: straight/heterosexual Gender Identity: Female Assistive Devices: Cane and Walker Results & Data Vital Signs (Past 12 Hours) Vital Signs Temp Pulse Pulse Resp BP BP Pulse Ox 06/06/24 15:13 36.7 C 77 20 145/77 H 95 06/06/24 14:25 36.9 C 65 18 120/70 93 06/06/24 14:07 73 06/06/24 13:25 37.1 C 81 20 124/67 92 06/06/24 13:23 37.3 C 70 20 114/62 90 06/06/24 12:55 36.8 C 83 18 120/70 90 06/06/24 12:40 37 C 84 18 134/79 95 06/06/24 12:38 37 C 84 18 134/79 95 06/06/24 12:23 37.3 C 70 20 114/62 92 06/06/24 07:42 78 06/06/24 07:39 37.1 C 79 16 127/72 91 O2 Del Method O2 Flow Rate 06/06/24 15:13 06/06/24 14:25 06/06/24 14:07 06/06/24 13:25 06/06/24 13:23 06/06/24 12:55 06/06/24 12:40 06/06/24 12:38 06/06/24 12:23 0 06/06/24 07:42 06/06/24 07:39 Room Air
[2024-06-06] MEDS: PANTOprazole 40 MG TAB PO SCH (21:19)
--- NOTE | 2024-06-07 06:58 | Orthopedic Progress Note ---
Date of Service June 07, 2024 Assessment & Plan (1) Loraine-prosthetic femoral shaft fracture: Overall she is doing as well as expected. She is to be nonweightbearing on the left leg for about 6 weeks. The nursing staff can do jelly dry dressing changes. I will see her in the office 2 weeks from the date of surgery to remove the bong and likely discontinue the knee immobilizer. Will see how she is doing. She is orthopedically stable for discharge when medically ready. She is on Coumadin for DVT prophylaxis. Subjective Sherrie was seen and examined at bedside this morning. Overall she is doing fairly well. She is not having too much pain in the left left knee. She has been following the nonweightbearing restrictions. She has no complaints.. Review of Systems All systems reviewed & are unremarkable except as noted in HPI & below. Physical Exam Physical examination of left knee, the knee immobilizer is in place. She has an Mumtaz wrap around the dressing and a VANE hose stocking in place.. Results & Data Results & Data Laboratory Results . Diagnostic Findings . PG Care Time/CCT Total # of Minutes Spent Total Time Spent with Patient: Total time spent is greater than 50% in coordination of care (as documented) at patient's floor/unit and/or counseling patient: Coding Level of Care Code 27405 Post Operative Follow-Up Diagnoses Loraine-prosthetic femoral shaft fracture M97.8XXA; Z96.649
[2024-06-07 09:18] LABS: Basophils # (auto) 0.05 K/uL (0.00-0.20); Basophils % (auto) 0.6 %; Eosinophils # (auto) 0.22 K/uL (0.00-0.50); Eosinophils % (auto) 2.6 %; Hematocrit (blood only) 22.7 % (37.0-47.0); Hemoglobin 7.4 g/dl (12.0-16.0); Immature Granulocytes # (auto) 0.17 K/uL (0.01-0.20); Lymphocytes # (auto) 1.22 K/uL (1.20-3.40); Lymphocytes % (auto) 14.3 %; Mean Corpuscular Hemoglobin 29.2 pg (25.0-34.0); Mean Corpuscular Hgb Conc 32.6 g/dL (32.0-36.0); Mean Corpuscular Volume 89.7 fL (80.0-100.0); Mean Platelet Volume 9.9 fL (9.4-12.4); Monocytes # (auto) 0.64 K/uL (0.11-0.59); Monocytes % (auto) 7.5 %; Neutrophils # (auto) 6.21 K/uL (1.40-6.50); Platelet Count 276 K/uL (130-400); RDW Coefficient of Variation 15.1 % (11.5-14.5); RDW Standard Deviation 49.3 fL (36.4-46.3); Red Blood Count 2.53 M/uL (4.20-5.40); White Blood Count 8.51 K/ul (4.8-10.8)
[2024-06-07 09:39] LABS: Anisocytosis Present; Polychromasia 1+
[2024-06-07] MEDS: ENOXAPARIN INJ 40 MG/0.4 ML SYR SQ SCH (13:27)
--- NOTE | 2024-06-07 16:48 | Hospitalist Progress Note ---
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 Mechanical Fall Left periprosthetic femoral shaft fracture was admitted on med tele given pt hx of svt --Femur Xray: Acute mildly distracted oblique fracture through the distal shaft of the left femur. POD # [address] Ghosh, EBL 400ml stool softeners started given pt propensity to be constipated on narcotics Oxy IR ordered (received TWO doses over past 24 hours), IV dilaudid 0.5 (ONE DOSE over past 24 hours) IV Dilaudid 0.25 (ONE dose over past 24 hours); DC Dilaudid 0.5 on 12/12. Goal to DC Dialudid 0.25 on 06/06 No drain identified; left immobilizer on Vit D adequate Worked with PT/OT; improving and required assist x1 to get to chair. LENNY Nielsen today 06/07 Pain well-controlled Continue PT OT Hx of DVT/Saddle PE: occurred post-op 2014 on warfarin, INR reversed on admission Warfarin resumed on the evening of POD #0, lovenox bridging ordered, monitor hgb home regimen is 5mg sun/sun and 10mg all other days Hold Coumadin today. Continue Lovenox Hold ASA 06/06 Lovenox bridge plus Coumadin on hold in light of acute blood loss anemia, unclear etiology Aspirin also on hold Hematology service consulted for further recommendations 06/07 Hemoglobin remained stable No overt evidence of GI bleeds or any active bleeding sources Will resume Lovenox but will start at 40 mg subcutaneous every 12 hours for DVT prophylaxis If hemoglobin remained stable and no signs of bleeding, will increase to therapeutic Lovenox dosing as bridge to Coumadin by tomorrow Acute blood loss Anemia Iron deficiency anemia 2/2 expected post operative loses and dilutional component EBL 400 mL: hgb 12 on admission, has been holding at 8.4 transfuse hgb < 7 06/04: Hgb this AM 7.0--> 1UPRBC-->8.4--> 06/05 AM 7.5--> recheck at 1500 No hypoxia and remains on RA No h/o CHF Anemia work up: * Reticulocyte count 2.70 * Folate level 9.40 * Fe+ level < 10; Venofer 300 mg IV ordered B12 level 99; started on cyanocobalamin Hematology consult placed for further guidance 06/06 Hemoglobin again dropped to 6.9 this morning No clear evidence of active bleeding No melena or hematochezia, FOBT negative Left hip region, without hematoma, or signs of bleeding 1 unit packed RBCs ordered Repeat at 4 PM GI consulted-no plans for EGD colonoscopy at this point given absence of overt signs of GI bleed, negative FOBT No signs of hemolysis per workup including peripheral smear, fibrinogen, etc. Acute blood loss anemia secondary to blood loss from surgery? Hematology service consulted for further recommendations 06/07 Hemoglobin stable Lovenox for DVT prophylaxis started today Monitor closely Hypoxia: Has had intermittent hypoxia this admission. Today remained on RA SpO2 96%. 06/04: CXR negative for acute cardiopulmonary disease pt denies hx of MEDARDO, could consider nocturnal sleep study prior to d/c to see if qualifies for nocturnal O2 06/06 Currently on room air CKD -3- chronic, stable, cr baseline 1-1.1, avoid nephrotoxic agents Gout: on probenecid, will hold in the perioperative phase HTN: hold HCTZ in perioperative phase, Bp still on the softer side so will continue to hold, reassess daily and resume as able Hx of SVT: noted on recent outpt holter monitor, was placed on metoprolol, will follow on tele Pre Diabetes/Hyperparathyroidism: follows Jun Ulbrect: continue calcitriol, calcium, vit k supplements Obesity: BMI 43 encourage diet/lifestyle modifications when able DVT ppx: warfarin resumed/bridging with lovenox, d/c lovenox when INR at 2.0 or above. Coumadin on hold due to anemia PCP: Niranjan FULL CODE Dispo:Continue to monitor in med telemetry Admission and Anticipated Discharge Date Admission Date: June 01, 2024 Subjective Resting bedside chair, comfortable, not in distress Good spirits States she feels improved overall No melena hematochezia, abdominal pain No other signs of active bleeding No shortness of breath, palpitations, chest pain, dizziness No other new symptoms Review of Systems Review of Systems: all noted and negative except for above Physical Exam Physical Exam: General- oriented x 3, not in distress, speaks in sentences with no effort or accessory muscle use Eyes- anicteric Neck- no JVD Lungs- clear breath sounds bilaterally, no rales/wheezes Heart- normal rate, regular rhythm; no murmurs Abdomen- normal bowel sounds, nondistended, soft, nontender Extremities- no pretibial edema, no calf tenderness Neuro- alert, oriented x 3; no gross focal neurologic deficits Skin- warm & dry Results & Data Results & Data Vital Signs (Past 12 Hours) Vital Signs Temp Pulse Pulse Resp BP BP Pulse Ox 06/07/24 15:37 37.1 C 89 18 111/73 95 06/07/24 14:42 95 H 06/07/24 11:18 36.8 C 74 18 95/62 L 96 06/07/24 10:49 06/07/24 08:13 88 06/07/24 07:22 37.5 C 76 16 111/71 94 06/07/24 04:47 37.6 C H 74 20 116/69 93 O2 Del Method 06/07/24 15:37 Room Air 06/07/24 14:42 06/07/24 11:18 Room Air 06/07/24 10:49 Room Air 06/07/24 08:13 06/07/24 07:22 Room Air 06/07/24 04:47 Room Air all noted and reviewed including below
[2024-06-07] MEDS: PHENAZOPYRIDINE HCL 100 MG TAB PO PRN (19:14)
[2024-06-08 07:28] LABS: Basophils # (auto) 0.05 K/uL (0.00-0.20); Basophils % (auto) 0.6 %; Eosinophils # (auto) 0.33 K/uL (0.00-0.50); Eosinophils % (auto) 3.7 %; Hemoglobin 7.8 g/dl (12.0-16.0); Immature Granulocytes # (auto) 0.26 K/uL (0.01-0.20); Immature Granulocytes % (auto) 2.9 %; Lymphocytes % (auto) 21.4 %; Mean Corpuscular Hemoglobin 29.7 pg (25.0-34.0); Mean Corpuscular Hgb Conc 32.5 g/dL (32.0-36.0); Mean Corpuscular Volume 91.3 fL (80.0-100.0); Mean Platelet Volume 10.1 fL (9.4-12.4); Monocytes # (auto) 0.78 K/uL (0.11-0.59); Monocytes % (auto) 8.8 %; Neutrophils # (auto) 5.54 K/uL (1.40-6.50); Neutrophils % (auto) 62.6 %; Nucleated RBC # (auto) 0.02 K/uL (0.00-0.12); Nucleated RBC % (auto) 0.2 %; Platelet Count 334 K/uL (130-400); RDW Coefficient of Variation 15.2 % (11.5-14.5); RDW Standard Deviation 49.4 fL (36.4-46.3); Red Blood Count 2.63 M/uL (4.20-5.40); White Blood Count 8.86 K/ul (4.8-10.8)
[2024-06-08 07:52] LABS: Polychromasia 1+
[2024-06-08] MEDS: ENOXAPARIN INJ 120 MG/0.8 ML SYR SQ SCH (09:30)
[2024-06-08] MEDS ORDERED: ENOXAPARIN 1 MG/KG SQ SCH (10:00)
[2024-06-08] MEDS: SODIUM CHLORIDE 0.9% 1,000 ML IV SCH (11:59)
[2024-06-08 13:21] LABS: Appearance Urine Turbid (Clear); Bacteria Urine Automated 4+ (None Seen); Bilirubin Urine Negative (Negative); Blood Urine 1+ (Negative); Cast Urine Automated 0-2 /lpf (0-2); Color Urine Dark Yellow; Epithelial Cell Urine Auto 0-2 /hpf (0-2); Glucose Urine UA Negative (Negative); Ketones Urine Negative (Negative); Leukocyte Esterase Urine 3+ (Negative); Nitrite Urine Positive (Negative); Protein Urine Negative (Negative); RBC Urine Automated 0-2 /hpf (0-2); Specific Gravity Urine 1.007 (1.000-1.030); Urobilinogen Urine Positive (Negative); WBC Urine Automated >50 /hpf (0-5); pH Urine 6.5 (4.5-7.5)
[2024-06-08] MEDS: cefTRIAXone SODIUM 2,000 MG/50 ML BAG IV SCH (15:21)
--- NOTE | 2024-06-08 17:05 | Hospitalist Progress Note ---
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 Mechanical Fall Left periprosthetic femoral shaft fracture was admitted on med tele given pt hx of svt --Femur Xray: Acute mildly distracted oblique fracture through the distal shaft of the left femur. POD # [address] Ghosh, EBL 400ml stool softeners started given pt propensity to be constipated on narcotics Oxy IR ordered (received TWO doses over past 24 hours), IV dilaudid 0.5 (ONE DOSE over past 24 hours) IV Dilaudid 0.25 (ONE dose over past 24 hours); DC Dilaudid 0.5 on 12. Goal to DC Dialudid 0.25 on 06/06 No drain identified; left immobilizer on Vit D adequate Worked with PT/OT; improving and required assist x1 to get to chair. LENNY Nielsen today 06/08 Pain well-controlled Continue PT OT Hx of DVT/Saddle PE: occurred post-op 2014 on warfarin, INR reversed on admission Warfarin resumed on the evening of POD #0, lovenox bridging ordered, monitor hgb home regimen is 5mg sun/sun and 10mg all other days Hold Coumadin today. Continue Lovenox Hold ASA 06/06 Lovenox bridge plus Coumadin on hold in light of acute blood loss anemia, unclear etiology Aspirin also on hold Hematology service consulted for further recommendations 06/07 Hemoglobin remained stable No overt evidence of GI bleeds or any active bleeding sources Will resume Lovenox but will start at 40 mg subcutaneous every 12 hours for DVT prophylaxis If hemoglobin remained stable and no signs of bleeding, will increase to therapeutic Lovenox dosing as bridge to Coumadin by tomorrow 06/08 Hemoglobin remained stable No signs of active bleeding Therapeutic dose of Lovenox twice daily restarted today Monitor closely If remains stable, will initiate Coumadin in addition to Lovenox bridge tomorrow Acute blood loss Anemia Iron deficiency anemia 2/2 expected post operative loses and dilutional component EBL 400 mL: hgb 12 on admission, has been holding at 8.4 transfuse hgb < 7 06/04: Hgb this AM 7.0--> 1UPRBC-->8.4--> 06/05 AM 7.5--> recheck at 1500 No hypoxia and remains on RA No h/o CHF Anemia work up: * Reticulocyte count 2.70 * Folate level 9.40 * Fe+ level < 10; Venofer 300 mg IV ordered B12 level 99; started on cyanocobalamin Hematology consult placed for further guidance 06/06 Hemoglobin again dropped to 6.9 this morning No clear evidence of active bleeding No melena or hematochezia, FOBT negative Left hip region, without hematoma, or signs of bleeding 1 unit packed RBCs ordered Repeat at 4 PM GI consulted-no plans for EGD colonoscopy at this point given absence of overt signs of GI bleed, negative FOBT No signs of hemolysis per workup including peripheral smear, fibrinogen, etc. Acute blood loss anemia secondary to blood loss from surgery? Hematology service consulted for further recommendations 06/07 Hemoglobin stable Lovenox for DVT prophylaxis started today Monitor closely 06/08 Management per #1 Urinary tract infection Patient complaining of polyuria today UA suggestive of UTI Urine culture pending Nielsen catheter placed for surgery, removed last Ceftriaxone 2 g IV started Follow-up cultures Hypoxia: Has had intermittent hypoxia this admission. Today remained on RA SpO2 96%. 06/04: CXR negative for acute cardiopulmonary disease pt denies hx of MEDARDO, could consider nocturnal sleep study prior to d/c to see if qualifies for nocturnal O2 06/06 Currently on room air CKD -3- chronic, stable, cr baseline 1-1.1, avoid nephrotoxic agents Gout: on probenecid, will hold in the perioperative phase HTN: hold HCTZ in perioperative phase, Bp still on the softer side so will continue to hold, reassess daily and resume as able Hx of SVT: noted on recent outpt holter monitor, was placed on metoprolol, will follow on tele Pre Diabetes/Hyperparathyroidism: follows Jun Ulbrect: continue calcitriol, calcium, vit k supplements Obesity: BMI 43 encourage diet/lifestyle modifications when able DVT ppx: warfarin resumed/bridging with lovenox, d/c lovenox when INR at 2.0 or above. Coumadin on hold due to anemia PCP: Niranjan FULL CODE Dispo:Continue to monitor in med telemetry Admission and Anticipated Discharge Date Admission Date: June 01, 2024 Subjective Resting bedside chair, comfortable, not in distress States she feels fine overall Able to ambulate better No chest pain, shortness of breath, dizziness No signs of active GI bleed or any other bleeding sources Reports polyuria No fevers or chills Review of Systems Review of Systems: all noted and negative except for above Physical Exam Physical Exam: General- oriented x 3, not in distress, speaks in sentences with no effort or accessory muscle use Eyes- anicteric Neck- no JVD Lungs- clear breath sounds bilaterally, no rales/wheezes Heart- normal rate, regular rhythm; no murmurs Abdomen- normal bowel sounds, nondistended, soft, nontender Extremities- no pretibial edema, no calf tenderness Neuro- alert, oriented x 3; no gross focal neurologic deficits Skin- warm & dry Results & Data Results & Data Vital Signs (Past 12 Hours) Vital Signs Temp Pulse Pulse Resp BP BP Pulse Ox 06/08/24 15:28 36.9 C 85 18 103/66 97 06/08/24 14:40 85 06/08/24 12:32 141/76 H 06/08/24 11:13 36.8 C 79 18 91/58 L 96 06/08/24 09:45 06/08/24 07:48 36.7 C 74 18 111/72 95 06/08/24 07:01 69 O2 Del Method 06/08/24 15:28 Room Air 06/08/24 14:40 06/08/24 12:32 06/08/24 11:13 Room Air 06/08/24 09:45 Room Air 06/08/24 07:48 Room Air 06/08/24 07:01 all noted and reviewed including below
[2024-06-09 06:45] LABS: Hemoglobin 7.3 g/dl (12.0-16.0); Mean Corpuscular Hemoglobin 29.4 pg (25.0-34.0); Mean Corpuscular Hgb Conc 31.7 g/dL (32.0-36.0); Mean Corpuscular Volume 92.7 fL (80.0-100.0); Mean Platelet Volume 9.8 fL (9.4-12.4); Platelet Count 332 K/uL (130-400); RDW Coefficient of Variation 15.2 % (11.5-14.5); RDW Standard Deviation 50.1 fL (36.4-46.3); Red Blood Count 2.48 M/uL (4.20-5.40); White Blood Count 8.03 K/ul (4.8-10.8)
[2024-06-09 07:26] LABS: Basophils # (auto) 0.04 K/uL (0.00-0.20); Basophils % (auto) 0.5 %; Eosinophils % (auto) 3.7 %; Immature Granulocytes # (auto) 0.46 K/uL (0.01-0.20); Immature Granulocytes % (auto) 5.7 %; Lymphocytes # (auto) 1.57 K/uL (1.20-3.40); Lymphocytes % (auto) 19.6 %; Monocytes # (auto) 0.69 K/uL (0.11-0.59); Monocytes % (auto) 8.6 %; Neutrophils # (auto) 4.97 K/uL (1.40-6.50); Neutrophils % (auto) 61.9 %; Polychromasia 1+
--- NOTE | 2024-06-09 09:25 | Hospitalist Progress Note ---
Date of Service June 09, 2024 Assessment & Plan (1) Loraine-prosthetic femoral shaft fracture: (2) Fall: (3) care home current use of anticoagulant therapy: (4) Class 3 obesity: (5) History of pulmonary embolism: Plan This is a 74-year-old female who has significant past medical history of HTN, CKD stage III, obesity, gout, hx of svt, hyperparathyroidism, pre diabetes, history of bilateral total knee replacement, chronic anticoagulation 2/2 dvt and PE on warfarin who presents to ED after sustaining a fall. Mechanical Fall Left periprosthetic femoral shaft fracture was admitted on med tele given pt hx of svt --Femur Xray: Acute mildly distracted oblique fracture through the distal shaft of the left femur. POD # [address] Ghosh, EBL 400ml stool softeners started given pt propensity to be constipated on narcotics -she had a BM on 12/ Vit D adequate Cont PT/OT, pt will need acute rehab at discharge Hx of DVT/Saddle PE: occurred post-op 2014 on warfarin, INR reversed on admission Warfarin resumed on the evening of POD #0, lovenox bridging ordered, monitor hgb home regimen is 5mg sun/sun and 10mg all other days Pt had decrease in hgb/hct post operatively after lovenox/coumadin re initiated. lovenox, warfarin held initially required 2 units PRBC - hgb now stabilized GI consulted: felt not overt GIB, Hemoccult negative Hematology consulted pt with evidence of iron/vit b12 deficiency, received IV venofer, will continue oral supplementation resume lovenox/warfarin bridge Acute blood loss Anemia Iron deficiency anemia 2/2 expected post operative loses and dilutional component EBL 400 mL: hgb 12 on admission, 06/04: Hgb this AM 7.0--> 1UPRBC-->8.4--> 06/05 AM 7.5--> recheck at 1500 No hypoxia and remains on RA No h/o CHF Anemia work up: * Reticulocyte count 2.70 * Folate level 9.40 * Fe+ level < 10; Venofer 300 mg IV ordered B12 level 99; started on cyanocobalamin and Iron supplement Hematology consult placed for further guidance No signs of hemolysis per workup including peripheral smear, fibrinogen, etc. Urinary tract infection Patient complaining of polyuria today UA suggestive of UTI Urine culture > 100k gram negative bacilli Nielsen catheter placed for surgery, removed last Ceftriaxone 2 g IV started, add probiotic Follow-up cultures Hypoxia: Has had intermittent hypoxia this admission. Today remained on RA SpO2 96%. 06/04: CXR negative for acute cardiopulmonary disease pt denies hx of MEDARDO, could consider nocturnal sleep study prior to d/c to see if qualifies for nocturnal O2 CKD -3- chronic, stable, cr baseline 1-1.1, avoid nephrotoxic agents Gout: on probenecid, will hold in the perioperative phase HTN: hold HCTZ in perioperative phase, Bp still on the softer side so will continue to hold, reassess daily and resume as able Hx of SVT: noted on recent outpt holter monitor, was placed on metoprolol, will follow on tele Pre Diabetes/Hyperparathyroidism: follows Junissact: continue calcitriol, calcium, vit k supplements Obesity: BMI 44 encourage diet/lifestyle modifications when able DVT ppx: warfarin resumed/bridging with lovenox, d/c lovenox when INR at 2.0 or above. PCP: Niranjan FULL CODE Dispo:Continue to monitor in med telemetry I spent a total of 42 minutes reviewing notes, outpatient records, labs, medication, coordinating, documenting and providing care for this patient excluding time spent in the performance of separately billed services. Admission and Anticipated Discharge Date Admission Date: June 01, 2024 Subjective She reports her burning with urination has resolved with antibiotic and pyridium. Overall she feels improved this morning. She reports sleeping from 1am. to 6 a.m. She denies any dizziness, lightheaded, chest pain, sob, n/v/d. She moved her bowels today. Review of Systems Review of Systems: All systems reviewed & are unremarkable except as noted in HPI & below Physical Exam Physical Exam: Gen: WD/WN, obese female, sitting up in bedside chair, NAD, A&O x3 HEENT: Normocephalic, atraumatic, conjunctivae moist, sclerae anicteric, mucous membranes moist. Lung: Clear to Auscultation bilaterally, no wheezes/rales/rhonchi Heart: Regular rate, regular rhythm, no murmurs, rubs, or gallops Abdomen: obese abd, Soft, NT, ND +BS x 4 Extremities: LLE thigh dressing in place, CDI, immobilizer in place Skin: Warm, no rash, negative turgor. Results & Data Results & Data Vital Signs (Past 12 Hours) Vital Signs Temp Pulse Pulse Resp BP Pulse Ox O2 Del Method 06/09/24 08:22 36.7 C 82 18 127/64 91 Room Air 06/09/24 07:44 63 06/09/24 01:40 36.7 C 69 18 110/64 95 Room Air 06/08/24 23:37 Room Air 06/08/24 22:38 37.1 C 69 18 107/64 95 Room Air 06/08/24 22:05 70 Laboratory Results Short CBC 06/09/24 Range/Units 05:35 WBC 8.03 (4.8-10.8) K/ul Hgb 7.3 L (12.0-16.0) g/dl Hct 23.0 L (37.0-47.0) % Plt Count 332 (130-400) K/uL Urine 06/08/24 Range/Units 12:35 Urine Color Dark Yellow Urine Appearance Turbid A (Clear) Urine pH 6.5 (4.5-7.5) Ur Specific [place] 1.007 (1.000-1.030) Urine Protein Negative (Negative) Urine Glucose (UA) Negative (Negative) I have independently reviewed and interpreted patient's CBC, UA and Urine prelim culture. Medications Administered Current Inpatient Medications Acetaminophen (Acetaminophen 325 Mg Tab) 650 mg PO Q4H PRN PRN Reason: Pain or Fever Stop: 07/01/24 18:32 Last Admin: 06/08/24 21:00 Dose: 650 mg Bisacodyl (Bisacodyl 10 Mg Supp) 10 mg OR DAILY PRN PRN Reason: Constipation Stop: 07/01/24 18:32 Last Admin: 06/06/24 09:38 Dose: 10 mg Calcitriol (Calcitriol 0.25 Mcg Capsule) 0.25 mcg PO DAILY [facility] Stop: 07/02/24 08:59 Last Admin: 06/08/24 07:41 Dose: 0.25 mcg Calcium/Vitamin D (Calcium 600mg + Vit D 400 Iu Tab) 1 tab PO DAILY I[facility] Stop: 07/02/24 08:59 Last Admin: 06/08/24 07:42 Dose: 1 tab Cyanocobalamin (Cyanocobalamin (B-12) 500 Mcg Tablet) 1,000 mcg PO QAM [facility] Stop: 07/05/24 11:59 Last Admin: 06/08/24 07:41 Dose: 1,000 mcg Docusate Sodium (Docusate Sodium 100 Mg Cap) 100 mg PO BID [facility] Stop: 07/01/24 20:59 Last Admin: 06/08/24 20:56 Dose: 100 mg Enoxaparin Sodium (Enoxaparin Inj 120 Mg/0.8 Ml Syr) 111 mg SQ Q12 [facility] Stop: 07/08/24 08:59 Last Admin: 06/08/24 20:56 Dose: 111 mg Famotidine (Famotidine 20 Mg Tab) 20 mg PO DAILY PRN PRN Reason: Heartburn Stop: 07/01/24 18:32 Ceftriaxone Sodium (Rocephin) 2,000 mg in 50 mls @ 100 mls/hr IV Q24H [facility] Stop: 06/18/24 14:59 Last Infusion: 06/08/24 15:55 Dose: Infused Magnesium Hydroxide (Magnesium Hydroxide Susp 30 Ml Udc) 30 ml PO Q6H PRN PRN Reason: Constipation Stop: 07/02/24 17:32 Melatonin (Melatonin 3 Mg Tab) 6 mg PO HS PRN PRN Reason: Sleep Stop: 07/01/24 20:59 Last Admin: 06/08/24 18:27 Dose: 6 mg Metoclopramide HCl (Metoclopramide Hcl Inj 5 Mg/Ml 2 Ml Vial) 10 mg IV Q6H PRN PRN Reason: Nausea And Vomiting Stop: 07/02/24 17:32 Metoprolol Succinate (Metoprolol Succ 25mg Ext Rel Tab) 25 mg PO DAILY [facility] Stop: 07/02/24 08:59 Last Admin: 06/08/24 07:41 Dose: 25 mg Multivitamins (Multivitamin Tab) 1 tab PO QAM [facility] Stop: 07/03/24 08:59 Last Admin: 06/08/24 07:42 Dose: 1 tab Ondansetron HCl (Ondansetron Inj 2 Mg/Ml 2 Ml Vial) 4 mg IV Q6H PRN PRN Reason: Nausea Stop: 07/01/24 18:32 Ondansetron HCl (Ondansetron Inj 2 Mg/Ml 2 Ml Vial) 4 mg IV Q6H PRN PRN Reason: Nausea And Vomiting Stop: 07/02/24 17:32 Oxycodone HCl (Oxycodone Hcl Ir 5 Mg Tab (Immediate Release)) 5 mg PO Q4H PRN PRN Reason: MODERATE Pain (4,5,6) & Pre PT Stop: 06/15/24 18:32 Last Admin: 06/09/24 01:41 Dose: 5 mg Pantoprazole Sodium (Pantoprazole 40 Mg Tab) 40 mg PO BID [facility]; Protocol Stop: 07/05/24 20:59 Last Admin: 06/08/24 20:56 Dose: 40 mg Phenazopyridine HCl (Phenazopyridine Hcl 100 Mg Tab) 100 mg PO TID PRN PRN Reason: bladder spasm Stop: 07/07/24 11:49 Last Admin: 06/08/24 23:00 Dose: 100 mg Polyethylene Glycol (Polyethylene (Miralax) 17 Gm Pack) 17 gm PO DAILY [facility] Stop: 07/02/24 08:59 Last Admin: 06/08/24 07:49 Dose: 17 gm Potassium Chloride (Potassium Chloride Crtab 20 Meq Tabcr) 20 meq PO DAILY [facility] Stop: 07/02/24 08:59 Last Admin: 06/08/24 07:49 Dose: 20 meq Sennosides (Senna 8.6 Mg Tab) 17.2 mg PO HS [facility] Stop: 07/02/24 20:59 Last Admin: 06/08/24 20:49 Dose: Not Given Vitamin D (Cholecalciferol 125 Mcg (5,000 Units) Tab) 125 mcg PO DAILY [facility] Stop: 07/02/24 08:59 Last Admin: 06/08/24 07:42 Dose: 125 mcg Warfarin Sodium (Warfarin Sod 5 Mg Tab) 5 mg PO [email or web address] [facility] Stop: 07/04/24 15:59 Warfarin Sodium (Warfarin Sod 10 Mg Tab) 10 mg PO [email or web address] [facility] Stop: 07/02/24 18:14 Last Admin: 06/03/24 16:02 Dose: 10 mg
[2024-06-09] MEDS: ADVANCED PROBIOTIC 625 MG CAPSULE PO SCH (10:31)
[2024-06-10 08:08] LABS: Hematocrit (blood only) 26.3 % (37.0-47.0); Hemoglobin 8.5 g/dl (12.0-16.0); Mean Corpuscular Hemoglobin 29.8 pg (25.0-34.0); Mean Corpuscular Hgb Conc 32.3 g/dL (32.0-36.0); Mean Corpuscular Volume 92.3 fL (80.0-100.0); Mean Platelet Volume 9.5 fL (9.4-12.4); Nucleated RBC # (auto) 0.02 K/uL (0.00-0.12); Nucleated RBC % (auto) 0.2 %; Platelet Count 446 K/uL (130-400); RDW Coefficient of Variation 15.9 % (11.5-14.5); RDW Standard Deviation 51.6 fL (36.4-46.3); Red Blood Count 2.85 M/uL (4.20-5.40); White Blood Count 8.21 K/ul (4.8-10.8)
[2024-06-10 08:26] LABS: Anisocytosis Present; Basophils # (auto) 0.05 K/uL (0.00-0.20); Basophils % (auto) 0.6 %; Eosinophils # (auto) 0.25 K/uL (0.00-0.50); Hypersegmented Neutrophils 1+; Immature Granulocytes # (auto) 0.46 K/uL (0.01-0.20); Immature Granulocytes % (auto) 5.6 %; Lymphocytes % (auto) 20.7 %; Monocytes % (auto) 7.3 %; Neutrophils # (auto) 5.15 K/uL (1.40-6.50); Neutrophils % (auto) 62.8 %; Polychromasia 1+
[2024-06-10] MEDS: FERROUS SULFATE 325 MG TAB PO SCH (08:30)
[2024-06-10 08:31] LABS: Prothrombin Time 10.6 Seconds (9.0-12.0)
[2024-06-10 08:34] LABS: BUN Creatinine Ratio 23.9 (10-20); Calcium 9.2 mg/dl (8.6-10.3); Creatinine Clr Calc Pharmacy 68.6 ml/min; Potassium 3.8 mmol/L (3.5-5.1); Uric Acid 7.9 mg/dl (2.6-7.2)
--- NOTE | 2024-06-10 09:51 | Hospitalist Progress Note ---
Date of Service June 10, 2024 Assessment & Plan (1) Loraine-prosthetic femoral shaft fracture: (2) Fall: (3) residential current use of anticoagulant therapy: (4) Class 3 obesity: (5) History of pulmonary embolism: Plan This is a 74-year-old female who has significant past medical history of HTN, CKD stage III, obesity, gout, hx of svt, hyperparathyroidism, pre diabetes, history of bilateral total knee replacement, chronic anticoagulation 2/2 dvt and PE on warfarin who presents to ED after sustaining a fall. Mechanical Fall Left periprosthetic femoral shaft fracture was admitted on med tele given pt hx of svt --Femur Xray: Acute mildly distracted oblique fracture through the distal shaft of the left femur. POD # [address] Ghosh, EBL 400ml stool softeners started given pt propensity to be constipated on narcotics -she had a BM on 12/ Vit D adequate Cont PT/OT, pt will need acute rehab at discharge Hx of DVT/Saddle PE: occurred post-op 2014 on warfarin, INR reversed on admission Warfarin resumed on the evening of POD #0, lovenox bridging ordered, monitor hgb home regimen is 5mg sun/sun and 10mg all other days Pt had decrease in hgb/hct post operatively after lovenox/coumadin re initiated. lovenox, warfarin held initially required 2 units PRBC - hgb now stabilized and 8.5 today GI consulted: felt not overt GIB, Hemoccult negative Hematology consulted pt with evidence of iron/vit b12 deficiency, received IV venofer, will continue oral supplementation resume lovenox/warfarin bridge Acute blood loss Anemia Iron deficiency anemia 2/2 expected post operative loses and dilutional component EBL 400 mL: hgb 12 on admission, 06/04: Hgb this AM 7.0--> 1UPRBC-->8.4--> 06/05 AM 7.5--> recheck at 1500 No hypoxia and remains on RA No h/o CHF Anemia work up: * Reticulocyte count 2.70 * Folate level 9.40 * Fe+ level < 10; Venofer 300 mg IV ordered B12 level 99; started on cyanocobalamin and Iron supplement Hematology consult placed for further guidance No signs of hemolysis per workup including peripheral smear, fibrinogen, etc. Urinary tract infection Patient complaining of polyuria today UA suggestive of UTI Urine culture > E. Coli, Pansensitive Nielsen catheter placed for surgery, removed last Continue IV Ceftriaxone, Day #3, can de escalate to oral upon discharge Follow-up cultures Hypoxia: Has had intermittent hypoxia this admission. Today remained on RA SpO2 96%. 06/04: CXR negative for acute cardiopulmonary disease pt denies hx of MEDARDO, could consider nocturnal sleep study prior to d/c to see if qualifies for nocturnal O2 CKD -3- chronic, stable, cr baseline 1-1.1, avoid nephrotoxic agents Gout: on probenecid, will hold in the perioperative phase HTN: hold HCTZ in perioperative phase, Bp still on the softer side so will continue to hold, this a.m. 151/89 but otherwise low, will continue to hold and monitor Hx of SVT: noted on recent outpt holter monitor, was placed on metoprolol, will follow on tele Pre Diabetes/Hyperparathyroidism: follows Jun Ulbrect: continue calcitriol, calcium, vit k supplements Obesity: BMI 44 encourage diet/lifestyle modifications when able DVT ppx: warfarin resumed/bridging with lovenox, d/c lovenox when INR at 2.0 or above. PCP: Niranjan FULL CODE Dispo:downgrade to med/surg she is medically stable for discharge to rehab I spent a total of 45 minutes reviewing notes, outpatient records, labs, medication, coordinating, documenting and providing care for this patient excluding time spent in the performance of separately billed services. Admission and Anticipated Discharge Date Admission Date: June 01, 2024 Subjective Pt reports she feels like she has been given steroids, but hasn't. She feels jittery. She states she urinated 2L last night. She recalls this happening to her father where he went into an overdiuresis and eventually . He was 75 when this happened. She feels like this is happening to her. She reports urinary frequency, but denies urgency or dysuria. SHe reports having a hx of her parathyroids removed which resulted in metabolic derangements. SHe feels this is currently going on. She feels her calcium and cortisol are off. She hasn't slept well in 3 days. She denies f/c/s, chest pain, sob, n/v/d. Review of Systems Review of Systems: All systems reviewed & are unremarkable except as noted in HPI & below Physical Exam Physical Exam: Gen: WD/WN, obese female, sitting up in bedside chair, NAD, appears very anxious, A&O x3 HEENT: Normocephalic, atraumatic, conjunctivae moist, sclerae anicteric, mucous membranes moist. Lung: Clear to Auscultation bilaterally, no wheezes/rales/rhonchi Heart: Regular rate, regular rhythm, no murmurs, rubs, or gallops Abdomen: obese abd, Soft, NT, ND +BS x 4 Extremities: LLE thigh dressing in place, CDI, immobilizer in place Skin: Warm, no rash, negative turgor. Results & Data Results & Data Vital Signs (Past 12 Hours) Vital Signs Temp Pulse Pulse Resp BP BP Pulse Ox 06/10/24 08:01 36.6 C 97 H 16 151/89 H 95 06/10/24 07:14 86 06/10/24 02:38 36.7 C 62 18 105/64 94 06/09/24 23:30 68 06/09/24 22:50 37.0 C 84 18 108/69 94 O2 Del Method 06/10/24 08:01 Room Air 06/10/24 07:14 06/10/24 02:38 Room Air 06/09/24 23:30 06/09/24 22:50 Room Air Laboratory Results Short CBC 06/10/24 Range/Units 07:39 WBC 8.21 (4.8-10.8) K/ul Hgb 8.5 L (12.0-16.0) g/dl Hct 26.3 L (37.0-47.0) % Plt Count 446 H (130-400) K/uL BMP 06/10/24 07:39 Sodium 140 Potassium 3.8 Chloride 103 Carbon Dioxide 30 BUN 21 Creatinine 0.88 Glucose 112 H Calcium 9.2 I have independently reviewed and interpreted patient's cbc, bmp, cortisol, tsh, ionized ca Medications Administered Current Inpatient Medications Acetaminophen (Acetaminophen 325 Mg Tab) 650 mg PO Q4H PRN PRN Reason: Pain or Fever Stop: 07/01/24 18:32 Last Admin: 06/09/24 22:25 Dose: 650 mg Bisacodyl (Bisacodyl 10 Mg Supp) 10 mg UT DAILY PRN PRN Reason: Constipation Stop: 07/01/24 18:32 Last Admin: 06/06/24 09:38 Dose: 10 mg Calcitriol (Calcitriol 0.25 Mcg Capsule) 0.25 mcg PO DAILY [facility] Stop: 07/02/24 08:59 Last Admin: 06/10/24 08:24 Dose: 0.25 mcg Calcium/Vitamin D (Calcium 600mg + Vit D 400 Iu Tab) 1 tab PO DAILY [facility] Stop: 07/02/24 08:59 Last Admin: 06/10/24 08:24 Dose: 1 tab Cyanocobalamin (Cyanocobalamin (B-12) 500 Mcg Tablet) 1,000 mcg PO QAM [facility] Stop: 07/05/24 11:59 Last Admin: 06/10/24 08:24 Dose: 1,000 mcg Docusate Sodium (Docusate Sodium 100 Mg Cap) 100 mg PO BID [facility] Stop: 07/01/24 20:59 Last Admin: 06/10/24 08:28 Dose: 100 mg Enoxaparin Sodium (Enoxaparin Inj 120 Mg/0.8 Ml Syr) 111 mg SQ Q12 [facility] Stop: 07/08/24 08:59 Last Admin: 06/10/24 08:23 Dose: 111 mg Famotidine (Famotidine 20 Mg Tab) 20 mg PO DAILY PRN PRN Reason: Heartburn Stop: 07/01/24 18:32 Ferrous Sulfate (Ferrous Sulfate 325 Mg Tab) 325 mg PO QAM [facility] Stop: 07/10/24 08:59 Last Admin: 06/10/24 08:30 Dose: 325 mg Ceftriaxone Sodium (Rocephin) 2,000 mg in 50 mls @ 100 mls/hr IV Q24H [facility] Stop: 06/18/24 14:59 Last Infusion: 06/09/24 15:16 Dose: Infused Lactobacillus Acidophilus (Advanced Probiotic 625 Mg Capsule) 1,250 mg PO DAILY [facility] Stop: 07/09/24 09:24 Last Admin: 06/10/24 08:23 Dose: 1,250 mg Magnesium Hydroxide (Magnesium Hydroxide Susp 30 Ml Udc) 30 ml PO Q6H PRN PRN Reason: Constipation Stop: 07/02/24 17:32 Melatonin (Melatonin 3 Mg Tab) 6 mg PO HS PRN PRN Reason: Sleep Stop: 07/01/24 20:59 Last Admin: 06/08/24 18:27 Dose: 6 mg Metoclopramide HCl (Metoclopramide Hcl Inj 5 Mg/Ml 2 Ml Vial) 10 mg IV Q6H PRN PRN Reason: Nausea And Vomiting Stop: 07/02/24 17:32 Metoprolol Succinate (Metoprolol Succ 25mg Ext Rel Tab) 25 mg PO DAILY [facility] Stop: 07/02/24 08:59 Last Admin: 06/10/24 08:24 Dose: 25 mg Multivitamins (Multivitamin Tab) 1 tab PO QAM [facility] Stop: 07/03/24 08:59 Last Admin: 06/10/24 08:24 Dose: 1 tab Ondansetron HCl (Ondansetron Inj 2 Mg/Ml 2 Ml Vial) 4 mg IV Q6H PRN PRN Reason: Nausea Stop: 07/01/24 18:32 Ondansetron HCl (Ondansetron Inj 2 Mg/Ml 2 Ml Vial) 4 mg IV Q6H PRN PRN Reason: Nausea And Vomiting Stop: 07/02/24 17:32 Oxycodone HCl (Oxycodone Hcl Ir 5 Mg Tab (Immediate Release)) 5 mg PO Q4H PRN PRN Reason: MODERATE Pain (4,5,6) & Pre PT Stop: 06/15/24 18:32 Last Admin: 06/10/24 01:02 Dose: 5 mg Pantoprazole Sodium (Pantoprazole 40 Mg Tab) 40 mg PO BID [facility]; Protocol Stop: 07/05/24 20:59 Last Admin: 06/10/24 08:24 Dose: 40 mg Phenazopyridine HCl (Phenazopyridine Hcl 100 Mg Tab) 100 mg PO TID PRN PRN Reason: bladder spasm Stop: 07/07/24 11:49 Last Admin: 06/09/24 23:24 Dose: 100 mg Polyethylene Glycol (Polyethylene (Miralax) 17 Gm Pack) 17 gm PO DAILY [facility] Stop: 07/02/24 08:59 Last Admin: 06/10/24 08:28 Dose: 17 gm Potassium Chloride (Potassium Chloride Crtab 20 Meq Tabcr) 20 meq PO DAILY [facility] Stop: 07/02/24 08:59 Last Admin: 06/10/24 08:28 Dose: 20 meq Sennosides (Senna 8.6 Mg Tab) 17.2 mg PO HS [facility] Stop: 07/02/24 20:59 Last Admin: 12/16/24 20:16 Dose: Not Given Vitamin D (Cholecalciferol 125 Mcg (5,000 Units) Tab) 125 mcg PO DAILY [facility] Stop: 07/02/24 08:59 Last Admin: 06/10/24 08:24 Dose: 125 mcg Warfarin Sodium (Warfarin Sod 5 Mg Tab) 5 mg PO [email or web address] [facility] Stop: 07/04/24 15:59 Warfarin Sodium (Warfarin Sod 10 Mg Tab) 10 mg PO [email or web address] [facility] Stop: 07/02/24 18:14 Last Admin: 06/09/24 15:23 Dose: 10 mg
[2024-06-10] MEDS: hydrOXYzine HCl 25 MG TAB PO PRN (21:14)
[2024-06-10 23:05] VITALS: PULSE 62; RESP 18
[2024-06-11 07:30] LABS: Basophils # (auto) 0.03 K/uL (0.00-0.20); Basophils % (auto) 0.4 %; Eosinophils # (auto) 0.23 K/uL (0.00-0.50); Eosinophils % (auto) 3.2 %; Hematocrit (blood only) 24.9 % (37.0-47.0); Hemoglobin 7.8 g/dl (12.0-16.0); Immature Granulocytes # (auto) 0.36 K/uL (0.01-0.20); Lymphocytes # (auto) 1.83 K/uL (1.20-3.40); Lymphocytes % (auto) 25.6 %; Mean Corpuscular Hemoglobin 29.2 pg (25.0-34.0); Mean Corpuscular Hgb Conc 31.3 g/dL (32.0-36.0); Mean Corpuscular Volume 93.3 fL (80.0-100.0); Mean Platelet Volume 9.5 fL (9.4-12.4); Monocytes # (auto) 0.48 K/uL (0.11-0.59); Monocytes % (auto) 6.7 %; Neutrophils # (auto) 4.22 K/uL (1.40-6.50); Neutrophils % (auto) 59.1 %; Nucleated RBC # (auto) 0.02 K/uL (0.00-0.12); Nucleated RBC % (auto) 0.3 %; Platelet Count 410 K/uL (130-400); RDW Coefficient of Variation 16.4 % (11.5-14.5); RDW Standard Deviation 53.3 fL (36.4-46.3); Red Blood Count 2.67 M/uL (4.20-5.40); White Blood Count 7.15 K/ul (4.8-10.8)
[2024-06-11 07:33] VITALS: BP 112/72; TEMP 99; O2SAT 96
[2024-06-11 07:48] LABS: Poikilocytosis Present; Polychromasia 1+
[2024-06-11 07:57] LABS: Prothrombin Time 11.1 Seconds (9.0-12.0)
--- NOTE | 2024-06-11 08:57 | Discharge Summary ---
Discharge Summary Date of Service June 11, 2024 The patient is a 73-year-old female with a past medical history of HTN, CKD stage III, obesity, gout, SVT, hyperparathyroidism, prediabetes, bilateral total knee replacement, chronic anticoagulation, DVT/PE on warfarin who presented to the ED on 06/01/2024 after sustaining a fall. On arrival to the ER, she was complaining of pain to the left leg. She was going down the steps carrying grapes and went down the steps and fell on her left knee. Patient reports being placed on a heart monitor in March and had 180 episodes of SVT, reports being compliant with metoprolol since. Knee x-ray revealed a left periprosthetic femur fracture. Patient was taken to the OR on 06/02/[address] Ghosh, EBL was 400 mL. Patient had acute blood loss anemia after surgery. S/p 2 units PRBC. Hemoglobin stabilized, 7.8 today. GI was consulted and felt that this was not a GI bleed. Hemoccult was negative. Hematology was consulted and patient has iron and vitamin B12 deficiencyreceived IV Venofer and patient will be discharged on oral supplementation. The patient has been continued on Lovenox/Coumadin bridge. Urinalysis was positive for UTI. Urine culture + E. colipansensitive, patient was started on IV ceftriaxone throughout hospitalization and will be bridged to p.o. Ceftin x 4 more days on DC. The patient will need a repeat H/H in 1 week to monitor hemoglobin. She will also need monitoring of INR. INR 1 today. The patient's labs/vitals are stable. The patient stable for discharge to [facility] for further PT/OT. Patient also has a history of CKD 3 which is chronic and stable, creatinine is at baseline, patient's HCTZ was placed on hold with softer BPs and will continue to be held on DC. The patient's metoprolol was continued for history of SVT. The patient need follow-up with her PCP within 1 week of discharge. The patient will need follow-up with cardiology within 2 weeks of discharge. 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 Mechanical Fall Left periprosthetic femoral shaft fracture was admitted on med tele given pt hx of svt --Femur Xray: Acute mildly distracted oblique fracture through the distal shaft of the left femur. POD # [address] Ghosh, EBL 400ml stool softeners started given pt propensity to be constipated on narcotics -she had a BM on 12 Vit D adequate Cont PT/OT, pt will need acute rehab at discharge Hx of DVT/Saddle PE: occurred post-op 2014 on warfarin, INR reversed on admission Warfarin resumed on the evening of POD #0, lovenox bridging ordered, monitor hgb home regimen is 5mg sun/sun and 10mg all other days Pt had decrease in hgb/hct post operatively after lovenox/coumadin re initiated. lovenox, warfarin held initially required 2 units PRBC - hgb now stabilized and 8.5 today GI consulted: felt not overt GIB, Hemoccult negative Hematology consulted pt with evidence of iron/vit b12 deficiency, received IV venofer, will continue oral supplementation resume lovenox/warfarin bridge Acute blood loss Anemia Iron deficiency anemia 2/2 expected post operative loses and dilutional component EBL 400 mL: hgb 12 on admission, 06/04: Hgb this AM 7.0--> 1UPRBC-->8.4--> 12 AM 7.5--> recheck at 1500 No hypoxia and remains on RA No h/o CHF Anemia work up: * Reticulocyte count 2.70 * Folate level 9.40 * Fe+ level < 10; Venofer 300 mg IV ordered B12 level 99; started on cyanocobalamin and Iron supplement Hematology consult placed for further guidance No signs of hemolysis per workup including peripheral smear, fibrinogen, etc. Urinary tract infection Patient complaining of polyuria today UA suggestive of UTI Urine culture > E. Coli, Pansensitive De La O catheter placed for surgery, removed last Continue IV Ceftriaxone, Day #3, can de escalate to oral upon discharge Follow-up cultures Hypoxia: Has had intermittent hypoxia this admission. Today remained on RA SpO2 96%. 06/04: CXR negative for acute cardiopulmonary disease pt denies hx of MEDARDO, could consider nocturnal sleep study prior to d/c to see if qualifies for nocturnal O2 CKD -3- chronic, stable, cr baseline 1-1.1, avoid nephrotoxic agents Gout: on probenecid, will hold in the perioperative phase HTN: hold HCTZ in perioperative phase, Bp still on the softer side so will continue to hold, this a.m. 151/89 but otherwise low, will continue to hold and monitor Hx of SVT: noted on recent outpt holter monitor, was placed on metoprolol, will follow on tele Pre Diabetes/Hyperparathyroidism: follows [facility]: continue calcitriol, calcium, vit k supplements Obesity: BMI 44 encourage diet/lifestyle modifications when able DVT ppx: warfarin resumed/bridging with lovenox, d/c lovenox when INR at 2.0 or above. PCP: Niranjan FULL CODE Dispo:downgrade to med/surg she is medically stable for discharge to rehab I spent a total of 45 minutes reviewing notes, outpatient records, labs, medication, coordinating, documenting and providing care for this patient excluding time spent in the performance of separately billed services. Notes For Next Care Provider please check h/h in 1 week Medication Changes From Visit HCTZ placed on hold, Lovenox/Coumadin bridge on DC Admission HPI Per Admitting Provider This is a 73-year-old female who has significant past medical history of HTN, CKD stage III, obesity, gout, hx of svt, hyperparathyroidism, pre diabetes, history of bilateral total knee replacement, chronic anticoagulation 2/2 dvt and PE on warfarin who presents to ED after sustaining a fall. She is complaining of a lot of pain to the L leg. She states she was going down the steps carrying grapes and went down the steps falling on her L knee. She felt immediate pain from L knee up to mid thigh. She is on warfarin since 2014 due to hx of DVT and saddle PE. She reports bridging on her prior surgeries. She did lovenox shots for bridging in the past. Other than pain she offers no other acute concerns. She denies fever, chills, sweats, chest pain, shortness breath, nausea, vomiting or abdominal pain. She reports having her left total knee done at [facility]. Her right total knee was done by Dr. Clements. She had prior hip surgery by Dr. Ghosh. In regards to pt hx of arrhythmia she reports wearing a heart monitor in march and was told she had 180 episodes of SVT and she was placed on metoprolol. In ED patient remained hemodynamically stable. Knee x-ray revealed a left periprosthetic femur fracture. ED provider spoke with orthopedics on-call Dr. Ghosh who was agreeable to keep patient. Admission Exam Per Admitting Provider GENERAL APPEARANCE: AxOx4, no distress s/p IV analgesia HEENT: NC, AT. MMM. EOMI, clear conjunctiva, oropharynx clear. NECK: Supple without lymphadenopathy. No stiffness or restricted ROM. HEART: Normal rate and regular rhythm, normal S1/S1, no m/r/g LUNGS: CTAB, moving air well. No crackles or wheezes are heard. ABDOMEN: Soft, nontender, nondistended with good bowel sounds heard. EXTREMITIES: small bruise noted on RLE, LLE externally rotated and abducted, pulse intact NEUROLOGICAL: Grossly nonfocal. Alert and oriented, moving all 4 extremities. CN not formally tested but appear grossly intact. Skin: Warm and dry without any rash. : Discharge Exam Gen: WD/WN, obese female, sitting up in bedside chair, NAD, appears very anxious, A&O x3 HEENT: Normocephalic, atraumatic, conjunctivae moist, sclerae anicteric, mucous membranes moist. Lung: Clear to Auscultation bilaterally, no wheezes/rales/rhonchi Heart: Regular rate, regular rhythm, no murmurs, rubs, or gallops Abdomen: obese abd, Soft, NT, ND +BS x 4 Extremities: LLE thigh dressing in place, CDI, immobilizer in place; +1 non pitting edema, b/l LE Skin: Warm, no rash, negative turgor. Constitutional WD/WN, vitals as above + overweight Updated Medication List Medication Instructions Recorded Confirmed Type magnesium 250 mg tablet 250 mg PO QAM 07/25/18 06/01/24 History probenecid 500 mg tablet 250 mg PO BID 08/20/20 06/01/24 History acetaminophen 500 mg tablet 1,000 mg PO Q6H PRN Pain 02/24/21 06/01/24 History (Tylenol Extra Strength) calcium carbonate-vitamin D3 600 1 tab PO DAILY 02/24/21 06/01/24 History mg-125 unit tablet cholecalciferol (vitamin D3) 125 125 mcg PO DAILY 02/24/21 06/01/24 History mcg (5,000 unit) tablet (Vitamin D3) simethicone 80 mg chewable tablet 80 mg PO HS PRN Other 03/31/21 06/01/24 History amoxicillin 500 mg tablet 2,000 mg (4 x 500 mg) PO ONCE PRN 07/11/22 06/01/24 Rx Prophylaxis #4 tabs potassium chloride 10 mEq 20 meq (2 x 10 mEq) PO DAILY #180 10/25/23 06/01/24 Rx capsule,extended release caps ascorbic acid (vitamin C) 500 mg 500 mg PO DAILY 02/06/24 06/01/24 History capsule coQ10 (ubiquinol) 100 mg capsule 200 mg PO DAILY 02/06/24 06/01/24 History (Qunol Sergio CoQ10) zinc citrate 16.7 mg chewable 15 mg PO DAILY 02/06/24 06/01/24 History tablet aspirin 81 mg tablet,delayed 81 mg PO DAILY 04/21/24 06/01/24 History release (Adult Low Dose Aspirin) warfarin 5 mg tablet See Rx Instructions PO UD 05/05/24 06/01/24 History calcitriol 0.25 mcg capsule 0.25 mcg PO DAILY #90 caps 05/30/24 06/01/24 Rx metoprolol succinate 25 mg 25 mg PO DAILY 06/01/24 06/01/24 History tablet,extended release 24 hr hydrochlorothiazide 25 mg tablet 25 mg PO Q OTHER DAY #45 tabs 06/02/24 Rx L.acidop,casei,lactis,rham-B.lact,janene 1 cap PO DAILY #14 caps 06/10/24 Rx 625 mg (10 billion cell) capsule (Advanced Probiotic) cefdinir 300 mg capsule 300 mg PO BID 4 days #8 caps 06/10/24 Rx cyanocobalamin (vitamin B-12) 500 1,000 mcg (2 x 500 mcg) PO QAM #30 06/10/24 Rx mcg tablet tabs docusate sodium 100 mg capsule 100 mg PO BID #20 caps 06/10/24 Rx enoxaparin 120 mg/0.8 mL 111 mg (0.74 mL) subcut Q12 #8 mL 06/10/24 Rx subcutaneous syringe (Lovenox) ferrous sulfate 325 mg (65 mg 325 mg PO QAM #20 tabs 06/10/24 Rx iron) tablet,delayed release pantoprazole 40 mg tablet,delayed 40 mg PO BID #60 tabs 06/10/24 Rx release sennosides 8.6 mg tablet (Senokot) 17.2 mg (2 x 8.6 mg) PO HS #30 tabs 06/10/24 Rx oxycodone 5 mg tablet 5 mg PO Q6H PRN pain #14 tabs 06/11/24 Rx Hospital Stay Data Consultations 06/01/24 15:54 ED Decision to Admit Stat 06/01/24 15:56 Consult Orthopedic Surgery Routine 06/01/24 18:33 Consult Anesthesiology Routine 06/05/24 08:54 Consult Hematology Routine 06/06/24 10:23 Consult Gastroenterology Routine Procedures Performed Operation Date: 06/02/24 09:05 Actual Procedures p Open reduction and internal fixation of left periprosthetic distal femur fracture.(Right) - Shaheed Ghosh DO Diagnostic Imagining Performed 06/02/24 06:40 FL femur LT 2V Routine 06/05/24 08:51 CT Abdomen and Pelvis [CT abd pelvis wo con] Stat Pending Results Patient Have Any Pending Studies at Discharge: No Discharge Instructions Given to Patient (Per Discharging Provider) MEDICATION CHANGES: * Cefdinir 300mg by mouth twice daily for additional 4 days to complete treatment for UTI * Lactobacillus 1 tablet by mouth daily for additional 7 days for GI Health * Lovenox 111mg SQ injection every 12 hours until INR is > 2.0 * Continue Stool Softeners Colace 100mg twice daily and Senna 1 tablet at bedtime while taking narcotic pain medication * Oxycodone 5 mg every 6 hours as needed * Pantoprazole 40mg by mouth twice daily * Cyanocobalamin 1,000mcg by mouth daily due to low vitamin B12 * Ferrous Sulfate 325mg by mouth daily for iron deficiency SUMMARY OF TEST RESULTS: You were admitted to hospital due to a fall and you had a L periprosthetic femur fracture. This was repaired. You are nonweightbearing to your LLE. Your hospital course was complicated by acute blood loss anemia requiring 2 blood product transfusions. You were also found to be iron and vitamin b12 deficient which as the building blocks of our red blood cells. These are being replaced. You developed a urinary tract infection due to the de la o catheter and you were treated with IV antibiotics PENDING TEST RESULTS: None RECOMMENDATIONS FOR FOLLOW-UP: Please follow up with your Primary Care Provider after discharge from Rehab. You will need your iron and vitamin b12 levels rechecked in 2 months. It is recommended you have your CBC, BMP and PT/INR checked within 1 day of discharge. It is recommended to check your PT/INR daily until your INR is the range of 2.0- 3.0. Your Lovenox will need to be discontinued when INR is > 2.0. It is recommended you discuss with your Primary Care provider regarding the need for a colonoscopy given your iron deficiency. If you are not up to date with routine screenings it is recommended to do so. Your Uric Acid level was checked at your request and it was elevated at 7.9. OTHER INSTRUCTIONS: Seek medical attention if you have: * temperature above 101 * chest pain or trouble breathing * abdominal pain, nausea, vomiting * diarrhea, dark stools or bloody stools * any unanswered questions or concerns Call 911 if symptoms are severe. Please take good care of yourself. It has been a pleasure taking care of you. Please take care of yourself. If you have any questions regarding your recent hospitalization please contact [facility] and request Yani Sharp @ [phone]. Total Time Total Time Spent Total Time Spent (In Minutes): 60 Supervising Physician Co-Signing Physician Notes Patient seen and examined by me, care coordinated with SATURNINO Randolph, please see her note above for further detail. Patient seen resting in bed in no acute distress, patient's RN present at the bedside, dressings being changed over LLE. Patient is alert, oriented, answers appropriately, currently denies any discomfort, has no concerns. Lungs are clear to auscultation bilaterally, no wheezes/rales/rhonchi, Heart: Regular rate, regular rhythm, LLE thigh dressing in place, CDI, immobilizer in place; +1 non pitting edema, b/l LE. Patient will be discharged on oral antibiotics to finish abx course for UTI. She will need follow up INR lab, and to monitor H&H. MD Dannielle
== END 2024-06-11 10:10 | DRG 481 ==
LOC: SUATTDRO → ED 13:30 → SUATTDRO 15:56 → 2W 15:56 → 3W 06-05 01:41 → 2N 06-05 18:35